=== PATIENT | female | born 1950 | race Caucasian/White ===

== ENCOUNTER 2018-10-13 09:32 | Emergency (ER) | payer MEDICARE, MEDICAID ==
[~2018-10-13] VITALS: Ht 167.6 cm; Wt 94.3 kg
[2018-10-13] MEDS ORDERED: ATOR40TA70 PO (11:08)
[2018-10-13] MEDS ORDERED: RANI150T11 PO (11:08)
[2018-10-13] MEDS ORDERED: ALPR1TAB7 PO (11:08)
[2018-10-13] MEDS ORDERED: AMLO10TA7 PO (11:08)
[2018-10-13] MEDS ORDERED: QUIN40TA14 PO (11:08)
[2018-10-13] MEDS ORDERED: GABA-490 PO (11:08)
--- NOTE | 2018-10-13 11:12 | NUR ---
TO X RAY PER W/C
--- NOTE | 2018-10-13 11:25 | NUR ---
FAMILY TO DESK REQUESTING WATER FOR PATIENT INFORMED THAT COULD NOT HAVE ANYTHING TO EAT OR DRINK INTILL WE GET X RAY BACK INCASE SHE WOULD HAVE TO GO TO SURG.
--- NOTE | 2018-10-13 11:41 | Diagnostic Imaging Report ---
INDICATION: Fall with left ankle injury and pain. FINDINGS: AP, oblique and lateral views of the left ankle reveal nondisplaced fracture involving the lateral malleolus. There is also fragmentation along the inferior margin of the medial malleolus which could represent avulsion injury. There is extensive swelling which is most pronounced on the lateral aspect of the ankle. There is also cortical irregularity along the dorsal aspect of the anterior talus. Prominent os trigonum is noted. There are also prominent posterior and plantar calcaneal spurs. IMPRESSION: Findings are suggestive of probable bimalleolar avulsion fractures without significant displacement. There may also be cortical levels and along the dorsal anterior talus. Dictated by: Dictated on workstation # [id number]
--- NOTE | 2018-10-13 11:59 | Diagnostic Imaging Report ---
CLINICAL INDICATION: Patient sustained a fall injury yesterday evening. EXAM: X-ray of the left wrist, three views. COMPARISON: None. FINDINGS: There is an impacted comminuted intra-articular fracture involving the distal radius. There is roughly 9 mm of volar radial directed displacement of the distal fracture fragment. There is positive ulnar variance of roughly 4 mm. There is a mildly distracted fracture of the distal ulnar styloid process with roughly 3 mm. There is no other fracture or dislocation of carpus seen. There is mild spurring of the first CMC joint. There is swelling about the wrist. IMPRESSION: 1: There is a comminuted, impacted, and displaced intra-articular fracture of the distal radius. There is associated positive ulnar variance. There is swelling about the wrist. 2: There is a mildly distracted fracture distal ulnar styloid process. Dictated by: Dictated on workstation # [id number]
--- NOTE | 2018-10-13 12:04 | ED Fall/Injury ---
General Chief Complaint: Trauma-Non Activation Stated Complaint: FALL;ANKLE/WRIST PAIN Nursing Triage Note: Pt reports falling this morning. Pt reports "foot fell asleep" and she lost her balance and fell. Deformity noted to L arm upon initial exam. Pt also c/o L ankle pain. Source: patient Exam Limitations: no limitations (YURI WRAY) History of Present Illness Date Seen by Provider: October 13, 2018 Time Seen by Provider: 11:20 Initial Comments Patient presents to ER by private conveyance with family and chief complaint she had a fall twisting her left ankle having some pain laterally and swelling and her left wrist has some swelling deformity and pain. No previous injuries or surgeries to these areas. Not on blood thinners. Took some Tylenol this morning but does not take NSAIDs because she thinks it'll make her blood pressure worse and does not want anything now. She says narcotics make her nauseated. She denies striking her head or loss of consciousness. (YURI WRAY) Allergies and Home Medications Allergies Uncoded Allergies: ALL PAIN MEDS (Adverse Reaction, Unknown, NAUSEA VOMITING, 10/13/18) Home Medications Hydrocodone Bit/Acetaminophen 1 Tab Tab, 1-2 EACH PO Q6H PRN for PAIN-MODERATE Prescribed by: YURI WRAY on 10/13/18 1327 Ondansetron 4 Mg Tab.rapdis, 4 MG PO Q6H PRN for NAUSEA/VOMITING Prescribed by: YURI WRAY on 10/13/18 1327 Patient Home Medication List Home Medication List Reviewed: Yes (YURI WRAY) Review of Systems Review of Systems Constitutional: No chills, No diaphoresis Eyes: Denies Blindness, Denies Blurred Vision Ears, Nose, Mouth, Throat: denies ear pain, denies ear discharge Respiratory: No cough, No dyspnea on exertion Cardiovascular: No chest pain, No palpitations Gastrointestinal: No abdominal pain, No constipation, No diarrhea Genitourinary: No discharge, No dysuria Musculoskeletal: see HPI; No back pain; joint pain (YURI WRAY) Past Ksbkxfl-Ahtasj-Slsfid Hx Patient Social History Alcohol Use: Denies Use Recreational Drug Use: No Smoking Status: Unknown if Ever Smoked Recent Foreign Travel: No Contact w/Someone Who Travel: No Recent Infectious Disease Expo: No (YURI WRAY) Past Medical History Surgeries: Yes Gallbladder Cardiac: Yes Hypertension Musculoskeletal: No Endocrine: No HEENT: No Cancer: Yes Cervical (YURI WRAY) Physical Exam Vital Signs Vital Signs - First Documented 10/13/18 10/13/18 10:47 12:47 Temp 97.5 Pulse 88 Resp 18 B/P (MAP) 145/96 (112) Pulse Ox 90 O2 Delivery Room Air O2 Flow Rate 2.00 (NANCY WHITE) Vital Signs Capillary Refill : Less Than 3 Seconds (YURI WRAY) Height, Weight, BMI Height: 5'6.00" Weight: 208lbs. oz. 94.718274ji; BMI Method:Stated General Appearance: WD/WN, mild distress HEENT: PERRL/EOMI, pharynx normal Neck: full range of motion, normal inspection Cardiovascular: normal peripheral pulses, regular rate, rhythm Respiratory: normal breath sounds, no respiratory distress, no accessory muscle use Gastrointestinal: normal bowel sounds, non tender, soft Extremities: normal capillary refill, other (distal neurovascular sensation and pulse and capillary refill less than 2 seconds on left foot and left hand. There is some swelling and tenderness of the left wrist and posterior lateral malleolus of the ankle left side) Neurologic/Psychiatric: alert, normal mood/affect, oriented x 3 (YURI WRAY ) Procedures/Interventions Splinting and Joint Reduction : Pre-Proc Neuro Vasc Exam: normal Post-Proc Neuro Vasc Exam: normal Arm Sling: Large Hand-Made Type: orthoglass (sugar tong splint was placed on left arm. Patient remained neurovascularly intact.) Splint Application: Short Arm, Short Leg (walking boot was placed on left foot.) (NANCY WHITE) Progress/Results/Core Measures Results/Orders Medications Given in ED Current Medications Medications Dose Ordered Sig/Juana Route Start Time Stop Time Status Last Admin Dose Admin Fentanyl Citrate 75 mcg ONCE ONCE IM 10/13/18 12:30 10/13/18 12:31 DC 10/13/18 12:40 75 MCG Ondansetron HCl 4 mg ONCE ONCE PO 10/13/18 12:15 10/13/18 12:16 DC 10/13/18 12:09 4 MG Tramadol HCl 50 mg ONCE ONCE PO 10/13/18 12:00 10/13/18 12:01 DC 10/13/18 12:09 50 MG (NANCY WHITE) Vital Signs/I&O 10/13/18 10/13/18 10:47 12:47 Temp 97.5 Pulse 88 Resp 18 B/P (MAP) 145/96 (112) Pulse Ox 90 O2 Delivery Room Air Nasal Cannula O2 Flow Rate 2.00 (NANCY WHITE) Blood Pressure Mean: 112 Progress Progress Note #1: Time: 12:03 Progress Note Patient says opiates make her nauseated and does not want hydrocodone's or any give her a tramadol with some Zofran. X-rays. Ice. Progress Note #2: Time: 12:27 Progress Note Plan to put a we get her and sugar tong splint on the left forearm to immobilize rotation and abduction adduction of the wrist. Plan to put a boot on the left foot for the lateral malleoli avulsion fracture. Patient says the tramadol does not help her pain is only gotten worse of any give her 75 g IM fentanyl and get her splinted which should help reduce some of her pain. She will follow-up in a week with surgeon. Progress Note #3: Time: 13:46 Progress Note Patient has a walking boot and needs a wheelchair because she has a bimalleolar malleoli or fracture of her left ankle and the orthopedic surgeons would like her toe touch only but no weightbearing even with the boot. Chain is not feasible method for nonweightbearing. She has decreased mobility secondary to her fall resulting in a fracture in her left ankle as well as some fracturing her left wrist. She will need at least for 1 week until seen the surgeon and possibly as long as 8 weeks until the fractures are healed. (YURI RWAY) Diagnostic Imaging Diagonstic Imaging: Xray Plain Films/CT/US/NM/MRI: ankle (left) Comments [facility] [place], [place] NAME: DAYANA GONZALEZ Stephanie MED REC#: [id number] PT STATUS: REG ER : 1950 PHYSICIAN: YURI WRAY MD ADMIT DATE: 10/13/18/ER Draft Date of Exam:10/13/18 ANKLE, LEFT, 3 VIEWS INDICATION: Fall with left ankle injury and pain. FINDINGS: AP, oblique and lateral views of the left ankle reveal nondisplaced fracture involving the lateral malleolus. There is also fragmentation along the inferior margin of the medial malleolus which could represent avulsion injury. There is extensive swelling which is most pronounced on the lateral aspect of the ankle. There is also cortical irregularity along the dorsal aspect of the anterior talus. Prominent os trigonum is noted. There are also prominent posterior and plantar calcaneal spurs. IMPRESSION: Findings are suggestive of probable bimalleolar avulsion fractures without significant displacement. There may also be cortical levels and along the dorsal anterior talus. Dictated on workstation # [id number] Dict: 10/13/18 1134 Trans: 10/13/18 1140 [id number] Interpreted by: TRACEY BUSBY MD Electronically signed by: Reviewed: Reviewed by Me Diagonstic Imaging: Xray Plain Films/CT/US/NM/MRI: hand (left wrist) Comments [facility] [place] NAME: DAYANA GONZALEZ [facility] REC#: [id number] PT STATUS: REG ER : 1950 PHYSICIAN: YURI RWAY MD ADMIT DATE: 10/13/18/ER Draft Date of Exam:10/13/18 WRIST, LEFT, 3 VIEWS OR MORE CLINICAL INDICATION: Patient sustained a fall injury yesterday evening. EXAM: X-ray of the left wrist, three views. COMPARISON: None. FINDINGS: There is an impacted comminuted intra-articular fracture involving the distal radius. There is roughly 9 mm of volar radial directed displacement of the distal fracture fragment. There is positive ulnar variance of roughly 4 mm. There is a mildly distracted fracture of the distal ulnar styloid process with roughly 3 mm. There is no other fracture or dislocation of carpus seen. There is mild spurring of the first CMC joint. There is swelling about the wrist. IMPRESSION: 1: There is a comminuted, impacted, and displaced intra-articular fracture of the distal radius. There is associated positive ulnar variance. There is swelling about the wrist. 2: There is a mildly distracted fracture distal ulnar styloid process. Dictated on workstation # [id number] Dict: 10/13/18 1150 Trans: 10/13/18 1158 [facility] [id number] Interpreted by: ISABELLE LEVINE MD Electronically signed by: Reviewed: Reviewed by Me (YURI WRAY) Consults : Consulting Physician: JEANNETTE MAIN DO Consults Notes Nonweightbearing boot and splint. (YURI WRAY) Departure Impression Primary Impression: Ankle fracture, left Qualified Codes: S82.892A - Other fracture of left lower leg, initial encounter for closed fracture Additional Impressions: Fracture of ulnar styloid Qualified Codes: S52.612A - Displaced fracture of left ulna styloid process, initial encounter for closed fracture Distal radius fracture, left Qualified Codes: S52.502A - Unspecified fracture of the lower end of left radius, initial encounter for closed fracture Fall Qualified Codes: W19.XXXA - Unspecified fall, initial encounter Disposition: 01 HOME, SELF-CARE Condition: Stable Departure-Patient Inst. Decision time for Depature: 13:20 (YURI WRAY) Referrals: GRISEL SERRANO (PCP) Primary Care Physician JEANNETTE MAIN DO Patient Instructions: Wrist Fracture (DC) Add. Discharge Instructions: Keep the splint on at all times and wear the sling. Stay nonweightbearing on the left foot until a few seen in the orthopedic surgeon and wear the boot. Keep the limbs elevated above the level of your heart when possible to help with swelling and pain. For the first 1-2 days and ice pack every 4 hours can be helpful for pain and swelling. Tylenol 650 mg every 8 hours and hydrocodone one tablet every 6 hours as needed for pain. If you have nausea associated with the hydrocodone you can use Zofran 1 tablet every 6 hours as needed. You can use MiraLAX 1 capful once or twice a day to stay regular as hydrocodone will cause constipation. Follow-up with primary care to help manage symptoms. Call Dr. Main's office at [facility] an appointment in the next week for further management of your fractures. All discharge instructions reviewed with patient and/or family. Voiced understanding. Scripts Wheelchair (Wheelchair) 1 Each Each EACH for Pain, #1 0 Refills Prov: YURI WRAY 10/13/18 Ondansetron (Ondansetron Odt) 4 Mg Tab.rapdis 4 MG PO Q6H PRN for NAUSEA/VOMITING, #20 TAB 0 Refills Prov: YURI WRAY 10/13/18 Hydrocodone Bit/Acetaminophen (Hydrocodone/Acetaminophen 5/325mg Tablet) 1 Tab Tab 1-2 EACH PO Q6H PRN for PAIN-MODERATE MDD 10 for 3 Days, TAB 0 Refills Prov: YURI WRAY 10/13/18 YURI WRAY October 13, 2018 12:04 NANCY WHITE October 13, 2018 14:02
[2018-10-13] MEDS ORDERED: ONDANSETRON 4 MG (ZOFRAN) ORAL DISSOLVE TAB PO ONE (12:15)
[2018-10-13] MEDS ORDERED: fentaNYL INJECTION 100 MCG/2 ML AMP IM ONE (12:30)
--- NOTE | 2018-10-13 12:46 | NUR ---
PATIENT PLACED ON 02 2L SAO2 89% BEFORE GIVING IM PAIN MEDS
[2018-10-13] MEDS ORDERED: ACHD5005 PO (13:27)
[2018-10-13] MEDS ORDERED: ONDA4TAB11 PO (13:27)
--- NOTE | 2018-10-13 13:33 | NUR ---
CALLED DME TO CHECK ON WHAT WAS NEEDED TO GET W/C FOR PATIENT LIST GIVEN AND GIVEN TO
[2018-10-13] MEDS ORDERED: WHEE1EAC3 MC (13:48)
--- NOTE | 2018-10-13 13:51 | NUR ---
FAMILY DECIDED THAT THEY HAD A W/C WOULD USE THE ONE THEY HAVE AT HOME Addendum: 10/13/18 at 1352 by PMCCLURE DME NOTIFED.
[2018-10-13 13:52] VITALS: BP 137/73
--- NOTE | 2018-10-13 13:53 | NUR ---
SPLINT PLACED BY NANCY WHITE APRN AND WAYNETE BOOT ALSO PLACE BY NANCY.
--- NOTE | 2018-10-13 13:54 | NUR ---
DME NOTIFIED THAT WE WOULD NOT BE NEEDING W/C NOW.
[2018-10-14] MEDS ORDERED: LOSA100T57 PO (18:10)
[2018-10-14] MEDS ORDERED: ONDA4TAB11 PO (18:13)
[2018-10-14] MEDS ORDERED: ASPI-999 PO (18:14)
[2018-10-14] MEDS ORDERED: PROC-1 PO (18:15)
== END 2018-10-13 14:00 | disposition home or self-care (01) ==
LOC: EDUNIT# 09:32 → ER 09:33
DX: S52.572A Other intraarticular fracture of lower end of left radius, initial encounter for closed fracture (principal); S52.612A Displaced fracture of left ulna styloid process, initial encounter for closed fracture; S82.892A Other fracture of left lower leg, initial encounter for closed fracture; I10 Essential (primary) hypertension; Z85.41 Personal history of malignant neoplasm of cervix uteri; W19.XXXA Unspecified fall, initial encounter; X50.1XXA Overexertion from prolonged static or awkward postures, initial encounter
CPT/HCPCS: 29105; 73110; 73610

== ENCOUNTER 2018-10-14 14:23 | Inpatient (IN) | payer MEDICARE, MEDICAID ==
[2018-10-14] VITALS (11 sets, daily range): BP systolic 95–163; BP diastolic 44–100
[~2018-10-14] VITALS: Ht 167.6 cm; Wt 102.4 kg
[~2018-10-14 14:23] MED LIST: ACHD5005 PO; ALPR1TAB7 PO; AMLO10TA7 PO; ATOR40TA70 PO; GABA-490 PO; ONDA4TAB11 PO; QUIN40TA14 PO; RANI150T11 PO; WHEE1EAC3 MC
[2018-10-14] MEDS ORDERED: MIDAZOLAM 5 MG/5 ML (VERSED) VIAL IJ ONE (14:27)
[2018-10-14] MEDS ORDERED: SUCCINYLCHOLINE INJ 100 MG/5 ML SYR INJ ONE (14:27)
[2018-10-14] MEDS ORDERED: ETOMIDATE IV SOLN 20 MG/10 ML VIAL IV ONE (14:27)
--- NOTE | 2018-10-14 14:28 | NUR ---
1428-PATIENT ARRIVED VIA EMS. MOVED FROM EMS COT TO HOSPITAL BED. IV 20 GA IN RIGHT HAND. 1432- VITAL SIGNS OBTAINED. HR 90, END TIDAL CO2 39 WITH EMS MICHAEL AIRWAY AND BVM WITH OXYGEN AT 15 LPM. OXYGEN SATURATION OF 70%. 14:38- ETOMIDATE 20 MG GIVEN IV. 14:39- SUCCYCHOLINE 100 MG GIVEN IV. 14:40- 82/60, PULSE-92, O2 SAT-82% 14:40- PATIENT INTUBATED WITH VIDEO LARYNGOSCOPE BY DR. WRAY WITH 8.0 ETT. 24 CM AT THE LIPS. CONFIRMED WITH TUBE PASSING THROUGH VOCAL CORDS, POSITIVE COLORMETRIC CHANGE, EQUAL BREATH SOUNDS TO BILATERAL LUNGS, NO BREATH SOUNDS OVER EPIGASTRIC AREA. MISTING PRESENT IN TUBE. 14:41- ETT SUCTIONED BY RT WITH YELLOW LIQUID SUCTIONED FROM LUNGS. 14:43- FINGERSTICK BLOOD GLUCOSE 201 14:43- PATIENT PLACED ON VENT BY RT. 14:46- PATIENT EARRINGS AND NECKLACE PLACED IN MED BAG TO GIVE TO FAMILY. 14:50-IV ATTEMPTS X 2 WITH NO SUCCESS. 14:56 -VERSED 5 MG IV GIVEN DUE TO PATIENT MOVING AND BUCKING AT ETT. 14:56- OG TUBE PLACED BY SHANIKA MOORE. 15:08- TRIPLE LUMEN CENTRAL LINE STARTED BY DR. WRAY TO PATIENT'S RIGHT NECK AREA.
--- OUTSIDE RECORDS SUMMARY | 2018-10-14 14:37 | XMS REPORT ---
Author Author Migration, Doctor Organization [facility] Address Unknown Phone Unavailable Care Team Providers Care Steam Conditioner Operator Name Role Phone Migration, Doctor Unavailable Unavailable PROBLEMS Type Condition ICD9-CM Code [id number] Code Onset Dates Condition Status SNOMED Code Problem Unspecified abnormal mammogram 793.80 Active 032144531 Problem Personal history of tobacco use, presenting hazards to health V15.82 Active 4377377756682 Problem Unspecified backache 724.5 Active 970603915 Problem Chest pain, unspecified 786.50 Active 55650479 Problem 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 Active 4376452518112 Problem Sciatica 724.3 Active 12529853 Problem 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 73338512 Problem Coronary atherosclerosis of unspecified type of vessel, [place] or graft 414.00 Active 460482659 Problem Hyperlipidemia 272.4 Active 49535807 Problem Hyperlipidemia, unspecified hyperlipidemia type E78.5 Active 21154646 Problem History of cervical cancer Z85.41 Active 134889601 Problem Anxiety F41.9 Active 63051622 Problem Epiploic appendagitis K52.9 Active 51832194951355750 Problem History of pulmonary embolus (PE) Z86.711 Active 754599048 Problem Malignant neoplasm of cervix uteri, unspecified site 180.9 Active 827362964 Problem Encounter for long-term (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 other medications V58.69 Active 610183162 Problem Essential hypertension I10 Active 63461355 Problem Other exterminator (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 Active 914107247 Problem Long-term (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 anticoagulants Z79.01 Active 002145001 Problem Atherosclerotic heart disease of [place] coronary artery without angina pectoris I25.10 Active [id number] ALLERGIES No Information ENCOUNTERS Encounter Location Date Diagnosis [facility] [address] [facility] [id number] [address] Nov, [facility] [id number] [address] Aug, [address].9 [facility] [address] [address] Jul, [facility] [id number] [place] [address] 43997- 1841 Jun, [address].9 [facility] [id number] [place] [address] 20874- 6206 Jun, [facility] [id number] [place] [address] 74707- 2549 May, [facility] [id number] [address] 57748- 6843 May, Hyperlipidemia, unspecified hyperlipidemia type E78.5 [facility] [id number] [place] [address] 30068- 7548 Apr, [address]41.9 [facility] [id number] [address] 58476- 7883 Mar, [facility] [id number] [address] 67287- 4793 Mar, Essential hypertension I10 ; History of pulmonary embolus ( PE) Z86.711 ; Anxiety F41.9 and Malignant neoplasm of cervix, unspecified site C53.9 [facility] [address], [place] [address] 1254 Mar, Atherosclerotic heart disease of [place] coronary artery without angina pectoris I25.10 [facility] [address] [address] 6[address] 30 Feb, 2016 Atherosclerotic heart disease of [place] coronary artery without angina pectoris I25.10 [facility] [id number] [address] 26730- 5317 Feb, Anxiety F41.9 [facility] [address] [address] 9147 Feb, [facility] [id number] [address] 65033- 9195 Feb, Other exterminator (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 [facility] [address] [address]- 7626 Jan, [address] F41.9 [facility] [id number] [address]80 2546 Jan, Long-term (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 anticoagulants Z79.01 [facility] [id number] [address] 90862 2546 Jan, Anxiety F41.9 [facility] [address] 25598- 6488 Dec, Long-term (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 anticoagulants Z79.01 [facility] [address] [address]66- 1616 Dec, [facility] [address] [address]42- [address]51 Dec, [facility] [address] 86083- 2547 Dec, Anxiety F41.9 [facility] [id number] [address] 64083- 6787 Nov, [facility] [id number] [address] 49260- 4884 Nov, [facility] [address] [address] 2544 Nov, Long-term (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 anticoagulants Z79.[address] [facility] [address] 20863 2546 Nov, [facility] [id number] [place] [address] 12147 2546 Nov, Anxiety F41.9 [facility] [address] 43662- 3744 Nov, High risk medication use Z79.899 [facility] [address] [address] [address] [id number] [place] [address] October long term care pharmacist (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 anticoagulants Z79.01 [facility] [id number] [address] 2540 October, Other exterminator (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 [facility] [address] [place] [address]22- 3323 October, [facility] [id number] [place] [address] 55533- 8314 October, [place] [address] [place] [address] 42515- 4925 Sep, High risk medications (not anticoagulants) long-term use V58.69 and Other alf (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 [place] [id number], [place] [address] Sep, [facility] [address], [place] [address] 9638 Aug, [place] [address] [address] 8483 Aug, [place] [facility] [id number] [address] Aug, [facility] [id number] [address] 32[address] Jul, High risk medications (not anticoagulants) long-term use V58.69 ; Essential hypertension I10 ; Hyperlipidemia, unspecified hyperlipidemia type E78.5 and Other alf (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 [facility] [id number] [address] Jul, [facility] [id number], [place] [address] 50[address] Jun, High risk medications (not anticoagulants) long-term use V58.69 [facility] [address], [place] [address] Jun, [facility] [address] [place] [address] 585971- [address] Jun, [facility] [address] [address] 85493- 6565 Jun, [facility] [id number] [address] 27204- [address] May, [facility] [id number] [place] [address] 57246- 6484 May, [facility] [id number] [place] [address] 27185- 2252 May, Other exterminator (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 [facility] [id number] [address] 81310- 0922 May, [facility] [id number] [place] [address] 05008- 3683 May, Essential hypertension I10 ; Hyperlipidemia, unspecified hyperlipidemia type E78.5 and History of cervical cancer Z85.41 [place] [address], [place] [address] Apr, [facility] [address] [place] [address] 66919- 6269 Apr, High risk medications (not anticoagulants) long-term use V58.69 [facility] [address], [place] [address]- 3171 Mar, [place] [id number] [address] 41447- 2040 Mar, Other exterminator (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 [facility] [address] [address] 74590- 1708 Feb, [facility] [address], [place] [address]- 9256 Feb, [facility] [address] [address] 83103- 7396 Feb, High risk medications (not anticoagulants) long-term use V58.69 ; Pneumonia 486 and Gait disturbance 781.2 [place] [id number] [address] 15670- 3016 Feb, [facility] [address] [id number] [address] 2545 Feb, [place] [id number] [place] [address] 83854- 0326 Feb, [facility] [address] [address] 85043- 0314 Jan, High risk medications (not anticoagulants) long-term use V58.69 [facility] [address] [place] [address] 26562- 7290 Jan, [facility] [address] [place] [address] 90509- 9736 Dec, High risk medications (not anticoagulants) long-term use V58.69 [place] [address], [place] [address]- 5042 Dec, long term care pharmacist current use of anticoagulant therapy V58.61 [place] [address] [address] 11432- 3185 Dec, [facility] [address], [place] [address] [address], [facility] [address] [place] [address] 83557- 2546 Dec, [facility] [address], [place] [address]- 9949 Nov, 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 and Encounter for long-term (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 other medications V58.69 [facility] [address], [place] [address]- 5904 Nov, [facility] [id number] [address]- 8549 Nov, [facility] [address] [address]- 4136 October, [facility] [id number] [address] 34830- 7981 October, [facility] [address], [place] [address]- 9594 October, High risk medication use V58.69 ; Cervical cancer 180.9 ; Neuropathy 355.[address] [facility] [address], [place] [address]- 2825 October, [facility] [id number] [address]- 7058 Sep, [facility] [address], [place] [address]- 7016 Sep, [facility] [address], [place] [address]- 4490 Sep, [facility] [address], [place] [address]- 1795 Aug, [facility] [address], [place] [address]- 0526 Aug, [facility] [address], [place] [address]- 8934 Aug, [facility] [address], [place] [address]- 8175 18 Aug, 2014 [facility] [address] 3003 17 Aug, 2014 [facility] [address], [place] [address]- 0370 Jul, [facility] [place] [facility] [address] [id number] [place] [address]- 7486 Jul, [facility] [place] [facility] [address] [id number] [place] [address]- 7496 Jul, [facility] [place] [facility] [address] [id number] [place] [address]- 5776 Jul, [facility] [place] [facility] [address] [id number] [place] [address]- 6639 Jul, [facility] [place] [facility] [address] [id number] [place] [address]- 4536 Jul, [facility] [place] [facility] [address] [facility] [id number] [place] [address]- 3556 Jul, [facility] [place] [facility] [address] [facility] [id number] [place] [address]- 0874 Jul, [facility] [place] [facility] [address] [id number] [place] [address]- 2561 Jun, [facility] [place] [facility] [address] [id number] [place] [address]- 4402 Jun, [facility] [place] [facility] [address] [facility] [id number], [place] [address]- 8634 Jun, [facility] [place] [facility] [address] [id number] [place] [address]- 4909 Jun, [facility] [place] [facility] [address] [id number], [place] [address]- 8605 Jun, [facility] [place] [facility] [address] [id number] [place] [address]- 3517 Jun, [facility] [place] [facility] [address] [facility] [id number], [place] [address]- 6385 Jun, [facility] [place] [facility] [address] [id number] [address]- 2223 Jun, [facility] [place] [facility] [address] [id number] [place] [address]- 0908 Jun, [facility] [place] [facility] [address] [id number] [place] [address]- 0433 Jun, [facility] [place] [facility] [address] [id number] [place] [address]- 5537 Jun, [facility] [address] [id number] [place] [address]- 4623 Jun, [facility] [address] [id number] [place] [address]- 1632 May, [facility] [place] [facility] [address] [id number] [place] [address]- 8187 May, [facility] [address] [id number] [place] [address]- 1369 May, [facility] [address] [id number] [place] [address]- 9549 May, [facility] [place] [facility] [address] [id number] [place] [address]- 6585 May, [facility] [place] [facility] [address] [id number] [place] [address]- 6896 May, [facility] [place] [facility] [address] [id number] [place] [address]- 0644 May, [facility] [place] [facility] [address] [id number] [place] [address]- 6213 May, [facility] [place] [facility] [address] [id number] [place] [address]- 7915 May, [facility] [place] [facility] [address] [id number] [place] [address]- 0329 May, [facility] [place] [facility] [address] [id number] [place] [address]- 0718 May, [facility] [place] [facility] [address] [id number] [place] [address]- 0864 May, [facility] [place] [facility] [address] [id number] [place] [address]- 1332 May, [facility] [place] [facility] [address] [id number] [place] 4640 May, [facility] [place] [facility] [address] [id number] [place] [address]- 0158 May, [facility] [place] [facility] [address] [id number] [place] [address]- 4133 May, [facility] [place] [facility] [address] [id number] [place] [address]- 2144 May, [facility] [place] [facility] [address] [id number] [place] [address]- 0650 May, [facility] [place] [facility] [address] [id number] [place] [address]- 7667 May, [facility] [place] [facility] [address] [id number] [place] [address]- 6331 Apr, [facility] [place] [facility] [address] [id number] [place] [address]- 2797 Apr, [facility] [place] [facility] [address] [id number] [place] [address]- 8021 Apr, [facility] [place] [facility] [address] [id number] [place] [address]- 3469 Apr, [facility] [place] [facility] [address] [id number], [place] [address]- 4685 Apr, [facility] [place] [facility] [address] [id number] [place] [address]- 8652 Apr, [facility] [place] [facility] [address] [id number] [place] [address]- 6255 Apr, [facility] [place] [facility] [address] [id number] [place] [address]- 1130 Apr, [facility] [place] [facility] [address] [id number] [place] [address]- 2918 Apr, [facility] [place] [facility] [address] [id number] [place] [address]- 7853 Mar, [facility] [place] [facility] [address] [id number] [place] [address]- 6423 Mar, [facility] [place] [facility] [address] [id number] [place] [address]- 4411 Mar, [facility] [place] [facility] [address] [id number] [place] [address]- 3427 Mar, [facility] [place] [facility] [address] [id number] [place] [address]- 0609 Mar, [facility] [place] [facility] [address] [id number] [place] [address]- 2631 Mar, [facility] [place] [facility] [address] [id number] [place] [address]- 0129 Mar, [facility] [place] [facility] [address] [id number] [place] [address]- 6011 Mar, [facility] [place] [facility] [address] [id number] [place] [address]- 2178 Mar, [facility] [place] [facility] [address] [id number] [place] [address]- 3773 Mar, [facility] [place] [facility] [address] [id number] [place] [address]- 5468 Mar, [facility] [place] [facility] [address] [id number] [place] [address]- 4435 Mar, [facility] [place] [facility] [address] [id number] [place] 7574 Mar, [facility] [place] [facility] [address] [id number] [place] [address]- 9066 Mar, [facility] [place] [facility] [address] [id number] [place] [address]- 6981 Mar, [facility] [place] [facility] [address] [id number] [place] [address]- 0054 18 Feb, 2013 [facility] [place] [facility] [address] [id number] [place] [address]- 3648 Feb, 2013 [facility] [place] [facility] [address] [id number] [place] [address]- 2398 Feb, 2013 [facility] [place] [facility] [address] [id number] [place] [address]- 1294 Feb, 2013 [facility] [place] [facility] [address] [id number] [place] [address]- 4090 Feb, 2013 [facility] [place] [facility] [address] [id number] [place] [address]- 0158 Feb, 2013 [facility] [place] [facility] [address] [id number] [place] [address]- 8810 Feb, 2013 [facility] [place] [facility] [address] [id number] [place] [address]- 7185 Feb, 2013 [facility] [place] [facility] [address] [id number] [place] [address]- 3689 Jan, [facility] [place] [facility] [address] [id number] [place] [address]- 7466 Jan, [facility] [place] [facility] [address] [id number], [place] [address]- 3139 Jan, [facility] [place] [facility] [address] [id number], [place] [address]- 2176 Jan, [facility] [place] [facility] [address] [id number] [place] [address]- 8801 Jan, [facility] [place] [facility] [address] [id number] [place] [address]- 8885 Jan, [facility] [place] [facility] [address] [id number] [address]- 1968 Jan, [facility] [place] [facility] [address] [id number][place] [address]- 5332 Jan, [facility] [place] [facility] [address] [id number] [place] [address]- 4856 Jan, [facility] [place] [facility] [address] [id number] [place] [address]- 7215 Jan, [facility] [place] [facility] [address] [id number] [place] [address]- 3034 Jan, [facility] [place] [facility] [address] [id number] [place] [address]- 0883 Jan, [facility] [place] [facility] [address] [id number] [place] [address]- 8249 Jan, [facility] [place] [facility] [address] [id number] [place] [address]- 5423 Jan, [facility] [place] [facility] [address] [id number] [place] [address]- 7727 Jan, [facility] [place] [facility] [address] [id number] [place] [address]- 8609 Jan, [facility] [place] [facility] [address] [id number] [place] [address]- 2888 Jan, [facility] [place] [facility] [address] [id number] [place] [address]- 5649 Dec, [facility] [place] [facility] [address] [id number] [place] [address]- 9926 Dec, [facility] [place] [facility] [address] [id number] [place] [address]- 1602 Dec, [facility] [place] [facility] [address] [id number] [place] [address]- 9822 Dec, [facility] [place] [facility] [address] [id number] [place] [address]- 4304 Dec, [facility] [place] [facility] [address] [id number] [place] [address]- 1074 Dec, [facility] [place] [facility] [address] [id number] [place] [address]- 0459 Dec, [facility] [place] [facility] [address] [id number] [place] [address]- 2384 Dec, [facility] [place] [facility] [address] [id number] [place] [address]- 3702 Dec, [facility] [place] [facility] [address] [id number] [place] [address]- 7522 Dec, [facility] [place] [facility] [address] [id number] [place] [address]- 8583 Dec, [facility] [place] [facility] [address] [id number] [place] [address]- [address] Dec, [facility] [place] [facility] [address] [id number] [place] [address] Nov, [facility] [place] [facility] [address] [id number] [place] [address] Nov, [facility] [place] [facility] [address] [id number] [place] [address] Nov, [facility] [place] [facility] [address] [id number] [place] [address] Nov, [facility] [place] [facility] [address] [id number] [place] [address] Nov, [facility] [place] [facility] [address] [id number] [place] [address] Nov, [facility] [place] [facility] [address] [id number] [place] [address] October, [facility] [place] [facility] [address] [id number] [place] [address] October, [facility] [place] [facility] [address] [id number] [place] [address] October, [facility] [place] [facility] [address] [id number] [place] [address] October, [facility] [address] [id number] [place] [address] October, [facility] [place] [facility] [address] [id number] [place] [address] October, [facility] [place] [facility] [address] [id number] [place] [address] October, [facility] [place] [facility] [address] [id number] [place] [address] October, [facility] [address] [id number] [place] [address] October, [facility] [place] [facility] [address] [id number] [place] [address] October, [facility] [address] [id number] [place] [address] October, [facility] [place] [facility] [address] [id number] [place] [address] October, [facility] [place] [facility] [address] [id number] [place] [address] October, [facility] [place] [facility] [address] [id number] [place] [address] October, [facility] [place] [facility] [address] [id number] [place] [address] October, [facility] [place] [facility] [address] [id number] [place] [address] October, [facility] [place] [facility] [address] [id number] [place] [address] 47[address] October, [facility] [place] [facility] [address] [id number] [place] [address] October, [facility] [place] [facility] [address] [id number] [place] [address] October, [facility] [place] [facility] [address] [id number] [place] [address] October, [facility] [address] [id number] [place] [address]- [address] October, [facility] [place] [facility] [address] [id number] [place] [address] October, [facility] [address] [id number] [place] [address] October, [facility] [place] [facility] [address] [id number] [place] [address] October, [facility] [place] [facility] [address] [id number] [place] [address] October, [facility] [place] [facility] [address] [id number] [place] [address] October, [facility] [address] [id number] [place] [address] October, [facility] [place] [facility] [address] [id number] [place] [address] October, [facility] [place] [facility] [address] [id number] [place] [address] October, [facility] [place] [facility] [address] [id number] [place] [address] Sep, [facility] [place] [facility] [address] [id number] [place] [address] Sep, [facility] [place] [facility] [address] [id number] [place] [address] Jun, [facility] [place] [facility] [address] [id number] [place] [address] Jun, [facility] [place] [facility] [address] [id number] [place] [address] May, [facility] [place] [facility] [address] [id number] [place] [address] May, [facility] [place] [facility] [address] [id number] [place] [address] May, [facility] [place] [facility] [address] [id number] [place] [address] Apr, [facility] [place] [facility] [address] [id number] [place] [address]- [address] Mar, [facility] [facility] [address] [id number] [place] [address] Mar, [facility] [address] [id number] [place] [address] Mar, [facility] [place] [facility] [address] [id number] [place] [address] Mar, [facility] [address] [id number] [place] [address] Jan, [facility] [address] [id number] [place] [address] Dec, [facility] [address] [id number] [place] [address] Nov, [facility] [address] [id number] [place] [address] October, [facility] [place] [facility] [address] [id number] [place] [address] October, [facility] [place] [facility] [address] [id number] [place] [address] Aug, [facility] [place] [facility] [address] [id number] [place] [address] Jul, [facility] [place] [facility] [address] [id number] [place] [address] Jun, [facility] [place] [facility] [address] [id number] [place] [address] Jun, [facility] [place] [facility] [address] [id number] [place] [address] May, [facility] [place] [facility] [address] [id number] [place] [address] May, [facility] [place] [facility] [address] [id number] [place] [address] May, [facility] [place] [facility] [address] [id number] [place] [address] Apr, [facility] [place] [facility] [address] [id number] [place] [address] Apr, [facility] [place] [facility] [address] [id number] [place] [address] Apr, [facility] [place] [facility] [address] [id number] [place] [address] Apr, [facility] [place] [facility] [address] [id number] [place] [address] Apr, [facility] [place] [facility] [address] [id number] [place] [address] Apr, [facility] [place] [facility] [address] [id number] [place] [address] Apr, [facility] [place] [facility] [address] [id number] [place] [address] Apr, [facility] [place] [facility] [address] [id number] [place] [address] Feb, [facility] [place] [facility] [address] [id number] [place] [address] Jan, [facility] [place] [facility] [address] [id number] [place] [address] Jan, [facility] [place] [facility] [address] [id number] [place] [address] Jan, [facility] [place] [facility] [address] [id number] [place] [address] Dec, [facility] [facility] [address] [id number] [place] [address] Nov, [facility] [address] [id number] [place] [address] October, [facility] [address] [id number] [place] [address] October, [facility] [address] [id number] [place] [address] Sep, [facility] [address] [id number] [place] [address] Sep, [facility] [address] [id number] [place] [address] Sep, [facility] [address] [id number] [place] [address] Aug, [facility] [address] [id number] [place] [address] Jul, [facility] [address] [id number] [place] [address] Jun, [facility] [address] [id number] [place] [address] Jun, [facility] [address] [id number] [place] [address] May, [facility] [address] [id number] [place] [address] May, [facility] [address] [id number] [place] [address] May, [facility] [address] [id number] [place] [address] Apr, [facility] [address] [id number] [place] [address] Apr, [facility] [address] [id number] [place] [address] Mar, [facility] [address] [facility] [id number] [address] Mar, [facility] [address] [id number] [address] Dec, [facility] [address] [facility] [id number], [place] [address] Apr, [facility] [address] [facility] [id number], [place] [address] Apr, IMMUNIZATIONS No Known Immunizations SOCIAL HISTORY Never Assessed REASON FOR VISIT EMR-[facility] PLAN OF CARE VITAL SIGNS MEDICATIONS Unknown Medications RESULTS No Results PROCEDURES No Known procedures INSTRUCTIONS MEDICATIONS ADMINISTERED No Known Medications MEDICAL (GENERAL) HISTORY Type Description Date Medical History deep vein thrombosisms/p hysterectomy 10/26/2013 Medical History depression (severe major) Medical History Anxiety disorder Medical History PTSD (some features of) Medical History panic disorder 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 Cosme Amaro) 11/2013 Surgical History hysterectomy for cerival CA SCC FIGO stage IB1, 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 [facility]) 10/18/2013 Surgical History tubal ligation 1974 Surgical History cholecystectomy 1970 Hospitalization History radical hysterectomy 10/18/13
--- OUTSIDE RECORDS SUMMARY | 2018-10-14 14:37 | XMS REPORT ---
Author Author Migration, Doctor Organization [facility] Address Unknown Phone Unavailable Care Team Providers Care Lead Technician Name Role Phone Migration, Doctor Unavailable Unavailable PROBLEMS Type Condition ICD9-CM Code TFI25-[place] Code Onset Dates Condition Status SNOMED Code Problem Unspecified abnormal mammogram 793.80 Active 151877609 Problem Personal history of tobacco use, presenting hazards to health V15.82 Active 1985721307327 Problem Unspecified backache 724.5 Active 098739301 Problem Chest pain, unspecified 786.50 Active 64428562 Problem 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 Active 2183876130448 Problem Sciatica 724.3 Active 61153000 Problem 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 75265757 Problem Coronary atherosclerosis of unspecified type of vessel, [place] or graft 414.00 Active 837692547 Problem Hyperlipidemia 272.4 Active 79499093 Problem Hyperlipidemia, unspecified hyperlipidemia type E78.5 Active 64144920 Problem History of cervical cancer Z85.41 Active 986348757 Problem Anxiety F41.9 Active 99413949 Problem Epiploic appendagitis K52.9 Active 59099990158093447 Problem History of pulmonary embolus (PE) Z86.711 Active 431136173 Problem Malignant neoplasm of cervix uteri, unspecified site 180.9 Active 981524840 Problem Encounter for long-term (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 other medications V58.69 Active 209975071 Problem Essential hypertension I10 Active 95748079 Problem Other intermediate card tender (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 Active 794913358 Problem Long-term (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 anticoagulants Z79.01 Active 349680302 Problem Atherosclerotic heart disease of [place] coronary artery without angina pectoris I25.10 Active [id number] ALLERGIES No Information ENCOUNTERS Encounter Location Date Diagnosis [facility] [address] [facility] [id number] [address] Nov, [facility] [id number] [address] Aug, Anxiety F41.9 [facility] [address], [place] [address] Jul, [facility] [id number] [place] [address] 72751- 9034 Jun, Anxiety F41.9 [facility] [id number] [place] [address] 84845- 8523 Jun, [facility] [id number] [place] [address] 73195- 8649 May, [facility] [id number] [place] [address] 70304- 5173 May, Hyperlipidemia, unspecified hyperlipidemia type E78.5 [facility] [id number] [place] [address] 47926- 6957 Apr, Anxiety F41.9 [facility] [id number] [place] [address] 16650- 9155 Mar, [facility] [id number] [place] [address] 07574- 3729 Mar, Essential hypertension I10 ; History of pulmonary embolus ( PE) Z86.711 ; Anxiety F41.9 and Malignant neoplasm of cervix, unspecified site C53.9 [facility] [address], [place] [address] 39[address] Mar, Atherosclerotic heart disease of [place] coronary artery without angina pectoris I25.10 [facility] [address], [place] [address] 86[address] 30 Feb, 2016 Atherosclerotic heart disease of [place] coronary artery without angina pectoris I25.10 [facility] [id number] [place] [address] 72560- 5859 Feb, Anxiety F41.9 [facility] [address], [place] [address] 8461 Feb, [facility] [id number] [place] [address] 64884- 8505 Feb, Other intermediate card tender (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 [facility] [address] [address]- 8276 Jan, Anxiety F41.9 [facility] [id number] [place] [address] 43612 2546 Jan, Long-term (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 anticoagulants Z79.01 [facility] [id number] [place] [address] 42656 2546 Jan, Anxiety F41.9 [facility] [address] [address]24- 1773 Dec, Long-term (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 anticoagulants Z79.01 [facility] [address] 66976- 5476 Dec, [facility] [address] 07152- 5105 Dec, [facility] [address] 21223- 2540 Dec, Anxiety F41.9 [facility] [id number] [place] [address] 20344- 5134 Nov, [facility] [id number] [place] [address] 90912- 7597 Nov, [facility] [address] [address] 2544 Nov, Long-term (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 anticoagulants Z79.01 and Seizures R56.9 [facility] [address] [address] 2546 Nov, [facility] [id number] [place] [address] 25503 2546 Nov, Anxiety F41.9 [facility] [address] 46569- 2755 Nov, High risk medication use Z79.899 [facility] [address] [id number] [place] [address] October watermaster (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 [place] [id number], [place] [address] 2431 Sep, [facility] [address], [place] [address] 6406 Aug, [address] [address], [place] [address] 3013 Aug, [place] [id number], [place] [address] 5868 Aug, [facility] [id number], [place] [address] 264[address] Jul, High risk medications (not anticoagulants) long-term use V58.69 ; Essential hypertension I10 ; Hyperlipidemia, unspecified hyperlipidemia type E78.5 and Other fci (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 [facility] [id number], [place] [address] 5844 Jul, [facility] [id number], [place] [address] 0707 Jun, High risk medications (not anticoagulants) long-term use V58.69 [facility] [address], [place] [address] 7249 Jun, [facility] [address] [place] [address] 335497- 7109 Jun, [facility] [id number] [place] [address] 43038- 1340 Jun, [facility] [id number] [place] [address] 49480- 3660 May, [facility] [id number] [place] [address] 29014- 4086 May, [facility] [id number] [place] [address] 57931- 2255 May, Other intermediate card tender (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 [facility] [id number] [place] [address] 75010- 7383 May, [facility] [id number] [place] [address] 06019- 9267 May, Essential hypertension I10 ; Hyperlipidemia, unspecified hyperlipidemia type E78.5 and History of cervical cancer Z85.41 [place] [address], [place] [address] 7132 Apr, [facility] [address] [place] [address] 24478- 1658 Apr, High risk medications (not anticoagulants) long-term use V58.69 [facility] [address], [place] [address]- 6583 Mar, [place] [id number] [place] [address] 62289- 5220 Mar, Other intermediate card tender (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 [facility] [address] [place] [address] 19160- 0584 Feb, [facility] [address], [place] [address]- 0336 Feb, [facility] [address] [place] [address] 53410- 7006 Feb, High risk medications (not anticoagulants) long-term use V58.69 ; Pneumonia 486 and Gait disturbance 781.2 [place] [id number] [place] [address] 65475- 4636 Feb, [facility] [id number], [place] [address] 2544 Feb, [place] [id number] [place] [address] 28909- 1802 Feb, [facility] [address] [place] [address] 25179- 4786 Jan, High risk medications (not anticoagulants) long-term use V58.69 [facility] [address] [place] [address] 48477- 7094 Jan, [facility] [address] [place] [address] 83941- 8188 Dec, High risk medications (not anticoagulants) long-term use V58.69 [address] [address], [place] [address]- 7364 Dec, watermaster current use of anticoagulant therapy V58.61 [place] [address] [place] [address] 67349- 3423 Dec, [facility] [address], [place] [address] 2546 Dec, [facility] [id number] [place] [address] 51124- 2546 Dec, [facility] [address], [place] [address]- 3991 Nov, 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 and Encounter for long-term (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 other medications V58.69 [facility] [address], [place] [address]- 3752 Nov, [facility] [id number], [place] [address]- 6604 Nov, [facility] [address], [place] [address]- 2094 October, [facility] [id number] [place] [address] 47924- 5781 October, [facility] [address], [place] [address]- 4198 October, High risk medication use V58.69 ; Cervical cancer 180.9 ; Neuropathy 355.9 and Hyperlipidemia 272.4 [facility] [address], [place] [address]- 4932 October, [facility] [id number], [place] [address]- 8869 Sep, [facility] [address], [place] [address]- 1336 Sep, [facility] [address], [place] [address]- 4461 Sep, [facility] [address], [place] [address]- 5564 Aug, [facility] [address], [place] [address]- 7971 Aug, [facility] [address], [place] [address]- 2668 Aug, [facility] [address], [place] [address]- 2911 18 Aug, 2014 [facility] [address] 0101 17 Aug, 2014 [facility] [address], [place] [address]- 6298 Jul, [facility] [place] [facility] [address] [id number] [place] [address]- 3336 Jul, [facility] [place] [facility] [address] [id number] [place] [address]- 1820 Jul, [facility] [place] [facility] [address] [id number] [place] [address]- 0986 Jul, [facility] [place] [facility] [address] [id number] [place] [address]- 1918 Jul, [facility] [place] [facility] [address] [id number] [place] [address]- 4415 Jul, [facility] [place] [facility] [address] [facility] [id number] [place] [address]- 3549 Jul, [facility] [place] [facility] [address] [facility] [id number] [place] [address]- 6768 Jul, [facility] [place] [facility] [address] [id number] [place] [address]- 2665 Jun, [facility] [place] [facility] [address] [id number] [place] [address]- 2393 Jun, [facility] [place] [facility] [address] [facility] [id number], [place] [address]- 0173 Jun, [facility] [place] [facility] [address] [id number] [place] [address]- 1920 Jun, [facility] [place] [facility] [address] [id number], [place] [address]- 4397 Jun, [facility] [place] [facility] [address] [id number] [place] [address]- 7651 Jun, [facility] [place] [facility] [address] [facility] [id number], [place] [address]- 1383 Jun, [facility] [place] [facility] [address] [id number], [place] [address]- 3497 Jun, [facility] [place] [facility] [address] [id number] [place] [address]- 3317 Jun, [facility] [place] [facility] [address] [id number] [place] [address]- 4111 Jun, [facility] [place] [facility] [address] [id number] [place] [address]- 8911 Jun, [facility] [address] [id number] [place] [address]- 5010 Jun, [facility] [address] [id number] [place] [address]- 6352 May, [facility] [place] [facility] [address] [id number] [place] [address]- 7500 May, [facility] [address] [id number] [place] [address]- 1161 May, [facility] [address] [id number] [place] [address]- 4902 May, [facility] [place] [facility] [address] [id number] [place] [address]- 9108 May, [facility] [place] [facility] [address] [id number] [place] [address]- 2991 May, [facility] [place] [facility] [address] [id number] [place] [address]- 1784 May, [facility] [place] [facility] [address] [id number] [place] [address]- 3665 May, [facility] [place] [facility] [address] [id number] [place] [address]- 4803 May, [facility] [place] [facility] [address] [id number] [place] [address]- 0225 May, [facility] [place] [facility] [address] [id number] [place] [address]- 1624 May, [facility] [place] [facility] [address] [id number] [place] [address]- 2269 May, [facility] [place] [facility] [address] [id number] [place] [address]- 7720 May, [facility] [place] [facility] [address] [id number] [place] 8848 May, [facility] [place] [facility] [address] [id number] [place] [address]- 1522 May, [facility] [place] [facility] [address] [id number] [place] [address]- 0269 May, [facility] [place] [facility] [address] [id number] [place] [address]- 9829 May, [facility] [place] [facility] [address] [id number] [place] [address]- 8030 May, [facility] [place] [facility] [address] [id number] [place] [address]- 9708 May, [facility] [place] [facility] [address] [id number] [place] [address]- 5360 Apr, [facility] [place] [facility] [address] [id number] [place] [address]- 2596 Apr, [facility] [place] [facility] [address] [id number] [place] [address]- 5553 Apr, [facility] [place] [facility] [address] [id number] [place] [address]- 5011 Apr, [facility] [place] [facility] [address] [id number], [place] [address]- 0204 Apr, [facility] [place] [facility] [address] [id number] [place] [address]- 0640 Apr, [facility] [place] [facility] [address] [id number] [place] [address]- 7902 Apr, [facility] [place] [facility] [address] [id number] [place] [address]- 5458 Apr, [facility] [place] [facility] [address] [id number] [place] [address]- 9676 Apr, [facility] [place] [facility] [address] [id number] [place] [address]- 0644 Mar, [facility] [place] [facility] [address] [id number] [place] [address]- 7549 Mar, [facility] [place] [facility] [address] [id number] [place] [address]- 1178 Mar, [facility] [place] [facility] [address] [id number] [place] [address]- 7019 Mar, [facility] [place] [facility] [address] [id number] [place] [address]- 5140 Mar, [facility] [place] [facility] [address] [id number] [place] [address]- 1522 Mar, [facility] [place] [facility] [address] [id number] [place] [address]- 4680 Mar, [facility] [place] [facility] [address] [id number] [place] [address]- 0228 Mar, [facility] [place] [facility] [address] [id number] [place] [address]- 9878 Mar, [facility] [place] [facility] [address] [id number] [place] [address]- 3498 Mar, [facility] [place] [facility] [address] [id number] [place] [address]- 6922 Mar, [facility] [place] [facility] [address] [id number] [place] [address]- 0550 Mar, [facility] [place] [facility] [address] [id number] [place] 2667 Mar, [facility] [place] [facility] [address] [id number] [place] [address]- 4321 Mar, [facility] [place] [facility] [address] [id number] [place] [address]- 9908 Mar, [facility] [place] [facility] [address] [id number] [place] [address]- 1188 18 Feb, 2013 [facility] [place] [facility] [address] [id number] [place] [address]- 6806 Feb, 2013 [facility] [place] [facility] [address] [id number] [place] [address]- 3694 Feb, 2013 [facility] [place] [facility] [address] [id number] [place] [address]- 6832 Feb, 2013 [facility] [place] [facility] [address] [id number] [place] [address]- 3583 Feb, 2013 [facility] [place] [facility] [address] [id number] [place] [address]- 5994 Feb, 2013 [facility] [place] [facility] [address] [id number] [place] [address]- 1384 Feb, 2013 [facility] [place] [facility] [address] [id number] [place] [address]- 3349 Feb, 2013 [facility] [place] [facility] [address] [id number] [place] [address]- 2176 Jan, [facility] [place] [facility] [address] [id number] [place] [address]- 8843 Jan, [facility] [place] [facility] [address] [id number], [place] [address]- 9690 Jan, [facility] [place] [facility] [address] [id number], [place] [address]- 5123 Jan, [facility] [place] [facility] [address] [id number] [place] [address]- 9166 Jan, [facility] [place] [facility] [address] [id number] [place] [address]- 7312 Jan, [facility] [place] [facility] [address] [id number], [place] [address]- 9550 Jan, [facility] [place] [facility] [address] [id number], [place] [address]- 1869 Jan, [facility] [place] [facility] [address] [id number] [place] [address]- 8416 Jan, [facility] [place] [facility] [address] [id number] [place] [address]- 2900 Jan, [facility] [place] [facility] [address] [id number] [place] [address]- 4676 Jan, [facility] [place] [facility] [address] [id number] [place] [address]- 7649 Jan, [facility] [place] [facility] [address] [id number] [place] [address]- 3912 Jan, [facility] [place] [facility] [address] [id number] [place] [address]- 5296 Jan, [facility] [place] [facility] [address] [id number] [place] [address]- 7717 Jan, [facility] [place] [facility] [address] [id number] [place] [address]- 7698 Jan, [facility] [place] [facility] [address] [id number] [place] [address]- 8397 Jan, [facility] [place] [facility] [address] [id number] [place] [address]- 5520 Dec, [facility] [place] [facility] [address] [id number] [place] [address]- 4747 Dec, [facility] [place] [facility] [address] [id number] [place] [address]- 4810 Dec, [facility] [place] [facility] [address] [id number] [place] [address]- 8768 Dec, [facility] [place] [facility] [address] [id number] [place] [address]- 8359 Dec, [facility] [place] [facility] [address] [id number] [place] [address] Dec, [facility] [place] [facility] [address] [id number] [place] [address] Dec, [facility] [place] [facility] [address] [id number] [facility] [address] Dec, [facility] [place] [facility] [address] [id number] [place] [address] Dec, [facility] [place] [facility] [address] [id number] [place] [address] Dec, [facility] [place] [facility] [address] [id number] [place] [address] Dec, [facility] [place] [facility] [address] [id number] [place] [address] Dec, [facility] [place] [facility] [address] [id number] [place] [address] Nov, [facility] [place] [facility] [address] [id number] [place] [address] Nov, [facility] [place] [facility] [address] [id number] [place] [address] Nov, [facility] [place] [facility] [address] [id number] [place] [address]- [address] Nov, [facility] [place] [facility] [address] [id number] [place] [address] Nov, [facility] [place] [facility] [address] [id number] [place] [address] Nov, [facility] [place] [facility] [address] [id number] [place] [address] October, [facility] [place] [facility] [address] [id number] [place] [address] October, [facility] [place] [facility] [address] [id number] [place] [address] October, [facility] [place] [facility] [address] [id number] [place] [address] October, [facility] [address] [id number] [place] [address] October, [facility] [place] [facility] [address] [id number] [place] [address] October, [facility] [place] [facility] [address] [id number] [place] [address] October, [facility] [place] [facility] [address] [id number] [place] [address] October, [facility] [address] [id number] [place] [address] October, [facility] [place] [facility] [address] [id number] [place] [address] October, [facility] [address] [id number] [place] [address] October, [facility] [place] [facility] [address] [id number] [place] [address] October, [facility] [place] [facility] [address] [id number] [place] [address] October, [facility] [place] [facility] [address] [id number] [place] [address] October, [facility] [place] [facility] [address] [id number] [place] [address] October, [facility] [place] [facility] [address] [id number] [place] [address] October, [facility] [place] [facility] [address] [id number] [place] [address] October, [facility] [place] [facility] [address] [id number] [place] [address] October, [facility] [place] [facility] [address] [id number] [place] [address] October, [facility] [place] [facility] [address] [id number] [place] October, [facility] [address] [id number] [place] [address] October, [facility] [place] [facility] [address] [id number] [place] [address] October, [facility] [address] [id number] [place] [address] October, [facility] [place] [facility] [address] [id number] [place] [address] October, [facility] [place] [facility] [address] [id number] [place] [address]687 October, [facility] [place] [facility] [address] [id number] [place] [address] October, [facility] [address] [id number] [place] [address] October, [facility] [place] [facility] [address] [id number] [place] [address] October, [facility] [place] [facility] [address] [id number] [place] [address] October, [facility] [place] [facility] [address] [id number] [place] [address] Sep, [facility] [place] [facility] [address] [id number] [place] [address] Sep, [facility] [place] [facility] [address] [id number] [place] [address] Jun, [facility] [place] [facility] [address] [id number] [place] [address] Jun, [facility] [place] [facility] [address] [id number] [place] [address] May, [facility] [place] [facility] [address] [id number] [place] [address] May, [facility] [place] [facility] [address] [id number] [place] [address] May, [facility] [place] [facility] [address] [id number] [place] [address] Apr, [facility] [place] [facility] [address] [id number] [place] [address] Mar, [facility] [place] [facility] [address] [id number] [place] [address] Mar, [facility] [address] [id number] [place] [address] Mar, [facility] [place] [facility] [address] [id number] [place] [address] Mar, [facility] [address] [id number] [place] [address] Jan, [facility] [address] [id number] [place] [address] Dec, [facility] [address] [id number] [place] [address] Nov, [facility] [address] [id number] [place] [address] October, [facility] [place] [facility] [address] [id number] [place] [address] October, [facility] [place] [facility] [address] [id number] [place] [address] Aug, [facility] [place] [facility] [address] [id number] [place] [address] Jul, [facility] [place] [facility] [address] [id number] [place] [address] Jun, [facility] [place] [facility] [address] [id number] [place] [address] Jun, [facility] [place] [facility] [address] [id number] [place] [address] May, [facility] [place] [facility] [address] [id number] [place] [address] May, [facility] [place] [facility] [address] [id number] [place] [address] May, [facility] [place] [facility] [address] [id number] [place] [address] Apr, [facility] [place] [facility] [address] [id number] [place] [address] Apr, [facility] [place] [facility] [address] [id number] [place] [address] Apr, [facility] [place] [facility] [address] [id number] [place] [address] Apr, [facility] [place] [facility] [address] [id number] [place] [address] Apr, [facility] [place] [facility] [address] [id number] [place] [address] Apr, [facility] [place] [facility] [address] [id number] [place] [address] Apr, [facility] [place] [facility] [address] [id number] [place] [address] Apr, [facility] [place] [facility] [address] [id number] [place] [address] Feb, [facility] [place] [facility] [address] [id number] [place] [address] Jan, [facility] [place] [facility] [address] [id number] [place] [address] Jan, [facility] [place] [facility] [address] [id number] [place] [address] Jan, [facility] [place] [facility] [address] [id number] [place] [address] Dec, [facility] [place] [facility] [address] [id number] [place] [address] Nov, [facility] [address] [id number] [place] [address] October, [facility] [address] [id number] [place] [address] October, [facility] [address] [id number] [place] [address] Sep, [facility] [address] [id number] [place] [address] Sep, [facility] [address] [id number] [place] [address] Sep, [facility] [address] [id number] [place] [address] Aug, [facility] [address] [id number] [place] [address] Jul, [facility] [address] [id number] [place] [address] Jun, [facility] [address] [id number] [place] [address] Jun, [facility] [address] [id number] [place] [address] May, [facility] [address] [id number] [place] [address] May, [facility] [address] [id number] [place] [address] May, [facility] [place] [facility] [address] [id number] [place] [address] Apr, [facility] [place] [facility] [address] [id number] [place] [address] Apr, [facility] [address] [id number] [place] [address] Mar, [facility] [address] [facility] [id number], [place] [address] Mar, [facility] [address] [id number], [place] [address] Dec, [facility] [address] [facility] [id number], [place] [address] Apr, [facility] [address] [facility] [id number], [place] [address] Apr, IMMUNIZATIONS No Known Immunizations SOCIAL HISTORY Never Assessed REASON FOR VISIT EMR-[facility] [place] PLAN OF CARE VITAL SIGNS MEDICATIONS Unknown [...] FIGO stage IB1, 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 Stephanie H[facility]) 10/18/2013 Surgical History tubal ligation 1974 Surgical History cholecystectomy 1970 Hospitalization History radical hysterectomy 10/18/13
--- OUTSIDE RECORDS SUMMARY | 2018-10-14 14:38 | XMS REPORT ---
Author Author Migration, Doctor Organization [facility] Address Unknown Phone Unavailable Care Team Providers Care Engineering Officer Name Role Phone Migration, Doctor Unavailable Unavailable PROBLEMS Type Condition ICD9-CM Code [id number] Code Onset Dates Condition Status SNOMED Code Problem Unspecified abnormal mammogram 793.80 Active 636325582 Problem Personal history of tobacco use, presenting hazards to health V15.82 Active 8544849592383 Problem Unspecified backache 724.5 Active 360413740 Problem Chest pain, unspecified 786.50 Active 91606901 Problem 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 Active 2112437992036 Problem Sciatica 724.3 Active 65760379 Problem 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 93089447 Problem Coronary atherosclerosis of unspecified type of vessel, [place] or graft 414.00 Active 956706568 Problem Hyperlipidemia 272.4 Active 53481427 Problem Hyperlipidemia, unspecified hyperlipidemia type E78.5 Active 92743353 Problem History of cervical cancer Z85.41 Active 530954978 Problem Anxiety F41.9 Active 52890985 Problem Epiploic appendagitis K52.9 Active 26450940547612855 Problem History of pulmonary embolus (PE) Z86.711 Active 975051917 Problem Malignant neoplasm of cervix uteri, unspecified site 180.9 Active 651831705 Problem Encounter for long-term (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 other medications V58.69 Active 865776106 Problem Essential hypertension I10 Active 85597146 Problem 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 Active 630510056 Problem Long-term (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 anticoagulants Z79.01 Active 044194938 Problem Atherosclerotic heart disease of [place] coronary artery without angina pectoris I25.10 Active [id number] ALLERGIES No Information ENCOUNTERS Encounter Location Date Diagnosis [facility] [address] [facility] [id number] [address] Nov, [facility] [address] [id number] [address] Aug, Anxiety F41.9 [facility] [address] [address] Jul, [facility] [id number] [place] [address] 52137- 1295 Jun, Anxiety F41.9 [facility] [id number] [place] [address] 89673- 9690 Jun, [facility] [id number] [place] [address] 05082- 2180 May, [facility] [id number] [place] [address] 47877- 8271 May, Hyperlipidemia, unspecified hyperlipidemia type E78.5 [facility] [id number] [place] [address] 05928- 3709 Apr, Anxiety F41.9 [facility] [id number] [place] [address] 00595- 7151 Mar, [facility] [id number] [place] [address] 25022- 7553 Mar, Essential hypertension I10 ; History of pulmonary embolus ( PE) Z86.711 ; Anxiety F41.9 and Malignant neoplasm of cervix, unspecified site C53.9 [facility] [address], [place] [address] Mar, Atherosclerotic heart disease of [place] coronary artery without angina pectoris I25.10 [facility] [address] [address] 3[address] 30 Feb, 2016 Atherosclerotic heart disease of [place] coronary artery without angina pectoris I25.10 [facility] [id number] [place] [address] 42545- 9936 Feb, Anxiety F41.9 [facility] [address] [address] 3770 Feb, [facility] [id number] [place] [address] 95033- 3938 Feb, 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 [facility] [address] [address]- 8306 Jan, Anxiety F41.9 [facility] [id number] [place] [address] 09033 2546 Jan, Long-term (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 anticoagulants Z79.01 [facility] [id number] [place] [address] 01215 2546 Jan, Anxiety F41.9 [facility] [address] 69463- 5991 Dec, Long-term (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 anticoagulants Z79.01 [facility] [address] 01585- 6106 Dec, [facility] [address] 39407- 7723 Dec, [facility] [address] 37313- 2547 Dec, Anxiety F41.9 [facility] [id number] [place] [address] 31620- 5679 Nov, [facility] [id number] [place] [address] 75947- 1083 Nov, [facility] [address] [address] 2542 Nov, Long-term (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 anticoagulants Z79.01 and Seizures R56.9 [facility] [address] [address]61 2546 Nov, [facility] [id number] [place] [address] 90620 2546 Nov, Anxiety F41.9 [facility] [address] 69171- 9784 Nov, High risk medication use Z79.899 [facility] [address] [id number] [place] [address] October director long term care (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 anticoagulants Z79.01 [facility] [id number] [address] 74[address] October, 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 [facility] [id number] [place] [address] 54387- 8015 October, [facility] [id number] [place] [address] 20953- 1890 October, [address] [address] [id number] [place] [address] 93601- 2542 Sep, High risk medications (not anticoagulants) long-term use V58.69 and Other detention (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 [place] [id number] [address] 5353 Sep, [facility] [address], [place] [address] 0333 Aug, [place] [address] [address] 4030 Aug, [facility] [id number] [address] 7010 Aug, [facility] [id number] [address]- 6693 Jul, High risk medications (not anticoagulants) long-term use V58.69 ; Essential hypertension I10 ; Hyperlipidemia, unspecified hyperlipidemia type E78.5 and Other detention (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 [facility] [id number] [address] 3361 Jul, [facility] [id number] [address]- 7009 Jun, High risk medications (not anticoagulants) long-term use V58.69 [facility] [address], [place] [address]- 7314 Jun, [facility] [id number] [place] [address] 992110- 0949 Jun, [facility] [id number] [place] [address] 66071- 6168 Jun, [facility] [id number] [place] [address] 04469- 1043 May, [facility] [id number] [place] [address] 37187- 1923 May, [facility] [id number] [place] [address] 29780- 9837 May, 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 [facility] [id number] [place] [address] 03609- 0849 May, [facility] [id number] [place] [address] 08220- 4772 May, Essential hypertension I10 ; Hyperlipidemia, unspecified hyperlipidemia type E78.5 and History of cervical cancer Z85.41 [place] [address], [place] [address]- 4721 Apr, [facility] [id number] [place] [address] 56522- 6646 Apr, High risk medications (not anticoagulants) long-term use V58.69 [facility] [address] [address]- 3122 Mar, [place] [facility] [id number] [place] [address] 20651- 8276 Mar, 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 [facility] [id number] [place] [address] 14548- 1567 Feb, [facility] [address] [address]- 0456 Feb, [facility] [id number] [place] [address] 00110- 1216 Feb, High risk medications (not anticoagulants) long-term use V58.69 ; Pneumonia 486 and Gait disturbance 781.2 [place] [id number] [place] [address] 66916- 3096 Feb, [facility] [id number] [address] 2548 Feb, [place] [id number] [place] [address] 96329- 4119 Feb, [facility] [id number] [place] [address] 94591- 2803 Jan, High risk medications (not anticoagulants) long-term use V58.69 [facility] [id number] [place] [address] 62455- 9473 Jan, [facility] [id number] [place] [address] 14021- 4573 Dec, High risk medications (not anticoagulants) long-term use V58.69 [place] [address] [address]- 1180 Dec, director long term care current use of anticoagulant therapy V58.61 [place] [id number] [place] [address] 21347- 5437 Dec, [facility] [address], [place] [address] 2546 Dec, [facility] [id number] [place] [address] 37769- 2546 Dec, [facility] [address] [address]- 5373 Nov, 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 and Encounter for long-term (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 other medications V58.69 [facility] [address] [address]- 0588 Nov, [facility] [id number], [place] [address]- 2936 Nov, [facility] [address], [place] [address]- 6796 October, [facility] [id number] [place] [address] 63261- 7404 October, [facility] [address], [place] [address]- 3720 October, High risk medication use V58.69 ; Cervical cancer 180.9 ; Neuropathy 355.9 and Hyperlipidemia 272.4 [facility] [address], [place] [address]- 3772 October, [facility] [id number], [place] [address]- 3881 Sep, [facility] [address], [place] [address]- 2765 Sep, [facility] [address] [address]- 5114 Sep, [facility] [address], [place] [address]- 7074 Aug, [facility] [address], [place] [address]- 3322 Aug, [facility] [address] [address]- 3876 Aug, [facility] [address] [address]- 0082 18 Aug, 2014 [facility] [address] 1630 17 Aug, 2014 [facility] [address], [place] [address]- 9707 Jul, [facility] [place] [facility] [address] [id number] [place] [address]- 2226 Jul, [facility] [place] [facility] [address] [id number] [place] [address]- 3568 Jul, [facility] [place] [facility] [address] [id number] [place] [address]- 0176 Jul, [facility] [place] [facility] [address] [id number] [place] [address]- 5700 Jul, [facility] [place] [facility] [address] [id number] [place] [address]- 9320 Jul, [facility] [place] [facility] [address] [facility] [id number] [place] [address]- 2613 Jul, [facility] [place] [facility] [address] [facility] [id number] [place] [address]- 1424 Jul, [facility] [place] [facility] [address] [id number] [place] [address]- 4548 Jun, [facility] [place] [facility] [address] [id number] [place] [address]- 1706 Jun, [facility] [place] [facility] [address] [facility] [id number] [address]- 3710 Jun, [facility] [place] [facility] [address] [id number] [place] [address]- 6463 Jun, [facility] [place] [facility] [address] [id number], [place] [address]- 3599 Jun, [facility] [place] [facility] [address] [id number] [place] [address]- 2630 Jun, [facility] [place] [facility] [address] [facility] [id number] [address]- 5212 Jun, [facility] [place] [facility] [address] [id number], [place] [address]- 4639 Jun, [facility] [place] [facility] [address] [id number] [place] [address]- 9942 Jun, [facility] [place] [facility] [address] [id number] [place] [address]- 3309 Jun, [facility] [place] [facility] [address] [id number] [place] [address]- 3251 Jun, [facility] [address] [id number] [place] [address]- 3137 Jun, [facility] [address] [id number] [place] [address]- 1168 May, [facility] [place] [facility] [address] [id number] [place] [address]- 5793 May, [facility] [address] [id number] [place] [address]- 8848 May, [facility] [address] [id number] [place] [address]- 3178 May, [facility] [place] [facility] [address] [id number] [place] [address]- 7672 May, [facility] [place] [facility] [address] [id number] [place] [address]- 4559 May, [facility] [place] [facility] [address] [id number] [place] [address]- 7030 May, [facility] [place] [facility] [address] [id number] [place] [address]- 8699 May, [facility] [place] [facility] [address] [id number] [place] [address]- 1445 May, [facility] [place] [facility] [address] [id number] [place] [address]- 0016 May, [facility] [place] [facility] [address] [id number] [place] [address]- 0922 May, [facility] [place] [facility] [address] [id number] [place] [address]- 6268 May, [facility] [place] [facility] [address] [id number] [place] [address]- 2745 May, [facility] [place] [facility] [address] [id number] [place] 4655 May, [facility] [place] [facility] [address] [id number] [place] [address]- 0765 May, [facility] [place] [facility] [address] [id number] [place] [address]- 3861 May, [facility] [place] [facility] [address] [id number] [place] [address]- 7655 May, [facility] [place] [facility] [address] [id number] [place] [address]- 7500 May, [facility] [place] [facility] [address] [id number] [place] [address]- 7379 May, [facility] [place] [facility] [address] [id number] [place] [address]- 0027 Apr, [facility] [place] [facility] [address] [id number] [place] [address]- 6728 Apr, [facility] [place] [facility] [address] [id number] [place] [address]- 0926 Apr, [facility] [place] [facility] [address] [id number] [place] [address]- 5439 Apr, [facility] [place] [facility] [address] [id number] [address]- 2664 Apr, [facility] [place] [facility] [address] [id number] [place] [address]- 5250 Apr, [facility] [place] [facility] [address] [id number] [place] [address]- 4098 Apr, [facility] [place] [facility] [address] [id number] [place] [address]- 9454 Apr, [facility] [place] [facility] [address] [id number] [place] [address]- 2563 Apr, [facility] [place] [facility] [address] [id number] [place] [address]- 7387 Mar, [facility] [place] [facility] [address] [id number] [place] [address]- 1681 Mar, [facility] [place] [facility] [address] [id number] [place] [address]- 4964 Mar, [facility] [place] [facility] [address] [id number] [place] [address]- 5645 Mar, [facility] [place] [facility] [address] [id number] [place] [address]- 3699 Mar, [facility] [place] [facility] [address] [id number] [place] [address]- 0508 Mar, [facility] [place] [facility] [address] [id number] [place] [address]- 4515 Mar, [facility] [place] [facility] [address] [id number] [place] [address]- 9281 Mar, [facility] [place] [facility] [address] [id number] [place] [address]- 1854 Mar, [facility] [place] [facility] [address] [id number] [place] [address]- 5123 Mar, [facility] [place] [facility] [address] [id number] [place] [address]- 8975 Mar, [facility] [place] [facility] [address] [id number] [place] [address]- 7333 Mar, [facility] [place] [facility] [address] [id number] [place] 1807 Mar, [facility] [place] [facility] [address] [id number] [place] [address]- 9822 Mar, [facility] [place] [facility] [address] [id number] [place] [address]- 4430 Mar, [facility] [place] [facility] [address] [id number] [place] [address]- 9327 18 Feb, 2013 [facility] [place] [facility] [address] [id number] [place] [address]- 5874 Feb, 2013 [facility] [place] [facility] [address] [id number] [place] [address]- 8862 Feb, 2013 [facility] [place] [facility] [address] [id number] [place] [address]- 0626 Feb, 2013 [facility] [place] [facility] [address] [id number] [place] [address]- 1159 Feb, 2013 [facility] [place] [facility] [address] [id number] [place] [address]- 7415 Feb, 2013 [facility] [place] [facility] [address] [id number] [place] [address]- 1576 Feb, 2013 [facility] [place] [facility] [address] [id number] [place] [address]- 3482 Feb, 2013 [facility] [place] [facility] [address] [id number] [place] [address]- 8655 Jan, [facility] [place] [facility] [address] [id number] [place] [address]- 5232 Jan, [facility] [place] [facility] [address] [id number], [place] [address]- 4618 Jan, [facility] [place] [facility] [address] [id number], [place] [address]- 2312 Jan, [facility] [place] [facility] [address] [id number] [place] [address]- 6193 Jan, [facility] [place] [facility] [address] [id number] [place] [address]- 3640 Jan, [facility] [place] [facility] [address] [id number], [place] [address]- 3739 Jan, [facility] [place] [facility] [address] [id number], [place] [address]- 3004 Jan, [facility] [place] [facility] [address] [id number] [place] [address]- 8985 Jan, [facility] [place] [facility] [address] [id number] [place] [address]- 6170 Jan, [facility] [place] [facility] [address] [id number] [place] [address]- 3634 Jan, [facility] [place] [facility] [address] [id number] [place] [address]- 6591 Jan, [facility] [place] [facility] [address] [id number] [place] [address]- 6717 Jan, [facility] [place] [facility] [address] [id number] [place] [address]- 7389 Jan, [facility] [place] [facility] [address] [id number] [place] [address]- 1354 Jan, [facility] [place] [facility] [address] [id number] [place] [address]- 0009 Jan, [facility] [place] [facility] [address] [id number] [place] [address]- 3777 Jan, [facility] [place] [facility] [address] [id number] [place] [address]- 1488 Dec, [facility] [place] [facility] [address] [id number] [place] [address]- 3817 Dec, [facility] [place] [facility] [address] [id number] [place] [address]- 9973 Dec, [facility] [place] [facility] [address] [id number] [place] [address]- 8485 Dec, [facility] [place] [facility] [address] [id number] [place] [address]- 2684 Dec, [facility] [place] [facility] [address] [id number] [place] [address]- 5202 Dec, [facility] [place] [facility] [address] [id number] [place] [address]- 7270 Dec, [facility] [place] [facility] [address] [id number] [place] [address]- 1724 Dec, [facility] [place] [facility] [address] [id number] [place] [address]- 2604 Dec, [facility] [place] [facility] [address] [id number] [place] [address]- 7036 Dec, [facility] [place] [facility] [address] [id number] [place] [address]- 7545 Dec, [facility] [place] [facility] [address] [id number] [place] [address]- 2243 Dec, [facility] [place] [facility] [address] [id number] [place] [address]- 5835 Nov, [facility] [place] [facility] [address] [id number] [place] [address] Nov, [facility] [place] [facility] [address] [id number] [place] [address] Nov, [facility] [place] [facility] [address] [id number] [place] [address] Nov, [facility] [place] [facility] [address] [id number] [place] [address] Nov, [facility] [place] [facility] [address] [id number] [place] [address] Nov, [facility] [place] [facility] [address] [id number] [place] [address] October, [facility] [place] [facility] [address] [id number] [place] [address] October, [facility] [place] [facility] [address] [id number] [place] [address] October, [facility] [place] [facility] [address] [id number] [place] [address] October, [facility] [address] [id number] [place] [address] October, [facility] [place] [facility] [address] [id number] [place] [address] October, [facility] [place] [facility] [address] [id number] [place] [address] October, [facility] [place] [facility] [address] [id number] [place] [address] October, [facility] [address] [id number] [place] [address] October, [facility] [place] [facility] [address] [id number] [place] [address] October, [facility] [address] [id number] [place] [address] October, [facility] [place] [facility] [address] [id number] [place] [address] October, [facility] [place] [facility] [address] [id number] [place] [address] October, [facility] [place] [facility] [address] [id number] [place] [address] October, [facility] [place] [facility] [address] [id number] [place] [address] October, [facility] [place] [facility] [address] [id number] [place] [address] October, [facility] [place] [facility] [address] [id number] [place] [address] October, [facility] [place] [facility] [address] [id number] [place] [address] October, [facility] [place] [facility] [address] [id number] [place] [address] October, [facility] [place] [facility] [address] [id number] [place] [address] October, [facility] [address] [id number] [place] [address] October, [facility] [place] [facility] [address] [id number] [place] [address]- [address] October, [facility] [address] [id number] [place] [address] October, [facility] [place] [facility] [address] [id number] [place] [address] October, [facility] [place] [facility] [address] [id number] [place] [address] October, [facility] [place] [facility] [address] [id number] [place] [address] October, [facility] [address] [id number] [place] [address] October, [facility] [place] [facility] [address] [id number] [place] [address] October, [facility] [place] [facility] [address] [id number] [place] [address] October, [facility] [place] [facility] [address] [id number] [place] [address] Sep, [facility] [place] [facility] [address] [id number] [place] [address] Sep, [facility] [place] [facility] [address] [id number] [place] [address] Jun, [facility] [place] [facility] [address] [id number] [place] [address] Jun, [facility] [place] [facility] [address] [id number] [place] [address] May, [facility] [place] [facility] [address] [id number] [place] [address] May, [facility] [place] [facility] [address] [id number] [place] [address] May, [facility] [place] [facility] [address] [id number] [place] [address] Apr, [facility] [place] [facility] [address] [id number] [place] [address] Mar, [facility] [place] [facility] [address] [id number] [place] [address] Mar, [facility] [address] [id number] [place] [address] Mar, [facility] [place] [facility] [address] [id number] [place] [address] Mar, [facility] [address] [id number] [place] [address] Jan, [facility] [address] [id number] [place] [address] Dec, [facility] [address] [id number] [place] [address] Nov, [facility] [address] [id number] [place] [address] October, [facility] [place] [facility] [address] [id number] [place] [address] October, [facility] [place] [facility] [address] [id number] [place] [address] Aug, [facility] [place] [facility] [address] [id number] [place] [address] Jul, [facility] [place] [facility] [address] [id number] [place] [address] Jun, [facility] [place] [facility] [address] [id number] [place] [address] Jun, [facility] [place] [facility] [address] [id number] [place] [address] May, [facility] [place] [facility] [address] [id number] [place] [address] May, [facility] [place] [facility] [address] [id number] [place] [address] May, [facility] [place] [facility] [address] [id number] [place] [address] Apr, [facility] [place] [facility] [address] [id number] [place] [address] Apr, [facility] [place] [facility] [address] [id number] [place] [address] Apr, [facility] [place] [facility] [address] [id number] [place] [address] Apr, [facility] [place] [facility] [address] [id number] [place] [address] Apr, [facility] [place] [facility] [address] [id number] [place] [address] Apr, [facility] [place] [facility] [address] [id number] [place] [address] Apr, [facility] [place] [facility] [address] [id number] [place] [address] Apr, [facility] [place] [facility] [address] [id number] [place] [address] Feb, [facility] [place] [facility] [address] [id number] [place] [address] Jan, [facility] [place] [facility] [address] [id number] [place] [address] Jan, [facility] [place] [facility] [address] [id number] [place] [address] Jan, [facility] [place] [facility] [address] [id number] [place] [address] Dec, [facility] [place] [facility] [address] [id number] [place] [address] Nov, [facility] [address] [id number] [place] [address] October, [facility] [address] [id number] [place] [address] October, [facility] [address] [id number] [place] [address] Sep, [facility] [address] [id number] [place] [address] Sep, [facility] [address] [id number] [place] [address] Sep, [facility] [address] [id number] [place] [address] Aug, [facility] [address] [id number] [place] [address] Jul, [facility] [address] [id number] [place] [address] Jun, [facility] [address] [id number] [place] [address] Jun, [facility] [address] [id number] [place] [address] May, [facility] [address] [id number] [place] [address] May, [facility] [address] [id number] [place] [address] May, [facility] [place] [facility] [address] [id number] [place] [address] Apr, [facility] [place] [facility] [address] [id number] [place] [address] Apr, [facility] [address] [id number] [place] [address] Mar, [facility] [address] [facility] [id number] [address] Mar, [facility] [address] [id number] [address] Dec, [facility] [address] [facility] [id number] [address] Apr, [facility] [address] [facility] [id number] [address] Apr, IMMUNIZATIONS No Known Immunizations SOCIAL HISTORY [...] FIGO stage IB1, 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 Stephanie [facility]) 10/18/2013 Surgical History tubal ligation 1974 Surgical History cholecystectomy 1970 Hospitalization History radical hysterectomy 10/18/13
--- OUTSIDE RECORDS SUMMARY | 2018-10-14 14:38 | XMS REPORT ---
Author Author Migration, Doctor Organization [facility] Address Unknown Phone Unavailable Care Team Providers Care Headwaiter/Headwaitress Name Role Phone Migration, Doctor Unavailable Unavailable PROBLEMS Type Condition ICD9-CM Code [id number] Code Onset Dates Condition Status SNOMED Code Problem Unspecified abnormal mammogram 793.80 Active 859322837 Problem Personal history of tobacco use, presenting hazards to health V15.82 Active 9218225083200 Problem Unspecified backache 724.5 Active 501868531 Problem Chest pain, unspecified 786.50 Active 29707407 Problem 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 Active 8423259010121 Problem Sciatica 724.3 Active 59402638 Problem 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 47923777 Problem Coronary atherosclerosis of unspecified type of vessel, [place] or graft 414.00 Active 884722995 Problem Hyperlipidemia 272.4 Active 39570158 Problem Hyperlipidemia, unspecified hyperlipidemia type E78.5 Active 50575167 Problem History of cervical cancer Z85.41 Active 855838414 Problem Anxiety F41.9 Active 37322704 Problem Epiploic appendagitis K52.9 Active 99929007252497895 Problem History of pulmonary embolus (PE) Z86.711 Active 351540049 Problem Malignant neoplasm of cervix uteri, unspecified site 180.9 Active 665063989 Problem Encounter for long-term (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 other medications V58.69 Active 593975917 Problem Essential hypertension I10 Active 25824625 Problem 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 Active 951257659 Problem Long-term (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 anticoagulants Z79.01 Active 436974152 Problem Atherosclerotic heart disease of [place] coronary artery without angina pectoris I25.10 Active [id number] ALLERGIES No Information ENCOUNTERS Encounter Location Date Diagnosis [facility] [address] [facility] [id number] [address] Nov, [facility] [address] [id number] [address] Aug, Anxiety F41.9 [facility] [address], [place] [address] Jul, [facility] [id number] [place] [address] 55185- 7649 Jun, Anxiety F41.9 [facility] [id number] [place] [address] 58909- 3967 Jun, [facility] [id number] [place] [address] 64266- 3558 May, [facility] [id number] [place] [address] 85839- 3633 May, Hyperlipidemia, unspecified hyperlipidemia type E78.5 [facility] [id number] [place] [address] 83797- 9657 Apr, Anxiety F41.9 [facility] [id number] [place] [address] 45584- 7421 Mar, [facility] [id number] [place] [address] 77707- 0725 Mar, Essential hypertension I10 ; History of pulmonary embolus ( PE) Z86.711 ; Anxiety F41.9 and Malignant neoplasm of cervix, unspecified site C53.9 [facility] [address], [place] [address] 25[address] Mar, Atherosclerotic heart disease of [place] coronary artery without angina pectoris I25.10 [facility] [address], [place] [address] 30 Feb, 2016 Atherosclerotic heart disease of [place] coronary artery without angina pectoris I25.10 [facility] [id number] [place] [address] 14075- 4224 Feb, Anxiety F41.9 [facility] [address], [place] [address] 359[address] Feb, [facility] [id number] [place] [address] 76472- 2890 Feb, 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 [facility] [address] [address]- [address]776 Jan, Anxiety F41.9 [facility] [id number] [place] [address] 14396 2546 Jan, Long-term (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 anticoagulants Z79.01 [facility] [id number] [place] [address] 33129 2546 Jan, Anxiety F41.9 [facility] [address] [address]32- 2536 Dec, Long-term (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 anticoagulants Z79.01 [facility] [address] 19539- 0716 Dec, [facility] [address] 83629- 2385 Dec, [facility] [address] 72434- 2540 Dec, Anxiety F41.9 [facility] [id number] [place] [address] 88125- 5669 Nov, [facility] [id number] [place] [address] 87905- 9413 Nov, [facility] [address] [address]26 2544 Nov, Long-term (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 anticoagulants Z79.01 and Seizures R56.9 [facility] [address] [address]188 2546 Nov, [facility] [id number] [place] [address] 55156 2546 Nov, Anxiety F41.9 [facility] [address] 26293- 4810 Nov, High risk medication use Z79.899 [facility] [address] [address] [address] [id number] [place] [address] 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 [facility] [address] [id number], [place] [address] 0357 October, 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 [facility] [address] [place] [address] 80551- 2047 October, [facility] [id number] [place] [address] 06178- 7843 October, [address] [id number] [place] [address] 75238- 2774 Sep, High risk medications (not anticoagulants) long-term use V58.69 and Other assisted (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 [place] [facility] [id number], [place] [address] 5[address] Sep, [facility] [address], [place] [address] 7572 Aug, [place] [address], [place] [address] 6549 Aug, [facility] [facility] [id number], [place] [address] 1238 Aug, [facility] [id number], [place] [address] 4865 Jul, High risk medications (not anticoagulants) long-term use V58.69 ; Essential hypertension I10 ; Hyperlipidemia, unspecified hyperlipidemia type E78.5 and Other assisted (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 [facility] [id number], [place] [address] 5502 Jul, [facility] [id number], [place] [address] 4881 Jun, High risk medications (not anticoagulants) long-term use V58.69 [facility] [address], [place] [address] 0620 Jun, [facility] [address] [place] [address] 077703- 9405 Jun, [facility] [id number] [place] [address] 78509- 6262 Jun, [facility] [id number] [place] [address] 89304- 1401 May, [facility] [id number] [place] [address] 86741- 1137 May, [facility] [id number] [place] [address] 01162- 2554 May, 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 [facility] [id number] [place] [address] 95954- 7899 May, [facility] [id number] [place] [address] 71540- 4269 May, Essential hypertension I10 ; Hyperlipidemia, unspecified hyperlipidemia type E78.5 and History of cervical cancer Z85.41 [place] [address], [place] [address] 3798 Apr, [facility] [address] [place] [address] 60126- 3884 Apr, High risk medications (not anticoagulants) long-term use V58.69 [facility] [address], [place] [address]- 6199 Mar, [place] [id number] [place] [address] 93048- 0865 Mar, 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 [facility] [address] [place] [address] 96203- 7826 Feb, [facility] [address], [place] [address]- 4746 Feb, [facility] [address] [place] [address] 53664- 0296 Feb, High risk medications (not anticoagulants) long-term use V58.69 ; Pneumonia 486 and Gait disturbance 781.2 [place] [id number] [place] [address] 27987- 8486 Feb, [facility] [address] [id number], [place] [address] 2544 Feb, [place] [id number] [place] [address] 57935- 2224 Feb, [facility] [id number] [place] [address] 29414- 1163 Jan, High risk medications (not anticoagulants) long-term use V58.69 [facility] [address] [place] [address] 47267- 1972 Jan, [facility] [address] [place] [address] 05479- 2358 Dec, High risk medications (not anticoagulants) long-term use V58.69 [place] [address], [place] [address]- 8923 Dec, 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.61 [place] [address] [place] [address] 56476- 5440 Dec, [facility] [address], [place] [address] 2546 Dec, [facility] [id number] [place] [address] 87543- 2546 Dec, [facility] [address], [place] [address]- 4882 Nov, 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 and Encounter for long-term (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 other medications V58.69 [facility] [address], [place] [address]- 2013 Nov, [facility] [id number], [place] [address]- 2531 Nov, [facility] [address], [place] [address]- 1320 October, [facility] [id number] [place] [address] 09675- 0455 October, [facility] [address], [place] [address]- 5554 October, High risk medication use V58.69 ; Cervical cancer 180.9 ; Neuropathy 355.9 and Hyperlipidemia 272.4 [facility] [address], [place] [address]- 5653 October, [facility] [id number], [place] [address]- 0095 Sep, [facility] [address], [place] [address]- 2824 Sep, [facility] [address], [place] [address]- 3144 Sep, [facility] [address], [place] [address]- 5341 Aug, [facility] [address], [place] [address]- 8207 Aug, [facility] [address], [place] [address]- 3170 Aug, [facility] [address], [place] [address]- 8410 18 Aug, 2014 [facility] [address] 4558 17 Aug, 2014 [facility] [address], [place] [address]- 4605 Jul, [facility] [place] [facility] [address] [id number] [place] [address]- 6226 Jul, [facility] [place] [facility] [address] [id number] [place] [address]- 0881 Jul, [facility] [place] [facility] [address] [id number] [place] [address]- 2946 Jul, [facility] [place] [facility] [address] [id number] [place] [address]- 2328 Jul, [facility] [place] [facility] [address] [id number] [place] [address]- 7009 Jul, [facility] [place] [facility] [address] [facility] [id number] [place] [address]- 7437 Jul, [facility] [place] [facility] [address] [facility] [id number] [place] [address]- 0123 Jul, [facility] [place] [facility] [address] [id number] [place] [address]- 7485 Jun, [facility] [place] [facility] [address] [id number] [place] [address]- 1164 Jun, [facility] [place] [facility] [address] [facility] [id number], [place] [address]- 8573 Jun, [facility] [place] [facility] [address] [id number] [place] [address]- 1304 Jun, [facility] [place] [facility] [address] [id number], [place] [address]- 7415 Jun, [facility] [place] [facility] [address] [id number] [place] [address]- 4881 Jun, [facility] [place] [facility] [address] [facility] [id number], [place] [address]- 1722 Jun, [facility] [place] [facility] [address] [id number], [place] [address]- 6223 Jun, [facility] [place] [facility] [address] [id number] [place] [address]- 9889 Jun, [facility] [place] [facility] [address] [id number] [place] [address]- 8069 Jun, [facility] [place] [facility] [address] [id number] [place] [address]- 7738 Jun, [facility] [address] [id number] [place] [address]- 5040 Jun, [facility] [address] [id number] [place] [address]- 4233 May, [facility] [place] [facility] [address] [id number] [place] [address]- 0808 May, [facility] [address] [id number] [place] [address]- 7071 May, [facility] [address] [id number] [place] [address]- 4815 May, [facility] [place] [facility] [address] [id number] [place] [address]- 6059 May, [facility] [place] [facility] [address] [id number] [place] [address]- 6241 May, [facility] [place] [facility] [address] [id number] [place] [address]- 7648 May, [facility] [place] [facility] [address] [id number] [place] [address]- 7020 May, [facility] [place] [facility] [address] [id number] [place] [address]- 1397 May, [facility] [place] [facility] [address] [id number] [place] [address]- 6234 May, [facility] [place] [facility] [address] [id number] [place] [address]- 6433 May, [facility] [place] [facility] [address] [id number] [place] [address]- 9658 May, [facility] [place] [facility] [address] [id number] [place] [address]- 7548 May, [facility] [place] [facility] [address] [id number] [place] 3913 May, [facility] [place] [facility] [address] [id number] [place] [address]- 7535 May, [facility] [place] [facility] [address] [id number] [place] [address]- 6589 May, [facility] [place] [facility] [address] [id number] [place] [address]- 6502 May, [facility] [place] [facility] [address] [id number] [place] [address]- 5704 May, [facility] [place] [facility] [address] [id number] [place] [address]- 9082 May, [facility] [place] [facility] [address] [id number] [place] [address]- 1425 Apr, [facility] [place] [facility] [address] [id number] [place] [address]- 7687 Apr, [facility] [place] [facility] [address] [id number] [place] [address]- 4528 Apr, [facility] [place] [facility] [address] [id number] [place] [address]- 7235 Apr, [facility] [place] [facility] [address] [id number], [place] [address]- 7617 Apr, [facility] [place] [facility] [address] [id number] [place] [address]- 7738 Apr, [facility] [place] [facility] [address] [id number] [place] [address]- 5440 Apr, [facility] [place] [facility] [address] [id number] [place] [address]- 2259 Apr, [facility] [place] [facility] [address] [id number] [place] [address]- 1800 Apr, [facility] [place] [facility] [address] [id number] [place] [address]- 5774 Mar, [facility] [place] [facility] [address] [id number] [place] [address]- 9484 Mar, [facility] [place] [facility] [address] [id number] [place] [address]- 9041 Mar, [facility] [place] [facility] [address] [id number] [place] [address]- 8870 Mar, [facility] [place] [facility] [address] [id number] [place] [address]- 6134 Mar, [facility] [place] [facility] [address] [id number] [place] [address]- 0335 Mar, [facility] [place] [facility] [address] [id number] [place] [address]- 9039 Mar, [facility] [place] [facility] [address] [id number] [place] [address]- 0656 Mar, [facility] [place] [facility] [address] [id number] [place] [address]- 6530 Mar, [facility] [place] [facility] [address] [id number] [place] [address]- 3125 Mar, [facility] [place] [facility] [address] [id number] [place] [address]- 1127 Mar, [facility] [place] [facility] [address] [id number] [place] [address]- 1210 Mar, [facility] [place] [facility] [address] [id number] [place] 6734 Mar, [facility] [place] [facility] [address] [id number] [place] [address]- 5286 Mar, [facility] [place] [facility] [address] [id number] [place] [address]- 1689 Mar, [facility] [place] [facility] [address] [id number] [place] [address]- 6885 18 Feb, 2013 [facility] [place] [facility] [address] [id number] [place] [address]- 6232 Feb, 2013 [facility] [place] [facility] [address] [id number] [place] [address]- 1542 Feb, 2013 [facility] [place] [facility] [address] [id number] [place] [address]- 2175 Feb, 2013 [facility] [place] [facility] [address] [id number] [place] [address]- 5535 Feb, 2013 [facility] [place] [facility] [address] [id number] [place] [address]- 9227 Feb, 2013 [facility] [place] [facility] [address] [id number] [place] [address]- 6693 Feb, 2013 [facility] [place] [facility] [address] [id number] [place] [address]- 8178 Feb, 2013 [facility] [place] [facility] [address] [id number] [place] [address]- 9768 Jan, [facility] [place] [facility] [address] [id number] [place] [address]- 6493 Jan, [facility] [place] [facility] [address] [id number], [place] [address]- 8095 Jan, [facility] [place] [facility] [address] [id number], [place] [address]- 1752 Jan, [facility] [place] [facility] [address] [id number] [place] [address]- 5291 Jan, [facility] [place] [facility] [address] [id number] [place] [address]- 5843 Jan, [facility] [place] [facility] [address] [id number], [place] [address]- 1920 Jan, [facility] [place] [facility] [address] [id number], [place] [address]- 9851 Jan, [facility] [place] [facility] [address] [id number] [place] [address]- 5269 Jan, [facility] [place] [facility] [address] [id number] [place] [address]- 3846 Jan, [facility] [place] [facility] [address] [id number] [place] [address]- 6694 Jan, [facility] [place] [facility] [address] [id number] [place] [address]- 9654 Jan, [facility] [place] [facility] [address] [id number] [place] [address]- 5776 Jan, [facility] [place] [facility] [address] [id number] [place] [address]- 6618 Jan, [facility] [place] [facility] [address] [id number] [place] [address]- 4014 Jan, [facility] [place] [facility] [address] [id number] [place] [address]- 8161 Jan, [facility] [place] [facility] [address] [id number] [place] [address]- 0056 Jan, [facility] [place] [facility] [address] [id number] [place] [address]- 9031 Dec, [facility] [place] [facility] [address] [id number] [place] [address]- 0280 Dec, [facility] [place] [facility] [address] [id number] [place] [address]- 8122 Dec, [facility] [place] [facility] [address] [id number] [place] [address]- 0694 Dec, [facility] [place] [facility] [address] [id number] [place] [address]- 0093 Dec, [facility] [place] [facility] [address] [id number] [place] [address]- 1437 Dec, [facility] [place] [facility] [address] [id number] [place] [address]- 5229 Dec, [facility] [place] [facility] [address] [id number] [place] [place] [address]- 6906 Dec, [facility] [place] [facility] [address] [id number] [place] [address]- 9157 Dec, [facility] [place] [facility] [address] [id number] [place] [address]- 0385 Dec, [facility] [place] [facility] [address] [id number] [place] [address]- 9048 Dec, [facility] [place] [facility] [address] [id number] [place] [address] Dec, [facility] [place] [facility] [address] [id number] [place] [address] Nov, [facility] [place] [facility] [address] [id number] [place] [address] Nov, [facility] [place] [facility] [address] [id number] [place] [address] Nov, [facility] [place] [facility] [address] [id number] [place] [address] Nov, [facility] [place] [facility] [address] [id number] [place] [address] Nov, [facility] [place] [facility] [address] [id number] [place] [address] Nov, [facility] [place] [facility] [address] [id number] [place] [address] October, [facility] [place] [facility] [address] [id number] [place] [address] October, [facility] [place] [facility] [address] [id number] [place] [address] October, [facility] [place] [facility] [address] [id number] [place] [address] October, [facility] [address] [id number] [place] [address] October, [facility] [place] [facility] [address] [id number] [place] [address] October, [facility] [place] [facility] [address] [id number] [place] [address] October, [facility] [place] [facility] [address] [id number] [place] [address] October, [facility] [address] [id number] [place] [address] October, [facility] [place] [facility] [address] [id number] [place] [address] October, [facility] [address] [id number] [place] [address] October, [facility] [place] [facility] [address] [id number] [place] [address] October, [facility] [place] [facility] [address] [id number] [place] [address] October, [facility] [place] [facility] [address] [id number] [place] [address] October, [facility] [place] [facility] [address] [id number] [place] [address] October, [facility] [place] [facility] [address] [id number] [place] [address]- [address] October, [facility] [place] [facility] [address] [id number] [place] [address] October, [facility] [place] [facility] [address] [id number] [place] [address] October, [facility] [place] [facility] [address] [id number] [place] [address] October, [facility] [place] [facility] [address] [id number] [place] [address] October, [facility] [address] [id number] [place] [address] October, [facility] [place] [facility] [address] [id number] [place] [address] October, [facility] [address] [id number] [place] [address] October, [facility] [place] [facility] [address] [id number] [place] [address] October, [facility] [place] [facility] [address] [id number] [place] [address] October, [facility] [place] [facility] [address] [id number] [place] [address] October, [facility] [address] [id number] [place] [address] October, [facility] [place] [facility] [address] [id number] [place] [address] October, [facility] [place] [facility] [address] [id number] [place] [address] October, [facility] [place] [facility] [address] [id number] [place] [address] Sep, [facility] [place] [facility] [address] [id number] [place] [address] Sep, [facility] [place] [facility] [address] [id number] [place] [address] Jun, [facility] [place] [facility] [address] [id number] [place] [address] Jun, [facility] [place] [facility] [address] [id number] [place] [address] May, [facility] [place] [facility] [address] [id number] [place] [address] May, [facility] [place] [facility] [address] [id number] [place] [address] May, [facility] [place] [facility] [address] [id number] [place] [address] Apr, [facility] [place] [facility] [address] [id number] [place] [address] Mar, [facility] [place] [facility] [address] [id number] [place] [address] Mar, [facility] [address] [id number] [place] [address] Mar, [facility] [place] [facility] [address] [id number] [place] [address]- [address] Mar, [facility] [facility] [address] [id number] [place] [address] Jan, [facility] [address] [id number] [place] [address] Dec, [facility] [address] [id number] [place] [address] Nov, [facility] [address] [id number] [place] [address] October, [facility] [place] [facility] [address] [id number] [place] [address] October, [facility] [place] [facility] [address] [id number] [place] [address] Aug, [facility] [place] [facility] [address] [id number] [place] [address] Jul, [facility] [place] [facility] [address] [id number] [place] [address] Jun, [facility] [place] [facility] [address] [id number] [place] [address] Jun, [facility] [place] [facility] [address] [id number] [place] [address] May, [facility] [place] [facility] [address] [id number] [place] [address] May, [facility] [place] [facility] [address] [id number] [place] [address] May, [facility] [place] [facility] [address] [id number] [place] [address] Apr, [facility] [place] [facility] [address] [id number] [place] [address] Apr, [facility] [place] [facility] [address] [id number] [place] [address] Apr, [facility] [place] [facility] [address] [id number] [place] [address] Apr, [facility] [place] [facility] [address] [id number] [place] [address] Apr, [facility] [place] [facility] [address] [id number] [place] [address] Apr, [facility] [place] [facility] [address] [id number] [place] [address] Apr, [facility] [place] [facility] [address] [id number] [place] [address] Apr, [facility] [place] [facility] [address] [id number] [place] [address] Feb, [facility] [place] [facility] [address] [id number] [place] [address] Jan, [facility] [place] [facility] [address] [id number] [place] [address] Jan, [facility] [place] [facility] [address] [id number] [place] [address] Jan, [facility] [place] [facility] [address] [id number] [place] [address] Dec, [facility] [place] [facility] [address] [id number] [place] [address] Nov, [facility] [address] [id number] [place] [address] October, [facility] [address] [id number] [place] [address] October, [facility] [address] [id number] [place] [address] Sep, [facility] [address] [id number] [place] [address] Sep, [facility] [address] [id number] [place] [address] Sep, [facility] [address] [id number] [place] [address] Aug, [facility] [address] [id number] [place] [address] Jul, [facility] [address] [id number] [place] [address] Jun, [facility] [address] [id number] [place] [address] Jun, [facility] [address] [id number] [place] [address] May, [facility] [address] [id number] [place] [address] May, [facility] [address] [id number] [place] [address] May, [facility] [place] [facility] [address] [id number] [place] [address] Apr, [facility] [place] [facility] [address] [id number] [place] [address] Apr, [facility] [address] [id number] [place] [address] Mar, [facility] [address] [facility] [id number] [address] Mar, [facility] [address] [id number], [place] [address] Dec, [facility] [address] [facility] [id number] [address] Apr, [facility] [address] [facility] [id number], [place] [address] Apr, IMMUNIZATIONS No Known Immunizations SOCIAL HISTORY Never Assessed REASON FOR [place] [place] VITAL SIGNS MEDICATIONS Unknown [...] FIGO stage IB1, 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 Stephanie Hecotr[facility]) 10/18/2013 Surgical History tubal ligation 1974 Surgical History cholecystectomy 1970 Hospitalization History radical hysterectomy 10/18/13
--- OUTSIDE RECORDS SUMMARY | 2018-10-14 14:39 | XMS REPORT ---
Author Author Migration, Doctor Organization [facility] Address Unknown Phone Unavailable Care Team Providers Care Branch Manager Trainee Name Role Phone Migration, Doctor Unavailable Unavailable PROBLEMS Type Condition ICD9-CM Code YEE20-LD Code Onset Dates Condition Status SNOMED Code Problem Unspecified abnormal mammogram 793.80 Active 049058232 Problem Personal history of tobacco use, presenting hazards to health V15.82 Active 6828927554377 Problem Unspecified backache 724.5 Active 932449569 Problem Chest pain, unspecified 786.50 Active 65692120 Problem 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 Active 6354788324709 Problem Sciatica 724.3 Active 07184643 Problem 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 56609297 Problem Coronary atherosclerosis of unspecified type of vessel, [place] or graft 414.00 Active 698945061 Problem Hyperlipidemia 272.4 Active 07245796 Problem Hyperlipidemia, unspecified hyperlipidemia type E78.5 Active 97647227 Problem History of cervical cancer Z85.41 Active 467961479 Problem Anxiety F41.9 Active 53433264 Problem Epiploic appendagitis K52.9 Active 60607646600418538 Problem History of pulmonary embolus (PE) Z86.711 Active 894147502 Problem Malignant neoplasm of cervix uteri, unspecified site 180.9 Active 361901734 Problem Encounter for long-term (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 other medications V58.69 Active 159854752 Problem Essential hypertension I10 Active 75323264 Problem 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 Active 682615664 Problem Long-term (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 anticoagulants Z79.01 Active 147646953 Problem Atherosclerotic heart disease of [place] coronary artery without angina pectoris I25.10 Active [id number] ALLERGIES No Information ENCOUNTERS Encounter Location Date Diagnosis [facility] [address] [facility] [id number] [address] Nov, [facility] [address] [id number] [address]26 Aug, Anxiety F41.9 [facility] [address], [place] [address] Jul, [facility] [id number] [place] [address] 81325- 0762 Jun, Anxiety F41.9 [facility] [id number] [place] [address] 08651- 8825 Jun, [facility] [id number] [place] [address] 98980- 9878 May, [facility] [id number] [place] [address] 50948- 0962 May, Hyperlipidemia, unspecified hyperlipidemia type E78.5 [facility] [id number] [place] [address] 32352- 7912 Apr, Anxiety F41.9 [facility] [id number] [place] [address] 63496- 0011 Mar, [facility] [id number] [place] [address] 16424- 6947 Mar, Essential hypertension I10 ; History of pulmonary embolus ( PE) Z86.711 ; Anxiety F41.9 and Malignant neoplasm of cervix, unspecified site C53.9 [facility] [address], [place] [address] 2428 Mar, Atherosclerotic heart disease of [place] coronary artery without angina pectoris I25.10 [facility] [address] [address] 7583 30 Feb, 2016 Atherosclerotic heart disease of [place] coronary artery without angina pectoris I25.10 [facility] [id number] [place] [address] 06333- 4965 Feb, Anxiety F41.9 [facility] [address], [place] [address] 6786 Feb, [facility] [id number] [place] [address] 41712- 0111 Feb, 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 [facility] [address] 13796- 0536 Jan, Anxiety F41.9 [facility] [id number] [place] [address] 59790 2546 Jan, Long-term (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 anticoagulants Z79.01 [facility] [id number] [place] [address] 10559 2546 Jan, Anxiety F41.9 [facility] [address] 27485- 5291 Dec, Long-term (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 anticoagulants Z79.01 [facility] [address] 42899- 5466 Dec, [facility] [address] 01975- 3806 Dec, [facility] [address] 90711- 2541 Dec, Anxiety F41.9 [facility] [id number] [place] [address] 28586- 3908 Nov, [facility] [id number] [place] [address] 93345- 7314 Nov, [facility] [address] 31284 2545 Nov, Long-term (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 anticoagulants Z79.01 and Seizures R56.9 [facility] [address] 29427 2546 Nov, [facility] [id number] [place] [address] 07964 2546 Nov, Anxiety F41.9 [facility] [address] 72349- 4937 Nov, High risk medication use Z79.899 [facility] [address] [id number] [place] [address] 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 Z79.01 [facility] [address] [id number], [place] [address] 4660 October, 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 [facility] [address] [place] [address] 73184- 1148 October, [facility] [id number] [place] [address] 66134- 2160 October, [id number] [place] [address] 91753- 5593 Sep, High risk medications (not anticoagulants) long-term use V58.69 and Other fci (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 [address] [id number], [place] [address] 7104 Sep, [facility] [address], [place] [address] 2607 Aug, [address] [place] [address], [place] [address] 5039 Aug, [address] [facility] [id number], [place] [address] 0734 Aug, [facility] [id number] [address] 9070 Jul, High risk medications (not anticoagulants) long-term use V58.69 ; Essential hypertension I10 ; Hyperlipidemia, unspecified hyperlipidemia type E78.5 and Other fci (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 [facility] [id number] [address] 6108 Jul, [facility] [id number], [place] [address] 9406 Jun, High risk medications (not anticoagulants) long-term use V58.69 [facility] [address], [place] [address]- 7129 Jun, [facility] [id number] [place] [address] 483447- 8971 Jun, [facility] [id number] [place] [address] 17832- 6179 Jun, [facility] [id number] [place] [address] 33447- 7163 May, [facility] [id number] [place] [address] 24087- 9588 May, [facility] [id number] [place] [address] 98299- 0085 May, 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 [facility] [id number] [place] [address] 17497- 7277 May, [facility] [id number] [place] [address] 06874- 9763 May, Essential hypertension I10 ; Hyperlipidemia, unspecified hyperlipidemia type E78.5 and History of cervical cancer Z85.41 [address] [address], [place] [address]- 8600 Apr, [facility] [address] [place] [address] 24162- 9488 Apr, High risk medications (not anticoagulants) long-term use V58.69 [facility] [address], [place] [address]- 6152 Mar, [address] [facility] [id number] [place] [address] 23227- 4332 Mar, 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 [facility] [address] [place] [address] 40840- 6068 Feb, [facility] [address], [place] [address]- 6796 Feb, [facility] [id number] [place] [address] 73011- 6566 Feb, High risk medications (not anticoagulants) long-term use V58.69 ; Pneumonia 486 and Gait disturbance 781.2 [address] [facility] [id number] [place] [address] 75489- 2256 Feb, [facility] [address] [id number] [address] 2548 Feb, [place] [id number] [place] [address] 40075- 7286 Feb, [facility] [address] [place] [address] 29164- 7968 Jan, High risk medications (not anticoagulants) long-term use V58.69 [facility] [id number] [place] [address] 92845- 2940 Jan, [facility] [address] [place] [address] 30293- 7010 Dec, High risk medications (not anticoagulants) long-term use V58.69 [place] [address] [address]- 7475 Dec, 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 therapy V58.61 [place] [id number] [place] [address] 07272- 0121 Dec, [facility] [address], [place] [address] 2546 Dec, [facility] [id number] [place] [address] 62407- 2546 Dec, [facility] [address], [place] [address]- 8630 Nov, 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 and Encounter for long-term (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 other medications V58.69 [facility] [address], [place] [address]- 6487 Nov, [facility] [id number], [place] [address]- 3072 Nov, [facility] [address], [place] [address]- 2836 October, [facility] [id number] [place] [address] 86284- 8501 October, [facility] [address], [place] [address]- 2097 October, High risk medication use V58.69 ; Cervical cancer 180.9 ; Neuropathy 355.9 and Hyperlipidemia 272.4 [facility] [address], [place] [address]- 2573 October, [facility] [id number], [place] [address]- 5102 Sep, [facility] [address], [place] [address]- 2202 Sep, [facility] [address], [place] [address]- 7835 Sep, [facility] [address], [place] [address]- 3754 Aug, [facility] [address], [place] [address]- 0107 Aug, [facility] [address], [place] [address]- 6993 Aug, [facility] [address], [place] [address]- 3627 18 Aug, 2014 [facility] [address] 5230 17 Aug, 2014 [facility] [address] [address]- 4971 Jul, [facility] [place] [facility] [address] [id number] [place] [address]- 3416 Jul, [facility] [place] [facility] [address] [id number] [place] [address]- 2506 Jul, [facility] [place] [facility] [address] [id number] [place] [address]- 2706 Jul, [facility] [place] [facility] [address] [id number] [place] [address]- 6633 Jul, [facility] [place] [facility] [address] [id number] [place] [address]- 2221 Jul, [facility] [place] [facility] [address] [facility] [id number] [place] [address]- 5391 Jul, [facility] [place] [facility] [address] [facility] [id number] [place] [address]- 6888 Jul, [facility] [place] [facility] [address] [id number] [place] [address]- 7586 Jun, [facility] [place] [facility] [address] [id number] [place] [address]- 2577 Jun, [facility] [place] [facility] [address] [facility] [id number], [place] [address]- 9264 Jun, [facility] [place] [facility] [address] [id number] [place] [address]- 4892 Jun, [facility] [place] [facility] [address] [id number], [place] [address]- 0220 Jun, [facility] [place] [facility] [address] [id number] [place] [address]- 4567 Jun, [facility] [place] [facility] [address] [facility] [id number], [place] [address]- 5901 Jun, [facility] [place] [facility] [address] [id number], [place] [address]- 3539 Jun, [facility] [place] [facility] [address] [id number] [place] [address]- 4045 Jun, [facility] [place] [facility] [address] [id number] [place] [address]- 5192 Jun, [facility] [place] [facility] [address] [id number] [place] [address]- 1525 Jun, [facility] [address] [id number] [place] [address]- 9465 Jun, [facility] [address] [id number] [place] [address]- 8125 May, [facility] [place] [facility] [address] [id number] [place] [address]- 8701 May, [facility] [address] [id number] [place] [address]- 5130 May, [facility] [address] [id number] [place] [address]- 7849 May, [facility] [place] [facility] [address] [id number] [place] [address]- 7269 May, [facility] [place] [facility] [address] [id number] [place] [address]- 5235 May, [facility] [place] [facility] [address] [id number] [place] [address]- 7043 May, [facility] [place] [facility] [address] [id number] [place] [address]- 2835 May, [facility] [place] [facility] [address] [id number] [place] [address]- 2130 May, [facility] [place] [facility] [address] [id number] [place] [address]- 1711 May, [facility] [place] [facility] [address] [id number] [place] [address]- 1408 May, [facility] [place] [facility] [address] [id number] [place] [address]- 8414 May, [facility] [place] [facility] [address] [id number] [place] [address]- 4551 May, [facility] [place] [facility] [address] [id number] [place] 8402 May, [facility] [place] [facility] [address] [id number] [place] [address]- 2023 May, [facility] [place] [facility] [address] [id number] [place] [address]- 3672 May, [facility] [place] [facility] [address] [id number] [place] [address]- 4686 May, [facility] [place] [facility] [address] [id number] [place] [address]- 4808 May, [facility] [place] [facility] [address] [id number] [place] [address]- 1388 May, [facility] [place] [facility] [address] [id number] [place] [address]- 0365 Apr, [facility] [place] [facility] [address] [id number] [place] [address]- 5233 Apr, [facility] [place] [facility] [address] [id number] [place] [address]- 3373 Apr, [facility] [place] [facility] [address] [id number] [place] [address]- 6443 Apr, [facility] [place] [facility] [address] [id number], [place] [address]- 6641 Apr, [facility] [place] [facility] [address] [id number] [place] [address]- 9016 Apr, [facility] [place] [facility] [address] [id number] [place] [address]- 0921 Apr, [facility] [place] [facility] [address] [id number] [place] [address]- 3980 Apr, [facility] [place] [facility] [address] [id number] [place] [address]- 0571 Apr, [facility] [place] [facility] [address] [id number] [place] [address]- 1738 Mar, [facility] [place] [facility] [address] [id number] [place] [address]- 4061 Mar, [facility] [place] [facility] [address] [id number] [place] [address]- 2852 Mar, [facility] [place] [facility] [address] [id number] [place] [address]- 7024 Mar, [facility] [place] [facility] [address] [id number] [place] [address]- 4863 Mar, [facility] [place] [facility] [address] [id number] [place] [address]- 8784 Mar, [facility] [place] [facility] [address] [id number] [place] [address]- 7087 Mar, [facility] [place] [facility] [address] [id number] [place] [address]- 2774 Mar, [facility] [place] [facility] [address] [id number] [place] [address]- 0539 Mar, [facility] [place] [facility] [address] [id number] [place] [address]- 2328 Mar, [facility] [place] [facility] [address] [id number] [place] [address]- 0990 Mar, [facility] [place] [facility] [address] [id number] [place] [address]- 4862 Mar, [facility] [place] [facility] [address] [id number] [place] 0880 Mar, [facility] [place] [facility] [address] [id number] [place] [address]- 1404 Mar, [facility] [place] [facility] [address] [id number] [place] [address]- 8868 Mar, [facility] [place] [facility] [address] [id number] [place] [address]- 3220 18 Feb, 2013 [facility] [place] [facility] [address] [id number] [place] [address]- 4549 Feb, 2013 [facility] [place] [facility] [address] [id number] [place] [address]- 4211 Feb, 2013 [facility] [place] [facility] [address] [id number] [place] [address]- 4709 Feb, 2013 [facility] [place] [facility] [address] [id number] [place] [address]- 2938 Feb, 2013 [facility] [place] [facility] [address] [id number] [place] [address]- 7691 Feb, 2013 [facility] [place] [facility] [address] [id number] [place] [address]- 8424 Feb, 2013 [facility] [place] [facility] [address] [id number] [place] [address]- 1628 Feb, 2013 [facility] [place] [facility] [address] [id number] [place] [address]- 6932 Jan, [facility] [place] [facility] [address] [id number] [place] [address]- 7251 Jan, [facility] [place] [facility] [address] [id number], [place] [address]- 2164 Jan, [facility] [place] [facility] [address] [id number], [place] [address]- 2297 Jan, [facility] [place] [facility] [address] [id number] [place] [address]- 3300 Jan, [facility] [place] [facility] [address] [id number] [place] [address]- 9634 Jan, [facility] [place] [facility] [address] [id number], [place] [address]- 9894 Jan, [facility] [place] [facility] [address] [id number], [place] [address]- 1957 Jan, [facility] [place] [facility] [address] [id number] [place] [address]- 6419 Jan, [facility] [place] [facility] [address] [id number] [place] [address]- 5311 Jan, [facility] [place] [facility] [address] [id number] [place] [address]- 3923 Jan, [facility] [place] [facility] [address] [id number] [place] [address]- 2779 Jan, [facility] [place] [facility] [address] [id number] [place] [address]- 0417 Jan, [facility] [place] [facility] [address] [id number] [place] [address]- 3717 Jan, [facility] [place] [facility] [address] [id number] [place] [address]- 6899 Jan, [facility] [place] [facility] [address] [id number] [place] [address]- 3361 Jan, [facility] [place] [facility] [address] [id number] [place] [address]- 4247 Jan, [facility] [place] [facility] [address] [id number] [place] [address]- 5361 Dec, [facility] [place] [facility] [address] [id number] [place] [address]- 4289 Dec, [facility] [place] [facility] [address] [id number] [place] [address]- 5948 Dec, [facility] [place] [facility] [address] [id number] [place] [address]- 4097 Dec, [facility] [place] [facility] [address] [id number] [place] [address]- 1831 Dec, [facility] [place] [facility] [address] [id number] [place] [address]- 3955 Dec, [facility] [place] [facility] [address] [id number] [place] [address]- 0346 Dec, [facility] [place] [facility] [address] [id number] [place] [address]- 2908 Dec, [facility] [place] [facility] [address] [id number] [place] [address]- 4267 Dec, [facility] [place] [facility] [address] [id number] [place] [address]- 3261 Dec, [facility] [place] [facility] [address] [id number] [place] [address]- 4919 Dec, [facility] [place] [facility] [address] [id number] [place] [address]- 6816 Dec, [facility] [place] [facility] [address] [id number] [place] [address]- 1673 Nov, [facility] [place] [facility] [address] [id number] [place] [address] Nov, [facility] [place] [facility] [address] [id number] [place] [address] Nov, [facility] [place] [facility] [address] [id number] [place] [address] Nov, [facility] [place] [facility] [address] [id number] [place] [address] Nov, [facility] [place] [facility] [address] [id number] [place] [address] Nov, [facility] [place] [facility] [address] [id number] [place] [address] October, [facility] [place] [facility] [address] [id number] [place] [address] October, [facility] [place] [facility] [address] [id number] [place] [address] October, [facility] [place] [facility] [address] [id number] [place] [address] October, [facility] [address] [id number] [place] [address] October, [facility] [place] [facility] [address] [id number] [place] [address] October, [facility] [place] [facility] [address] [id number] [place] [address] October, [facility] [place] [facility] [address] [id number] [place] [address] October, [facility] [address] [id number] [place] [address] October, [facility] [place] [facility] [address] [id number] [place] [address] October, [facility] [address] [id number] [place] [address] October, [facility] [place] [facility] [address] [id number] [place] [address] October, [facility] [place] [facility] [address] [id number] [place] [address] October, [facility] [place] [facility] [address] [id number] [place] [address] October, [facility] [place] [facility] [address] [id number] [place] [address] October, [facility] [place] [facility] [address] [id number] [place] [address] October, [facility] [place] [facility] [address] [id number] [place] [address] October, [facility] [place] [facility] [address] [id number] [place] [address] October, [facility] [place] [facility] [address] [id number] [place] [address] October, [facility] [place] [facility] [address] [id number] [place] [address] October, [facility] [address] [id number] [place] [address] October, [facility] [place] [facility] [address] [id number] [place] [address] October, [facility] [address] [id number] [place] [address] October, [facility] [place] [facility] [address] [id number] [place] [address] October, [facility] [place] [facility] [address] [id number] [place] [address] October, [facility] [place] [facility] [address] [id number] [place] [address] October, [facility] [address] [id number] [place] [address] October, [facility] [place] [facility] [address] [id number] [place] [address] October, [facility] [place] [facility] [address] [id number] [place] [address] October, [facility] [place] [facility] [address] [id number] [place] [address] Sep, [facility] [place] [facility] [address] [id number] [place] [address] Sep, [facility] [place] [facility] [address] [id number] [place] [address] Jun, [facility] [place] [facility] [address] [id number] [place] [address] Jun, [facility] [place] [facility] [address] [id number] [place] [address] May, [facility] [place] [facility] [address] [id number] [place] [address] May, [facility] [place] [facility] [address] [id number] [place] [address] May, [facility] [place] [facility] [address] [id number] [place] [address] Apr, [facility] [place] [facility] [address] [id number] [place] [address] Mar, [facility] [place] [facility] [address] [id number] [place] [address] Mar, [facility] [address] [id number] [place] [address] Mar, [facility] [place] [facility] [address] [id number] [place] [address] Mar, [facility] [address] [id number] [place] [address] Jan, [facility] [address] [id number] [place] [address] Dec, [facility] [address] [id number] [place] [address] Nov, [facility] [address] [id number] [place] [address] October, [facility] [place] [facility] [address] [id number] [place] [address] October, [facility] [place] [facility] [address] [id number] [place] [address] Aug, [facility] [place] [facility] [address] [id number] [place] [address] Jul, [facility] [place] [facility] [address] [id number] [place] [address] Jun, [facility] [place] [facility] [address] [id number] [place] [address] Jun, [facility] [place] [facility] [address] [id number] [place] [address] May, [facility] [place] [facility] [address] [id number] [place] [address] May, [facility] [place] [facility] [address] [id number] [place] [address] May, [facility] [place] [facility] [address] [id number] [place] [address] Apr, [facility] [place] [facility] [address] [id number] [place] [address] Apr, [facility] [place] [facility] [address] [id number] [place] [address] Apr, [facility] [place] [facility] [address] [id number] [place] [address] Apr, [facility] [place] [facility] [address] [id number] [place] [address] Apr, [facility] [place] [facility] [address] [id number] [place] [address] Apr, [facility] [place] [facility] [address] [id number] [place] [address] Apr, [facility] [place] [facility] [address] [id number] [place] [address] Apr, [facility] [place] [facility] [address] [id number] [place] [address] Feb, [facility] [place] [facility] [address] [id number] [place] [address] Jan, [facility] [place] [facility] [address] [id number] [place] [address] Jan, [facility] [place] [facility] [address] [id number] [place] [address] Jan, [facility] [place] [facility] [address] [id number] [place] [address] Dec, [facility] [place] [facility] [address] [id number] [place] [address] Nov, [facility] [address] [id number] [place] [address] October, [facility] [address] [id number] [place] [address] October, [facility] [address] [id number] [place] [address] Sep, [facility] [address] [id number] [place] [address] Sep, [facility] [address] [id number] [place] [address] Sep, [facility] [address] [id number] [place] [address] Aug, [facility] [address] [id number] [place] [address] Jul, [facility] [address] [id number] [place] [address] Jun, [facility] [address] [id number] [place] [address] Jun, [facility] [address] [id number] [place] [address] May, [facility] [address] [id number] [place] [address] May, [facility] [address] [id number] [place] [address] May, [facility] [place] [facility] [address] [id number] [place] [address] Apr, [facility] [place] [facility] [address] [id number] [place] [address] Apr, [facility] [address] [id number] [place] [address] Mar, [facility] [address] [facility] [id number], [place] [address] Mar, [facility] [address] [id number], [place] [address] Dec, [facility] [address] [facility] [id number], [place] [address] Apr, [facility] [address] [facility] [id number][place] [address] Apr, IMMUNIZATIONS No Known Immunizations SOCIAL HISTORY Never Assessed REASON FOR VISIT [place] [place] VITAL SIGNS MEDICATIONS Unknown [...] FIGO stage IB1, 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 Stephanie H[facility]) 10/18/2013 Surgical History tubal ligation 1974 Surgical History cholecystectomy 1970 Hospitalization History radical hysterectomy 10/18/13
--- OUTSIDE RECORDS SUMMARY | 2018-10-14 14:40 | XMS REPORT ---
Author Author Migration, Doctor Organization [facility] Address Unknown Phone Unavailable Care Team Providers Care Senior Game Advisor Name Role Phone Migration, Doctor Unavailable Unavailable PROBLEMS Type Condition ICD9-CM Code IJP52-TW Code Onset Dates Condition Status SNOMED Code Problem Unspecified abnormal mammogram 793.80 Active 239740617 Problem Personal history of tobacco use, presenting hazards to health V15.82 Active 6729813959881 Problem Unspecified backache 724.5 Active 012008893 Problem Chest pain, unspecified 786.50 Active 34250226 Problem 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 Active 1254992854526 Problem Sciatica 724.3 Active 15496453 Problem 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 86419196 Problem Coronary atherosclerosis of unspecified type of vessel, [place] or graft 414.00 Active 694054433 Problem Hyperlipidemia 272.4 Active 19718647 Problem Hyperlipidemia, unspecified hyperlipidemia type E78.5 Active 78175270 Problem History of cervical cancer Z85.41 Active 600895850 Problem Anxiety F41.9 Active 82787517 Problem Epiploic appendagitis K52.9 Active 45163235778480530 Problem History of pulmonary embolus (PE) Z86.711 Active 931284582 Problem Malignant neoplasm of cervix uteri, unspecified site 180.9 Active 563415196 Problem Encounter for long-term (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 other medications V58.69 Active 663584399 Problem Essential hypertension I10 Active 88065940 Problem 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 Active 231395574 Problem Long-term (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 anticoagulants Z79.01 Active 734192261 Problem Atherosclerotic heart disease of [place] coronary artery without angina pectoris I25.10 Active [id number] ALLERGIES No Information ENCOUNTERS Encounter Location Date Diagnosis [facility] [facility] [address] [facility] [id number], [place] [address] Nov, [facility] [place] [facility] [address] [id number], [place] [address] Aug, Anxiety F41.9 [facility] [place] [facility] [address], [place] [address] Jul, [facility] [place] [facility] [id number] [place] [address] 99378- 7441 Jun, Anxiety F41.9 [facility] [place] [facility] [id number] [place] [address] 99963- 1963 Jun, [facility] [place] [facility] [id number] [place] [address] 26834- 4422 May, [facility] [place] [facility] [id number] [place] [address] 13120- 9859 May, Hyperlipidemia, unspecified hyperlipidemia type E78.5 [facility] [place] [facility] [id number] [place] [address] 80710- 5756 Apr, Anxiety F41.9 [facility] [place] [facility] [id number] [place] [address] 83188- 4081 Mar, [facility] [place] [facility] [id number] [place] [address] 76756- 2730 Mar, Essential hypertension I10 ; History of pulmonary embolus ( PE) Z86.711 ; Anxiety F41.9 and Malignant neoplasm of cervix, unspecified site C53.9 [facility] [place] [facility] [address], [place] [address] 3[address] Mar, Atherosclerotic heart disease of [place] coronary artery without angina pectoris I25.10 [facility] [place] [facility] [address], [place] [address] 5982 30 Feb, 2016 Atherosclerotic heart disease of [place] coronary artery without angina pectoris I25.10 [facility] [place] [facility] [id number] [place] [address] 71620- 5778 Feb, Anxiety F41.9 [facility] [place] [facility] [address], [place] [address] 1807 Feb, [facility] [place] [facility] [id number] [place] [address] 74117- 1116 Feb, 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 [facility] [place] [facility] [address] [address]- 4066 Jan, Anxiety F41.9 [facility] [place] [facility] [id number] [place] [address] 11638 2546 Jan, Long-term (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 anticoagulants Z79.01 [facility] [place] [facility] [id number] [place] [address] 39748 2546 Jan, Anxiety F41.9 [facility] [place] [facility] [address] [address]- 4716 Dec, Long-term (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 anticoagulants Z79.01 [facility] [place] [facility] [address] 94868- 5856 Dec, [facility] [place] [facility] [address] 94739- 0740 Dec, [facility] [place] [facility] [address] 28542- 2541 Dec, Anxiety F41.9 [facility] [place] [facility] [id number] [place] [address] 35131- 8522 Nov, [facility] [place] [facility] [id number] [place] [address] 98121- 2059 Nov, [facility] [place] [facility] [address] [address] 2541 Nov, Long-term (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 anticoagulants Z79.01 and Seizures R56.9 [facility] [facility] [address] 9[address] 2546 Nov, [facility] [place] [facility] [id number] [place] [address] 19368 2546 Nov, Anxiety F41.9 [facility] [place] [facility] [address] 15619- 0566 Nov, High risk medication use Z79.899 [facility] [address] [id number] [place] [address] October draw tender (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 anticoagulants Z79.01 [facility] [place] [facility] [address] [id number], [place] [address] 4055 October, 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 [facility] [place] [facility] [address] [place] [address] 95264- 3048 October, [facility] [place] [facility] [id number] [place] [address] 05181- 5564 October, [place] [id number] [place] [address] 02051- 5163 Sep, High risk medications (not anticoagulants) long-term use V58.69 and Other residential (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 [place] [address] [id number], [place] [address] 0369 Sep, [facility] [place] [facility] [address], [place] [address] 9514 Aug, [place] [address], [place] [address] 7860 Aug, [place] [id number], [place] [address] 8215 Aug, [facility] [place] [facility] [id number], [place] [address] 0960 Jul, High risk medications (not anticoagulants) long-term use V58.69 ; Essential hypertension I10 ; Hyperlipidemia, unspecified hyperlipidemia type E78.5 and Other residential (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 [facility] [place] [facility] [id number], [place] [address] 7426 Jul, [facility] [place] [facility] [id number], [place] [address] 7559 Jun, High risk medications (not anticoagulants) long-term use V58.69 [facility] [facility] [address], [place] [address]- 8400 Jun, [facility] [facility] [id number] [place] [address] 131276- 4074 Jun, [facility] [facility] [id number] [place] [address] 82175- 6900 Jun, [facility] [facility] [id number] [place] [address] 95136- 1930 May, [facility] [facility] [id number] [place] [address] 74157- 5337 May, [facility] [facility] [id number] [place] [address] 24728- 8744 May, 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 [facility] [place] [facility] [id number] [place] [address] 09009- 6497 May, [facility] [facility] [id number] [place] [address] 68611- 5611 May, Essential hypertension I10 ; Hyperlipidemia, unspecified hyperlipidemia type E78.5 and History of cervical cancer Z85.41 [place] [address], [place] [address]- 1515 Apr, [facility] [facility] [address] [place] [address] 76846- 6895 Apr, High risk medications (not anticoagulants) long-term use V58.69 [facility] [facility] [address], [place] [address]- 5685 Mar, [place] [id number] [place] [address] 64405- 3722 Mar, 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 [facility] [facility] [address] [place] [address] 17690- 3152 Feb, [facility] [address], [place] [address]- 1176 Feb, [facility] [facility] [address] [place] [address] 69655- 7576 Feb, High risk medications (not anticoagulants) long-term use V58.69 ; Pneumonia 486 and Gait disturbance 781.2 [place] [id number] [place] [address] 43219- 5316 Feb, [facility] [address] [place]1850[place], [place] [address] 2543 Feb, [place] [id number] [place] [address] 46660- 1325 Feb, [facility] [facility] [address] [place] [address] 22689- 6934 Jan, High risk medications (not anticoagulants) long-term use V58.69 [facility] [facility] [address] [place] [address] 28575- 6137 Jan, [facility] [facility] [address] [place] [address] 68410- 9447 Dec, High risk medications (not anticoagulants) long-term use V58.69 [place] [address], [place] [address]- 8667 Dec, draw tender current use of anticoagulant therapy V58.61 [place] [address] [place] [address] 53190- 2348 Dec, [facility] [address], [place] [address] 2546 Dec, [facility] [facility] [address] [place] [address] 09343- 2546 Dec, [facility] [facility] [address], [place] [address]- 0143 Nov, 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 and Encounter for long-term (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 other medications V58.69 [facility] [facility] [address], [place] [address]- 2626 Nov, [facility] [facility] [address] [place]1850[place], [place] [address]- 5992 Nov, [facility] [place] [facility] [address], [place] [address]- 7177 October, [facility] [facility] [id number] [place] [address] 46926- 3828 October, [facility] [facility] [address], [place] [address]- 6094 October, High risk medication use V58.69 ; Cervical cancer 180.9 ; Neuropathy 355.9 and Hyperlipidemia 272.4 [facility] [facility] [address], [place] [address]- 4796 October, [facility] [facility] [address] [place], [place] [address]- 1713 Sep, [facility] [facility] [address], [place] [address]- 6915 Sep, [facility] [facility] [address], [place] [address]- 4231 Sep, [facility] [facility] [address], [place] [address]- 6952 Aug, [facility] [facility] [address], [place] [address]- 9275 Aug, [facility] [facility] [address], [place] [address]- 1730 Aug, [facility] [facility] [address], [place] [address]- 7104 18 Aug, 2014 [facility] [facility] [address] 4771 17 Aug, 2014 [facility] [place] [facility] [address], [place] [address]- 3950 Jul, [facility] [place] [facility] [address] [id number] [place] [address]- 4386 Jul, [facility] [place] [facility] [address] [id number] [place] [address]- 9220 Jul, [facility] [place] [facility] [address] [id number] [place] [address]- 8756 Jul, [facility] [place] [facility] [address] [id number] [place] [address]- 8073 Jul, [facility] [place] [facility] [address] [id number] [place] [address]- 2286 Jul, [facility] [place] [facility] [address] [facility] [id number] [place] [address]- 5934 Jul, [facility] [place] [facility] [address] [facility] [id number] [place] [address]- 3640 Jul, [facility] [place] [facility] [address] [id number] [place] [address]- 9913 Jun, [facility] [place] [facility] [address] [id number] [place] [address]- 0747 Jun, [facility] [place] [facility] [address] [facility] [id number], [place] [address]- 5548 Jun, [facility] [place] [facility] [address] [id number] [place] [address]- 2452 Jun, [facility] [place] [facility] [address] [id number], [place] [address]- 3031 Jun, [facility] [place] [facility] [address] [id number] [place] [address]- 7296 Jun, [facility] [place] [facility] [address] [facility] [id number], [place] [address]- 7478 Jun, [facility] [place] [facility] [address] [id number], [place] [address]- 3567 Jun, [facility] [place] [facility] [address] [id number] [place] [address]- 4242 Jun, [facility] [place] [facility] [address] [id number] [place] [address]- 0179 Jun, [facility] [place] [facility] [address] [id number] [place] [address]- 6545 Jun, [facility] [address] [id number] [place] [address]- 7217 Jun, [facility] [address] [id number] [place] [address]- 4648 May, [facility] [place] [facility] [address] [id number] [place] [address]- 8451 May, [facility] [address] [id number] [place] [address]- 0583 May, [facility] [address] [id number] [place] [address]- 4366 May, [facility] [place] [facility] [address] [id number] [place] [address]- 8887 May, [facility] [place] [facility] [address] [id number] [place] [address]- 5012 May, [facility] [place] [facility] [address] [id number] [place] [address]- 9168 May, [facility] [place] [facility] [address] [id number] [place] [address]- 7246 May, [facility] [place] [facility] [address] [id number] [place] [address]- 6605 May, [facility] [place] [facility] [address] [id number] [place] [address]- 6700 May, [facility] [place] [facility] [address] [id number] [place] [address]- 2342 May, [facility] [place] [facility] [address] [id number] [place] [address]- 9784 May, [facility] [place] [facility] [address] [id number] [place] [address]- 1413 May, [facility] [place] [facility] [address] [id number] [place] 1069 May, [facility] [place] [facility] [address] [id number] [place] [address]- 8424 May, [facility] [place] [facility] [address] [id number] [place] [address]- 9743 May, [facility] [place] [facility] [address] [id number] [place] [address]- 7199 May, [facility] [place] [facility] [address] [id number] [place] [address]- 4939 May, [facility] [place] [facility] [address] [id number] [place] [address]- 1369 May, [facility] [place] [facility] [address] [id number] [place] [address]- 4494 Apr, [facility] [place] [facility] [address] [id number] [place] [address]- 2070 Apr, [facility] [place] [facility] [address] [id number] [place] [address]- 8168 Apr, [facility] [place] [facility] [address] [id number] [place] [address]- 2476 Apr, [facility] [place] [facility] [address] [id number], [place] [address]- 1576 Apr, [facility] [place] [facility] [address] [id number] [place] [address]- 7090 Apr, [facility] [place] [facility] [address] [id number] [place] [address]- 8789 Apr, [facility] [place] [facility] [address] [id number] [place] [address]- 4009 Apr, [facility] [place] [facility] [address] [id number] [place] [address]- 5691 Apr, [facility] [place] [facility] [address] [id number] [place] [address]- 2885 Mar, [facility] [place] [facility] [address] [id number] [place] [address]- 6140 Mar, [facility] [place] [facility] [address] [id number] [place] [address]- 5605 Mar, [facility] [place] [facility] [address] [id number] [place] [address]- 8567 Mar, [facility] [place] [facility] [address] [id number] [place] [address]- 3418 Mar, [facility] [place] [facility] [address] [id number] [place] [address]- 7856 Mar, [facility] [place] [facility] [address] [id number] [place] [address]- 6200 Mar, [facility] [place] [facility] [address] [id number] [place] [address]- 2386 Mar, [facility] [place] [facility] [address] [id number] [place] [address]- 6417 Mar, [facility] [place] [facility] [address] [id number] [place] [address]- 4540 Mar, [facility] [place] [facility] [address] [id number] [place] [address]- 6463 Mar, [facility] [place] [facility] [address] [id number] [place] [address]- 7112 Mar, [facility] [place] [facility] [address] [id number] [place] 1485 Mar, [facility] [place] [facility] [address] [id number] [place] [address]- 2487 Mar, [facility] [place] [facility] [address] [id number] [place] [address]- 1731 Mar, [facility] [place] [facility] [address] [id number] [place] [address]- 4627 18 Feb, 2013 [facility] [place] [facility] [address] [id number] [place] [address]- 0489 Feb, 2013 [facility] [place] [facility] [address] [id number] [place] [address]- 4757 Feb, 2013 [facility] [place] [facility] [address] [id number] [place] [address]- 7498 Feb, 2013 [facility] [place] [facility] [address] [id number] [place] [address]- 3294 Feb, 2013 [facility] [place] [facility] [address] [id number] [place] [address]- 2089 Feb, 2013 [facility] [place] [facility] [address] [id number] [place] [address]- 1838 Feb, 2013 [facility] [place] [facility] [address] [id number] [place] [address]- 3097 Feb, 2013 [facility] [place] [facility] [address] [id number] [place] [address]- 3284 Jan, [facility] [place] [facility] [address] [id number] [place] [address]- 1641 Jan, [facility] [place] [facility] [address] [id number], [place] [address]- 7190 Jan, [facility] [place] [facility] [address] [id number], [place] [address]- 5154 Jan, [facility] [place] [facility] [address] [id number] [place] [address]- 4224 Jan, [facility] [place] [facility] [address] [id number] [place] [address]- 4400 Jan, [facility] [place] [facility] [address] [id number], [place] [address]- 8094 Jan, [facility] [place] [facility] [address] [id number], [place] [address]- 5760 Jan, [facility] [place] [facility] [address] [id number] [place] [address]- 1666 Jan, [facility] [place] [facility] [address] [id number] [place] [address]- 8401 Jan, [facility] [place] [facility] [address] [id number] [place] [address]- 1550 Jan, [facility] [place] [facility] [address] [id number] [place] [address]- 5489 Jan, [facility] [place] [facility] [address] [id number] [place] [address]- 7274 Jan, [facility] [place] [facility] [address] [id number] [place] [address]- 9106 Jan, [facility] [place] [facility] [address] [id number] [place] [address]- 1594 Jan, [facility] [place] [facility] [address] [id number] [place] [address]- 1467 Jan, [facility] [place] [facility] [address] [id number] [place] [address]- 7895 Jan, [facility] [place] [facility] [address] [id number] [place] [address]- 1763 Dec, [facility] [place] [facility] [address] [id number] [place] [address]- 5352 Dec, [facility] [place] [facility] [address] [id number] [place] [address]- 3961 Dec, [facility] [place] [facility] [address] [id number] [place] [address] Dec, [facility] [place] [facility] [address] [id number] [place] [address] Dec, [facility] [place] [facility] [address] [id number] [place] [address] Dec, [facility] [place] [facility] [address] [id number] [place] [address] Dec, [facility] [place] [facility] [address] [id number] [place] [address] Dec, [facility] [place] [facility] [address] [id number] [place] [address] Dec, [facility] [place] [facility] [address] [id number] [place] [address] Dec, [facility] [place] [facility] [address] [id number] [place] [address] Dec, [facility] [place] [facility] [address] [id number] [place] [address] Dec, [facility] [place] [facility] [address] [id number] [place] [address] Nov, [facility] [place] [facility] [address] [id number] [place] [address] Nov, [facility] [place] [facility] [address] [id number] [place] [address] Nov, [facility] [place] [facility] [address] [id number] [place] [address] Nov, [facility] [place] [facility] [address] [id number] [place] [address] Nov, [facility] [place] [facility] [address] [id number] [place] [address]65 Nov, [facility] [place] [facility] [address] [id number] [place] [address] October, [facility] [place] [facility] [address] [id number] [place] [address] October, [facility] [place] [facility] [address] [id number] [place] [address] October, [facility] [place] [facility] [address] [id number] [place] [address]- [address] October, [facility] [address] [id number] [place] [address] October, [facility] [place] [facility] [address] [id number] [place] [address] October, [facility] [place] [facility] [address] [id number] [place] [address] October, [facility] [place] [facility] [address] [id number] [place] [address]- [address] October, [facility] [address] [id number] [place] [address] October, [facility] [place] [facility] [address] [id number] [place] [address] October, [facility] [address] [id number] [place] [address] October, [facility] [place] [facility] [address] [id number] [place] [address] 47[address] October, [facility] [place] [facility] [address] [id number] [place] [address] October, [facility] [place] [facility] [address] [id number] [place] [address] October, [facility] [place] [facility] [address] [id number] [place] [address] October, [facility] [place] [facility] [address] [id number] [place] [address] 39[address] October, [facility] [place] [facility] [address] [id number] [place] [address]195 October, [facility] [place] [facility] [address] [id number] [place] [address] October, [facility] [place] [facility] [address] [id number] [place] [address] October, [facility] [place] [facility] [address] [id number] [place] [address] October, [facility] [address] [id number] [place] [address] October, [facility] [place] [facility] [address] [id number] [place] [address] October, [facility] [address] [id number] [place] [address] October, [facility] [place] [facility] [address] [id number] [place] [address] October, [facility] [place] [facility] [address] [id number] [place] [address] October, [facility] [place] [facility] [address] [id number] [place] [address] 49[address] October, [facility] [address] [id number] [place] [address] October, [facility] [place] [facility] [address] [id number] [place] [address] October, [facility] [place] [facility] [address] [id number] [place] [address] October, [facility] [place] [facility] [address] [id number] [place] [address] Sep, [facility] [place] [facility] [address] [id number] [place] [address] Sep, [facility] [place] [facility] [address] [id number] [place] [address] Jun, [facility] [place] [facility] [address] [id number] [place] [address] Jun, [facility] [place] [facility] [address] [id number] [place] [address] May, [facility] [place] [facility] [address] [id number] [place] [address] May, [facility] [place] [facility] [address] [id number] [place] [address] May, [facility] [place] [facility] [address] [id number] [place] [address] Apr, [facility] [place] [facility] [address] [id number] [place] [address] Mar, [facility] [place] [facility] [address] [id number] [place] [address] Mar, [facility] [address] [id number] [place] [address] Mar, [facility] [place] [facility] [address] [id number] [place] [address] Mar, [facility] [address] [id number] [place] [address] Jan, [facility] [address] [id number] [place] [address] Dec, [facility] [address] [id number] [place] [address] Nov, [facility] [address] [id number] [place] [address] October, [facility] [place] [facility] [address] [id number] [place] [address] October, [facility] [place] [facility] [address] [id number] [place] [address] Aug, [facility] [place] [facility] [address] [id number] [place] [address] Jul, [facility] [place] [facility] [address] [id number] [place] [address]- [address] Jun, [facility] [place] [facility] [address] [id number] [place] [address] Jun, [facility] [place] [facility] [address] [id number] [place] [address] May, [facility] [place] [facility] [address] [id number] [place] [address] May, [facility] [place] [facility] [address] [id number] [place] [address] May, [facility] [place] [facility] [address] [id number] [place] [address] Apr, [facility] [place] [facility] [address] [id number] [place] [address]- [address] Apr, [facility] [place] [facility] [address] [id number] [place] [address]- [address] Apr, [facility] [place] [facility] [address] [id number] [place] [address] Apr, [facility] [place] [facility] [address] [id number] [place] [address] Apr, [facility] [place] [facility] [address] [id number] [place] [address] Apr, [facility] [place] [facility] [address] [id number] [place] [address] Apr, [facility] [place] [facility] [address] [id number] [place] [address] Apr, [facility] [place] [facility] [address] [id number] [place] [address] Feb, [facility] [place] [facility] [address] [id number] [place] [address] Jan, [facility] [place] [facility] [address] [id number] [place] [address] Jan, [facility] [place] [facility] [address] [id number] [place] [address] Jan, [facility] [place] [facility] [address] [id number] [place] [address] Dec, [facility] [place] [facility] [address] [id number] [place] [address] Nov, [facility] [address] [id number] [place] [address] October, [facility] [address] [id number] [place] [address] 25[address] October, [facility] [address] [id number] [place] [address]- [address] Sep, [facility] [address] [id number] [place] [address] Sep, [facility] [address] [id number] [place] [address] Sep, [facility] [address] [id number] [place] [address] Aug, [facility] [address] [id number] [place] [address] Jul, [facility] [address] [id number] [place] [address] Jun, [facility] [address] [id number] [place] [address] Jun, [facility] [address] [id number] [place] [address] May, [facility] [address] [id number] [place] [address] May, [facility] [address] [id number] [place] [address] May, [facility] [place] [facility] [address] [id number] [place] [address] Apr, [facility] [place] [facility] [address] [id number] [place] [address] Apr, [facility] [address] [id number] [place] [address] Mar, [facility] [place] [facility] [address] [facility] [id number], [place] [address] Mar, [facility] [place] [facility] [address] [id number], [place] [address] Dec, [facility] [place] [facility] [address] [facility] [id number], [place] [address] Apr, [facility] [place] [facility] [address] [facility] [id number], [place] [address] Apr, IMMUNIZATIONS No Known Immunizations SOCIAL HISTORY [...] FIGO stage IB1, 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 Stephanie [facility]) 10/18/2013 Surgical History tubal ligation 1974 Surgical History cholecystectomy 1970 Hospitalization History radical hysterectomy 10/18/13
--- OUTSIDE RECORDS SUMMARY | 2018-10-14 14:40 | XMS REPORT ---
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 Name Role Phone Migration, Doctor Unavailable Unavailable PROBLEMS Type Condition ICD9-CM Code QQC52-WC Code Onset Dates Condition Status SNOMED Code Problem Unspecified abnormal mammogram 793.80 Active 009168290 Problem Personal history of tobacco use, presenting hazards to health V15.82 Active 1645053900613 Problem Unspecified backache 724.5 Active 102216642 Problem Chest pain, unspecified 786.50 Active 06555015 Problem 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 Active 8455840088974 Problem Sciatica 724.3 Active 31447867 Problem 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 56925907 Problem Coronary atherosclerosis of unspecified type of vessel, [place] or graft 414.00 Active 538919448 Problem Hyperlipidemia 272.4 Active 91476186 Problem Hyperlipidemia, unspecified hyperlipidemia type E78.5 Active 21044437 Problem History of cervical cancer Z85.41 Active 058541054 Problem Anxiety F41.9 Active 41652340 Problem Epiploic appendagitis K52.9 Active 31154214775591146 Problem History of pulmonary embolus (PE) Z86.711 Active 494509376 Problem Malignant neoplasm of cervix uteri, unspecified site 180.9 Active 084037419 Problem Encounter for long-term (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 other medications V58.69 Active 886734900 Problem Essential hypertension I10 Active 71096982 Problem 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 Active 897935003 Problem Long-term (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 anticoagulants Z79.01 Active 173897228 Problem Atherosclerotic heart disease of [place] coronary artery without angina pectoris I25.10 Active [id number] ALLERGIES No Information ENCOUNTERS Encounter Location Date Diagnosis [facility] [address] [id number] [address] Nov, [facility] [address] [id number] [address] Aug, Anxiety F41.9 [facility] [address] [address] Jul, [facility] [id number] [place] [address] 88680- 6975 Jun, Anxiety F41.9 [facility] [id number] [place] [address] 75073- 1279 Jun, [facility] [id number] [place] [address] 24298- 8719 May, [facility] [id number] [place] [address] 79477- 6169 May, Hyperlipidemia, unspecified hyperlipidemia type E78.5 [facility] [id number] [place] [address] 83949- 8022 Apr, Anxiety F41.9 [facility] [id number] [place] [address] 25632- 8128 Mar, [facility] [id number] [place] [address] 08824- 7843 Mar, Essential hypertension I10 ; History of pulmonary embolus ( PE) Z86.711 ; Anxiety F41.9 and Malignant neoplasm of cervix, unspecified site C53.9 [facility] [address] [address] Mar, Atherosclerotic heart disease of [place] coronary artery without angina pectoris I25.10 [facility] [address], [place] [address] 30 Feb, 2016 Atherosclerotic heart disease of [place] coronary artery without angina pectoris I25.10 [facility] [id number] [place] [address] 27625- 8763 Feb, Anxiety F41.9 [facility] [address] [address] 8903 Feb, [facility] [id number] [place] [address] 67807- 0655 Feb, 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 [facility] [address] [address]- 3286 Jan, Anxiety F41.9 [facility] [id number] [place] [address] 67653 2546 Jan, Long-term (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 anticoagulants Z79.01 [facility] [id number] [place] [address] 36958 2546 Jan, Anxiety F41.9 [facility] [address] 12498- 5316 Dec, Long-term (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 anticoagulants Z79.01 [facility] [address] 41210- 9936 Dec, [facility] [address] 88357- 5810 Dec, [facility] [address] 27575- 2547 Dec, Anxiety F41.9 [facility] [id number] [place] [address] 77065- 8746 Nov, [facility] [id number] [place] [address] 54246- 2040 Nov, [facility] [address] [address] 2540 Nov, Long-term (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 anticoagulants Z79.01 and Seizures R56.9 [facility] [address] [address] 2546 Nov, [facility] [id number] [place] [address] 75024 2546 Nov, Anxiety F41.9 [facility] [address] 11998- 1070 Nov, High risk medication use Z79.899 [facility] [address] [address] [address] [id number] [place] [address] 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 [facility] [address] [id number] [address] 6252 October, 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 [facility] [id number] [place] [address] 92517- 6025 October, [facility] [id number] [place] [address] 78053- 3153 October, [id number] [place] [address] 74267- 8313 Sep, High risk medications (not anticoagulants) long-term use V58.69 and Other longterm (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 [address] [place] [id number] [address] 54[address] Sep, [facility] [address] [address] Aug, [address] [address] [address] 1695 Aug, [facility] [facility] [id number] [address] 8087 Aug, [facility] [id number] [address] 1093 Jul, High risk medications (not anticoagulants) long-term use V58.69 ; Essential hypertension I10 ; Hyperlipidemia, unspecified hyperlipidemia type E78.5 and Other longterm (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 [facility] [id number] [address] 0472 Jul, [facility] [id number] [address] 6542 Jun, High risk medications (not anticoagulants) long-term use V58.69 [facility] [address], [place] [address]- 8144 Jun, [facility] [id number] [place] [address] 472867- 0956 Jun, [facility] [id number] [place] [address] 62948- 9053 Jun, [facility] [id number] [place] [address] 06761- 8009 May, [facility] [id number] [place] [address] 38880- 0412 May, [facility] [id number] [place] [address] 39117- 6432 May, 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 [facility] [id number] [place] [address] 93752- 8298 May, [facility] [id number] [place] [address] 96463- 6259 May, Essential hypertension I10 ; Hyperlipidemia, unspecified hyperlipidemia type E78.5 and History of cervical cancer Z85.41 [address] [place] [address], [place] [address] 7701 Apr, [facility] [address] [place] [address] 92820- 8695 Apr, High risk medications (not anticoagulants) long-term use V58.69 [facility] [address] [address]- 6521 Mar, [place] [id number] [place] [address] 99575- 1802 Mar, 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 [facility] [id number] [place] [address] 30080- 2947 Feb, [facility] [address], [place] [address]- 0116 Feb, [facility] [id number] [place] [address] 01020- 5586 Feb, High risk medications (not anticoagulants) long-term use V58.69 ; Pneumonia 486 and Gait disturbance 781.2 [address] [id number] [place] [address] 91455- 0736 Feb, [facility] [id number] [address] 2548 Feb, [place] [id number] [place] [address] 52419- 2415 Feb, [facility] [address] [place] [address] 71206- 5884 Jan, High risk medications (not anticoagulants) long-term use V58.69 [facility] [id number] [place] [address] 19831- 4325 Jan, [facility] [id number] [place] [address] 32921- 4420 Dec, High risk medications (not anticoagulants) long-term use V58.69 [address] [place] [address] [address]- 6046 Dec, 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.61 [address] [id number] [place] [address] 26273- 8382 Dec, [facility] [address], [place] [address] 2546 Dec, [facility] [id number] [place] [address] 86874- 2546 Dec, [facility] [address] [address]- 9426 Nov, 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 and Encounter for long-term (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 other medications V58.69 [facility] [address], [place] [address]- 1738 Nov, [facility] [id number] [address]- 1756 Nov, [facility] [address] [address]- 3498 October, [facility] [id number] [place] [address] 18002- 9165 October, [facility] [address], [place] [address]- 0220 October, High risk medication use V58.69 ; Cervical cancer 180.9 ; Neuropathy 355.9 and Hyperlipidemia 272.4 [facility] [address], [place] [address]- 7682 October, [facility] [id number] [address]- 8898 Sep, [facility] [address], [place] [address]- 1871 Sep, [facility] [address], [place] [address]- 1825 Sep, [facility] [address], [place] [address]- 7030 Aug, [facility] [address], [place] [address]- 7280 Aug, [facility] [address], [place] [address]- 0345 Aug, [facility] [address], [place] [address]- 4313 18 Aug, 2014 [facility] [address] 4798 17 Aug, 2014 [facility] [address], [place] [address]- 9874 Jul, [facility] [place] [facility] [address] [id number] [place] [address]- 5376 Jul, [facility] [place] [facility] [address] [id number] [place] [address]- 6842 Jul, [facility] [place] [facility] [address] [id number] [place] [address]- 9736 Jul, [facility] [place] [facility] [address] [id number] [place] [address]- 4079 Jul, [facility] [place] [facility] [address] [id number] [place] [address]- 2671 Jul, [facility] [place] [facility] [address] [facility] [place] [place] [id number] [place] [address]- 9499 Jul, [facility] [place] [facility] [address] [facility] [place] [id number] [place] [address]- 3539 Jul, [facility] [place] [facility] [address] [id number] [place] [address]- 2528 Jun, [facility] [place] [facility] [address] [id number] [place] [address]- 7738 Jun, [facility] [place] [facility] [address] [facility] [place] [id number], [place] [address]- 3841 Jun, [facility] [place] [facility] [address] [id number] [place] [address]- 5200 Jun, [facility] [place] [facility] [address] [id number], [place] [address]- 2483 Jun, [facility] [place] [facility] [address] [id number] [place] [address]- 1308 Jun, [facility] [place] [facility] [address] [facility] [place] [place] [id number] [address]- 4267 Jun, [facility] [place] [facility] [address] [id number], [place] [address]- 2896 Jun, [facility] [place] [facility] [address] [id number] [place] [address]- 3313 Jun, [facility] [place] [facility] [address] [id number] [place] [address]- 1647 Jun, [facility] [place] [facility] [address] [id number] [place] [address]- 9796 Jun, [facility] [address] [id number] [place] [address]- 7695 Jun, [facility] [address] [id number] [place] [address]- 4794 May, [facility] [place] [facility] [address] [id number] [place] [address]- 9161 May, [facility] [address] [id number] [place] [address]- 5235 May, [facility] [address] [id number] [place] [address]- 8656 May, [facility] [place] [facility] [address] [id number] [place] [address]- 5752 May, [facility] [place] [facility] [address] [id number] [place] [address]- 4764 May, [facility] [place] [facility] [address] [id number] [place] [address]- 7558 May, [facility] [place] [facility] [address] [id number] [place] [address]- 3795 May, [facility] [place] [facility] [address] [id number] [place] [address]- 5026 May, [facility] [place] [facility] [address] [id number] [place] [address]- 6671 May, [facility] [place] [facility] [address] [id number] [place] [address]- 4345 May, [facility] [place] [facility] [address] [id number] [place] [address]- 6173 May, [facility] [place] [facility] [address] [id number] [place] [address]- 7379 May, [facility] [place] [facility] [address] [id number] [place] 4046 May, [facility] [place] [facility] [address] [id number] [place] [address]- 2364 May, [facility] [place] [facility] [address] [id number] [place] [address]- 9468 May, [facility] [place] [facility] [address] [id number] [place] [address]- 9746 May, [facility] [place] [facility] [address] [id number] [place] [address]- 3476 May, [facility] [place] [facility] [address] [id number] [place] [address]- 5587 May, [facility] [place] [facility] [address] [id number] [place] [address]- 6091 Apr, [facility] [place] [facility] [address] [id number] [place] [address]- 4138 Apr, [facility] [place] [facility] [address] [id number] [place] [address]- 1907 Apr, [facility] [place] [facility] [address] [id number] [place] [address]- 0121 Apr, [facility] [place] [facility] [address] [id number], [place] [address]- 9385 Apr, [facility] [place] [facility] [address] [id number] [place] [address]- 4742 Apr, [facility] [place] [facility] [address] [id number] [place] [address]- 5619 Apr, [facility] [place] [facility] [address] [id number] [place] [address]- 5628 Apr, [facility] [place] [facility] [address] [id number] [place] [address]- 5510 Apr, [facility] [place] [facility] [address] [id number] [place] [address]- 5680 Mar, [facility] [place] [facility] [address] [id number] [place] [address]- 9522 Mar, [facility] [place] [facility] [address] [id number] [place] [address]- 8361 Mar, [facility] [place] [facility] [address] [id number] [place] [address]- 3850 Mar, [facility] [place] [facility] [address] [id number] [place] [address]- 2327 Mar, [facility] [place] [facility] [address] [id number] [place] [address]- 6140 Mar, [facility] [place] [facility] [address] [id number] [place] [address]- 9767 Mar, [facility] [place] [facility] [address] [id number] [place] [address]- 9700 Mar, [facility] [place] [facility] [address] [id number] [place] [address]- 0970 Mar, [facility] [place] [facility] [address] [id number] [place] [address]- 2858 Mar, [facility] [place] [facility] [address] [id number] [place] [address]- 6671 Mar, [facility] [place] [facility] [address] [id number] [place] [address]- 2935 Mar, [facility] [place] [facility] [address] [id number] [place] 1447 Mar, [facility] [place] [facility] [address] [id number] [place] [address]- 8314 Mar, [facility] [place] [facility] [address] [id number] [place] [address]- 2385 Mar, [facility] [place] [facility] [address] [id number] [place] [address]- 1423 18 Feb, 2013 [facility] [place] [facility] [address] [id number] [place] [address]- 4481 Feb, 2013 [facility] [place] [facility] [address] [id number] [place] [address]- 0901 Feb, 2013 [facility] [place] [facility] [address] [id number] [place] [address]- 4596 Feb, 2013 [facility] [place] [facility] [address] [id number] [place] [address]- 4947 Feb, 2013 [facility] [place] [facility] [address] [id number] [place] [address]- 1017 Feb, 2013 [facility] [place] [facility] [address] [id number] [place] [address]- 7377 Feb, 2013 [facility] [place] [facility] [address] [id number] [place] [address]- 4419 Feb, 2013 [facility] [place] [facility] [address] [id number] [place] [address]- 9673 Jan, [facility] [place] [facility] [address] [id number] [place] [address]- 2990 Jan, [facility] [place] [facility] [address] [id number], [place] [address]- 3270 Jan, [facility] [place] [facility] [address] [id number], [place] [address]- 5613 Jan, [facility] [place] [facility] [address] [id number] [place] [address]- 6261 Jan, [facility] [place] [facility] [address] [id number] [place] [address]- 9680 Jan, [facility] [place] [facility] [address] [id number], [place] [address]- 0314 Jan, [facility] [place] [facility] [address] [id number], [place] [address]- 1997 Jan, [facility] [place] [facility] [address] [id number] [place] [address]- 7678 Jan, [facility] [place] [facility] [address] [id number] [place] [address]- 7746 Jan, [facility] [place] [facility] [address] [id number] [place] [address]- 2079 Jan, [facility] [place] [facility] [address] [id number] [place] [address]- 1978 Jan, [facility] [place] [facility] [address] [id number] [place] [address]- 7672 Jan, [facility] [place] [facility] [address] [id number] [place] [address]- 7616 Jan, [facility] [place] [facility] [address] [id number] [place] [address]- 7512 Jan, [facility] [place] [facility] [address] [id number] [place] [address]- 2365 Jan, [facility] [place] [facility] [address] [id number] [place] [address]- 9343 Jan, [facility] [place] [facility] [address] [id number] [place] [address]- 2889 Dec, [facility] [place] [facility] [address] [id number] [place] [address]- 1559 Dec, [facility] [place] [facility] [address] [id number] [place] [address]- 5199 Dec, [facility] [place] [facility] [address] [id number] [place] [address]- 2481 Dec, [facility] [place] [facility] [address] [id number] [place] [address]- 6161 Dec, [facility] [place] [facility] [address] [id number] [place] [address]- 3003 Dec, [facility] [place] [facility] [address] [id number] [place] [address]- 2636 Dec, [facility] [place] [facility] [address] [id number] [facility] [place] [address]- 1360 Dec, [facility] [place] [facility] [address] [id number] [place] [address]- 1619 Dec, [facility] [place] [facility] [address] [id number] [place] [address]- 4197 Dec, [facility] [place] [facility] [address] [id number] [place] [address] Dec, [facility] [place] [facility] [address] [id number] [place] [address] Dec, [facility] [place] [facility] [address] [id number] [place] [address] Nov, [facility] [place] [facility] [address] [id number] [place] [address] Nov, [facility] [place] [facility] [address] [id number] [place] [address] Nov, [facility] [place] [facility] [address] [id number] [place] [address] Nov, [facility] [place] [facility] [address] [id number] [place] [address] Nov, [facility] [place] [facility] [address] [id number] [place] [address] Nov, [facility] [place] [facility] [address] [id number] [place] [address] October, [facility] [place] [facility] [address] [id number] [place] [address] October, [facility] [place] [facility] [address] [id number] [place] [address] October, [facility] [place] [facility] [address] [id number] [place] [address] October, [facility] [address] [id number] [place] [address] October, [facility] [place] [facility] [address] [id number] [place] [address] October, [facility] [place] [facility] [address] [id number] [place] [address] October, [facility] [place] [facility] [address] [id number] [place] [address] October, [facility] [address] [id number] [place] [address] October, [facility] [place] [facility] [address] [id number] [place] [address] October, [facility] [address] [id number] [place] [address] October, [facility] [place] [facility] [address] [id number] [place] [address] October, [facility] [place] [facility] [address] [id number] [place] [address] October, [facility] [place] [facility] [address] [id number] [place] [address] October, [facility] [place] [facility] [address] [id number] [place] [address] October, [facility] [place] [facility] [address] [id number] [place] [address] October, [facility] [place] [facility] [address] [id number] [place] [address]- [address] October, [facility] [place] [facility] [address] [id number] [place] [address] October, [facility] [place] [facility] [address] [id number] [place] [address] October, [facility] [place] [facility] [address] [id number] [place] [address] October, [facility] [address] [id number] [place] [address] October, [facility] [place] [facility] [address] [id number] [place] [address] October, [facility] [address] [id number] [place] [address] October, [facility] [place] [facility] [address] [id number] [place] [address] October, [facility] [place] [facility] [address] [id number] [place] [address] October, [facility] [place] [facility] [address] [id number] [place] [address] October, [facility] [address] [id number] [place] [address] October, [facility] [place] [facility] [address] [id number] [place] [address] October, [facility] [place] [facility] [address] [id number] [place] [address]- [address] October, [facility] [place] [facility] [address] [id number] [place] [address]- [address] Sep, [facility] [place] [facility] [address] [id number] [place] [address] Sep, [facility] [place] [facility] [address] [id number] [place] [address] Jun, [facility] [place] [facility] [address] [id number] [place] [address] Jun, [facility] [place] [facility] [address] [id number] [place] [address] May, [facility] [place] [facility] [address] [id number] [place] [address] May, [facility] [place] [facility] [address] [id number] [place] [address] May, [facility] [place] [facility] [address] [id number] [place] [address] Apr, [facility] [place] [facility] [address] [id number] [place] [address]- [address] Mar, [facility] [place] [facility] [address] [id number] [place] [address] Mar, [facility] [address] [id number] [place] [address] Mar, [facility] [place] [facility] [address] [id number] [place] [address] Mar, [facility] [address] [id number] [place] [address] Jan, [facility] [address] [id number] [place] [address] Dec, [facility] [address] [id number] [place] [address] Nov, [facility] [address] [id number] [place] [address] October, [facility] [place] [facility] [address] [id number] [place] [address] October, [facility] [place] [facility] [address] [id number] [place] [address] Aug, [facility] [place] [facility] [address] [id number] [place] [address] Jul, [facility] [place] [facility] [address] [id number] [place] [address] Jun, [facility] [place] [facility] [address] [id number] [place] [address] Jun, [facility] [place] [facility] [address] [id number] [place] [address] May, [facility] [place] [facility] [address] [id number] [place] [address] May, [facility] [place] [facility] [address] [id number] [place] [address] May, [facility] [place] [facility] [address] [id number] [place] [address] Apr, [facility] [place] [facility] [address] [id number] [place] [address] Apr, [facility] [place] [facility] [address] [id number] [place] [address] Apr, [facility] [place] [facility] [address] [id number] [place] [address] Apr, [facility] [place] [facility] [address] [id number] [place] [address] Apr, [facility] [place] [facility] [address] [id number] [place] [address] Apr, [facility] [place] [facility] [address] [id number] [place] [address] Apr, [facility] [place] [facility] [address] [id number] [place] [address] Apr, [facility] [place] [facility] [address] [id number] [place] [address] Feb, [facility] [place] [facility] [address] [id number] [place] [address] Jan, [facility] [place] [facility] [address] [id number] [place] [address] Jan, [facility] [place] [facility] [address] [id number] [place] [address] Jan, [facility] [place] [facility] [address] [id number] [place] [address] Dec, [facility] [place] [facility] [address] [id number] [place] [address] Nov, [facility] [address] [id number] [place] [address] October, [facility] [address] [id number] [place] [address] October, [facility] [address] [id number] [place] [address] Sep, [facility] [address] [id number] [place] [address] Sep, [facility] [address] [id number] [place] [address] Sep, [facility] [address] [id number] [place] [address] Aug, [facility] [address] [id number] [place] [address] Jul, [facility] [address] [id number] [place] [address] Jun, [facility] [address] [id number] [place] [address] Jun, [facility] [address] [id number] [place] [address] May, [facility] [address] [id number] [place] [address] May, [facility] [address] [id number] [place] [address] May, [facility] [place] [facility] [address] [id number] [place] [address] Apr, [facility] [place] [facility] [address] [id number] [place] [address] Apr, [facility] [address] [id number] [place] [address] Mar, [facility] [address] [facility] [id number], [place] [address] Mar, [facility] [address] [id number], [place] [address] Dec, [facility] [address] [facility] [id number], [place] [address] Apr, [facility] [address] [facility] [id number], [place] [address] Apr, IMMUNIZATIONS No Known Immunizations SOCIAL HISTORY Never Assessed REASON FOR VISIT EMR-[facility] PLAN OF CARE VITAL SIGNS MEDICATIONS Unknown [...] FIGO stage IB1, 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 Stephanie Hector-[facility]) 10/18/2013 Surgical History tubal ligation 1974 Surgical History cholecystectomy 1970 Hospitalization History radical hysterectomy 10/18/13
--- OUTSIDE RECORDS SUMMARY | 2018-10-14 14:41 | XMS REPORT ---
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 Problem Hyperlipidemia 272.4 Active Problem Epiploic appendagitis K52.9 Active Problem Atherosclerotic heart disease of [place] coronary artery without angina pectoris I25.10 Active Problem Long-term (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 anticoagulants Z79.01 Active Problem Anxiety F41.9 Active Problem Hyperlipidemia, unspecified hyperlipidemia type E78.5 Active Problem History of cervical cancer Z85.41 Active Problem Other skilled nursing (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 Active Problem Essential hypertension I10 Active Problem 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 Active Problem Encounter for long-term (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 other medications V58.69 Active Problem Coronary atherosclerosis of unspecified type of vessel, [place] or graft 414.00 Active Problem Chest pain, unspecified 786.50 Active Problem Unspecified abnormal mammogram 793.80 Active Problem Sciatica 724.3 Active Problem Personal history of tobacco use, presenting hazards to health V15.82 Active Problem Unspecified backache 724.5 Active Problem Malignant neoplasm of cervix uteri, unspecified site 180.9 Active Medications No Known Medications Results No Known Results Summary Purpose eClinicalWorks Submission
--- OUTSIDE RECORDS SUMMARY | 2018-10-14 14:41 | XMS REPORT ---
Author Author GRISEL SERRANO [facility] Address [address] [place] [address] Care Team Providers Care Grain Drier Name Role Phone GRISEL SERRANO Unavailable PROBLEMS Type Condition ICD9-CM Code OCQ49-HA Code Onset Dates Condition Status SNOMED Code Problem Hyperlipidemia 272.4 Active 50274882 Problem Hyperlipidemia, unspecified hyperlipidemia type E78.5 Active 00822541 Problem History of cervical cancer Z85.41 Active 297218425 Problem History of pulmonary embolus (PE) Z86.711 Active 139696943 Problem Coronary atherosclerosis of unspecified type of vessel, [place] or graft 414.00 Active 91102306 Problem Anxiety F41.9 Active 04246132 Problem Other skilled nursing (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 Active 286286594 Problem Essential hypertension I10 Active 35244645 Problem Atherosclerotic heart disease of [place] coronary artery without angina pectoris I25.10 Active 054966210101175 Problem Long-term (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 anticoagulants Z79.01 Active 796424651 Problem Sciatica 724.3 Active 21827749 Problem Unspecified backache 724.5 Active 067974388 Problem 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 Active 2468519231473 Problem Encounter for long-term (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 other medications V58.69 Active 498226133 Problem Personal history of tobacco use, presenting hazards to health V15.82 Active 1712586749194 Problem Malignant neoplasm of cervix uteri, unspecified site 180.9 Active 237559763 Problem Chest pain, unspecified 786.50 Active 39553871 Problem 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
--- OUTSIDE RECORDS SUMMARY | 2018-10-14 14:41 | XMS REPORT ---
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
--- OUTSIDE RECORDS SUMMARY | 2018-10-14 14:41 | XMS REPORT ---
Author Author Migration, Doctor Organization [facility] Address Unknown Phone Unavailable Care Team Providers Care School Bus Technician Name Role Phone Migration, Doctor Unavailable Unavailable PROBLEMS Type Condition ICD9-CM Code ENE34-VJ Code Onset Dates Condition Status SNOMED Code Problem Unspecified abnormal mammogram 793.80 Active 721431313 Problem Personal history of tobacco use, presenting hazards to health V15.82 Active 2256638721384 Problem Unspecified backache 724.5 Active 727366340 Problem Chest pain, unspecified 786.50 Active 83750436 Problem 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 Active 2274098215099 Problem Sciatica 724.3 Active 18430240 Problem 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 39327106 Problem Coronary atherosclerosis of unspecified type of vessel, [place] or graft 414.00 Active 341638669 Problem Hyperlipidemia 272.4 Active 19307818 Problem Hyperlipidemia, unspecified hyperlipidemia type E78.5 Active 23866350 Problem History of cervical cancer Z85.41 Active 681099855 Problem Anxiety F41.9 Active 22578716 Problem Epiploic appendagitis K52.9 Active [id number] Problem History of pulmonary embolus (PE) Z86.711 Active 021631689 Problem Malignant neoplasm of cervix uteri, unspecified site 180.9 Active 860734676 Problem Encounter for long-term (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 other medications V58.69 Active 465540210 Problem Essential hypertension I10 Active 21222132 Problem 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 Active 159922809 Problem Long-term (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 anticoagulants Z79.01 Active 694262616 Problem Atherosclerotic heart disease of [place] coronary artery without angina pectoris I25.10 Active [id number] ALLERGIES No Information ENCOUNTERS Encounter Location Date Diagnosis [facility] [address] [facility] [id number] [address] Nov, [facility] [address] [id number] [address] Aug, Anxiety F41.9 [facility] [address] [address] Jul, [facility] [id number] [place] [address] 78557- 7323 Jun, Anxiety F41.9 [facility] [id number] [place] [address] 9[address]29- 2019 Jun, [facility] [id number] [place] [address] 72488- 8980 May, [facility] [id number] [place] [address] 08727- 8679 May, Hyperlipidemia, unspecified hyperlipidemia type E78.5 [facility] [id number] [place] [address] 53486- 2125 Apr, Anxiety F41.9 [facility] [id number] [place] [address] 34705- 2940 Mar, [facility] [id number] [place] [address] 15667- 1736 Mar, Essential hypertension I10 ; History of pulmonary embolus ( PE) Z86.711 ; Anxiety F41.9 and Malignant neoplasm of cervix, unspecified site C53.9 [facility] [address] [address] 60[address] Mar, Atherosclerotic heart disease of [place] coronary artery without angina pectoris I25.10 [facility] [address] [address] 30 Feb, 2016 Atherosclerotic heart disease of [place] coronary artery without angina pectoris I25.10 [facility] [id number] [place] [address] 81379- 5462 Feb, Anxiety F41.9 [facility] [address] [address] 47[address] Feb, [facility] [id number] [place] [address] 29670- 3723 Feb, 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 [facility] [address] [address] Jan, Anxiety F41.9 [facility] [id number] [place] [address] 37899 2546 Jan, Long-term (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 anticoagulants Z79.01 [facility] [id number] [place] [address]2523 2546 Jan, Anxiety F41.9 [facility] [address] [address]- 8576 Dec, Long-term (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 anticoagulants Z79.01 [facility] [address] [address]- 0616 Dec, [facility] [address] 46672- 3348 Dec, [facility] [address] 99183- 2544 Dec, Anxiety F41.9 [facility] [id number] [place] [address] 03399- 3929 Nov, [facility] [id number] [place] [address] 17543- 2530 Nov, [facility] [address] [address] 2544 Nov, Long-term (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 anticoagulants Z79.01 and Seizures R56.9 [facility] [address] [address] 2546 Nov, [facility] [id number] [place] [address] 07455 2546 Nov, Anxiety F41.9 [facility] [address] 09480- 9650 Nov, High risk medication use Z79.899 [facility] [address] [id number] [address] October terminal manager (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 anticoagulants Z79.01 [facility] [address] [id number] [address] 4065 October, 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 [facility] [id number] [place] [address] 25303- 9744 October, [facility] [id number] [place] [address] 84496- 1039 October, [address] [id number] [place] [address] 53087- 6001 Sep, High risk medications (not anticoagulants) long-term use V58.69 and Other retirement (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 [place] [id number] [address]- 7[address] Sep, [facility] [address] [address]- 08[address] Aug, [place] [address] [address] 67[address] Aug, [place] [id number] [address] 0129 Aug, [facility] [id number] [address] 9[address] Jul, High risk medications (not anticoagulants) long-term use V58.69 ; Essential hypertension I10 ; Hyperlipidemia, unspecified hyperlipidemia type E78.5 and Other retirement (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 [facility] [id number] [address] 7[address] Jul, [facility] [id number] [address] Jun, High risk medications (not anticoagulants) long-term use V58.69 [facility] [address] [address]- 3381 Jun, [facility] [id number] [place] [address] 031485- 8271 Jun, [facility] [id number] [place] [address] 84593- 5437 Jun, [facility] [id number] [place] [address] 14719- 0736 May, [facility] [id number] [place] [address] 49365- 6007 May, [facility] [id number] [place] [address] 76557- 0564 May, 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 [facility] [id number] [place] [address] 66821- 7931 May, [facility] [id number] [place] [address] 55034- 9726 May, Essential hypertension I10 ; Hyperlipidemia, unspecified hyperlipidemia type E78.5 and History of cervical cancer Z85.41 [place] [address] [address]- 6776 Apr, [facility] [id number] [place] [address] 13315- 6617 Apr, High risk medications (not anticoagulants) long-term use V58.69 [facility] [address] [address]- 6079 Mar, [place] [id number] [place] [address] 17893- 0678 Mar, 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 [facility] [id number] [place] [address] 28433- 0546 Feb, [facility] [address] [address]- 9476 Feb, [facility] [id number] [place] [address] 73509- 8776 Feb, High risk medications (not anticoagulants) long-term use V58.69 ; Pneumonia 486 and Gait disturbance 781.2 [place] [id number] [place] [address] 30392- 7676 Feb, [facility] [id number] [address] 2548 Feb, [place] [id number] [place] [address] 11290- 0844 Feb, [facility] [id number] [place] [address] 53706- 7609 Jan, High risk medications (not anticoagulants) long-term use V58.69 [facility] [id number] [place] [address] 74604- 3188 Jan, [facility] [id number] [place] [address] 30376- 2059 Dec, High risk medications (not anticoagulants) long-term use V58.69 [place] [address] [address]- 5461 Dec, terminal manager current use of anticoagulant therapy V58.61 [place] [id number] [place] [address] 99491- 8697 Dec, [facility] [address] [address] 2546 Dec, [facility] [id number] [place] [address] 27068- 2546 Dec, [facility] [address] [address]- 0709 Nov, 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 and Encounter for long-term (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 other medications V58.69 [facility] [address] [address]- 4941 Nov, [facility] [id number] [address]- 4921 Nov, [facility] [address] [address]- 9765 October, [facility] [id number] [place] [address] 40130- 5989 October, [facility] [address] [address]- 7342 October, High risk medication use V58.69 ; Cervical cancer 180.9 ; Neuropathy 355.9 and Hyperlipidemia 272.4 [facility] [address] [address]- 3673 October, [facility] [id number] [address]- 3713 Sep, [facility] [address] [address]- 1605 Sep, [facility] [address] [address]- 2440 Sep, [facility] [address] [address]- 8019 Aug, [facility] [address] [address]- 5456 Aug, [facility] [address] [address]- 9125 Aug, [facility] [address] [address]- 6750 18 Aug, 2014 [facility] [address] 2587 17 Aug, 2014 [facility] [address] [address]- 1364 Jul, [facility] [place] [facility] [address] [id number] [place] [address]- 0896 Jul, [facility] [place] [facility] [address] [id number] [place] [address]- 4651 Jul, [facility] [place] [facility] [address] [id number] [place] [address]- 0316 Jul, [facility] [place] [facility] [address] [id number] [place] [address]- 8623 Jul, [facility] [place] [facility] [address] [id number] [place] [address]- 0873 Jul, [facility] [place] [facility] [address] [facility] [id number] [place] [address]- 3251 Jul, [facility] [place] [facility] [address] [facility] [id number] [place] [address]- 6725 Jul, [facility] [place] [facility] [address] [id number] [place] [address]- 4655 Jun, [facility] [place] [facility] [address] [id number] [place] [address]- 9456 Jun, [facility] [place] [facility] [address] [facility] [id number] [address]- 7785 Jun, [facility] [place] [facility] [address] [id number] [place] [address]- 6800 Jun, [facility] [place] [facility] [address] [id number] [address]- 5796 Jun, [facility] [place] [facility] [address] [id number] [place] [address]- 2599 Jun, [facility] [place] [facility] [address] [facility] [id number] [address]- 6636 Jun, [facility] [place] [facility] [address] [id number] [place] [address]- 9238 Jun, [facility] [place] [facility] [address] [id number] [place] [address]- 1311 Jun, [facility] [place] [facility] [address] [id number] [place] [address]- 3279 Jun, [facility] [place] [facility] [address] [id number] [place] [address]- 1507 Jun, [facility] [place] [facility] [address] [id number] [place] [address]- 6278 Jun, [facility] [place] [facility] [address] [id number] [place] [address]- 6540 May, [facility] [place] [facility] [address] [id number] [place] [address]- 6111 May, [facility] [place] [facility] [address] [id number] [place] [address]- 4394 May, [facility] [place] [facility] [address] [id number] [place] [address]- 1094 May, [facility] [place] [facility] [address] [id number] [place] [address]- 5737 May, [facility] [place] [facility] [address] [id number] [place] [address]- 8788 May, [facility] [place] [facility] [address] [id number] [place] [address]- 5877 May, [facility] [place] [facility] [address] [id number] [place] [address]- 9042 May, [facility] [place] [facility] [address] [id number] [place] [address]- 7790 May, [facility] [place] [facility] [address] [id number] [place] [address]- 4217 May, [facility] [place] [facility] [address] [id number] [place] [address]- 3077 May, [facility] [place] [facility] [address] [id number] [place] [address]- 9155 May, [facility] [place] [facility] [address] [id number] [place] [address]- 0911 May, [facility] [place] [facility] [address] [id number] [place] 3979 May, [facility] [place] [facility] [address] [id number] [place] [address]- 4180 May, [facility] [place] [facility] [address] [id number] [place] [address]- 5823 May, [facility] [place] [facility] [address] [id number] [place] [address]- 1838 May, [facility] [place] [facility] [address] [id number] [place] [address]- 3072 May, [facility] [place] [facility] [address] [id number] [place] [address]- 3305 May, [facility] [place] [facility] [address] [id number] [place] [address]- 0889 Apr, [facility] [place] [facility] [address] [id number] [place] [address]- 0351 Apr, [facility] [place] [facility] [address] [id number] [place] [address]- 0137 Apr, [facility] [place] [facility] [address] [id number] [place] [address]- 1558 Apr, [facility] [place] [facility] [address] [id number] [address]- 4681 Apr, [facility] [place] [facility] [address] [id number] [place] [address]- 3052 Apr, [facility] [place] [facility] [address] [id number] [place] [address]- 2932 Apr, [facility] [place] [facility] [address] [id number] [place] [address]- 9437 Apr, [facility] [place] [facility] [address] [id number] [place] [address]- 5761 Apr, [facility] [place] [facility] [address] [id number] [place] [address]- 5527 Mar, [facility] [place] [facility] [address] [id number] [place] [address]- 0664 Mar, [facility] [place] [facility] [address] [id number] [place] [address]- 3066 Mar, [facility] [place] [facility] [address] [id number] [place] [address]- 1005 Mar, [facility] [place] [facility] [address] [id number] [place] [address]- 8197 Mar, [facility] [place] [facility] [address] [id number] [place] [address]- 4274 Mar, [facility] [place] [facility] [address] [id number] [place] [address]- 7557 Mar, [facility] [place] [facility] [address] [id number] [place] [address]- 5435 Mar, [facility] [place] [facility] [address] [id number] [place] [address]- 0353 Mar, [facility] [place] [facility] [address] [id number] [place] [address]- 7346 Mar, [facility] [place] [facility] [address] [id number] [place] [address]- 8030 Mar, [facility] [place] [facility] [address] [id number] [place] [address]- 8840 Mar, [facility] [place] [facility] [address] [id number] [place] 6574 Mar, [facility] [place] [facility] [address] [id number] [place] [address]- 1261 Mar, [facility] [place] [facility] [address] [id number] [place] [address]- 1507 Mar, [facility] [place] [facility] [address] [id number] [place] [address]- 6076 18 Feb, 2013 [facility] [place] [facility] [address] [id number] [place] [address]- 9945 Feb, 2013 [facility] [place] [facility] [address] [id number] [place] [address]- 8581 Feb, 2013 [facility] [place] [facility] [address] [id number] [place] [address]- 9698 Feb, 2013 [facility] [place] [facility] [address] [id number] [place] [address]- 1688 Feb, 2013 [facility] [place] [facility] [address] [id number] [place] [address]- 6618 Feb, 2013 [facility] [place] [facility] [address] [id number] [place] [address]- 4619 Feb, 2013 [facility] [place] [facility] [address] [id number] [place] [address]- 2089 Feb, 2013 [facility] [place] [facility] [address] [id number] [place] [address]- 3220 Jan, [facility] [place] [facility] [address] [id number] [place] [address]- 1150 Jan, [facility] [place] [facility] [address] [id number] [address]- 5742 Jan, [facility] [place] [facility] [address] [id number] [address]- 6799 Jan, [facility] [place] [facility] [address] [id number] [place] [address]- 5744 Jan, [facility] [place] [facility] [address] [id number] [place] [address]- 3206 Jan, [facility] [place] [facility] [address] [id number] [address]- 6984 Jan, [facility] [place] [facility] [address] [id number] [place] [address]- 1485 Jan, [facility] [place] [facility] [address] [id number] [place] [address]- 4397 Jan, [facility] [place] [facility] [address] [id number] [place] [address]- 5165 Jan, [facility] [place] [facility] [address] [id number] [place] [address]- 2362 Jan, [facility] [place] [facility] [address] [id number] [place] [address]- 6747 Jan, [facility] [place] [facility] [address] [id number] [place] [address]- 8680 Jan, [facility] [place] [facility] [address] [id number] [place] [address]- 5997 Jan, [facility] [place] [facility] [address] [id number] [place] [address]- 9981 Jan, [facility] [place] [facility] [address] [id number] [place] [address]- 5479 Jan, [facility] [place] [facility] [address] [id number] [place] [address]- 3877 Jan, [facility] [place] [facility] [address] [id number] [place] [address]- 4407 Dec, [facility] [place] [facility] [address] [id number] [place] [address] Dec, [facility] [place] [facility] [address] [id number] [place] [address] Dec, [facility] [place] [facility] [address] [id number] [place] [address] Dec, [facility] [place] [facility] [address] [id number] [place] [address] Dec, [facility] [place] [facility] [address] [id number] [place] [address] Dec, [facility] [place] [facility] [address] [id number] [place] [address] Dec, [facility] [place] [facility] [address] [id number] [facility] [place] [address] Dec, [facility] [place] [facility] [address] [id number] [place] [address] Dec, [facility] [place] [facility] [address] [id number] [place] [address] Dec, [facility] [place] [facility] [address] [id number] [place] [address] Dec, [facility] [place] [facility] [address] [id number] [place] [address] Dec, [facility] [place] [facility] [address] [id number] [place] [address] Nov, [facility] [place] [facility] [address] [id number] [place] [address] Nov, [facility] [place] [facility] [address] [id number] [place] [address] Nov, [facility] [place] [facility] [address] [id number] [place] [address]609 Nov, [facility] [place] [facility] [address] [id number] [place] [address] Nov, [facility] [place] [facility] [address] [id number] [place] [address]- [address] Nov, [facility] [place] [facility] [address] [id number] [place] [address]- [address] October, [facility] [place] [facility] [address] [id number] [place] [address] October, [facility] [place] [facility] [address] [id number] [place] [address] October, [facility] [place] [facility] [address] [id number] [place] [address]- [address] October, [facility] [address] [id number] [place] [address] October, [facility] [place] [facility] [address] [id number] [place] [address]- [address] October, [facility] [place] [facility] [address] [id number] [place] [address] October, [facility] [place] [facility] [address] [id number] [place] [address]- [address] October, [facility] [place] [facility] [address] [id number] [place] [address]- [address] October, [facility] [place] [facility] [address] [id number] [place] [address]- [address] October, [facility] [place] [facility] [address] [id number] [place] [address] October, [facility] [place] [facility] [address] [id number] [place] [address] 8077 October, [facility] [place] [facility] [address] [id number] [place] [address] 38[address] October, [facility] [place] [facility] [address] [id number] [place] [address]- [address] October, [facility] [place] [facility] [address] [id number] [place] [address] October, [facility] [place] [facility] [address] [id number] [place] [address] 2809 October, [facility] [place] [facility] [address] [id number] [place] [address] 8585 October, [facility] [place] [facility] [address] [id number] [place] [address]- [address] October, [facility] [place] [facility] [address] [id number] [place] [address] October, [facility] [place] [facility] [address] [id number] [place] [address] October, [facility] [place] [facility] [address] [id number] [place] [address] 4660 October, [facility] [place] [facility] [address] [id number] [place] [address]- [address] October, [facility] [place] [facility] [address] [id number] [place] [address]- [address] October, [facility] [place] [facility] [address] [id number] [place] [address]- 1292 October, [facility] [place] [facility] [address] [id number] [place] [address]- [address]66 October, [facility] [place] [facility] [address] [id number] [place] [address]- [address] October, [facility] [place] [facility] [address] [id number] [place] [address]- 1166 October, [facility] [place] [facility] [address] [id number] [place] [address]- [address] October, [facility] [place] [facility] [address] [id number] [place] [address]- [address]146 October, [facility] [place] [facility] [address] [address] [id number] [place] [address] Sep, [facility] [place] [facility] [address] [id number] [place] [address] Sep, [facility] [place] [facility] [address] [id number] [place] [address] Jun, [facility] [place] [facility] [address] [id number] [place] [address] Jun, [facility] [place] [facility] [address] [id number] [place] [address] May, [facility] [place] [facility] [address] [id number] [place] [address] May, [facility] [place] [facility] [address] [id number] [place] [address] May, [facility] [place] [facility] [address] [id number] [place] [address] Apr, [facility] [place] [facility] [address] [id number] [place] [address] Mar, [facility] [place] [facility] [address] [id number] [place] [address] Mar, [facility] [place] [facility] [address] [id number] [place] [address] Mar, [facility] [place] [facility] [address] [id number] [place] [address] Mar, [facility] [place] [facility] [address] [id number] [place] [address] Jan, [facility] [place] [facility] [address] [id number] [place] [address] Dec, [facility] [place] [facility] [address] [id number] [place] [address] Nov, [facility] [place] [facility] [address] [id number] [place] [address] October, [facility] [place] [facility] [address] [id number] [place] [address] October, [facility] [place] [facility] [address] [id number] [place] [address] Aug, [facility] [place] [facility] [address] [id number] [place] [address] Jul, [facility] [place] [facility] [address] [id number] [place] [address] Jun, [facility] [place] [facility] [address] [id number] [place] [address] Jun, [facility] [place] [facility] [address] [id number] [place] [address] May, [facility] [place] [facility] [address] [id number] [place] [address] May, [facility] [place] [facility] [address] [id number] [place] [address] May, [facility] [place] [facility] [address] [id number] [place] [address] Apr, [facility] [place] [facility] [address] [id number] [place] [address] Apr, [facility] [place] [facility] [address] [id number] [place] [address] Apr, [facility] [place] [facility] [address] [id number] [place] [address] Apr, [facility] [place] [facility] [address] [id number] [place] [address] Apr, [facility] [place] [facility] [address] [id number] [place] [address] Apr, [facility] [place] [facility] [address] [id number] [place] [address] Apr, [facility] [place] [facility] [address] [id number] [place] [address] Apr, [facility] [place] [facility] [address] [id number] [place] [address] Feb, [facility] [place] [facility] [address] [id number] [place] [address] Jan, [facility] [place] [facility] [address] [id number] [place] [address] Jan, [facility] [place] [facility] [address] [id number] [place] [address] Jan, [facility] [place] [facility] [address] [id number] [place] [address] Dec, [facility] [place] [facility] [address] [id number] [place] [address] Nov, [facility] [address] [id number] [place] [address] October, [facility] [place] [facility] [address] [id number] [place] [address] October, [facility] [address] [id number] [place] [address] Sep, [facility] [place] [facility] [address] [id number] [place] [address] Sep, [facility] [address] [id number] [place] [address] Sep, [facility] [address] [id number] [place] [address] Aug, [facility] [address] [id number] [place] [address] Jul, [facility] [address] [id number] [place] [address] Jun, [facility] [address] [id number] [place] [address] Jun, [facility] [address] [id number] [place] [address] May, [facility] [address] [id number] [place] [address] May, [facility] [address] [id number] [place] [address] May, [facility] [place] [facility] [address] [id number] [place] [address] Apr, [facility] [place] [facility] [address] [id number] [place] [address] Apr, [facility] [address] [id number] [place] [address] Mar, [facility] [address] [facility] [id number] [address] Mar, [facility] [address] [facility] [id number] [address] Dec, [facility] [address] [facility] [id number] [place] [address] Apr, [facility] [address] [facility] [id number] [address] Apr, IMMUNIZATIONS No Known Immunizations SOCIAL HISTORY Never Assessed REASON FOR VISIT [place] [place] VITAL SIGNS MEDICATIONS Medication Instructions Dosage Frequency Start Date End Date Duration Status Aciphex 20 mg 1 tablet by Oral route 1 time per day Mar, Active Coumadin 2 mg 1 tablet by Oral route 1 time per day May, Active Lovastatin 40 mg take 1 tablet by Oral route with the evening meal 1 time per day Lipids due in Jun, Active Xanax 1 mg 1 tablet by Oral route 3 times per day ABSOLUTE LAST REFILL PT MUST HAVE AN APPT Aug, Active Voltaren 1 % 1 Application by Transdermal route 4 daily PRN Apply 4 gm to affected area QID Mar, Active Gabapentin 100 mg 1 capsule by Oral route 2 times per day May, Active Coumadin 5 mg by Oral route Per Physician Instructions Apr, Active Proventil HFA 90 mcg/actuation inhale 2 puffs by Inhalation route as needed every 6 hours PRN SOB (WITH OPTICHAMBER) Dec, Active RESULTS No Results PROCEDURES No Known [...] FIGO stage IB1, 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 Stephanie [facility]) 10/18/2013 Surgical History tubal ligation 1973 Surgical History cholecystectomy 1969 Hospitalization History radical hysterectomy 10/18/13
--- OUTSIDE RECORDS SUMMARY | 2018-10-14 14:41 | XMS REPORT ---
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 Problem Hyperlipidemia 272.4 Active Problem Epiploic appendagitis K52.9 Active Problem Atherosclerotic heart disease of [place] coronary artery without angina pectoris I25.10 Active Problem Long-term (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 anticoagulants Z79.01 Active Problem Anxiety F41.9 Active Problem Hyperlipidemia, unspecified hyperlipidemia type E78.5 Active Problem History of cervical cancer Z85.41 Active Problem Other usp (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 Active Problem Essential hypertension I10 Active Problem 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 Active Problem Encounter for long-term (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 other medications V58.69 Active Assessment Anxiety F41.9 Active Problem Coronary atherosclerosis of unspecified type of vessel, [place] or graft 414.00 Active Problem Chest pain, unspecified 786.50 Active Problem Unspecified abnormal mammogram 793.80 Active Problem Sciatica 724.3 Active Problem Personal history of tobacco use, presenting hazards to health V15.82 Active Problem Unspecified backache 724.5 Active Problem Malignant neoplasm of cervix uteri, unspecified site 180.9 Active Medications Medication Code System Code Instructions Start Date End Date Status Dosage Xanax [facility] [address]-58 1 MG Orally 3 times a day August 30, 2014 1 tablet Results No Known Results Summary Purpose eClinicalWorks Submission
[2018-10-14] MEDS ORDERED: PROPOFOL DRIP (ICU) 100 ML IV ONE (14:42)
--- OUTSIDE RECORDS SUMMARY | 2018-10-14 14:42 | XMS REPORT ---
Author Author GRISEL SERRANO [facility] eClinicalWorks Address Unknown Phone Unavailable Care Team Providers Care Cable Swager Name Role Phone GRISEL SERRANO CP Unavailable Allergies No Known Allergies Problems Problem Type Condition Code Onset Dates Condition Status Problem Unspecified backache 724.5 Active Problem Unspecified abnormal mammogram 793.80 Active Problem Chest pain, unspecified 786.50 Active Problem Hyperlipidemia, unspecified hyperlipidemia type E78.5 Active Problem History of cervical cancer Z85.41 Active Problem Essential hypertension I10 Active Problem Malignant neoplasm of cervix uteri, unspecified site 180.9 Active Problem Personal history of tobacco use, presenting hazards to health V15.82 Active Problem Hyperlipidemia 272.4 Active Problem 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 Active Problem Encounter for long-term (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 other medications V58.69 Active Assessment Other skilled nursing (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 Active Problem Sciatica 724.3 Active Medications No Known Medications Procedures Procedure Coding System Code Date PROTHROMBIN TIME CPT-4 22935 May 22, 2015 Results Name Result Date Reference Range Unit Abnormality Flag INR (IN HOUSE) ----Exp date 20150522 ----INR 2.3 20150522 1.10 - 3.30 ----PREVIOUS INR 1.7 [id number] ----CURRENT COUMADIN DOSE 6mg/4mg on alternate days 20150522 ----Lot # [id number] Summary Purpose eClinicalWorks Submission
--- OUTSIDE RECORDS SUMMARY | 2018-10-14 14:42 | XMS REPORT ---
Author Author GRISEL SERRANO Organization [facility] Address [address] [place] [address] Care Team Providers Care Hr Internship Name Role Phone GRISEL SERRANO Unavailable PROBLEMS Type Condition ICD9-CM Code EXZ15-WD Code Onset Dates Condition Status SNOMED Code Problem Hyperlipidemia 272.4 Active 40423153 Problem Hyperlipidemia, unspecified hyperlipidemia type E78.5 Active 89768468 Problem History of cervical cancer Z85.41 Active 667039982 Problem History of pulmonary embolus (PE) Z86.711 Active 875165531 Problem Coronary atherosclerosis of unspecified type of vessel, [place] or graft 414.00 Active 486311543 Problem Anxiety F41.9 Active 74963287 Problem Other intermediate school teacher (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 Active 287164161 Problem Essential hypertension I10 Active 42336544 Problem Atherosclerotic heart disease of [place] coronary artery without angina pectoris I25.10 Active 588114283324983 Problem Long-term (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 anticoagulants Z79.01 Active 929692605 Problem Sciatica 724.3 Active 37273979 Problem Unspecified backache 724.5 Active 003380318 Problem 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 Active 7135258564340 Problem Encounter for long-term (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 other medications V58.69 Active 450036332 Problem Personal history of tobacco use, presenting hazards to health V15.82 Active 5435669925270 Problem Malignant neoplasm of cervix uteri, unspecified site 180.9 Active 931458468 Problem Chest pain, unspecified 786.50 Active 45988147 Problem 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
--- OUTSIDE RECORDS SUMMARY | 2018-10-14 14:42 | XMS REPORT ---
Author Author GRISEL SERRANO [facility] eClinicalWorks Address Unknown Phone Unavailable Care Team Providers Care Finisher Fine Diamond Dies Name Role Phone GRISEL SERRANO CP Unavailable [...] Coronary atherosclerosis of unspecified type of vessel, [place] or graft 414.00 Active Problem 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 Active Problem Encounter for long-term (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 other medications V58.69 Active Problem Sciatica 724.3 Active Medications Medication Code System Code Instructions Start Date End Date Status Dosage Xanax [facility] [address]-13 1 MG Orally 3 times a day August 30, 2014 1 tablet Results No Known Results Summary Purpose eClinicalWorks Submission
--- OUTSIDE RECORDS SUMMARY | 2018-10-14 14:42 | XMS REPORT ---
Author Author GRISEL SERRANO [facility] eClinicalWorks Address Unknown Phone Unavailable Care Team Providers Care Form Designer Name Role Phone GRISEL SERRANO CP Unavailable Allergies No Known Allergies Problems Problem Type Condition Code Onset Dates Condition Status Problem Epiploic appendagitis K52.9 Active Problem History of cervical cancer Z85.41 Active Problem Hyperlipidemia 272.4 Active Problem Anxiety F41.9 Active Problem Atherosclerotic heart disease of [place] coronary artery without angina pectoris I25.10 Active Problem History of pulmonary embolus (PE) Z86.711 Active Problem Essential hypertension I10 Active Problem Hyperlipidemia, unspecified hyperlipidemia type E78.5 Active Problem Long-term (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 anticoagulants Z79.01 Active Problem Other long-term (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 Active Problem Encounter for long-term (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 other medications V58.69 Active Problem Sciatica 724.3 Active Problem Coronary atherosclerosis of unspecified type of vessel, [place] or graft 414.00 Active Problem 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 Active Problem Unspecified abnormal mammogram 793.80 Active Problem Personal history of tobacco use, presenting hazards to health V15.82 Active Problem Unspecified backache 724.5 Active Problem Malignant neoplasm of cervix uteri, unspecified site 180.9 Active Problem Chest pain, unspecified 786.50 Active Problem 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
--- OUTSIDE RECORDS SUMMARY | 2018-10-14 14:42 | XMS REPORT ---
Author Author GRISEL SERRANO [facility] Address [address] [place] [address] Care Team Providers Care Director Of Managed Care Name Role Phone GRISEL SERRANO Unavailable PROBLEMS Type Condition ICD9-CM Code HQS55-JC Code Onset Dates Condition Status SNOMED Code Problem Hyperlipidemia 272.4 Active 18617558 Problem History of cervical cancer Z85.41 Active 807364746 Problem Hyperlipidemia, unspecified hyperlipidemia type E78.5 Active 56182801 Problem History of pulmonary embolus (PE) Z86.711 Active 714459971 Problem Encounter for long-term (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 other medications V58.69 Active 809771605 Problem Anxiety F41.9 Active 86025364 Problem Other long-term (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 Active 460828029 Problem Essential hypertension I10 Active 88310859 Problem Atherosclerotic heart disease of [place] coronary artery without angina pectoris I25.10 Active 934177484733749 Problem Long-term (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 anticoagulants Z79.01 Active 279950245 Problem Chest pain, unspecified 786.50 Active 66637768 Problem Unspecified backache 724.5 Active 276216897 Problem Personal history of tobacco use, presenting hazards to health V15.82 Active 0003623684949 Problem Unspecified abnormal mammogram 793.80 Active 339284350 Problem Coronary atherosclerosis of unspecified type of vessel, [place] or graft 414.00 Active 919088667 Problem 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 46958241 Problem Sciatica 724.3 Active 70905233 Problem Malignant neoplasm of cervix uteri, unspecified site 180.9 Active 347720883 Problem 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 Active 2958042206875 Problem Epiploic appendagitis K52.9 Active 20555182690564028 ALLERGIES Unknown Allergies SOCIAL HISTORY No smoking Hx information available PLAN OF CARE VITAL SIGNS MEDICATIONS Medication Instructions Dosage Frequency Start Date End Date Duration Status Xanax 1 MG Orally 3 times a day 1 tablet 8h 18 Mar, 2015 28 days Active RESULTS No Results PROCEDURES No Known procedures IMMUNIZATIONS No Known Immunizations
--- OUTSIDE RECORDS SUMMARY | 2018-10-14 14:42 | XMS REPORT ---
Author Author GRISEL SERRANO [facility] eClinicalWorks Address Unknown Phone Unavailable Care Team Providers Care Trip Rider Name Role Phone GRISEL SERRANO CP Unavailable Allergies No Known Allergies Problems Problem Type Condition Code Onset Dates Condition Status Problem Epiploic appendagitis K52.9 Active Problem History of cervical cancer Z85.41 Active Problem Hyperlipidemia 272.4 Active Problem Anxiety F41.9 Active Assessment Atherosclerotic heart disease of [place] coronary artery without angina pectoris I25.10 Active Problem Atherosclerotic heart disease of [place] coronary artery without angina pectoris I25.10 Active Problem History of pulmonary embolus (PE) Z86.711 Active Problem Essential hypertension I10 Active Problem Hyperlipidemia, unspecified hyperlipidemia type E78.5 Active Problem Long-term (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 anticoagulants Z79.01 Active Problem Other nursing home (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 Active Problem Encounter for long-term (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 other medications V58.69 Active Problem Sciatica 724.3 Active Problem Coronary atherosclerosis of unspecified type of vessel, [place] or graft 414.00 Active Problem Other pulmonary [...] Instructions Start Date End Date Status Dosage Aspirin Adult Low Dose [facility] [address]-47 81 MG Orally Once a day Mar 14, 2016 1 tablet Lovastatin [facility] 04478708336 40 MG take 1 tablet by Oral route with the evening meal 1 time per day Losartan Potassium [facility] [address]-42 100 MG Orally Once a day 1 tablet Tessalon Perles [facility] [address]-74 100 MG Orally Three times a day 1 capsule as needed Ranitidine HCl [facility] 74843200531 150 MG Orally Twice a day 1 capsule Amlodipine Besylate [facility] 88771694311 10 MG Orally Once a day 1 tablet Accupril [facility] 05684165944 40 MG Orally Once a day 1 tablet Xanax [facility] [address]-45 1 MG Orally 3 times a day August 30, 2014 1 tablet Gabapentin [facility] [address]-17 300 MG Orally 3 times a day May 25, 2014 1 capsule Results No Known Results Summary Purpose eClinicalWorks Submission
--- OUTSIDE RECORDS SUMMARY | 2018-10-14 14:42 | XMS REPORT ---
Author Author GRISEL SERRANO [facility] eClinicalWorks Address Unknown Phone Unavailable Care Team Providers Care Offline Editor Name Role Phone GRISEL SERRANO Unavailable Allergies, Adverse Reactions, Alerts Substance Reaction Event Type Codeine Phosphate Info Not Available Drug Allergy narcotic analgesics Info Not Available Non Drug Allergy Problems Problem Type Condition Code Onset Dates Condition Status Problem Epiploic appendagitis K52.9 Active Problem History of cervical cancer Z85.41 Active Problem Hyperlipidemia 272.4 Active Problem Anxiety F41.9 Active Assessment Essential hypertension I10 Active Problem Atherosclerotic heart disease of [place] coronary artery without angina pectoris I25.10 Active Assessment History of pulmonary embolus (PE) Z86.711 Active Assessment Anxiety F41.9 Active Problem History of pulmonary embolus (PE) Z86.711 Active Problem Essential hypertension I10 Active Problem Hyperlipidemia, unspecified hyperlipidemia type E78.5 Active Problem Long-term (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 anticoagulants Z79.01 Active Problem Other prison (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 Active Problem Encounter for long-term (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 other medications V58.69 Active Problem Sciatica 724.3 Active Problem Coronary atherosclerosis of unspecified type of vessel, [place] or graft 414.00 Active Problem 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 Active Problem Unspecified abnormal mammogram 793.80 Active Problem Personal history of tobacco use, presenting hazards to health V15.82 Active Problem Unspecified backache 724.5 Active Problem Malignant neoplasm of cervix uteri, unspecified site 180.9 Active Assessment Malignant neoplasm of cervix, unspecified site C53.9 Active Problem Chest pain, unspecified 786.50 Active Problem 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 Medications Medication Code System Code Instructions Start Date End Date Status Dosage Gabapentin [facility] [address]-51 300 MG Orally 3 times a day May 25, 2014 1 capsule Tessalon Perles [facility] [address]-03 100 MG Orally Three times a day 1 capsule as needed Lovastatin [facility] 02586891721 40 MG take 1 tablet by Oral route with the evening meal 1 time per day Spironolactone [facility] [address]-00 25 MG Orally Once a day 1 tablet Doxycycline Hyclate [facility] [address]-70 100 MG Orally every 12 hrs 1 capsule Tylenol [facility] [address]-70 325 MG Orally every 6 hrs 2 tablets as needed Ranitidine HCl [facility] 78169975770 150 MG Orally Twice a day 1 capsule Quinapril-Hydrochlorothiazide [facility] [address]-29 20-25 MG Orally Once a day 1 tablet Prochlorperazine Maleate [facility] [address]-91 5 MG Orally Three times a day 1 tablet Fluticasone Propionate [facility] [address]-47 50 MCG/ACT Nasally Once a day 1 spray in each nostril BuPROPion HCl (Smoking Deter) [facility] [address]-93 150 MG Orally Twice a day 1 tablet Aspirin Adult Low Dose [facility] [address]-15 81 MG Orally Once a day Mar 14, 2016 1 tablet Metoprolol Tartrate [facility] [address]-63 25 MG Orally Twice a day 1 tablet with food Amlodipine Besylate [facility] 69588509014 10 MG Orally Once a day 1 tablet Xanax [facility] [address]-34 1 MG Orally 3 times a day August 30, 2014 1 tablet Procedures Procedure Coding System Code Date Office Visit, Est Pt., Level 3 CPT-4 71558 Mar 24, 2016 Vital Signs Date/Time: Mar 24, 2016 Cardiac Monitoring Heart Rate 112 bpm Weight 209.3 lbs Height 67 in BMI 32.78 Index Blood Pressure Diastolic 90 mmHg Blood Pressure Systolic 146 mmHg Results No Known Results Summary Purpose eClinicalWorks Submission
--- OUTSIDE RECORDS SUMMARY | 2018-10-14 14:42 | XMS REPORT ---
Author Author GRISEL SERRANO [facility] Address [address] [place] [address] Care Team Providers Care Phonograph Needle Tip Maker Name Role Phone GRISEL SERRANO Unavailable PROBLEMS Type Condition ICD9-CM Code [id number] Code Onset Dates Condition Status SNOMED Code Problem Epiploic appendagitis K52.9 Active [id number] Problem History of cervical cancer Z85.41 Active 016122829 Problem Hyperlipidemia 272.4 Active 69502456 Problem Anxiety F41.9 Active 83483731 Assessment Other termite inspector (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 Feb, Active 022170619 Problem Atherosclerotic heart disease of [place] coronary artery without angina pectoris I25.10 Active 557888123501993 Problem Essential hypertension I10 Active 94628691 Problem Hyperlipidemia, unspecified hyperlipidemia type E78.5 Active 11820156 Problem Long-term (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 anticoagulants Z79.01 Active 606060970 Problem Other fci (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 Active 015152738 Problem Encounter for long-term (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 other medications V58.69 Active 840576034 Problem Sciatica 724.3 Active 35439897 Problem Coronary atherosclerosis of unspecified type of vessel, [place] or graft 414.00 Active 01563610 Problem 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 Active 5288243383449 Problem Unspecified abnormal mammogram 793.80 Active 844848938 Problem Personal history of tobacco use, presenting hazards to health V15.82 Active 5120364790798 Problem Unspecified backache 724.5 Active 721469555 Problem Malignant neoplasm of cervix uteri, unspecified site 180.9 Active 329927346 Problem Chest pain, unspecified 786.50 Active 88352299 Problem 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
--- OUTSIDE RECORDS SUMMARY | 2018-10-14 14:42 | XMS REPORT ---
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 Problem Hyperlipidemia 272.4 Active Problem Epiploic appendagitis K52.9 Active Problem Atherosclerotic heart disease of [place] coronary artery without angina pectoris I25.10 Active Problem Long-term (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 anticoagulants Z79.01 Active Problem Anxiety F41.9 Active Problem Hyperlipidemia, unspecified hyperlipidemia type E78.5 Active Problem History of cervical cancer Z85.41 Active Problem Other correction (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 Active Problem Essential hypertension I10 Active Problem 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 Active Problem Encounter for long-term (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 other medications V58.69 Active Problem Coronary atherosclerosis of unspecified type of vessel, [place] or graft 414.00 Active Problem Chest pain, [...]
--- OUTSIDE RECORDS SUMMARY | 2018-10-14 14:42 | XMS REPORT ---
Author Author GRISEL SERRANO Organization [facility] Address [address] [place] [address] Care Team Providers Care Fashion Marketer Name Role Phone GRISEL SERRANO Unavailable PROBLEMS Type Condition ICD9-CM Code [id number] Code Onset Dates Condition Status SNOMED Code Problem Epiploic appendagitis K52.9 Active [id number] Problem History of cervical cancer Z85.41 Active 275207460 Problem Hyperlipidemia 272.4 Active 09339741 Problem Anxiety F41.9 Active 27669138 Problem Atherosclerotic heart disease of [place] coronary artery without angina pectoris I25.10 Active 792331510998046 Problem Essential hypertension I10 Active 34762508 Problem Hyperlipidemia, unspecified hyperlipidemia type E78.5 Active 88598628 Problem Long-term (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 anticoagulants Z79.01 Active 587401035 Problem Other intermediate accountant (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 Active 799815321 Problem Encounter for long-term (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 other medications V58.69 Active 797704856 Problem Sciatica 724.3 Active 03813070 Problem Coronary atherosclerosis of unspecified type of vessel, [place] or graft 414.00 Active 02008191 Problem 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 Active 7733302615279 Problem Unspecified abnormal mammogram 793.80 Active 191240998 Problem Personal history of tobacco use, presenting hazards to health V15.82 Active 9769565901551 Problem Unspecified backache 724.5 Active 086728735 Problem Malignant neoplasm of cervix uteri, unspecified site 180.9 Active 785340449 Problem Chest pain, unspecified 786.50 Active 90169473 Problem 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
--- OUTSIDE RECORDS SUMMARY | 2018-10-14 14:42 | XMS REPORT ---
Author Author GRISEL SERRANO [facility] eClinicalWorks Address Unknown Phone Unavailable Care Team Providers Care Dry Yard Worker Name Role Phone GRISEL SERRANO CP Unavailable Allergies No Known Allergies Problems Problem Type Condition ICD-9 Code Onset Dates Condition Status Problem 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 Active Problem Sciatica 724.3 Active Problem Encounter for long-term (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 other medications V58.69 Active Assessment High risk medications (not anticoagulants) long-term use V58.69 Active Problem Coronary atherosclerosis of unspecified type of vessel, [place] or graft 414.00 Active Problem 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
--- OUTSIDE RECORDS SUMMARY | 2018-10-14 14:43 | XMS REPORT ---
Author Author GRISEL SERRANO [facility] eClinicalWorks Address Unknown Phone Unavailable Care Team Providers Care Senior Assistant Manager Name Role Phone GRISEL SERRANO CP Unavailable [...] Coronary atherosclerosis of unspecified type of vessel, [place] or graft 414.00 Active Problem 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 Active Problem Encounter for long-term (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 other medications V58.69 Active Problem Sciatica 724.3 Active Medications Medication Code System Code Instructions Start Date End Date Status Dosage Xanax [facility] [address]-63 1 MG August 30, 2014 1 tablet by Oral route 3 times per day Results No Known Results Summary Purpose eClinicalWorks Submission
--- OUTSIDE RECORDS SUMMARY | 2018-10-14 14:43 | XMS REPORT ---
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 Problem Malignant neoplasm of cervix uteri, unspecified site 180.9 Active Problem Hyperlipidemia 272.4 Active Problem Chest pain, unspecified 786.50 Active Problem Unspecified backache 724.5 Active Problem Personal history of tobacco use, presenting hazards to health V15.82 Active Problem Unspecified abnormal mammogram 793.80 Active Medications Medication Code System Code Instructions Start Date End Date Status Dosage Xanax [facility] [address]-99 1 MG August 30, 2014 1 tablet by Oral route 3 times per day Results No Known Results Summary Purpose eClinicalWorks Submission
--- OUTSIDE RECORDS SUMMARY | 2018-10-14 14:43 | XMS REPORT ---
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 [address]-70 1 MG Orally Once a day Feb 16, 2015 1 tablet Results No Known Results Summary Purpose eClinicalWorks Submission
--- OUTSIDE RECORDS SUMMARY | 2018-10-14 14:43 | XMS REPORT ---
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
--- OUTSIDE RECORDS SUMMARY | 2018-10-14 14:43 | XMS REPORT ---
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
--- OUTSIDE RECORDS SUMMARY | 2018-10-14 14:43 | XMS REPORT ---
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 Problem Hyperlipidemia 272.4 Active Problem Epiploic appendagitis K52.9 Active Problem Atherosclerotic heart disease of [place] coronary artery without angina pectoris I25.10 Active Problem Long-term (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 anticoagulants Z79.01 Active Problem Anxiety F41.9 Active Problem Hyperlipidemia, unspecified hyperlipidemia type E78.5 Active Problem History of cervical cancer Z85.41 Active Problem Other penitentiary (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 Active Problem Essential hypertension I10 Active Problem 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 Active Problem Encounter for long-term (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 other medications V58.69 Active Assessment Long-term (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 anticoagulants Z79.01 Active Problem Coronary atherosclerosis of unspecified type of vessel, [place] or graft 414.00 Active Problem Chest pain, unspecified 786.50 Active Problem Unspecified abnormal mammogram 793.80 Active Problem Sciatica 724.3 Active Problem Personal history of tobacco use, presenting hazards to health V15.82 Active Problem Unspecified backache 724.5 Active Problem Malignant neoplasm of cervix uteri, unspecified site 180.9 Active Medications No Known Medications Procedures Procedure Coding System Code Date PROTHROMBIN TIME CPT-4 97004 Feb 06, 2016 Results No Known Results Summary Purpose [employer] Submission
--- OUTSIDE RECORDS SUMMARY | 2018-10-14 14:43 | XMS REPORT ---
Author Author GRISEL SERRANO [facility] Address [address] [place] [address] Care Team Providers Care Valve Tester Name Role Phone GRISEL SERRANO Unavailable PROBLEMS Type Condition ICD9-CM Code [id number] Code Onset Dates Condition Status SNOMED Code Problem Hyperlipidemia 272.4 Active 78928636 Problem History of cervical cancer Z85.41 Active 156169454 Problem Hyperlipidemia, unspecified hyperlipidemia type E78.5 Active 42575070 Problem History of pulmonary embolus (PE) Z86.711 Active 628996391 Problem Encounter for long-term (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 other medications V58.69 Active 309993263 Problem Anxiety F41.9 Active 47242660 Problem Other chcf (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 Active 219211352 Problem Essential hypertension I10 Active 99112627 Problem Atherosclerotic heart disease of [place] coronary artery without angina pectoris I25.10 Active 342015309528698 Problem Long-term (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 anticoagulants Z79.01 Active 127747579 Problem Chest pain, unspecified 786.50 Active 87257711 Problem Unspecified backache 724.5 Active 481832470 Problem Personal history of tobacco use, presenting hazards to health V15.82 Active 7721392578748 Problem Unspecified abnormal mammogram 793.80 Active 862805424 Problem Coronary atherosclerosis of unspecified type of vessel, [place] or graft 414.00 Active 086531787 Problem 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
--- OUTSIDE RECORDS SUMMARY | 2018-10-14 14:43 | XMS REPORT ---
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 Problem Hyperlipidemia 272.4 Active Problem Epiploic appendagitis K52.9 Active Problem Atherosclerotic heart disease of [place] coronary artery without angina pectoris I25.10 Active Problem Long-term (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 anticoagulants Z79.01 Active Problem Anxiety F41.9 Active Problem Hyperlipidemia, unspecified hyperlipidemia type E78.5 Active Problem History of cervical cancer Z85.41 Active Problem Other fci (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 Active Problem Essential hypertension I10 Active Problem 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 Active Problem Encounter for long-term (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 other medications V58.69 Active Assessment Long-term (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 anticoagulants Z79.01 Active Problem Coronary atherosclerosis of unspecified type of vessel, [place] or graft 414.00 Active Problem Chest pain, unspecified 786.50 Active Problem Unspecified abnormal mammogram 793.80 Active Problem Sciatica 724.3 Active Problem Personal history of tobacco use, presenting hazards to health V15.82 Active Problem Unspecified backache 724.5 Active Problem Malignant neoplasm of cervix uteri, unspecified site 180.9 Active Medications No Known Medications Procedures Procedure Coding System Code Date PROTHROMBIN TIME CPT-4 75105 January 10, 2016 Results No Known Results Summary Purpose [employer] Submission
--- OUTSIDE RECORDS SUMMARY | 2018-10-14 14:43 | XMS REPORT ---
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
--- OUTSIDE RECORDS SUMMARY | 2018-10-14 14:43 | XMS REPORT ---
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
--- OUTSIDE RECORDS SUMMARY | 2018-10-14 14:43 | XMS REPORT ---
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
--- OUTSIDE RECORDS SUMMARY | 2018-10-14 14:43 | XMS REPORT ---
Author Author GRISEL SERRANO [facility] Address [address] [place] [address] Care Team Providers Care Occupational Therapy Assistant Name Role Phone GRISEL SERRANO Unavailable PROBLEMS Type Condition ICD9-CM Code BTP33-AH Code Onset Dates Condition Status SNOMED Code Problem Hyperlipidemia 272.4 Active 72587716 Problem History of cervical cancer Z85.41 Active 214313754 Problem Hyperlipidemia, unspecified hyperlipidemia type E78.5 Active 69420024 Problem History of pulmonary embolus (PE) Z86.711 Active 967667838 Problem Encounter for long-term (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 other medications V58.69 Active 629497974 Problem Anxiety F41.9 Active 41958672 Problem Other half-way (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 Active 992663046 Problem Essential hypertension I10 Active 14466901 Problem Atherosclerotic heart disease of [place] coronary artery without angina pectoris I25.10 Active 736946119148583 Problem Long-term (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 anticoagulants Z79.01 Active 614994948 Problem Chest pain, unspecified 786.50 Active 97407595 Problem Unspecified backache 724.5 Active 109512635 Problem Personal history of tobacco use, presenting hazards to health V15.82 Active 8278346741965 Problem Unspecified abnormal mammogram 793.80 Active 634406578 Problem Coronary atherosclerosis of unspecified type of vessel, [place] or graft 414.00 Active 915762399 Problem 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
--- OUTSIDE RECORDS SUMMARY | 2018-10-14 14:43 | XMS REPORT ---
Author Author GRISEL SERRANO [facility] Address [address] [place] [address] Care Team Providers Care Guest History Clerk Name Role Phone GRISEL SERRANO Unavailable PROBLEMS Type Condition ICD9-CM Code YBK68-BT Code Onset Dates Condition Status SNOMED Code Problem Hyperlipidemia 272.4 Active 62213963 Problem Hyperlipidemia, unspecified hyperlipidemia type E78.5 Active 54291977 Problem History of cervical cancer Z85.41 Active 686917638 Problem History of pulmonary embolus (PE) Z86.711 Active 165566758 Problem Coronary atherosclerosis of unspecified type of vessel, [place] or graft 414.00 Active 78036788 Problem Anxiety F41.9 Active 80972365 Assessment Hyperlipidemia, unspecified hyperlipidemia type E78.5 May, Active 25410389 Problem Other fpc (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 Active 054894210 Problem Essential hypertension I10 Active 75942076 Problem Atherosclerotic heart disease of [place] coronary artery without angina pectoris I25.10 Active 810013086831930 Problem Long-term (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 anticoagulants Z79.01 Active 033731690 Problem Sciatica 724.3 Active 07857332 Problem Unspecified backache 724.5 Active 856030272 Problem 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 Active 7503295732884 Problem Encounter for long-term (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 other medications V58.69 Active 721655080 Problem Personal history of tobacco use, presenting hazards to health V15.82 Active 2491113695880 Problem Malignant neoplasm of cervix uteri, unspecified site 180.9 Active 701392125 Problem Chest pain, unspecified 786.50 Active 27035605 Problem 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
--- OUTSIDE RECORDS SUMMARY | 2018-10-14 14:44 | XMS REPORT ---
Author Author GRISEL SERRANO [facility] eClinicalWorks Address Unknown Phone Unavailable Care Team Providers Care Shield Cleaner Name Role Phone GRISEL SERRANO CP Unavailable Allergies No Known Allergies Problems Problem Type Condition Code Onset Dates Condition Status Problem 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 Active Problem Sciatica 724.3 Active Problem Encounter for long-term (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 other medications V58.69 Active Assessment High risk medications (not anticoagulants) long-term use V58.69 Active Problem Coronary atherosclerosis of unspecified type of vessel, [place] or graft 414.00 Active Problem Benign neoplasm [...] Coding System Code Date PROTHROMBIN TIME CPT-4 78340 May 08, 2015 Results No Known Results Summary Purpose eClinicalWorks Submission
--- OUTSIDE RECORDS SUMMARY | 2018-10-14 14:44 | XMS REPORT ---
Author Author GRISEL ESRRANO Organization eClinicalWorks Address Unknown Phone Unavailable Care Team Providers Care Machinist 2Nd Shift Name Role Phone GRISEL SERRANO CP Unavailable Allergies No Known Allergies Problems Problem Type Condition ICD-9 Code Onset Dates Condition Status Problem 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 Active Problem Sciatica 724.3 Active Problem Encounter for long-term (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 other medications V58.69 Active Problem Coronary atherosclerosis of unspecified type of vessel, [place] or graft 414.00 Active Problem Benign neoplasm [...] Start Date End Date Status Dosage Xanax [facility] [address]-68 1 MG August 30, 2014 1 tablet by Oral route 3 times per day Results No Known Results Summary Purpose eClinicalWorks Submission
--- OUTSIDE RECORDS SUMMARY | 2018-10-14 14:44 | XMS REPORT ---
Author Author GRISEL SERRANO [facility] eClinicalWorks Address Unknown Phone Unavailable Care Team Providers Care Seam Stay Stitcher Name Role Phone GRISEL SERRANO CP Unavailable [...] Coronary atherosclerosis of unspecified type of vessel, [place] or graft 414.00 Active Problem 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 Active Problem Encounter for long-term (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 other medications V58.69 Active Problem Sciatica 724.3 Active Medications Medication Code System Code Instructions Start Date End Date Status Dosage Coumadin [facility] [address]-44 2 MG Orally every other day 2 tablet Results No Known Results Summary Purpose eClinicalWorks Submission
--- OUTSIDE RECORDS SUMMARY | 2018-10-14 14:44 | XMS REPORT ---
Author Author GRISEL SERRANO [facility] eClinicalWorks Address Unknown Phone Unavailable Care Team Providers Care Earring Maker Name Role Phone GRISEL SERRANO CP Unavailable [...] Coronary atherosclerosis of unspecified type of vessel, [place] or graft 414.00 Active Problem 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 Active Problem Encounter for long-term (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 other medications V58.69 Active Problem Sciatica 724.3 Active Medications No Known Medications Results No Known Results Summary Purpose eClinicalWorks Submission
--- OUTSIDE RECORDS SUMMARY | 2018-10-14 14:44 | XMS REPORT ---
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 Assessment History of cervical cancer Z85.41 Active Problem Coronary atherosclerosis of unspecified type of vessel, [place] or graft 414.00 Active Problem 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 Active Assessment Hyperlipidemia, unspecified hyperlipidemia type E78.5 Active Problem Encounter for long-term (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 other medications V58.69 Active Assessment Essential hypertension I10 Active Problem Sciatica 724.3 Active Medications Medication Code System Code Instructions Start Date End Date Status Dosage Ric F[place]ones [facility] [address]-01 100 MG Orally Three times a day 1 capsule as needed Coumadin [facility] [address]-13 2 MG Orally every other day 2 tablet Coumadin [facility] [address]-78 1 MG Orally every other day with 5mg tab Feb 1 tablet Xanax [facility] [address]-36 1 MG August 30, 2014 1 tablet by Oral route 3 times [place] [address]-23 100 MG Orally as directed Lovastatin [facility] [address]-00 40 MG Jul 11, 2014 take 1 tablet by Oral route with the evening meal 1 time per day Amlodipine Besylate [facility] [address]-70 10 MG Orally Once a day 1 tablet Accupril [facility] [address]-97 40 MG Orally Once a day 1 tablet Coumadin [facility] [address]-27 5 MG Orally every other day. Take with 1mg tablet 1 tablet Gabapentin [facility] [address]-94 300 MG Orally May 25, 2014 1 capsule by Oral route 3 times per day pt must have an appt for further refills Ranitidine HCl [facility] 60044030980 150 MG Orally Twice a day 1 capsule Procedures Procedure Coding System Code Date VENIPUNCT, ROUTINE* CPT-4 20746 May 17, 2015 Office Visit, Est Pt., Level 3 CPT-4 53385 May 17, 2015 [facility]-4 NOBLL May 17, 2015 Vital Signs Date/Time: May 17, 2015 Temperature 97.8 F Weight 209.4 lbs Height 67 in BMI 32.79 Index Blood Pressure Diastolic 78 mmHg Blood Pressure Systolic 138 mmHg Results Name Result Date Reference Range Unit Abnormality Flag ROUTINE VENIPUNCTURE Summary Purpose eClinicalWorks Submission
--- OUTSIDE RECORDS SUMMARY | 2018-10-14 14:44 | XMS REPORT ---
Author Author GRISEL SERRANO [facility] eClinicalWorks Address Unknown Phone Unavailable Care Team Providers Care Human Resources Benefits Administrator Name Role Phone GRISEL SERRANO CP Unavailable [...] Coronary atherosclerosis of unspecified type of vessel, [place] or graft 414.00 Active Problem 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 Active Problem Encounter for long-term (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 other medications V58.69 Active Problem Sciatica 724.3 Active Medications No Known Medications Results No Known Results Summary Purpose eClinicalWorks Submission
--- OUTSIDE RECORDS SUMMARY | 2018-10-14 14:44 | XMS REPORT ---
Author Author GRISEL SERRANO [facility] eClinicalWorks Address Unknown Phone Unavailable Care Team Providers Care Rfp Writer Name Role Phone GRISEL SERRANO CP Unavailable [...] of unspecified type of vessel, [place] or graft 414.00 Active Problem 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 Active Problem Encounter for long-term (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 other medications V58.69 Active Problem Sciatica 724.3 Active Medications No Known Medications Results No Known Results Summary Purpose eClinicalWorks Submission
--- OUTSIDE RECORDS SUMMARY | 2018-10-14 14:44 | XMS REPORT ---
Author Author GRISEL SERRANO [facility] eClinicalWorks Address Unknown Phone Unavailable Care Team Providers Care Supervisor [employer]ges [employer] Buildings Name Role Phone GRISEL SERRANO CP Unavailable Allergies No Known Allergies Problems Problem Type Condition Code Onset Dates Condition Status Problem Epiploic appendagitis K52.9 Active Problem History of cervical cancer Z85.41 Active Problem Hyperlipidemia 272.4 Active Problem Anxiety F41.9 Active Assessment Anxiety F41.9 Active Problem Atherosclerotic heart disease of [place] coronary artery without angina pectoris I25.10 Active Problem History of pulmonary embolus (PE) Z86.711 Active Problem Essential hypertension I10 Active Problem Hyperlipidemia, unspecified hyperlipidemia type E78.5 Active Problem Long-term (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 anticoagulants Z79.01 Active Problem 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 Active Problem Encounter for long-term (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 other medications V58.69 Active Problem Sciatica 724.3 Active Problem Coronary atherosclerosis of unspecified type of vessel, [place] or graft 414.00 Active Problem Other pulmonary [...] Instructions Start Date End Date Status Dosage Amlodipine Besylate [facility] 62384129884 10 MG Orally Once a day 1 tablet Gabapentin [facility] [address]-80 300 MG Orally 3 times a day May 25, 2014 1 capsule Prochlorperazine Maleate [facility] [address]-20 5 MG Orally Three times a day 1 tablet Doxycycline Hyclate [facility] [address]-36 100 MG Orally every 12 hrs 1 capsule Metoprolol Tartrate [facility] [address]-12 25 MG Orally Twice a day 1 tablet with food Ranitidine HCl [facility] 36610386399 150 MG Orally Twice a day 1 capsule Quinapril-Hydrochlorothiazide [facility] [address]-46 20-25 MG Orally Once a day 1 tablet Spironolactone [facility] [address]-69 25 MG Orally Once a day 1 tablet Fluticasone Propionate [facility] [address]-99 50 MCG/ACT Nasally Once a day 1 spray in each nostril BuPROPion HCl (Smoking Deter) [facility] [address]-78 150 MG Orally Twice a day 1 tablet Aspirin Adult Low Dose [facility] [address]-50 81 MG Orally Once a day Mar 14, 2016 1 tablet Tylenol [facility] [address]-04 325 MG Orally every 6 hrs 2 tablets as needed Xanax [facility] [address]-65 1 MG Orally 3 times a day August 30, 2014 1 tablet Tessalon Perles [facility] [address]-75 100 MG Orally Three times a day 1 capsule as needed Lovastatin [facility] 92448803031 40 MG take 1 tablet by Oral route with the evening meal 1 time per day Results No Known Results Summary Purpose eClinicalWorks Submission
--- OUTSIDE RECORDS SUMMARY | 2018-10-14 14:45 | XMS REPORT | Continuity of Care Document ---
Author Organization Unknown Address Unknown Allergies Active Description Code Type Severity Reaction Onset Reported/Identified Relationship to Patient Clinical Status Yes narcotic analgesic Drug Allergy 03/06/2010 Medications There is no data. Problems Date Dx Coded Attending Type Code Diagnosis Diagnosed By 03/06/2010 MARTHA MAZA DO 300.02 GENERALIZED ANXIETY DISORDER 03/06/2010 MARTHA MAZA DO K 401.9 HYPERTENSION (SYSTEMIC) 03/06/2010 MARTHA MAZA DO K 300.02 GENERALIZED ANXIETY DISORDER 03/06/2010 MARTHA MAZA DO K 401.9 HYPERTENSION (SYSTEMIC) 03/06/2010 ZACH CHECK EXAMINER, GRISEL S 300.02 GENERALIZED ANXIETY DISORDER 03/06/2010 ZACH CHECK EXAMINER, GRISEL S 401.9 HYPERTENSION (SYSTEMIC) 03/06/2010 ZACH CHECK EXAMINER, GRISEL S 300.02 GENERALIZED ANXIETY DISORDER 03/06/2010 ZACH CHECK EXAMINER, GRISEL S 401.9 HYPERTENSION (SYSTEMIC) 03/06/2010 ZACH CHECK EXAMINER, GRISEL S 300.02 GENERALIZED ANXIETY DISORDER 03/06/2010 ZACH CHECK EXAMINER, GRISEL S 401.9 HYPERTENSION (SYSTEMIC) 03/06/2010 ZACH CHECK EXAMINER, GRISEL S 300.02 GENERALIZED ANXIETY DISORDER 03/06/2010 ZACH CHECK EXAMINER, GRISEL S 401.9 HYPERTENSION (SYSTEMIC) 03/06/2010 ZACH CHECK EXAMINER, GRISEL S 300.02 GENERALIZED ANXIETY DISORDER 03/06/2010 ZACH CHECK EXAMINER, GRISEL S 401.9 HYPERTENSION (SYSTEMIC) 03/06/2010 ZACH CHECK EXAMINER, GRISEL S 300.02 GENERALIZED ANXIETY DISORDER 03/06/2010 ZACH CHECK EXAMINER, GRISEL S 401.9 HYPERTENSION (SYSTEMIC) 03/06/2010 ZACH CHECK EXAMINER, GRISEL S 300.02 GENERALIZED ANXIETY DISORDER 03/06/2010 ZACH CHECK EXAMINER, GRISEL S 401.9 HYPERTENSION (SYSTEMIC) 03/06/2010 ZACH CHECK EXAMINER, GRISEL S 300.02 GENERALIZED ANXIETY DISORDER 03/06/2010 ZACH CHECK EXAMINER, GRISEL S 401.9 HYPERTENSION (SYSTEMIC) 03/06/2010 ZACH CHECK EXAMINER, GRISEL S 300.02 GENERALIZED ANXIETY DISORDER 03/06/2010 ZACH CHECK EXAMINER, GRISEL S 401.9 HYPERTENSION (SYSTEMIC) 03/06/2010 ZACH CHECK EXAMINER, GRISEL S 300.02 GENERALIZED ANXIETY DISORDER 03/06/2010 ZACH CHECK EXAMINER, GRISEL S 401.9 HYPERTENSION (SYSTEMIC) 03/06/2010 ZACH CHECK EXAMINER, GRISEL S 300.02 GENERALIZED ANXIETY DISORDER 03/06/2010 ZACH CHECK EXAMINER, GRISEL S 401.9 HYPERTENSION (SYSTEMIC) 03/06/2010 ZACH CHECK EXAMINER, GRISEL S 300.02 GENERALIZED ANXIETY DISORDER 03/06/2010 ZACH CHECK EXAMINER, GRISEL S 401.9 HYPERTENSION (SYSTEMIC) 03/06/2010 ZACH CHECK EXAMINER, GRISEL S 300.02 GENERALIZED ANXIETY DISORDER 03/06/2010 ZACH CHECK EXAMINER, GRISEL S 401.9 HYPERTENSION (SYSTEMIC) 03/06/2010 ZACH CHECK EXAMINER, GRISEL S 300.02 GENERALIZED ANXIETY DISORDER 03/06/2010 ZACH CHECK EXAMINER, GRISEL S 401.9 HYPERTENSION (SYSTEMIC) 03/06/2010 ZACH CHECK EXAMINER, GRISEL S 300.02 GENERALIZED ANXIETY DISORDER 03/06/2010 ZACH CHECK EXAMINER, GRISEL S 401.9 HYPERTENSION (SYSTEMIC) 03/06/2010 ZACH CHECK EXAMINER, GRISEL S 300.02 GENERALIZED ANXIETY DISORDER 03/06/2010 ZACH CHECK EXAMINER, GRISEL S 401.9 HYPERTENSION (SYSTEMIC) 03/06/2010 ZACH CHECK EXAMINER, GRISEL S 300.02 GENERALIZED ANXIETY DISORDER 03/06/2010 ZACH CHECK EXAMINER, GRISEL S 401.9 HYPERTENSION (SYSTEMIC) 03/06/2010 ZACH CHECK EXAMINER, GRISEL S 300.02 GENERALIZED ANXIETY DISORDER 03/06/2010 ZACH CHECK EXAMINER, GRISEL S 401.9 HYPERTENSION (SYSTEMIC) 03/06/2010 ZACH CHECK EXAMINER, GRISEL S 300.02 GENERALIZED ANXIETY DISORDER 03/06/2010 ZACH CHECK EXAMINER, GRISEL S 401.9 HYPERTENSION (SYSTEMIC) 03/06/2010 ZACH CHECK EXAMINER, GRISEL S 300.02 GENERALIZED ANXIETY DISORDER 03/06/2010 ZACH CHECK EXAMINER, GRISEL S 401.9 HYPERTENSION (SYSTEMIC) 03/06/2010 ZACH CHECK EXAMINER, GRISEL S 300.02 GENERALIZED ANXIETY DISORDER 03/06/2010 ZACH CHECK EXAMINER, GRISEL S 401.9 HYPERTENSION (SYSTEMIC) 03/19/2010 MAZA DO, MARTHA K 525.9 tooth pain 03/19/2010 MAZA DO, MARTHA K 525.9 tooth pain 03/19/2010 ZACH CHECK EXAMINER, GRISEL S 525.9 tooth pain 03/19/2010 ZACH CHECK EXAMINER, GRISEL S 525.9 tooth pain 03/19/2010 ZACH CHECK EXAMINER, GRISEL S 525.9 tooth pain 03/19/2010 ZACH CHECK EXAMINER, GRISEL S 525.9 tooth pain 03/19/2010 ZACH CHECK EXAMINER, GRISEL S 525.9 tooth pain 03/19/2010 ZACH CHECK EXAMINER, GRISEL S 525.9 tooth pain 03/19/2010 ZACH CHECK EXAMINER, GRISEL S 525.9 tooth pain 03/19/2010 ZACH CHECK EXAMINER, GRISEL S 525.9 tooth pain 03/19/2010 ZACH CHECK EXAMINER, GRISEL S 525.9 tooth pain 03/19/2010 ZACH CHECK EXAMINER, GRISEL S 525.9 tooth pain 03/19/2010 ZACH CHECK EXAMINER, GRISEL S 525.9 tooth pain 03/19/2010 ZACH CHECK EXAMINER, GRISEL S 525.9 tooth pain 03/19/2010 ZACH CHECK EXAMINER, GRISEL S 525.9 tooth pain 03/19/2010 ZACH CHECK EXAMINER, GRISEL S 525.9 tooth pain 03/19/2010 ZACH CHECK EXAMINER, GRISEL S 525.9 tooth pain 03/19/2010 ZACH CHECK EXAMINER, GRISEL S 525.9 tooth pain 03/19/2010 ZACH CHECK EXAMINER, GRISEL S 525.9 tooth pain 03/19/2010 ZACH CHECK EXAMINER, GRISEL S 525.9 tooth pain 03/19/2010 ZACH CHECK EXAMINER, GRISEL S 525.9 tooth pain 03/19/2010 ZACH CHECK EXAMINER, GRISEL S 525.9 tooth pain 03/19/2010 ZACH CHECK EXAMINER, GRISEL S 525.9 tooth pain 09/17/2010 MAZA DO, MARTHA K 535.50 GASTRITIS 09/17/2010 MAZA DO, MARTHA K 535.50 GASTRITIS 09/17/2010 ZACH CHECK EXAMINER, GRISEL S 535.50 GASTRITIS 09/17/2010 ZACH CHECK EXAMINER, GRISEL S 535.50 GASTRITIS 09/17/2010 ZACH CHECK EXAMINER, GRISEL S 535.50 GASTRITIS 09/17/2010 ZACH CHECK EXAMINER, GRISEL S 535.50 GASTRITIS 09/17/2010 ZACH CHECK EXAMINER, GRISEL S 535.50 GASTRITIS 09/17/2010 ZACH CHECK EXAMINER, GRISEL S 535.50 GASTRITIS 09/17/2010 ZACH CHECK EXAMINER, GRISEL S 535.50 GASTRITIS 09/17/2010 ZACH CHECK EXAMINER, GRISEL S 535.50 GASTRITIS 09/17/2010 ZACH CHECK EXAMINER, GRISEL S 535.50 GASTRITIS 09/17/2010 ZACH CHECK EXAMINER, GRISEL S 535.50 GASTRITIS 09/17/2010 ZACH CHECK EXAMINER, GRISEL S 535.50 GASTRITIS 09/17/2010 ZACH CHECK EXAMINER, GRISEL S 535.50 GASTRITIS 09/17/2010 ZACH CHECK EXAMINER, GRISEL S 535.50 GASTRITIS 09/17/2010 ZACH CHECK EXAMINER, GRISEL S 535.50 GASTRITIS 09/17/2010 ZACH CHECK EXAMINER, GRISEL S 535.50 GASTRITIS 09/17/2010 ZACH CHECK EXAMINER, GRISEL S 535.50 GASTRITIS 09/17/2010 ZACH CHECK EXAMINER, GRISEL S 535.50 GASTRITIS 09/17/2010 ZACH CHECK EXAMINER, GRISEL S 535.50 GASTRITIS 09/17/2010 ZACH CHECK EXAMINER, GRISEL S 535.50 GASTRITIS 09/17/2010 ZACH CHECK EXAMINER, GRISEL S 535.50 GASTRITIS 09/17/2010 ZACH CHECK EXAMINER, GRISEL S 535.50 GASTRITIS 12/30/2010 MAZA DO, MARTHA K 782.3 EDEMA 12/30/2010 MAZA DO, MARTHA K 782.3 EDEMA 12/30/2010 ZACH CHECK EXAMINER, GRISEL S 782.3 EDEMA 12/30/2010 ZACH CHECK EXAMINER, GRISEL S 782.3 EDEMA 12/30/2010 ZACH CHECK EXAMINER, GRISEL S 782.3 EDEMA 12/30/2010 ZACH CHECK EXAMINER, GRISEL S 782.3 EDEMA 12/30/2010 ZACH CHECK EXAMINER, GRISEL S 782.3 EDEMA 12/30/2010 ZACH CHECK EXAMINER, GRISEL S 782.3 EDEMA 12/30/2010 ZACH CHECK EXAMINER, GRISEL S 782.3 EDEMA 12/30/2010 ZACH CHECK EXAMINER, GRISEL S 782.3 EDEMA 12/30/2010 ZACH CHECK EXAMINER, GRISEL S 782.3 EDEMA 12/30/2010 ZACH CHECK EXAMINER, GRISEL S 782.3 EDEMA 12/30/2010 ZACH CHECK EXAMINER, GRISEL S 782.3 EDEMA 12/30/2010 ZACH CHECK EXAMINER, GRISEL S 782.3 EDEMA 12/30/2010 ZACH CHECK EXAMINER, GRISEL S 782.3 EDEMA 12/30/2010 ZACH CHECK EXAMINER, GRISEL S 782.3 EDEMA 12/30/2010 ZACH CHECK EXAMINER, GRISEL S 782.3 EDEMA 12/30/2010 ZACH CHECK EXAMINER, GRISEL S 782.3 EDEMA 12/30/2010 ZACH CHECK EXAMINER, GRISEL S 782.3 EDEMA 12/30/2010 ZACH CHECK EXAMINER, GRISEL S 782.3 EDEMA 12/30/2010 ZACH CHECK EXAMINER, GRISEL S 782.3 EDEMA 12/30/2010 ZACH CHECK EXAMINER, GRISEL S 782.3 EDEMA 12/30/2010 ZACH CHECK EXAMINER, GRISEL S 782.3 EDEMA 05/06/2011 MAZA DO, MARTHA K V04.81 FLU DX (3 YRS AND ABOVE, IM) 05/06/2011 MAZA DO, MARTHA K V04.81 FLU DX (3 YRS AND ABOVE, IM) 05/06/2011 ZACH CHECK EXAMINER, GRISEL S V04.81 FLU DX (3 YRS AND ABOVE, IM) 05/06/2011 ZACH CHECK EXAMINER, GRISEL S V04.81 FLU DX (3 YRS AND ABOVE, IM) 05/06/2011 ZACH CHECK EXAMINER, GRISEL S V04.81 FLU DX (3 YRS AND ABOVE, IM) 05/06/2011 ZACH CHECK EXAMINER, GRISEL S V04.81 FLU DX (3 YRS AND ABOVE, IM) 05/06/2011 ZACH CHECK EXAMINER, GRISEL S V04.81 FLU DX (3 YRS AND ABOVE, IM) 05/06/2011 ZACH CHECK EXAMINER, GRISEL S V04.81 FLU DX (3 YRS AND ABOVE, IM) 05/06/2011 ZACH CHECK EXAMINER, GRISEL S V04.81 FLU DX (3 YRS AND ABOVE, IM) 05/06/2011 ZACH CHECK EXAMINER, GRISEL S V04.81 FLU DX (3 YRS AND ABOVE, IM) 05/06/2011 ZACH CHECK EXAMINER, GRISEL S V04.81 FLU DX (3 YRS AND ABOVE, IM) 05/06/2011 ZACH CHECK EXAMINER, GRISEL S V04.81 FLU DX (3 YRS AND ABOVE, IM) 05/06/2011 ZACH CHECK EXAMINER, GRISEL S V04.81 FLU DX (3 YRS AND ABOVE, IM) 05/06/2011 ZACH CHECK EXAMINER, GRISEL S V04.81 FLU DX (3 YRS AND ABOVE, IM) 05/06/2011 ZACH CHECK EXAMINER, GRISEL S V04.81 FLU DX (3 YRS AND ABOVE, IM) 05/06/2011 ZACH CHECK EXAMINER, GRISEL S V04.81 FLU DX (3 YRS AND ABOVE, IM) 05/06/2011 ZACH CHECK EXAMINER, GRISEL S V04.81 FLU DX (3 YRS AND ABOVE, IM) 05/06/2011 ZACH CHECK EXAMINER, GRISEL S V04.81 FLU DX (3 YRS AND ABOVE, IM) 05/06/2011 ZACH CHECK EXAMINER, GRISEL S V04.81 FLU DX (3 YRS AND ABOVE, IM) 05/06/2011 ZACH CHECK EXAMINER, GRISEL S V04.81 FLU DX (3 YRS AND ABOVE, IM) 05/06/2011 ZACH CHECK EXAMINER, GRISEL S V04.81 FLU DX (3 YRS AND ABOVE, IM) 05/06/2011 ZACH CHECK EXAMINER, GRISEL S V04.81 FLU DX (3 YRS AND ABOVE, IM) 05/06/2011 ZACH CHECK EXAMINER, GRISEL S V04.81 FLU DX (3 YRS AND ABOVE, IM) 04/22/2012 MAZA DO, MARTHA K 786.50 CHEST PAIN 04/22/2012 MAZA DO, MARTHA K 786.50 CHEST PAIN 04/22/2012 ZACH CHECK EXAMINER, GRISEL S 786.50 CHEST PAIN 04/22/2012 ZACH CHECK EXAMINER, GRISEL S 786.50 CHEST PAIN 04/22/2012 ZACH CHECK EXAMINER, GRISEL S 786.50 CHEST PAIN 04/22/2012 ZACH CHECK EXAMINER, GRISEL S 786.50 CHEST PAIN 04/22/2012 ZACH CHECK EXAMINER, GRISEL S 786.50 CHEST PAIN 04/22/2012 ZACH CHECK EXAMINER, GRISEL S 786.50 CHEST PAIN 04/22/2012 ZACH CHECK EXAMINER, GRISEL S 786.50 CHEST PAIN 04/22/2012 ZACH CHECK EXAMINER, GRISEL S 786.50 CHEST PAIN 04/22/2012 ZACH CHECK EXAMINER, GRISEL S 786.50 CHEST PAIN 04/22/2012 ZACH CHECK EXAMINER, GRISEL S 786.50 CHEST PAIN 04/22/2012 ZACH CHECK EXAMINER, GRISEL S 786.50 CHEST PAIN 04/22/2012 ZACH CHECK EXAMINER, GRISEL S 786.50 CHEST PAIN 04/22/2012 ZACH CHECK EXAMINER, GRISEL S 786.50 CHEST PAIN 04/22/2012 ZACH CHECK EXAMINER, GRISEL S 786.50 CHEST PAIN 04/22/2012 ZACH CHECK EXAMINER, GRISEL S 786.50 CHEST PAIN 04/22/2012 ZACH CHECK EXAMINER, GRISEL S 786.50 CHEST PAIN 04/22/2012 ZACH CHECK EXAMINER, GRISEL S 786.50 CHEST PAIN 04/22/2012 ZACH CHECK EXAMINER, GRISEL S 786.50 CHEST PAIN 04/22/2012 ZACH CHECK EXAMINER, GRISEL S 786.50 CHEST PAIN 04/22/2012 ZACH CHECK EXAMINER, GRISEL S 786.50 CHEST PAIN 04/22/2012 ZACH CHECK EXAMINER, GRISEL S 786.50 CHEST PAIN 05/12/2012 MAZA DO, MARTHA K 414.00 CAD 05/12/2012 MAZA DO, MARTHA K 414.00 CAD 05/12/2012 ZACH CHECK EXAMINER, GRISEL S 414.00 CAD 05/12/2012 ZACH CHECK EXAMINER, GRISEL S 414.00 CAD 05/12/2012 ZACH CHECK EXAMINER, GRISEL S 414.00 CAD 05/12/2012 ZACH CHECK EXAMINER, GRISEL S 414.00 CAD 05/12/2012 ZACH CHECK EXAMINER, GRISEL S 414.00 CAD 05/12/2012 ZACH CHECK EXAMINER, GRISEL S 414.00 CAD 05/12/2012 ZACH CHECK EXAMINER, GRISEL S 414.00 CAD 05/12/2012 ZACH CHECK EXAMINER, GRISEL S 414.00 CAD 05/12/2012 ZACH CHECK EXAMINER, GRISEL S 414.00 CAD 05/12/2012 ZACH CHECK EXAMINER, GRISEL S 414.00 CAD 05/12/2012 ZACH CHECK EXAMINER, GRISEL S 414.00 CAD 05/12/2012 ZACH CHECK EXAMINER, GRISEL S 414.00 CAD 05/12/2012 ZACH CHECK EXAMINER, GRISEL S 414.00 CAD 05/12/2012 ZACH CHECK EXAMINER, GRISEL S 414.00 CAD 05/12/2012 ZACH CHECK EXAMINER, GRISEL S 414.00 CAD 05/12/2012 ZACH CHECK EXAMINER, GRISEL S 414.00 CAD 05/12/2012 ZACH CHECK EXAMINER, GRISEL S 414.00 CAD 05/12/2012 ZACH CHECK EXAMINER, GRISEL S 414.00 CAD 05/12/2012 ZACH CHECK EXAMINER, GRISEL S 414.00 CAD 05/12/2012 ZACH CHECK EXAMINER, GRISEL S 414.00 CAD 05/12/2012 ZACH CHECK EXAMINER, GRISEL S 414.00 CAD 12/15/2013 ZACH CHECK EXAMINER, GRISEL S 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 12/15/2013 ZACH CHECK EXAMINER, GRISEL S 211.1 BENIGN NEOPLASM OF STOMACH 12/15/2013 ZACH CHECK EXAMINER, GRISEL S 793.80 ABNORMAL MAMMOGRAM 12/15/2013 ZACH CHECK EXAMINER, GRISEL S V15.82 NICOTINE ABUSE 12/15/2013 ZACH CHECK EXAMINER, GRISEL S 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 12/15/2013 ZACH CHECK EXAMINER, GRISEL S 211.1 BENIGN NEOPLASM OF STOMACH 12/15/2013 ZACH CHECK EXAMINER, GRISEL S 793.80 ABNORMAL MAMMOGRAM 12/15/2013 ZACH CHECK EXAMINER, GRISEL S V15.82 NICOTINE ABUSE 12/15/2013 ZACH CHECK EXAMINER, GRISEL S 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 12/15/2013 ZACH CHECK EXAMINER, GRISEL S 211.1 BENIGN NEOPLASM OF STOMACH 12/15/2013 ZACH CHECK EXAMINER, GRISEL S 793.80 ABNORMAL MAMMOGRAM 12/15/2013 ZACH CHECK EXAMINER, GRISEL S V15.82 NICOTINE ABUSE 12/15/2013 ZACH CHECK EXAMINER, GRISEL S 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 12/15/2013 ZACH CHECK EXAMINER, GRISEL S 211.1 BENIGN NEOPLASM OF STOMACH 12/15/2013 ZACH CHECK EXAMINER, GRISEL S 793.80 ABNORMAL MAMMOGRAM 12/15/2013 ZACH CHECK EXAMINER, GRISEL S V15.82 NICOTINE ABUSE 12/15/2013 ZACH CHECK EXAMINER, GRISEL S 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 12/15/2013 ZACH CHECK EXAMINER, GRISEL S 211.1 BENIGN NEOPLASM OF STOMACH 12/15/2013 ZACH CHECK EXAMINER, GRISEL S 793.80 ABNORMAL MAMMOGRAM 12/15/2013 ZACH CHECK EXAMINER, GRISEL S V15.82 NICOTINE ABUSE 12/15/2013 ZACH CHECK EXAMINER, GRISEL S 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 12/15/2013 ZACH CHECK EXAMINER, GRISEL S 211.1 BENIGN NEOPLASM OF STOMACH 12/15/2013 ZACH CHECK EXAMINER, GRISEL S 793.80 ABNORMAL MAMMOGRAM 12/15/2013 ZACH CHECK EXAMINER, GRISEL S V15.82 NICOTINE ABUSE 12/15/2013 ZACH CHECK EXAMINER, GRISEL S 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 12/15/2013 ZACH CHECK EXAMINER, GRISEL S 211.1 BENIGN NEOPLASM OF STOMACH 12/15/2013 ZACH CHECK EXAMINER, GRISEL S 793.80 ABNORMAL MAMMOGRAM 12/15/2013 ZACH CHECK EXAMINER, GRISEL S V15.82 NICOTINE ABUSE 12/15/2013 ZACH CHECK EXAMINER, GRISEL S 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 12/15/2013 ZACH CHECK EXAMINER, GRISEL S 211.1 BENIGN NEOPLASM OF STOMACH 12/15/2013 ZACH CHECK EXAMINER, GRISEL S 793.80 ABNORMAL MAMMOGRAM 12/15/2013 ZACH CHECK EXAMINER, GRISEL S V15.82 NICOTINE ABUSE 12/15/2013 ZACH CHECK EXAMINER, GRISEL S 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 12/15/2013 ZACH CHECK EXAMINER, GRISEL S 211.1 BENIGN NEOPLASM OF STOMACH 12/15/2013 ZACH CHECK EXAMINER, GRISEL S 793.80 ABNORMAL MAMMOGRAM 12/15/2013 ZACH CHECK EXAMINER, GRISEL S V15.82 NICOTINE ABUSE 12/15/2013 ZACH CHECK EXAMINER, GRISEL S 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 12/15/2013 ZACH CHECK EXAMINER, GRISEL S 211.1 BENIGN NEOPLASM OF STOMACH 12/15/2013 ZACH CHECK EXAMINER, GRISEL S 793.80 ABNORMAL MAMMOGRAM 12/15/2013 ZACH CHECK EXAMINER, GRISEL S V15.82 NICOTINE ABUSE 12/15/2013 ZACH CHECK EXAMINER, GRISEL S 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 12/15/2013 ZACH CHECK EXAMINER, GRISEL S 211.1 BENIGN NEOPLASM OF STOMACH 12/15/2013 ZACH CHECK EXAMINER, GRISEL S 793.80 ABNORMAL MAMMOGRAM 12/15/2013 ZACH CHECK EXAMINER, GRISEL S V15.82 NICOTINE ABUSE 12/15/2013 ZACH CHECK EXAMINER, GRISEL S 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 12/15/2013 ZACH CHECK EXAMINER, GRISLE S 211.1 BENIGN NEOPLASM OF STOMACH 12/15/2013 ZACH CHECK EXAMINER, GRISEL S 793.80 ABNORMAL MAMMOGRAM 12/15/2013 ZACH CHECK EXAMINER, GRISEL S V15.82 NICOTINE ABUSE 12/15/2013 ZACH CHECK EXAMINER, GRISEL S 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 12/15/2013 ZACH CHECK EXAMINER, GRISEL S 211.1 BENIGN NEOPLASM OF STOMACH 12/15/2013 ZACH CHECK EXAMINER, GRISEL S 793.80 ABNORMAL MAMMOGRAM 12/15/2013 ZACH CHECK EXAMINER, GRISEL S V15.82 NICOTINE ABUSE 12/23/2013 ZACH CHECK EXAMINER, GRISEL S V58.69 HIGH RISK MEDICATION 12/23/2013 ZACH CHECK EXAMINER, GRISEL S V58.69 HIGH RISK MEDICATION 12/23/2013 ZACH CHECK EXAMINER, GRISEL S V58.69 HIGH RISK MEDICATION 12/23/2013 ZACH CHECK EXAMINER, GRISEL S V58.69 HIGH RISK MEDICATION 12/23/2013 ZACH CHECK EXAMINER, GRISEL S V58.69 HIGH RISK MEDICATION 12/23/2013 ZACH CHECK EXAMINER, GRISEL S V58.69 HIGH RISK MEDICATION 12/23/2013 ZACH CHECK EXAMINER, GRISEL S V58.69 HIGH RISK MEDICATION 12/23/2013 ZACH CHECK EXAMINER, GRISEL S V58.69 HIGH RISK MEDICATION 12/23/2013 ZACH CHECK EXAMINER, GRISEL S V58.69 HIGH RISK MEDICATION 12/23/2013 ZACH CHECK EXAMINER, GRISEL S V58.69 HIGH RISK MEDICATION 12/23/2013 ZACH CHECK EXAMINER, GRISEL S V58.69 HIGH RISK MEDICATION 12/23/2013 ZACH CHECK EXAMINER, GRISEL S V58.69 HIGH RISK MEDICATION 01/25/2014 ZACH CHECK EXAMINER, GRISEL S 415.19 PULMONARY EMBOLUS 01/25/2014 ZACH CHECK EXAMINER, GRISEL S 415.19 PULMONARY EMBOLUS 01/25/2014 ZACH CHECK EXAMINER, GRISEL S 415.19 PULMONARY EMBOLUS 01/25/2014 ZACH CHECK EXAMINER, GRISEL S 415.19 PULMONARY EMBOLUS 01/25/2014 ZACH CHECK EXAMINER, GRISEL S 415.19 PULMONARY EMBOLUS 01/25/2014 ZACH CHECK EXAMINER, GRISEL S 415.19 PULMONARY EMBOLUS 01/25/2014 ZACH CHECK EXAMINER, GRISEL S 415.19 PULMONARY EMBOLUS 01/25/2014 ZACH CHECK EXAMINER, GRISEL S 415.19 PULMONARY EMBOLUS 01/25/2014 ZACH CHECK EXAMINER, GRISEL S 415.19 PULMONARY EMBOLUS 01/25/2014 ZACH CHECK EXAMINER, GRISEL S 415.19 PULMONARY EMBOLUS 01/25/2014 ZACH CHECK EXAMINER, GRISEL S 415.19 PULMONARY EMBOLUS 05/25/2014 ZACH CHECK EXAMINER, GRISEL S 724.3 SCIATICA 05/25/2014 ZACH CHECK EXAMINER, GRISEL S 724.5 BACK PAIN, GENERAL 05/25/2014 ZACH CHECK EXAMINER, GRISEL S 724.3 SCIATICA 05/25/2014 ZACH CHECK EXAMINER, GRISEL S 724.5 BACK PAIN, GENERAL 05/25/2014 ZACH CHECK EXAMINER, GRISEL S 724.3 SCIATICA 05/25/2014 ZACH CHECK EXAMINER, GRISEL S 724.5 BACK PAIN, GENERAL 05/25/2014 ZACH CHECK EXAMINER, GRISEL S 724.3 SCIATICA 05/25/2014 ZACH CHECK EXAMINER, GRISLE S 724.5 BACK PAIN, GENERAL 05/25/2014 ZACH CHECK EXAMINER, GRISEL S 724.3 SCIATICA 05/25/2014 ZACH CHECK EXAMINER, GRISEL S 724.5 BACK PAIN, GENERAL Procedures Code Description Performed By Performed On Cardiolog Jack Navarro 04/22/2012 11586 EKG, TRACING (IN-HOUSE) 04/28/2012 [id number] ROUTINE VENIPUNCTURE 10/28/2013 81687 INR (IN HOUSE) 10/28/2013 [id number] GFR CALC (RESULT ONLY) 10/28/2013 47690 CMP 10/28/2013 36022 LIPID PANEL 10/28/2013 89805 TSH 10/28/2013 19727 CRP HS (CARDIO) 10/28/2013 38580 CBC 10/29/2013 53157 ROUTINE VENIPUNCTURE 10/31/2013 28457 PT/INR 10/31/2013 74513 INR (IN HOUSE) 11/02/2013 96080 INR (IN HOUSE) 11/08/2013 39719 INR (IN HOUSE) 11/11/2013 59951 INR (IN HOUSE) 11/18/2013 89200 INR (IN HOUSE) 12/15/2013 69306 INR (IN HOUSE) 01/06/2014 15996 INR (IN HOUSE) 02/15/2014 08250 INR (IN HOUSE) 03/16/2014 81386 INR (IN HOUSE) 04/18/2014 74415 INR (IN HOUSE) 05/17/2014 73330 MRI PELVIS W/O DYE 06/03/2014 07019 MRI SPINE (LUMBAR) W/O CONTRAST 06/03/2014 58159 INR (IN HOUSE) 06/12/2014 85012 INR (IN HOUSE) 08/07/2014 37816 INR (IN HOUSE) 09/08/2014 Results Test Result Range Comp. Metabolic Panel (14) - 05/20/16 12:28 Glucose, Serum 97 mg/dL 65-99 BUN 13 mg/dL 8-27 Creatinine, Serum 0.66 mg/dL 0.57-1.00 eGFR If NonAfricn Am 93 mL/min/1.73 >59 eGFR If Africn Am 107 mL/min/1.73 >59 BUN/Creatinine Ratio 20 11-26 Sodium, Serum 143 mmol/L 136-144 Potassium, Serum 4.3 mmol/L 3.5-5.2 Chloride, Serum 100 mmol/L 97-106 Carbon Dioxide, Total 26 mmol/L 18-29 Calcium, Serum 9.5 mg/dL 8.7-10.3 Protein, Total, Serum 7.1 g/dL 6.0-8.5 Albumin, Serum 4.6 g/dL 3.6-4.8 Globulin, Total 2.5 g/dL 1.5-4.5 A/G Ratio 1.8 1.1-2.5 Bilirubin, Total 0.3 mg/dL 0.0-1.2 Alkaline Phosphatase, S 98 IU/L 39-117 AST (SGOT) 10 IU/L 0-40 ALT (SGPT) 9 IU/L 0-32 Lipid Panel - 05/20/16 12:28 Cholesterol, Total 179 mg/dL 100-199 Triglycerides 215 mg/dL 0-149 HDL Cholesterol 42 mg/dL >39 VLDL Cholesterol Nelson 43 mg/dL 5-40 LDL Cholesterol Calc 94 mg/dL 0-99 Encounters ACCT No. Visit Date/Time Discharge Status Pt. Type Provider Facility Loc./Unit Complaint [id number] 10/06/2014 16:16:00 10/06/2014 23:59:59 CLS Outpatient [facility] CHECK EXAMINERUBALDOGRISEL S [id number] 09/08/2014 11:34:00 09/08/2014 23:59:59 CLS Outpatient [facility] CHECK EXAMINER GRISEL S [id number] 08/07/2014 10:33:00 08/07/2014 23:59:59 CLS Outpatient [facility] CHECK EXAMINER GRISEL S [id number] 07/13/2014 10:08:00 07/13/2014 23:59:59 CLS Outpatient [facility] CHECK EXAMINER GRISEL S [id number] 06/12/2014 15:53:00 06/12/2014 23:59:59 CLS Outpatient [facility] CHECK EXAMINER GRISEL S [id number] 05/25/2014 10:45:00 05/25/2014 23:59:59 CLS Outpatient [facility] CHECK EXAMINER, GRISEL S [id number] 05/17/2014 11:27:00 05/17/2014 23:59:59 CLS Outpatient [facility] CHECK EXAMINER, GRISEL S [id number] 04/18/2014 10:55:00 04/18/2014 23:59:59 CLS Outpatient [facility] CHECK EXAMINER, GRISEL S [id number] 03/16/2014 09:34:00 03/16/2014 23:59:59 CLS Outpatient [facility] CHECK EXAMINER, GRISEL S [id number] 03/02/2014 10:04:00 03/02/2014 23:59:59 CLS Outpatient [facility] CHECK EXAMINER, GRISEL S [id number] 02/15/2014 16:17:00 02/15/2014 23:59:59 CLS Outpatient [facility] CHECK EXAMINER, GRISEL S [id number] 01/06/2014 10:08:00 01/06/2014 23:59:59 CLS Outpatient [facility] CHECK EXAMINER, GRISEL S [id number] 12/23/2013 09:42:00 12/23/2013 23:59:59 CLS Outpatient [facility] CHECK EXAMINERSYEDA ToddA S [id number] 12/15/2013 10:50:00 12/15/2013 23:59:59 CLS Outpatient [facility] CHECK EXAMINERSYEDAA S [id number] 11/18/2013 09:39:00 11/18/2013 23:59:59 CLS Outpatient [facility] CHECK EXAMINERUBALDOGRISEL S [id number] 11/11/2013 10:00:00 11/11/2013 23:59:59 CLS Outpatient [facility] CHECK EXAMINERUBALDOGRISEL S [id number] 11/08/2013 13:36:00 11/08/2013 23:59:59 CLS Outpatient ZACH CHECK EXAMINERSYEDAA S [id number] 11/02/2013 13:33:00 11/02/2013 23:59:59 CLS Outpatient [facility] CHECK EXAMINERSYEDAA S [id number] 10/31/2013 10:19:00 10/31/2013 23:59:59 CLS Outpatient ZACH CHECK EXAMINERSYEDAA S [id number] 10/28/2013 09:35:00 10/28/2013 23:59:59 CLS Outpatient ZACH CHECK EXAMINERSYEDAA S [id number] 05/16/2013 10:25:00 05/16/2013 23:59:59 CLS Outpatient AZCHSYEDA PEREZ APRNA S [id number] 08/31/2012 14:22:00 08/31/2012 23:59:59 CLS Outpatient [facility] CHECK EXAMINERUBALDOGRISEL S [id number] 05/13/2012 17:50:00 05/13/2012 23:59:59 CLS Outpatient MARTHA MAZA DO [id number] 04/22/2012 12:19:00 04/22/2012 23:59:59 CLS Outpatient MARTHA MAZA DO [id number] 05/21/2016 08:45:00 Document Registration
[2018-10-14] MEDS ORDERED: HEParin DRIP 25000 UNIT/500ML 500 ML IV ONE (15:08)
[2018-10-14] MEDS ORDERED: HEParin 1000 UNIT/ML (10ML VIAL) FOR BOLUS ONE (15:12)
[2018-10-14] MEDS ORDERED: NOREPINEPHRINE 4 MG/NS 250 ML DRIP IV SCH ×2 (15:15)
[2018-10-14] MEDS ORDERED: NS IV ONE ×2 (15:30→20:15)
[2018-10-14] MEDS ORDERED: HEParin 1000 UNIT/ML (10ML VIAL) FOR BOLUS IV SCH (15:30)
[2018-10-14] MEDS ORDERED: CEFEPIME INJECTION 1,000 MG in WATER (STERILE) FOR INJECTION 10 ML IV ONE (15:30)
[2018-10-14] MEDS ORDERED: NOREPINEPHRINE 4 MG in NS (IVPB) 250 ML IV SCH (15:30)
[2018-10-14] MEDS ORDERED: PROPOFOL DRIP (ICU) 100 ML IV SCH (15:30)
[2018-10-14] MEDS: HEParin DRIP 25000 UNIT/500ML 500 ML IV SCH ×2 (15:31→17:31)
[2018-10-14 15:33] LABS: ABG BASE EXCESS 0.2 MMOL/L (-2.5-2.5); ABG OXYGEN SATURATION 99 % (94-100); ABG PCO2 60 MMHG (35-45); ABG PO2 168 MMHG (79-93); ABG TCO2 28.6 MMOL/L (21.0-31.0)
[2018-10-14 15:34] LABS: BASOPHILS % (AUTO) 0 % (0-10); EOSINOPHILS % (AUTO) 0 % (0-10); HEMATOCRIT 38 % (35-52); HEMOGLOBIN 11.3 G/DL (11.5-16.0); LYMPHOCYTES # (AUTO) 0.6 X 10^3 (1.0-4.0); LYMPHOCYTES % (AUTO) 8 % (12-44); MEAN CORPUSCULAR HEMOGLOBIN 28 PG (25-34); MEAN CORPUSCULAR HGB CONC 30 G/DL (32-36); MEAN CORPUSCULAR VOLUME 96 FL (80-99); MEAN PLATELET VOLUME 9.1 FL (7.4-10.4); MONOCYTES # (AUTO) 0.4 X 10^3 (0.0-1.0); MONOCYTES % (AUTO) 6 % (0-12); NEUTROPHILS % (AUTO) 86 % (42-75); PLATELET COUNT 175 10^3/uL (130-400); RED CELL DISTRIBUTION WIDTH 15.3 % (10.0-14.5)
[2018-10-14 15:36] LABS: ABG PH 7.26 (7.37-7.43); ALLENS TEST YES-POS; INSPIRED O2 100; PATIENT TEMP 96.7; VENTILATOR NO
--- NOTE | 2018-10-14 15:38 | ED Respiratory ---
General Chief Complaint: Unresponsive Stated Complaint: UNRESPONSIVE Source: patient Exam Limitations: no limitations History of Present Illness Date Seen by Provider: October 14, 2018 Time Seen by Provider: 14:24 Initial Comments Patient presents to ER by [facility] with chief complaint of altered mental status, shortness of breath, oxygen sats in the 70%. EMS tried Narcan which did not make any difference so they intubated the patient. Patient's blood pressure was very low on arrival map around 68. They intubated the patient with a Combitube. The patient had one times emesis prior to intubation per EMS. Patient 's been afebrile. She was seen in the ER yesterday by this provider she had a fall after getting up in the morning and had a bimalleolar fracture in her left ankle and a distal radial fracture with ulnar styloid avulsion fracture in her left wrist. She was given hydrocodone 2.5 mg in the ER as well as 50 g of fentanyl and was alert oriented doing well when she went home in a wheelchair. She received a total 3-1/2 more tablets of 5 mg by Harlan Coyne overnight by family with the last dose being about 10:00 this morning. She became more somnolent and stopped responding to family over the last couple hours. Allergies and Home Medications Allergies Uncoded Allergies: ALL PAIN MEDS (Adverse Reaction, Unknown, NAUSEA VOMITING, 10/13/18) Home Medications Aspirin 81 Mg Tab.chew, 81 MG PO DAILY, (Reported) Hydrocodone Bit/Acetaminophen 1 Tab Tab, 1-2 EACH PO Q6H PRN for PAIN-MODERATE Prescribed by: YURI WRAY on 10/13/18 1327 Losartan Potassium 100 Mg Tablet, 100 MG PO DAILY, (Reported) Ondansetron 4 Mg Tab.rapdis, 4 MG PO Q6H PRN for NAUSEA/VOMITING Prescribed by: YURI WRAY on 10/13/18 1327 Prochlorperazine Maleate 10 Mg Tablet, 10 MG PO PD, (Reported) Patient Home Medication List Home Medication List Reviewed: Yes Review of Systems Review of Systems Constitutional: see HPI (patient is orotracheally intubated and unable to give a meaningful review of systems but her family gives the following ROS); No fever EENTM: No ear discharge, No ear pain Respiratory: No cough, No phlegm, No short of breath Cardiovascular: No chest pain, No edema Gastrointestinal: No abdominal pain, No constipation, No diarrhea, No nausea, No vomiting Genitourinary: No discharge, No dysuria Musculoskeletal: other (fracture pain) Skin: No pruritus, No rash Past Fkwdvap-Ilapye-Csyjfv Hx Patient Social History Alcohol Use: Denies Use Recreational Drug Use: No Smoking Status: Current Everyday Smoker Type Used: Cigarettes Past Medical History Surgeries: Yes Gallbladder Cardiac: Yes Hypertension Musculoskeletal: No Endocrine: No HEENT: No Cancer: Yes Cervical Physical Exam Vital Signs - First Documented 10/14/18 10/14/18 14:28 14:40 Temp 96.7 Pulse 90 Resp 24 B/P (MAP) 82/60 (67) Pulse Ox 70 O2 Delivery Ambu-Bag O2 Flow Rate 15.00 FiO2 100 Capillary Refill : Height: 5'6.00" Weight: 208lbs. oz. [id number]; BMI Method:Stated General Appearance: severe distress, obese Eyes: Bilateral Eye Normal Inspection, Bilateral Eye PERRL (2 mm, bilateral pinpoint) HEENT: PERRL/EOMI, normal ENT inspection, TMs normal, pharynx normal, other ( atraumatic head) Neck: supple, normal inspection Respiratory: lungs clear, normal breath sounds, no respiratory distress, no accessory muscle use, other (mechanically ventilated by bag valve mask) Cardiovascular: normal peripheral pulses, regular rate, rhythm Gastrointestinal: soft, abnormal bowel sounds (quiescent) Extremities: slow capillary refill (4s) Neurologic/Psychiatric: other (sedated, GCS 6T) Skin: mottled (faint mottling fingertips forehead) Focused Exam Lactate Level 10/14/18 15:24: Lactic Acid Level 2.41*H 10/14/18 17:42: Lactic Acid Level 0.83 Lactic Acid Level Laboratory Tests Test 10/14/18 15:24 10/14/18 17:42 Lactic Acid Level 2.41 MMOL/L (0.50-2.00) *H 0.83 MMOL/L (0.50-2.00) Procedures/Interventions Lumen: triple Central Line Procedure: betadine prep (chlorhexidine prep), sterile drapes applied Position: internal jugular (R) Anesthesia: Lidocaine Volume Anesthetic (ccs): 3 Complications: none Post Position: sutured, good blood return, position confirmed w/ CXR Due to emergent necessity emergency consent was assumed. Patient was addition and skin was cleaned thoroughly with chlorhexidine using sterile procedure sterile drapes sterile gowns head cover, masks and sterile gloves we located the right IJ which was full. We then accessed it after infiltrating the skin with lidocaine and easily passed a guidewire on the first try with no ectopy. Made a small zhen in the skin using the supplied 11 blade scalpel and removed the needle. Then passed the dilator and removed it. We then passed the central lumen of the triple lumen catheter that had previously been flushed with sterile saline. Then removed the guidewire and stitched the triple-lumen in place at approximately 13 [address] a Biopatch and a sterile dressing in the usual fashion. The patient tolerated the procedure well. Easily flushed and withdrew. Chest x-ray demonstrated the distal tip is in the superior vena cava not crossing the midline just above the right atrium. Reason for Intubation: hypercapnic and hypoxemic respiratory failure Date of ETT Placement: October 14, 2018 Intubation Method: orotracheal Tube Size: 8.0 Medications: Etomidate (20mg), Succinylcholine (100mg) Breath Sounds after Intubation: bilateral-equal Intubation Complications: no complications Post Intubation Xray: Yes good position, no pneumothorax Patient was dsq-wjgkv-odan and hyperventilated to give oxygen sats up to 92% and we pulled the existing Combitube and using the glido-scope we watched to be 8.0 ET tube go past the vocal cords and filled cuff at 24 at the lips. Patient then was easily bagged and got her up to 98%. We had good colorimetric change on the capnography indicator as well as tube was clogged and good breath sounds were heard bilaterally with no air sounds over the epigastric region. Patient's vital signs went up after intubation. Patient tolerated procedure well. Post intubation x-ray demonstrates ET tube 2-3 cm above the trenton with good aeration in the bilateral lungs and no pneumothorax. Progress/Results/Core Measures Suspected Sepsis SIRS Temperature: Pulse: 92 Respiratory Rate: 17 Laboratory Tests 10/14/18 15:24: White Blood Count 7.0 Blood Pressure / Mean: 10/14/18 15:24: Lactic Acid Level 2.41*H 10/14/18 17:42: Lactic Acid Level 0.83 Laboratory Tests 10/14/18 15:24: Creatinine 0.84, INR Comment 1.1, Platelet Count 175, Total Bilirubin 0.6 Results/Orders Lab Results Laboratory Tests Test 10/14/18 14:43 10/14/18 15:24 10/14/18 15:39 10/14/18 17:38 Range/Units Glucometer 201 H 70-110 MG/DL White Blood Count 7.0 4.3-11.0 10^3/uL Red Blood Count 4.01 L 4.35-5.85 10^6/uL Hemoglobin 11.3 L 11.5-16.0 G/DL Hematocrit 38 35-52 % Mean Corpuscular Volume 96 80-99 FL Mean Corpuscular Hemoglobin 28 25-34 PG Mean Corpuscular Hemoglobin Concent 30 L 32-36 G/DL Red Cell Distribution Width 15.3 H 10.0-14.5 % Platelet Count 175 130-400 10^3/uL Mean Platelet Volume 9.1 7.4-10.4 FL Neutrophils (%) (Auto) 86 H 42-75 % Lymphocytes (%) (Auto) 8 L 12-44 % Monocytes (%) (Auto) 6 0-12 % Eosinophils (%) (Auto) 0 0-10 % Basophils (%) (Auto) 0 0-10 % Neutrophils # (Auto) 6.0 1.8-7.8 X 10^3 Lymphocytes # (Auto) 0.6 L 1.0-4.0 X 10^3 Monocytes # (Auto) 0.4 0.0-1.0 X 10^3 Eosinophils # (Auto) 0.0 0.0-0.3 10^3/uL Basophils # (Auto) 0.0 0.0-0.1 10^3/uL Prothrombin Time 14.2 12.2-14.7 SEC INR Comment 1.1 0.8-1.4 Activated Partial Thromboplast Time 33 24-35 SEC Blood Gas Puncture Site RR RR Blood Gas Patient Temperature 96.7 98.3 Arterial Blood pH 7.26 *L 7.24 *L 7.37-7.43 Arterial Blood Partial Pressure CO2 60 H 63 H 35-45 MMHG Arterial Blood Partial Pressure O2 168 H 151 H 79-93 MMHG Arterial Blood HCO3 27 26 23-27 MMOL/L Arterial Blood Total CO2 28.6 27.6 21.0-31.0 MMOL/L Arterial Blood Oxygen Saturation 99 99 94-100 % Arterial Blood Base Excess 0.2 -0.9 -2.5-2.5 MMOL/L Marvin Test YES-POS YES-POS Blood Gas Ventilator Setting NO YES Blood Gas Inspired Oxygen 100 100% Sodium Level 140 135-145 MMOL/L Potassium Level 4.4 3.6-5.0 MMOL/L Chloride Level 107 98-107 MMOL/L Carbon Dioxide Level 22 21-32 MMOL/L Anion Gap 11 5-14 MMOL/L Blood Urea Nitrogen 19 H 7-18 MG/DL Creatinine 0.84 0.60-1.30 MG/DL Estimat Glomerular Filtration Rate > 60 BUN/Creatinine Ratio 23 Glucose Level 140 H 70-105 MG/DL Lactic Acid Level 2.41 *H 0.50-2.00 MMOL/L Calcium Level 7.7 L 8.5-10.1 MG/DL Corrected Calcium 8.4 L 8.5-10.1 MG/DL Total Bilirubin 0.6 0.1-1.0 MG/DL Aspartate Amino Transf (AST/SGOT) 15 5-34 U/L Alanine Aminotransferase (ALT/SGPT) 14 0-55 U/L Alkaline Phosphatase 77 40-136 U/L Troponin I 0.063 H <0.028 NG/ML Total Protein 5.5 L 6.4-8.2 GM/DL Albumin 3.1 L 3.2-4.5 GM/DL Urine Color YELLOW Urine Clarity CLEAR Urine pH 5 5-9 Urine Specific [place] 1.020 1.016-1.022 Urine Protein 2+ H NEGATIVE Urine Glucose (UA) NEGATIVE NEGATIVE Urine Ketones NEGATIVE NEGATIVE Urine Nitrite NEGATIVE NEGATIVE Urine Bilirubin NEGATIVE NEGATIVE Urine Urobilinogen NORMAL NORMAL MG/DL Urine Leukocyte Esterase NEGATIVE NEGATIVE Urine RBC (Auto) 2+ H NEGATIVE Urine RBC 2-5 H /HPF Urine WBC NONE /HPF Urine Squamous Epithelial Cells 2-5 /HPF Urine Crystals NONE /LPF Urine Bacteria LARGE H /HPF Urine Casts NONE /LPF Urine Mucus MODERATE H /LPF Urine Culture Indicated NO Test 10/14/18 17:42 Range/Units Lactic Acid Level 0.83 0.50-2.00 MMOL/L Micro Results Microbiology 10/14/18 Influenza Types A,B Antigen (KILO) - Final, Complete My Orders Orders - YURI WRAY Propofol Drip (Icu) (Diprivan Drip (Icu) (10/14/18 14:42) Ekg Tracing (10/14/18 14:51) Continuous Ekg Monitoring (10/14/18 14:51) Norepinephrine (Levophed) (10/14/18 15:15) Heparin Drip 03159 Unit/500ml (Heparin (10/14/18 15:08) Heparin (Bolus Per Protocol) (Heparin (B (10/14/18 15:12) Propofol Drip (Icu) (Diprivan Drip (Icu) (10/14/18 15:30) Heparin Drip [id number] Unit/500ml (Heparin (10/14/18 15:16) Heparin (Bolus Per Protocol) (Heparin (B (10/14/18 15:30) Initiate Heparin Full Protocol (10/14/18 15:16) Chest 1 View, Ap/Pa Only (10/14/18 15:20) Cbc With Automated Diff (10/14/18 15:20) Comprehensive Metabolic Panel (10/14/18 15:20) Blood Culture (10/14/18 15:20) Sputum Culture (10/14/18 15:20) Urinalysis (10/14/18 15:20) Urine Culture (10/14/18 15:20) Protime With Inr (10/14/18 15:20) Partial Thromboplastin Time (10/14/18 15:20) Ed Iv/Invasive Line Start (10/14/18 15:20) Ed Iv/Invasive Line Start (10/14/18 15:20) Troponin I (10/14/18 15:20) Vital Signs Adult Sepsis Patie Q15M (10/14/18 15:20) O2 (10/14/18 15:20) Remove Rings In Anticipation O (10/14/18 15:20) Lactic Acid Analyzer (10/14/18 15:20) Influenza A And B Antigens (10/14/18 15:20) Ns Iv 1000 Ml (Sodium Chloride 0.9%) (10/14/18 15:30) Cefepime Injection (Maxipime Injection) (10/14/18 15:30) Norepinephrine (Levophed) (10/14/18 15:30) Arterial Blood Gas (10/14/18 15:22) Ct Head/Cervical Spine Wo (10/14/18 15:40) Ct Nikki Chest/Noang Abd-Pelv W (10/14/18 15:38) Iohexol Injection (Omnipaque 350 Mg/Ml 1 (10/14/18 16:15) Received Contrast (Hold Metformin- Contr (10/14/18 16:15) Sodium Chloride Flush (Catheter Flush Sy (10/14/18 16:15) Arterial Blood Gas (10/14/18 17:31) Arterial Blood Draw (10/14/18 ) Sputum Culture (10/14/18 14:45) Aspirin Chewable Tablet (Baby Aspirin Ch (10/14/18 18:30) Clopidogrel Tablet (Plavix Tablet) (10/14/18 18:30) Midazolam Injection (Versed Injection) (10/14/18 18:32) Midazolam Injection (Versed Injection) (10/14/18 19:15) Etomidate Injection (Amidate Injection) (10/14/18 14:27) Midazolam Injection (Versed Injection) (10/14/18 14:27) Succinylcholine Injection (Succinylcholi (10/14/18 14:27) Medications Given in ED Current Medications Medications Dose Ordered Sig/Juana Route Start Time Stop Time Status Last Admin Dose Admin Aspirin 324 mg ONCE ONCE GT 10/14/18 18:30 10/14/18 18:31 DC 10/14/18 18:50 324 MG Cefepime HCl 1000 mg/Sterile Water 10 ml @ 200 mls/hr ONCE ONCE IV 10/14/18 15:30 10/14/18 15:32 DC 10/14/18 17:33 200 MLS/HR Clopidogrel Bisulfate 300 mg ONCE ONCE PO 10/14/18 18:30 10/14/18 18:31 DC 10/14/18 18:49 300 MG Iohexol 150 ml ONCE ONCE IV 10/14/18 16:15 10/14/18 16:16 DC 10/14/18 17:14 125 ML Midazolam HCl 5 mg STK-MED ONCE .ROUTE 10/14/18 18:32 10/14/18 18:36 DC 10/14/18 18:40 5 MG Sodium Chloride 2,830.41 ml @ 2,830.41 mls/hr ONCE ONCE IV 10/14/18 15:30 10/14/18 16:29 DC 10/14/18 15:05 2,830.41 MLS/HR Vital Signs/I&O 10/14/18 10/14/18 10/14/18 10/14/18 14:28 14:40 15:29 19:23 Temp 96.7 98.8 Pulse 90 80 92 80 Resp 24 20 17 24 B/P (MAP) 82/60 (67) 133/77 (95) Pulse Ox 70 100 100 100 O2 Delivery Ambu-Bag Mechanical Ventilator O2 Flow Rate 15.00 0.50 FiO2 100 Capillary Refill : Progress Note #1: Time: 15:49 Progress Note Heparin bolus, propofol and Levophed were started to address her sedation, blood pressure and us believe a pulmonary embolism since she was very difficult to get her oxygen sats to come up above 80% even on FiO2 of 1 and progressive [id number]-kmuo ventilation. Put a different sat probe on her oxygen saturation on the other probe was actually in the 90s heart rate was around 90-100 to be just concordant with a low FiO2. Lungs sound clear. We've held the heparin drip as the patient is stable. Continue to CT and rule out a head bleed. We'll obtain CT angiogram of the abdomen pelvis as well. Progress Note #2: Time: 16:33 Progress Note Daughter brought the meds in nursing count of there are only 4 tablets of hydrocodone missing. This would be consistent with story. With the last dose being at 10:00 in the morning it seems very unlikely that is the primary culprit however could be contributing. ECG Initial ECG Impression Date: October 14, 2018 Initial ECG Impression Time: 15:25 Initial ECG Rate: 94 Initial ECG Rhythm: Normal Sinus Initial ECG Intervals: QT (496) Initial ECG Impression: Normal Comment No ST elevation or depression. Diagnostic Imaging Diagonstic Imaging: Xray Plain Films/CT/US/NM/MRI: chest Comments ET tube is about 3-4 cm above the trenton with good aeration bilateral lungs. The central line does not cross the midline comes in the right IJ and overlies the shadow of the SVC just above the right atria. The OG tube appears to be overlying the distal esophagus. [facility] [place], [place] NAME: DAYANA GONZALEZ Stephanie [facility] REC#: [id number] PT STATUS: REG ER : 1950 PHYSICIAN: YURI WRAY MD ADMIT DATE: 10/14/18/ER Draft Date of Exam:10/14/18 CHEST 1 VIEW, AP/PA ONLY INDICATION: Central line placement. EXAMINATION: Portable supine AP chest at 3:25 p.m. COMPARISON: There are no prior studies available for comparison. FINDINGS: This study is less than optimal as the right costophrenic angle was not included. The heart size is mildly enlarged and the central pulmonary vascularity is prominent. This does suggest there may be an element of mild pulmonary congestion present. There is no evidence for pneumonia or for a significant pleural effusion. The mediastinum is not widened. The osseous structures are intact. There is an ET tube in place. The tip of the tube overlies the midportion of the tracheal air shadow and seems to be in good position. There is also an NG line in place. The tip of the line overlies the distal esophagus. I would recommend the line be advanced another 15 cm to assure that it is within the stomach. There is also a central venous catheter in place on the right with the tip of the catheter overlying the mid portion of the superior vena cava. 2. There is no pneumothorax on the right although a small pneumothorax could be present yet undetected on a supine film such as this. IMPRESSION: 1. There is mild cardiomegaly and there may be an element of mild pulmonary congestion present as well. There is no acute cardiopulmonary abnormality noted otherwise. 2. The tip of the NG line overlies the distal esophagus and should be advanced another 15 cm. The other supportive tubes and lines appear to be in good position. Dictated on workstation # [id number] Dict: 10/14/18 1535 Trans: 10/14/18 1550 [facility] [id number] Interpreted by: ASIA QUESADA MD Electronically signed by: Reviewed: Reviewed by Me Diagonstic Imaging: CT (noncontrast) Plain Films/CT/US/NM/MRI: head Comments [facility], [place] NAME: DAYANA GONZALEZ [facility] REC#: [id number] PT STATUS: REG ER : 1950 PHYSICIAN: YURI WRAY MD ADMIT DATE: 10/14/18/ER Draft Date of Exam:10/14/18 CT HEAD/CERVICAL SPINE WO PROCEDURE: CT head and CT cervical spine without contrast. TECHNIQUE: Multiple contiguous axial images were obtained through the brain and cervical spine without the use of intravenous contrast. Sagittal and coronal reformations through the cervical spine were then performed. Auto Exposure Controls were utilized during the CT exam to meet ALARA standards for radiation dose reduction. INDICATION: Intubated. Altered mental status. CT HEAD WITHOUT CONTRAST: FINDINGS: There is cortical atrophy. There is no evidence of intracranial hemorrhage. There is no mass effect. Ventricles are not dilated. There is no extra-axial fluid collection. Basal cisterns are clear. Mastoid air cells are well aerated and clear. Paranasal sinuses show mucosal thickening within the ethmoid sinuses and frontal sinuses. There are no calvarial fractures. IMPRESSION: 1. Cortical atrophy with no acute intracranial abnormality. 2. Findings consistent with inflammatory changes in the paranasal sinuses. CT CERVICAL SPINE: FINDINGS: Sagittal and coronal reformatted images show good alignment. Body height is well maintained. Facets show good alignment. The atlantoaxial joint is in good alignment. There is moderate degenerative cervical disc and facet disease throughout. There is no evidence of a fracture. ET tube and NG tube are present and appearing in good position in the cervical region. Soft tissues are not thickened. There is calcification of the carotid arteries. IMPRESSION: 1. Degenerative cervical disc and facet disease without acute abnormality. Dictated on workstation # [id number] Dict: 10/14/18 1717 Trans: 10/14/18 1724 [id number] Interpreted by: KAI GREENE MD Electronically signed by: Reviewed: Reviewed by Dc Diagonstic Imaging: CT (angiogram) Plain Films/CT/US/NM/MRI: chest, abdomen, pelvis Comments [facility] [place] NAME: DAYANA GONZALEZ Stephanie [facility] REC#: [id number] PT STATUS: REG ER : 1950 PHYSICIAN: YURI WRAY MD ADMIT DATE: 10/14/18/ER Draft Date of Exam:10/14/18 CT NIKKI CHEST/NOANG ABD-PELV W INDICATION: Unresponsive and respiratory failure. Patient had a recent fall. TECHNIQUE: Axial imaging through the chest, abdomen, and pelvis was performed after the administration of intravenous contrast. CT angiography protocol was utilized for chest. 3-D, multiplanar MIP reformations were performed. FINDINGS: CT angiogram of the chest: Patient is intubated. ET tube is above the trenton. There is low density in the left lobe of the thyroid, indeterminate. The thoracic aorta is normal caliber. No dissection is seen. There are atherosclerotic calcifications present. Pulmonary arterial system is without thromboemboli. No filling defects are seen within central, lobar, or segmental branches. No pericardial or pleural fluid is identified. Parenchymal evaluation does show centrilobular emphysematous changes throughout both lungs. There is some dependent atelectasis at both bases. IMPRESSION: 1. No evidence of thoracic aortic dissection or pulmonary embolism. 2. Centrilobular emphysematous changes. There is some dependent atelectasis at both bases. CT abdomen and pelvis: The liver is unremarkable. Gallbladder is surgically absent. No biliary ductal dilatation is seen. The pancreas and spleen are unremarkable. Mild nodular enlargement of bilateral adrenal glands is seen but no discrete mass is identified. Kidneys are unremarkable apart from tiny cortical low density in left kidney suggestive of a cyst. Aorta is heavily calcified but nonaneurysmal. No dissection is seen. Small and large bowel loops are nonobstructed. There is no free fluid in the abdomen or pelvis. No inflammatory process is seen. The bladder is decompressed by Lemus catheter. There are postsurgical changes to the anterior abdominal wall, likely from a hernia repair. There does appear to be some circumferential wall thickening of the rectum. This is nonspecific. Bony structures are unremarkable. IMPRESSION: 1. Mild circumferential wall thickening to the rectum, nonspecific but proctitis cannot be excluded. No inflammatory changes in the abdomen or pelvis are seen. No other significant abnormality is detected. Dictated on workstation # [id number] Dict: 10/14/18 1742 Trans: 10/14/18 1757 [facility] [id number] Interpreted by: ERIKA ANDERSEN MD Electronically signed by: Reviewed: Reviewed by Dc Critical Care Note Critical Care Start Time: 14:24 Stop Time: 16:00 Total Time (minutes) 96mins Progress Patient presents to ER by EMS with a Combitube in place and oxygen sats on the finger as well as forehead reading in the mid to upper 80s. She was on FiO2 1.0 with [id number] appropriate ventilations are being given an good lung sounds were heard. She had received some etomidate by EMS and she would stir with painful stimuli. We gave her another 20 of etomidate and then 100 of succinylcholine and remove the Combitube and replaced it with an ET tube 8.0 which gave us much better oxygenation. Then put her on the ventilator at 450 tidal volume, 20 respiratory rate, PEEP 7 and FiO2 100%. Put the finger probe on a different finger and got her sats with a good pulsatile waveform at 98-100% . Her end-tidal was in the mid to upper 30s. ABG was obtained demonstrating CO2 retention and pH of 7.24 so we increased tidal volume to 500 and rate to 22 and decreased PEEP 5 and decreased her FiO2 as the PaO2 was 168. Repeat ABG about one hour later had not changed so we further increased the tidal volume to 550 and rate to [address] discussed it with Dr. Barriga, Pulmonology. CT of the head without contrast inserted no intraparenchymal bleed subdural hematoma etc. The CT of the chest did not demonstrate a pulmonary embolism or pneumonia. CT of the abdomen didn't demonstrate any significant acute changes. Patient's heparin drip was discontinued. The patient's troponin was noted to be barely up so aspirin and Plavix were crushed and given by OG and the tube was clamped for 30 minutes. OG had to be advanced prior to this 15 cm. Propofol was used initially at 10 to increased to 40 a she was having some light sedation and family would talk to her. Levophed was titrated from 0.1 mcg/kg/m down to 0.05 g and even still her blood pressure was coming up so we turned Levophed off. Her blood pressure after Levophed being off for about 2030 minutes is 134/72. Heart rate 84 sats are 100%. She is being transferred to the ICU. Departure Communication (Admissions) Time/Spoke to Admitting Phy: 18:20 Dr. Bedolla agrees to accept the patient would like consultation with Dr. Barriga and Dr. Ovalle. Time/Spoke to Consulting Phy: 18:10 Dr. Khalid, cardiology: Aspirin and Plavix and trend the troponin. Dr. Barriga agrees to follow the patient would keep the ventilator settings at 550 tidal volume, PEEP of 5, titrate FiO2 and respiratory rate of 24. Impression Primary Impression: Acute respiratory failure Qualified Codes: J96.01 - Acute respiratory failure with hypoxia; J96.02 - Acute respiratory failure with hypercapnia Additional Impressions: Elevated troponin I level Shock Disposition: ADMITTED INPATIENT Condition: Critical Admissions Decision to Admit Reason: Admit from ER (General) Decision to Admit/Date: October 14, 2018 Time/Decision to Admit Time: 16:30 Departure-Patient Inst. Referrals: GRISEL SERRANO (PCP) Primary Care Physician YURI WRAY October 14, 2018 15:38
[2018-10-14 15:48] LABS: BILIRUBIN,URINE NEGATIVE (NEGATIVE); CLARITY,URINE CLEAR; COLOR,URINE YELLOW; GLUCOSE, URINE (UA) NEGATIVE (NEGATIVE); KETONES,URINE NEGATIVE (NEGATIVE); LEUKOCYTE ESTERASE ,URINE NEGATIVE (NEGATIVE); NITRITE,URINE NEGATIVE (NEGATIVE); PH,URINE 5 (5-9); PROTEIN,URINE 2+ (NEGATIVE); UROBILINOGEN,URINE NORMAL (NORMAL)
--- NOTE | 2018-10-14 15:51 | Diagnostic Imaging Report ---
INDICATION: Central line placement. EXAMINATION: Portable supine AP chest at 3:25 p.m. COMPARISON: There are no prior studies available for comparison. FINDINGS: This study is less than optimal as the right costophrenic angle was not included. The heart size is mildly enlarged and the central pulmonary vascularity is prominent. This does suggest there may be an element of mild pulmonary congestion present. There is no evidence for pneumonia or for a significant pleural effusion. The mediastinum is not widened. The osseous structures are intact. There is an ET tube in place. The tip of the tube overlies the midportion of the tracheal air shadow and seems to be in good position. There is also an NG line in place. The tip of the line overlies the distal esophagus. I would recommend the line be advanced another 15 cm to assure that it is within the stomach. There is also a central venous catheter in place on the right with the tip of the catheter overlying the mid portion of the superior vena cava. 2. There is no pneumothorax on the right although a small pneumothorax could be present yet undetected on a supine film such as this. IMPRESSION: 1. There is mild cardiomegaly and there may be an element of mild pulmonary congestion present as well. There is no acute cardiopulmonary abnormality noted otherwise. 2. The tip of the NG line overlies the distal esophagus and should be advanced another 15 cm. The other supportive tubes and lines appear to be in good position. Dictated by: Dictated on workstation # [id number]
[2018-10-14 15:57] LABS: INR 1.1 (0.8-1.4); PROTHROMBIN TIME PATIENT 14.2 SEC (12.2-14.7)
[2018-10-14 15:58] LABS: BACTERIA,URINE LARGE /HPF
[2018-10-14 15:58] LABS: ALANINE AMINOTRANSFERASE 14 U/L (0-55); ALBUMIN 3.1 GM/DL (3.2-4.5); ALKALINE PHOSPHATASE 77 U/L (40-136); BILIRUBIN,TOTAL 0.6 MG/DL (0.1-1.0); BUN/CREATININE RATIO 23; CALCIUM 7.7 MG/DL (8.5-10.1); CARBON DIOXIDE 22 MMOL/L (21-32); CHLORIDE 107 MMOL/L (98-107); CREATININE SERUM 0.84 MG/DL (0.60-1.30); GFR ESTIMATED > 60; GLUCOSE 140 MG/DL (70-105); POTASSIUM 4.4 MMOL/L (3.6-5.0); SODIUM 140 MMOL/L (135-145); TOTAL PROTEIN 5.5 GM/DL (6.4-8.2)
--- NOTE | 2018-10-14 16:02 | NUR ---
Pt intubated and stabilized for transfer to [facility] by ambulance. Pt's family in family consultation room observed as looking expectantly for staff. I engaged in active listening and offered calming presence, and facilitated communication. Dr. Ramos checking in on the family frequently with updates. Family expressed appreciation for Dr. Ramos's bedside manner, and staff's support and understanding. Five family members present, and two others anticipated to arrive.
[2018-10-14] MEDS ORDERED: CATHETER FLUSH 10 ML SYR IV PRN (16:15)
[2018-10-14] MEDS ORDERED: IOHEXOL 350 MG/ML 150 ML (OMNIPAQUE 350) VIAL IV ONE (16:15)
[2018-10-14] MEDS ORDERED: HOLD METFORMIN - RECEIVED CONTRAST 20 ML VIAL IV SCH (16:15)
--- NOTE | 2018-10-14 17:25 | Diagnostic Imaging Report ---
PROCEDURE: CT head and CT cervical spine without contrast. TECHNIQUE: Multiple contiguous axial images were obtained through the brain and cervical spine without the use of intravenous contrast. Sagittal and coronal reformations through the cervical spine were then performed. Auto Exposure Controls were utilized during the CT exam to meet ALARA standards for radiation dose reduction. INDICATION: Intubated. Altered mental status. CT HEAD WITHOUT CONTRAST: FINDINGS: There is cortical atrophy. There is no evidence of intracranial hemorrhage. There is no mass effect. Ventricles are not dilated. There is no extra-axial fluid collection. Basal cisterns are clear. Mastoid air cells are well aerated and clear. Paranasal sinuses show mucosal thickening within the ethmoid sinuses and frontal sinuses. There are no calvarial fractures. IMPRESSION: 1. Cortical atrophy with no acute intracranial abnormality. 2. Findings consistent with inflammatory changes in the paranasal sinuses. CT CERVICAL SPINE: FINDINGS: Sagittal and coronal reformatted images show good alignment. Body height is well maintained. Facets show good alignment. The atlantoaxial joint is in good alignment. There is moderate degenerative cervical disc and facet disease throughout. There is no evidence of a fracture. ET tube and NG tube are present and appearing in good position in the cervical region. Soft tissues are not thickened. There is calcification of the carotid arteries. IMPRESSION: 1. Degenerative cervical disc and facet disease without acute abnormality. Dictated by: Dictated on workstation # [id number]
--- NOTE | 2018-10-14 17:36 | NUR ---
15:18 CENTRAL LINE COMPLETED. TRIPLE LUMEN PRESENT TO RIGHT UPPER NECK. 15:20 BLOOD DRAWN FOR LABS. 1ST SET OF BLOOD CULTURES DRAWN. 15:27 LEVOPHED 0.1 MCG/KG/MIN STARTED TO CENTRAL LINE. 15:25 CHEST X-RAY COMPLETED IN ROOM. 15:28 HEPARIN STARTED AT 24 ML/HR TO CENTRAL LINE. 15:28 PROPOFOL DRIP STARTED AT 10 MCG/KG MIN. 15:39 BYRNE CATHETER 16 FR PLACED X 1 ATTEMPT. YELLOW URINE PRESENT 50 ML. 15:51 HEPARIN DRIP STOPPED PER DR WRAY UNTIL CT SCAN REPORT IS BACK. 16:01 PEEP DECREASED TO 5, VENTILATIONS INCREASED TO 24 ON VENT, FIO2 0.[address] WRAY. 16:[address] SCAN WITH RT AND RN. 17:[address] 17:25 OG ADVANCED [address] WRAY. 1728 HEPARIN DRIP RESTARTED AT 24 ML/HR. 17:35 CEFEPIME 1 GRAM ADMINISTERED. 17:44 LEVOPHED DRIP DECREASED TO 0.05 MCG/KG/MIN.
[2018-10-14 17:50] LABS: ABG BASE EXCESS -0.9 MMOL/L (-2.5-2.5); ABG OXYGEN SATURATION 99 % (94-100); ABG PCO2 63 MMHG (35-45); ABG PO2 151 MMHG (79-93); ABG TCO2 27.6 MMOL/L (21.0-31.0)
[2018-10-14 17:52] LABS: ABG PH 7.24 (7.37-7.43); ALLENS TEST YES-POS; INSPIRED O2 100%; VENTILATOR YES
[2018-10-14 17:53] LABS: PATIENT TEMP 98.3
--- NOTE | 2018-10-14 17:57 | Diagnostic Imaging Report ---
INDICATION: Unresponsive and respiratory failure. Patient had a recent fall. TECHNIQUE: Axial imaging through the chest, abdomen, and pelvis was performed after the administration of intravenous contrast. CT angiography protocol was utilized for chest. 3-D, multiplanar MIP reformations were performed. FINDINGS: CT angiogram of the chest: Patient is intubated. ET tube is above the [place]. There is low density in the left lobe of the thyroid, indeterminate. The thoracic aorta is normal caliber. No dissection is seen. There are atherosclerotic calcifications present. Pulmonary arterial system is without thromboemboli. No filling defects are seen within central, lobar, or segmental branches. No pericardial or pleural fluid is identified. Parenchymal evaluation does show centrilobular emphysematous changes throughout both lungs. There is some dependent atelectasis at both bases. IMPRESSION: 1. No evidence of thoracic aortic dissection or pulmonary embolism. 2. Centrilobular emphysematous changes. There is some dependent atelectasis at both bases. CT abdomen and pelvis: The liver is unremarkable. Gallbladder is surgically absent. No biliary ductal dilatation is seen. The pancreas and spleen are unremarkable. Mild nodular enlargement of bilateral adrenal glands is seen but no discrete mass is identified. Kidneys are unremarkable apart from tiny cortical low density in left kidney suggestive of a cyst. Aorta is heavily calcified but nonaneurysmal. No dissection is seen. Small and large bowel loops are nonobstructed. There is no free fluid in the abdomen or pelvis. No inflammatory process is seen. The bladder is decompressed by Lemus catheter. There are postsurgical changes to the anterior abdominal wall, likely from a hernia repair. There does appear to be some circumferential wall thickening of the rectum. This is nonspecific. Bony structures are unremarkable. IMPRESSION: 1. Mild circumferential wall thickening to the rectum, nonspecific but proctitis cannot be excluded. No inflammatory changes in the abdomen or pelvis are seen. No other significant abnormality is detected. Dictated by: Dictated on workstation # [id number]
--- NOTE | 2018-10-14 18:02 | NUR ---
18:00 NS BOLUS COMPLETED 3000 ML GIVEN. 18:00 NS 1000 ML STARTED AND INFUSING AT 150 ML/HR. 18:01 TIDAL VOLUME INCREASED TO [address] WRAY. 18:01 PATIENT REMAINS SEDATED. NO SIGNS OF DISTRESS PRESENT. VITAL SIGNS B/P 118/69, PULSE 81, OXYGEN SATURATION 100% ON VENT. TEMP- 98.3, RESPIRATIONS-24.
[2018-10-14] MEDS ORDERED: LOSA100T57 PO (18:10)
[2018-10-14] MEDS ORDERED: ONDA4TAB11 PO (18:13)
[2018-10-14] MEDS ORDERED: ASPI-999 PO (18:14)
[2018-10-14] MEDS ORDERED: PROC-1 PO (18:15)
--- NOTE | 2018-10-14 18:17 | Consultation-Cardiology ---
HPI-Cardiology Cardiology Consultation: Date of Consultation 10/14/18 Date of Admission Attending Physician Admitting Physician Cinthya Bower Consulting Physician Beth OVALLE MD HPI: Time Seen by a Provider: 18:30 Chief Complaint: Altered mental status, positive troponin This is a 68-year-old lady who presented to the ER through EMS with chief complaint of altered mental status, shortness of breath and desaturating. Patient was intubated. Patient was hypotensive on arrival to the ER. She has a history of a fall and left ankle and distal radial fracture. She was given pain medications. According to the family she stopped responding around 2 hours after she received the pain medications. Since the patient is intubated and ventilated, history is limited. Review of Systems-Cardiology Review of Systems Constitutional: As described under HPI; No As described under HPI, No no symptoms reported, No chills, No fever, No lightheadedness, No malaise, No tiredness, No weight loss, No weight gain, No other Eyes: No As described under HPI, No no symptoms reported, No blindness, No blurred vision, No contact lenses, No drainage, No decreased acuity, No foreign body sensation, No pain, No vision change Ears/Nose/Throat: No As described under HPI, No no symptoms reported, No chronic hearing loss, No ear discharge, No ear pain, No nasal drainage, No ulcerations Respiratory: No no symptoms reported; As described under HPI; No As described under HPI, No cough, No orthopnea, No shortness of breath, No SOB with excertion Cardiovascular: No no symptoms reported; As described under HPI; No As described under HPI, No chest pain, No edema, No irregular heart rate, No lightheadedness, No palpitations Gastrointestinal: No no symptoms reported, No As described under HPI, No abdomen distended, No abdominal pain, No blood streaked bowels, No constipation , No diarrhea, No nausea, No vomiting, No stool coloration changes Genitourinary: No As described under HPI, No burning, No dysuria, No discharge , No frequency, No flank pain, No hematuria, No urgency : Yes : No Skin: No rash, No skin related problems, No ulcerations Psychiatric/Neurological: As described under HPI; No anxiety, No depression, No seizure, No focal weakness, No syncope Hematologic: No bleeding abnormalities FDO-[id number]-[id number] Hx Patient Social History Alcohol Use: Denies Use Recreational Drug Use: No Smoking Status: Current Everyday Smoker Type Used: Cigarettes Recent Foreign Travel: No Recent Infectious Disease Expo: No Hospitalization with Isolation: Unknown Immunizations Up To Date Tetanus Booster (TDap): Unknown Past Medical History PMH As described under Assessment. Allergies and Home Medications Allergies Uncoded Allergies: ALL PAIN MEDS (Adverse Reaction, Unknown, NAUSEA VOMITING, 10/13/18) Home Medications Aspirin 81 Mg Tab.chew, 81 MG PO DAILY, (Reported) Hydrocodone Bit/Acetaminophen 1 Tab Tab, 1-2 EACH PO Q6H PRN for PAIN-MODERATE Prescribed by: YURI WRAY on 10/13/18 1327 Losartan Potassium 100 Mg Tablet, 100 MG PO DAILY, (Reported) Ondansetron 4 Mg Tab.rapdis, 4 MG PO Q6H PRN for NAUSEA/VOMITING Prescribed by: YURI WRAY on 10/13/18 1327 Prochlorperazine Maleate 10 Mg Tablet, 10 MG PO PD, (Reported) Patient Home Medication List Home Medication List Reviewed: Yes Physical Exam-Cardiology Physical Exam Vital Signs/I&O 10/14/18 10/14/18 10/14/18 10/14/18 14:28 14:40 15:29 19:23 Temp 96.7 98.8 Pulse 90 80 92 80 Resp 24 20 17 24 B/P (MAP) 82/60 (67) 133/77 (95) Pulse Ox 70 100 100 100 O2 Delivery Ambu-Bag Mechanical Ventilator O2 Flow Rate 15.00 0.50 FiO2 100 Capillary Refill : Greater Than 3 Seconds Constitutional: No appears stated age, No AAO x 3, No apparent distress, No PERRL, No well-developed, No well-nourished; other (intubated/ventilated.) Neck: No non-tender, No full range of motion, No supple, No normal inspection, No carotid bruit, No limited range of motion, No lymphadenopathy (R), No lymphadenopathy (L), No tender lateral, No tender midline, No thyromegaly, No other, No carotid pulses are 2 + bilaterally, No with good upstrokes Respiratory: No accessory muscle use, No respiratory distress, No chest tender , No chest expansion is symmetric; chest is bilaterally symmetric; No lungs clear to percussion; lungs clear to auscultation; No crackles, No rhonchi, No rales, No stridor, No wheezing, No pleural rub, No other Cardiovascular: regular rate-rhythm; No irregularly irregular, No extra beats, No parasternal heave is noted, No JVD, No edema, No bradycardia, No tachycardia , No point of maximal impulse, No cardiac thrills are palpable; S1 and S2; No gallop/S3, No gallop/S4, No diastolic murmur, No systolic murmur, No friction rub, No click, No other Gastrointestinal: No tender, No soft, No round, No distended, No pulsatile mass , No organomegaly, No guarding, No rebound, No tenderness, No hernia, No mass, No audible bowel sounds, No abnormal bowel sounds, No abdominal bruits, No spleenomegaly, No other Rectal: deferred Extremities: normal range of motion, non-tender, normal inspection Neurologic/Psychiatric: other (intubated/ventilated) Data Review Labs Laboratory Tests 10/14/18 14:43: Glucometer 201H 10/14/18 15:24: White Blood Count 7.0, Red Blood Count 4.01L, Hemoglobin 11.3L, Hematocrit 38, Mean Corpuscular Volume 96, Mean Corpuscular Hemoglobin 28, Mean Corpuscular Hemoglobin Concent 30L, Red Cell Distribution Width 15.3H, Platelet Count 175, Mean Platelet Volume 9.1, Neutrophils (%) (Auto) 86H, Lymphocytes (%) (Auto) 8L , Monocytes (%) (Auto) 6, Eosinophils (%) (Auto) 0, Basophils (%) (Auto) 0, Neutrophils # (Auto) 6.0, Lymphocytes # (Auto) 0.6L, Monocytes # (Auto) 0.4, Eosinophils # (Auto) 0.0, Basophils # (Auto) 0.0, Prothrombin Time 14.2, INR Comment 1.1, Activated Partial Thromboplast Time 33, Blood Gas Puncture Site RR , Blood Gas Patient Temperature 96.7, Arterial Blood pH 7.26*L, Arterial Blood Partial Pressure CO2 60H, Arterial Blood Partial Pressure O2 168H, Arterial Blood HCO3 27, Arterial Blood Total CO2 28.6, Arterial Blood Oxygen Saturation 99, Arterial Blood Base Excess 0.2, Marvin Test YES-POS, Blood Gas Ventilator Setting NO, Blood Gas Inspired Oxygen 100, Sodium Level 140, Potassium Level 4.4 , Chloride Level 107, Carbon Dioxide Level 22, Anion Gap 11, Blood Urea Nitrogen 19H, Creatinine 0.84, Estimat Glomerular Filtration Rate > 60, BUN/ Creatinine Ratio 23, Glucose Level 140H, Lactic Acid Level 2.41*H, Calcium Level 7.7L, Corrected Calcium 8.4L, Total Bilirubin 0.6, Aspartate Amino Transf (AST/SGOT) 15, Alanine Aminotransferase (ALT/SGPT) 14, Alkaline Phosphatase 77, Troponin I 0.063H, Total Protein 5.5L, Albumin 3.1L 10/14/18 15:39: Urine Color YELLOW, Urine Clarity CLEAR, Urine pH 5, Urine Specific [place] 1.020, Urine Protein 2+H, Urine Glucose (UA) NEGATIVE, Urine Ketones NEGATIVE, Urine Nitrite NEGATIVE, Urine Bilirubin NEGATIVE, Urine Urobilinogen NORMAL, Urine Leukocyte Esterase NEGATIVE, Urine RBC (Auto) 2+H, Urine RBC 2-5H, Urine WBC NONE, Urine Squamous Epithelial Cells 2-5, Urine Crystals NONE, Urine Bacteria LARGEH, Urine Casts NONE, Urine Mucus MODERATEH, Urine Culture Indicated NO 10/14/18 17:38: Blood Gas Puncture Site RR, Blood Gas Patient Temperature 98.3, Arterial Blood pH 7.24*L, Arterial Blood Partial Pressure CO2 63H, Arterial Blood Partial Pressure O2 151H, Arterial Blood HCO3 26, Arterial Blood Total CO2 27.6, Arterial Blood Oxygen Saturation 99, Arterial Blood Base Excess -0.9, Marvin Test YES-POS, Blood Gas Ventilator Setting YES, Blood Gas Inspired Oxygen 100% 10/14/18 17:42: Lactic Acid Level 0.83 Microbiology 10/14/18 Influenza Types A,B Antigen (KILO) - Final, Complete ECG Impression ECG Initial ECG Rhythm: Normal Sinus Initial ECG Impression: Normal A/P-Cardiology Assessment/Admission Diagnosis Altered mental status, Intubated/ventilated, Positive troponin, Lactic acidosis, Hypercarbic respiratory failure, Plan Altered mental status, unclear etiology. Could be secondary to opioids. Defer to the primary team. Intubated/ventilated, Positive troponin, borderline troponin. Could be secondary to Type II be type II myocardial infarction due to severe systemic illness. recommend Serial Troponin. Echocardiogram. NSTEMI cannot be ruled out so bolus aspirin and plavix was given via NG tube. Lactic acidosis, Hypercarbic respiratory failure, CTA chest did not reveal any PE or aortic dissection. Critically ill patient with guarded prognosis. Thank you for your consultation. Please call me if you have any questions. Jerson Ovalle MD, FACP, FACC, FSCAI, FHRS, CCDS Interventional Cardiology Cardiac Electrophysiology Vascular Medicine and Endovascular Interventions Beth OVALLE MD October 14, 2018 18:17
--- NOTE | 2018-10-14 18:27 | NUR ---
FAMILY MEMBER UNRULY TOOK BLACK RING FROM RIGHT HAND, [place] AND [place]KL[place] HOME WITH HER.
--- NOTE | 2018-10-14 18:28 | NUR ---
FAMILY MEMBERS PRESENT IN ROOM.
[2018-10-14] MEDS ORDERED: ASPIRIN 81 MG CHEW (CHILDREN'S ASA) GT ONE (18:30)
[2018-10-14] MEDS ORDERED: CLOPIDOGREL 300 MG (PLAVIX) TABLET PO ONE (18:30)
[2018-10-14] MEDS ORDERED: MIDAZOLAM 5 MG/5 ML (VERSED) VIAL ONE (18:32)
--- NOTE | 2018-10-14 18:41 | NUR ---
PATIENT BECAME MORE ALERT AND IS TRYING TO TALK AROUND THE ETT. PATIENT MOVING EXTREMITIES AND TRYING TO REACH UP TO THE ETT. DR. WRAY NOTIFIED AND PROPOFOL INCREASED TO 40 MCG/KG/MIN AND VERSED 5 MG GIVEN IV. PATIENT IS NOW RESTING QUIETLY WITH NO SIGNS OF DISTRESS.
--- NOTE | 2018-10-14 18:59 | NUR ---
aSPIRIN 324 MG AND PLAVIX 300 MG CRUSHED AND DISSOLVED IN WATER AND ADMINISTERED DOWN OG TUBE. OG DISCONNECTED FROM SUCTION PRIOR TO ADMINISTRATION AND LEFT DISCONNECTED FOR 30 MINUTES.
--- NOTE | 2018-10-14 19:00 | NUR ---
HEPARIN DRIP STOPPED PER VERBAL ORDER BY DR. WRAY.
--- NOTE | 2018-10-14 19:08 | NUR ---
PATIENT'S AIRWAY SUCTIONED.
--- NOTE | 2018-10-14 19:14 | NUR ---
PATIENT REMAINS SEDATED AND ON THE VENT. NO SIGNS OF DISTRESS PRESENT AT THIS TIME. FAMILY MEMBERS AT BEDSIDE.
[2018-10-14] MEDS ORDERED: MIDAZOLAM 5 MG/5 ML (VERSED) VIAL IVP ONE (19:15)
--- NOTE | 2018-10-14 19:30 | NUR ---
LEVOPHED STOPPED PER VERBAL ORDER BY DR. WRAY DUE TO B/P BEING 141/75
--- OUTSIDE RECORDS SUMMARY | 2018-10-14 19:44 | XMS REPORT | Continuity of Care Document ---
[...] DO K 401.9 HYPERTENSION (SYSTEMIC) 03/06/2010 [facility] [employer]IL [employer]ER, GRISEL S 300.02 GENERALIZED ANXIETY DISORDER 03/06/2010 [facility] [employer] MAIL CARRIER, GRISEL S 401.9 HYPERTENSION (SYSTEMIC) 03/06/2010 [facility] [employer] MAIL CARRIER, GRISEL S 300.02 GENERALIZED ANXIETY DISORDER 03/06/2010 [facility] [employer]IV[employer] MAIL CARRIER, GRISEL S 401.9 HYPERTENSION (SYSTEMIC) 03/06/2010 [facility] [employer] MAIL CARRIER, GRISEL S 300.02 GENERALIZED ANXIETY DISORDER 03/06/2010 [facility] [employer] MAIL CARRIER, GRISEL S 401.9 HYPERTENSION (SYSTEMIC) 03/06/2010 [facility] [employer] MAIL CARRIER, GRISEL S 300.02 GENERALIZED ANXIETY DISORDER 03/06/2010 [facility] [employer] MAIL CARRIER, GRISEL S 401.9 HYPERTENSION (SYSTEMIC) 03/06/2010 [facility] [employer] MAIL CARRIER, GRISEL S 300.02 GENERALIZED ANXIETY DISORDER 03/06/2010 [facility] [employer]IV[employer] MAIL CARRIER, GRISEL S 401.9 HYPERTENSION (SYSTEMIC) 03/06/2010 [facility] [employer] MAIL CARRIER, GRISEL S 300.02 GENERALIZED ANXIETY DISORDER 03/06/2010 [facility] [employer] MAIL CARRIER, GRISEL S 401.9 HYPERTENSION (SYSTEMIC) 03/06/2010 [facility] [employer] MAIL CARRIER, GRISEL S 300.02 GENERALIZED ANXIETY DISORDER 03/06/2010 [facility] DELIV[employer] MAIL CARRIER, GRISEL S 401.9 HYPERTENSION (SYSTEMIC) 03/06/2010 [facility] [employer]IV[employer] MAIL CARRIER, GRISEL S 300.02 GENERALIZED ANXIETY DISORDER 03/06/2010 [facility] [employer]IV[employer] MAIL CARRIER, GRISEL S 401.9 HYPERTENSION (SYSTEMIC) 03/06/2010 [facility] [employer] MAIL CARRIER, GRISEL S 300.02 GENERALIZED ANXIETY DISORDER 03/06/2010 [facility] [employer] MAIL CARRIER, GRISEL S 401.9 HYPERTENSION (SYSTEMIC) 03/06/2010 [facility] [employer] MAIL CARRIER, GRISEL S 300.02 GENERALIZED ANXIETY DISORDER 03/06/2010 [facility] [employer] MAIL CARRIER, GRISEL S 401.9 HYPERTENSION (SYSTEMIC) 03/06/2010 [facility] [employer] MAIL CARRIER, GRISEL S 300.02 GENERALIZED ANXIETY DISORDER 03/06/2010 [facility] [employer] MAIL CARRIER, GRISEL S 401.9 HYPERTENSION (SYSTEMIC) 03/06/2010 [facility] [employer] MAIL CARRIER, GRISEL S 300.02 GENERALIZED ANXIETY DISORDER 03/06/2010 [facility] [employer] MAIL CARRIER, GRISEL S 401.9 HYPERTENSION (SYSTEMIC) 03/06/2010 [facility] [employer] MAIL CARRIER, GRISEL S 300.02 GENERALIZED ANXIETY DISORDER 03/06/2010 [facility] [employer] MAIL CARRIER, GRISEL S 401.9 HYPERTENSION (SYSTEMIC) 03/06/2010 [facility] [employer] MAIL CARRIER, GRISEL S 300.02 GENERALIZED ANXIETY DISORDER 03/06/2010 [facility] [employer] MAIL CARRIER, GRISEL S 401.9 HYPERTENSION (SYSTEMIC) 03/06/2010 [facility] [employer] MAIL CARRIER, GRISEL S 300.02 GENERALIZED ANXIETY DISORDER 03/06/2010 [facility] [employer] MAIL CARRIER, GRISEL S 401.9 HYPERTENSION (SYSTEMIC) 03/06/2010 [facility] [employer] MAIL CARRIER, GRISEL S 300.02 GENERALIZED ANXIETY DISORDER 03/06/2010 [facility] [employer] MAIL CARRIER, GRISEL S 401.9 HYPERTENSION (SYSTEMIC) 03/06/2010 [facility] [employer] MAIL CARRIER, GRISEL S 300.02 GENERALIZED ANXIETY DISORDER 03/06/2010 [facility] [employer] MAIL CARRIER, GRISEL S 401.9 HYPERTENSION (SYSTEMIC) 03/06/2010 [facility] [employer] MAIL CARRIER, GRISEL S 300.02 GENERALIZED ANXIETY DISORDER 03/06/2010 [facility] [employer] MAIL CARRIER, GRISEL S 401.9 HYPERTENSION (SYSTEMIC) 03/06/2010 [facility] [employer] MAIL CARRIER, GRISEL S 300.02 GENERALIZED ANXIETY DISORDER 03/06/2010 [facility] [employer]IV[employer] MAIL CARRIER, GRISEL S 401.9 HYPERTENSION (SYSTEMIC) 03/06/2010 [facility] [employer] MAIL CARRIER, GRISEL S 300.02 GENERALIZED ANXIETY DISORDER 03/06/2010 [facility] [employer] MAIL CARRIER, GRISEL S 401.9 HYPERTENSION (SYSTEMIC) 03/06/2010 [facility] [employer] MAIL CARRIER, GRISEL S 300.02 GENERALIZED ANXIETY DISORDER 03/06/2010 [facility] [employer] MAIL CARRIER, GRISEL S 401.9 HYPERTENSION (SYSTEMIC) 03/19/2010 [facility]ZA DO, MARTHA K 525.9 tooth pain 03/19/2010 MAZA DO, MARTHA K 525.9 tooth pain 03/19/2010 [facility] [employer] [facility] [facility]IL [employer]ER, GRISEL S 525.9 tooth pain 03/19/2010 [facility] [employer] MAIL CARRIER, GRISEL S 525.9 tooth pain 03/19/2010 [facility] [employer] MAIL CARRIER, GRISEL S 525.9 tooth pain 03/19/2010 [facility] [employer] MAIL CARRIER, GRISEL S 525.9 tooth pain 03/19/2010 [facility] [employer] MAIL CARRIER, GRISEL S 525.9 tooth pain 03/19/2010 [facility] [employer] MAIL CARRIER, GRISEL S 525.9 tooth pain 03/19/2010 [facility] [employer] MAIL CARRIER, GRISEL S 525.9 tooth pain 03/19/2010 [facility] [employer] MAIL CARRIER, GRISEL S 525.9 tooth pain 03/19/2010 [facility] [employer] MAIL CARRIER, GRISEL S 525.9 tooth pain 03/19/2010 [facility] [employer] MAIL CARRIER, GRISEL S 525.9 tooth pain 03/19/2010 [facility] [employer] MAIL CARRIER, GRISEL S 525.9 tooth pain 03/19/2010 [facility] [employer] MAIL CARRIER, GRISEL S 525.9 tooth pain 03/19/2010 [facility] [employer] MAIL CARRIER, GRISEL S 525.9 tooth pain 03/19/2010 [facility] [employer] MAIL CARRIER, GRISEL S 525.9 tooth pain 03/19/2010 [facility] [employer] MAIL CARRIER, GRISEL S 525.9 tooth pain 03/19/2010 [facility] [employer] MAIL CARRIER, GRISEL S 525.9 tooth pain 03/19/2010 [facility] [employer] MAIL CARRIER, GRISEL S 525.9 tooth pain 03/19/2010 [facility] [employer] MAIL CARRIER, GRISEL S 525.9 tooth pain 03/19/2010 [facility] [employer] MAIL CARRIER, GRISEL S 525.9 tooth pain 03/19/2010 [facility] [employer] MAIL CARRIER, GRISEL S 525.9 tooth pain 03/19/2010 [facility] [employer] MAIL CARRIER, GRISEL S 525.9 tooth pain 09/17/2010 MAZA DO, MARTHA K 535.50 GASTRITIS 09/17/2010 MAZA DO, MARTHA K 535.50 GASTRITIS 09/17/2010 [facility] [employer] MAIL [employer]ER, GRISEL S 535.50 GASTRITIS 09/17/2010 [facility] [employer] DELIV[employer] MAIL CARRIER, GRISEL S 535.50 GASTRITIS 09/17/2010 [facility] [employer]IV[employer] MAIL CARRIER, GRISEL S 535.50 GASTRITIS 09/17/2010 [facility] [employer]IV[employer] MAIL CARRIER, GRISEL S 535.50 GASTRITIS 09/17/2010 [facility] [employer] DELIV[employer] MAIL CARRIER, GRISEL S 535.50 GASTRITIS 09/17/2010 [facility] [employer] DELIV[employer] MAIL CARRIER, GRISEL S 535.50 GASTRITIS 09/17/2010 [facility] [employer] DELIV[employer] MAIL CARRIER, GRISEL S 535.50 GASTRITIS 09/17/2010 [facility] [employer] DELIV[employer] MAIL CARRIER, GRISEL S 535.50 GASTRITIS 09/17/2010 [facility] [employer] DELIV[employer] MAIL CARRIER, GRISEL S 535.50 GASTRITIS 09/17/2010 [facility] [employer] DELIV[employer] MAIL CARRIER, GRISEL S 535.50 GASTRITIS 09/17/2010 [facility] [employer] DELIVERY MAIL CARRIER, GRISEL S 535.50 GASTRITIS 09/17/2010 [facility] [employer] DELIV[employer] MAIL CARRIER, GRISEL S 535.50 GASTRITIS 09/17/2010 [facility] [employer] DELIV[employer] MAIL CARRIER, GRISEL S 535.50 GASTRITIS 09/17/2010 [facility] [employer] MAIL CARRIER, GRISEL S 535.50 GASTRITIS 09/17/2010 [facility] [employer] DELIV[employer] MAIL CARRIER, GRISEL S 535.50 GASTRITIS 09/17/2010 [facility] [employer]IV[employer] MAIL CARRIER, GRISEL S 535.50 GASTRITIS 09/17/2010 [facility] [employer]IV[employer] MAIL CARRIER, GRISEL S 535.50 GASTRITIS 09/17/2010 [facility] [employer] DELIV[employer] MAIL CARRIER, GRISEL S 535.50 GASTRITIS 09/17/2010 [facility] [employer] MAIL CARRIER, GRISEL S 535.50 GASTRITIS 09/17/2010 [facility] [employer] MAIL CARRIER, GRISEL S 535.50 GASTRITIS 09/17/2010 [facility] [employer] MAIL CARRIER, GRISEL S 535.50 GASTRITIS 12/30/2010 MAZA DO, MARTHA K 782.3 EDEMA 12/30/2010 MAZA DO, MARTHA K 782.3 EDEMA 12/30/2010 [facility] [employer] [facility] MAIL CAR[employer]ER, GRISEL S 782.3 EDEMA 12/30/2010 [facility] [employer] MAIL CARRIER, GRISEL S 782.3 EDEMA 12/30/2010 [facility] [employer]IV[employer] MAIL CARRIER, GRISEL S 782.3 EDEMA 12/30/2010 [facility] [employer] MAIL CARRIER, GRISEL S 782.3 EDEMA 12/30/2010 [facility] [employer] MAIL CARRIER, GRISEL S 782.3 EDEMA 12/30/2010 [facility] [employer] MAIL CARRIER, GRISEL S 782.3 EDEMA 12/30/2010 [facility] [employer] DELIV[employer] MAIL CARRIER, GRISEL S 782.3 EDEMA 12/30/2010 [facility] DELIV[employer] MAIL CARRIER, GRISEL S 782.3 EDEMA 12/30/2010 [facility] [employer]IV[employer] MAIL CARRIER, GRISEL S 782.3 EDEMA 12/30/2010 [facility] [employer] MAIL CARRIER, GRISEL S 782.3 EDEMA 12/30/2010 [facility] [employer] MAIL CARRIER, GRISEL S 782.3 EDEMA 12/30/2010 [facility] [employer] MAIL CARRIER, GRISEL S 782.3 EDEMA 12/30/2010 [facility] [employer] MAIL CARRIER, GRISEL S 782.3 EDEMA 12/30/2010 [facility] [employer]IV[employer] MAIL CARRIER, GRISEL S 782.3 EDEMA 12/30/2010 [facility] [employer]IV[employer] MAIL CARRIER, GRISEL S 782.3 EDEMA 12/30/2010 [facility] [employer]IV[employer] MAIL CARRIER, GRISEL S 782.3 EDEMA 12/30/2010 [facility] [employer] MAIL CARRIER, GRISEL S 782.3 EDEMA 12/30/2010 [facility] [employer] MAIL CARRIER, GRISEL S 782.3 EDEMA 12/30/2010 [facility] [employer] MAIL CARRIER, GRISEL S 782.3 EDEMA 12/30/2010 [facility] [employer] MAIL CARRIER, GRISEL S 782.3 EDEMA 12/30/2010 [facility] [employer] MAIL CARRIER, GRISEL S 782.3 EDEMA 05/06/2011 MAZA DO, MARTHA K V04.81 FLU DX (3 YRS AND ABOVE, IM) 05/06/2011 MAZA DO, MARTHA K V04.81 FLU DX (3 YRS AND ABOVE, IM) 05/06/2011 [facility] MAIL [employer]ER, GRISEL S V04.81 FLU DX (3 YRS AND ABOVE, IM) 05/06/2011 [facility] [employer] MAIL CARRIER, GRISEL S V04.81 FLU DX (3 YRS AND ABOVE, IM) 05/06/2011 [facility] [employer] MAIL CARRIER, GRISEL S V04.81 FLU DX (3 YRS AND ABOVE, IM) 05/06/2011 [facility] [employer] MAIL CARRIER, GRISEL S V04.81 FLU DX (3 YRS AND ABOVE, IM) 05/06/2011 [facility] [employer]IV[employer] MAIL CARRIER, GRISEL S V04.81 FLU DX (3 YRS AND ABOVE, IM) 05/06/2011 [facility] [employer]IV[employer] MAIL CARRIER, GRISEL S V04.81 FLU DX (3 YRS AND ABOVE, IM) 05/06/2011 [facility] [employer] MAIL CARRIER, GRISEL S V04.81 FLU DX (3 YRS AND ABOVE, IM) 05/06/2011 [facility] [employer]IV[employer] MAIL CARRIER, GRISEL S V04.81 FLU DX (3 YRS AND ABOVE, IM) 05/06/2011 [facility] [employer]IV[employer] MAIL CARRIER, GRISEL S V04.81 FLU DX (3 YRS AND ABOVE, IM) 05/06/2011 [facility] [employer] MAIL CARRIER, GRISEL S V04.81 FLU DX (3 YRS AND ABOVE, IM) 05/06/2011 [facility] [employer]IV[employer] MAIL CARRIER, GRISEL S V04.81 FLU DX (3 YRS AND ABOVE, IM) 05/06/2011 [facility] [employer] MAIL CARRIER, GRISEL S V04.81 FLU DX (3 YRS AND ABOVE, IM) 05/06/2011 [facility] [employer]IV[employer] MAIL CARRIER, GRISEL S V04.81 FLU DX (3 YRS AND ABOVE, IM) 05/06/2011 [facility] [employer]IV[employer] MAIL CARRIER, GRISEL S V04.81 FLU DX (3 YRS AND ABOVE, IM) 05/06/2011 [facility] [employer]IV[employer] MAIL CARRIER, GRISEL S V04.81 FLU DX (3 YRS AND ABOVE, IM) 05/06/2011 [facility] [employer]IV[employer] MAIL CARRIER, GRISEL S V04.81 FLU DX (3 YRS AND ABOVE, IM) 05/06/2011 [facility] [employer]IV[employer] MAIL CARRIER, GRISEL S V04.81 FLU DX (3 YRS AND ABOVE, IM) 05/06/2011 [facility] [employer]IV[employer] MAIL CARRIER, GRISEL S V04.81 FLU DX (3 YRS AND ABOVE, IM) 05/06/2011 [facility] [employer]IV[employer] MAIL CARRIER, GRISEL S V04.81 FLU DX (3 YRS AND ABOVE, IM) 05/06/2011 [facility] [employer]IV[employer] MAIL CARRIER, GRISEL S V04.81 FLU DX (3 YRS AND ABOVE, IM) 05/06/2011 [facility] [employer] MAIL CARRIER, GRISEL S V04.81 FLU DX (3 YRS AND ABOVE, IM) 04/22/2012 MAZA DO, MARTHA K 786.50 CHEST PAIN 04/22/2012 MAZA DO, MARTHA K 786.50 CHEST PAIN 04/22/2012 [facility] [employer] MAIL [employer]ER, GRISEL S 786.50 CHEST PAIN 04/22/2012 [facility] [employer] MAIL CARRIER, GRIESL S 786.50 CHEST PAIN 04/22/2012 [facility] [employer] MAIL CARRIER, GRISEL S 786.50 CHEST PAIN 04/22/2012 [facility] [employer] MAIL CARRIER, GRISEL S 786.50 CHEST PAIN 04/22/2012 [facility] [employer] MAIL CARRIER, GRISEL S 786.50 CHEST PAIN 04/22/2012 [facility] [employer] MAIL CARRIER, GRISEL S 786.50 CHEST PAIN 04/22/2012 [facility] [employer] MAIL CARRIER, GRISEL S 786.50 CHEST PAIN 04/22/2012 [facility] [employer]IV[employer] MAIL CARRIER, GRISEL S 786.50 CHEST PAIN 04/22/2012 [facility] [employer]IV[employer] MAIL CARRIER, GRISEL S 786.50 CHEST PAIN 04/22/2012 [facility] [employer] MAIL CARRIER, GRISEL S 786.50 CHEST PAIN 04/22/2012 [facility] [employer]IV[employer] MAIL CARRIER, GRISEL S 786.50 CHEST PAIN 04/22/2012 [facility] [employer]IV[employer] MAIL CARRIER, GRISEL S 786.50 CHEST PAIN 04/22/2012 [facility] [employer]IV[employer] MAIL CARRIER, GRISEL S 786.50 CHEST PAIN 04/22/2012 [facility] [employer] DELIV[employer] MAIL CARRIER, GRISEL S 786.50 CHEST PAIN 04/22/2012 [facility] [employer]IV[employer] MAIL CARRIER, GRISEL S 786.50 CHEST PAIN 04/22/2012 [facility] [employer]IV[employer] MAIL CARRIER, GRISEL S 786.50 CHEST PAIN 04/22/2012 [facility] [employer] DELIV[employer] MAIL CARRIER, GRISEL S 786.50 CHEST PAIN 04/22/2012 [facility] [employer]IV[employer] MAIL CARRIER, GRISEL S 786.50 CHEST PAIN 04/22/2012 [facility] [employer] DELIV[employer] MAIL CARRIER, GRISEL S 786.50 CHEST PAIN 04/22/2012 [facility] [employer] DELIV[employer] MAIL CARRIER, GRISEL S 786.50 CHEST PAIN 04/22/2012 [facility] [employer]IV[employer] MAIL CARRIER, GRISEL S 786.50 CHEST PAIN 05/12/2012 MAZA DO, MARTHA K 414.00 CAD 05/12/2012 MAZA DO, MARTHA K 414.00 CAD 05/12/2012 [facility] [employer] MAIL CARRIER, GRISEL S 414.00 CAD 05/12/2012 [facility] [employer] MAIL CARRIER, GRISEL S 414.00 CAD 05/12/2012 [facility] [employer]IV[employer] MAIL CARRIER, GRISEL S 414.00 CAD 05/12/2012 [facility] [employer]IV[employer] MAIL CARRIER, GRISEL S 414.00 CAD 05/12/2012 [facility] [employer] MAIL CARRIER, GRISEL S 414.00 CAD 05/12/2012 [facility] [employer]IV[employer] MAIL CARRIER, GRISEL S 414.00 CAD 05/12/2012 [facility] [employer]IV[employer] MAIL CARRIER, GRISEL S 414.00 CAD 05/12/2012 [facility] [employer]IV[employer] MAIL CARRIER, GRISEL S 414.00 CAD 05/12/2012 [facility] [employer]IV[employer] MAIL CARRIER, GRISEL S 414.00 CAD 05/12/2012 [facility] DELIV[employer] MAIL CARRIER, GRISEL S 414.00 CAD 05/12/2012 [facility] [employer]IV[employer] MAIL CARRIER, GRISEL S 414.00 CAD 05/12/2012 [facility] [employer]IV[employer] MAIL CARRIER, GRISEL S 414.00 CAD 05/12/2012 [facility] [employer]IV[employer] MAIL CARRIER, GRISEL S 414.00 CAD 05/12/2012 [facility] [employer]IV[employer] MAIL CARRIER, GRISEL S 414.00 CAD 05/12/2012 [facility] [employer]IV[employer] MAIL CARRIER, GRISEL S 414.00 CAD 05/12/2012 [facility] [employer]IV[employer] MAIL CARRIER, GRISEL S 414.00 CAD 05/12/2012 [facility] [employer]IV[employer] MAIL CARRIER, GRISEL S 414.00 CAD 05/12/2012 [facility] [employer]IV[employer] MAIL CARRIER, GRISEL S 414.00 CAD 05/12/2012 [facility] [employer]IV[employer] MAIL CARRIER, GRISEL S 414.00 CAD 05/12/2012 [facility] [employer]IV[employer] MAIL CARRIER, GRISEL S 414.00 CAD 05/12/2012 [facility] [employer]IV[employer] MAIL CARRIER, GRISEL S 414.00 CAD 12/15/2013 [facility] [employer] MAIL CARRIER, GRISEL S 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 12/15/2013 [facility] [employer] MAIL CARRIER, GRISEL S 211.1 BENIGN NEOPLASM OF STOMACH 12/15/2013 [facility] [employer]IV[employer] MAIL CARRIER, GRISEL S 793.80 ABNORMAL MAMMOGRAM 12/15/2013 [facility] [employer] DELIV[employer] MAIL CARRIER, GRISEL S V15.82 NICOTINE ABUSE 12/15/2013 [facility] [employer]IV[employer] MAIL CARRIER, GRISEL S 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 12/15/2013 [facility] [employer] MAIL CARRIER, GRISEL S 211.1 BENIGN NEOPLASM OF STOMACH 12/15/2013 [facility] [employer]IV[employer] MAIL CARRIER, GRISEL S 793.80 ABNORMAL MAMMOGRAM 12/15/2013 [facility] [employer] DELIVERY MAIL CARRIER, GRISEL S V15.82 NICOTINE ABUSE 12/15/2013 [facility] [employer]IV[employer] MAIL CARRIER, GRISEL S 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 12/15/2013 [facility] [employer]IV[employer] MAIL CARRIER, GRISEL S 211.1 BENIGN NEOPLASM OF STOMACH 12/15/2013 [facility] [employer] DELIV[employer] MAIL CARRIER, GRISEL S 793.80 ABNORMAL MAMMOGRAM 12/15/2013 [facility] [employer] DELIV[employer] MAIL CARRIER, GRISEL S V15.82 NICOTINE ABUSE 12/15/2013 [facility] [employer]IV[employer] MAIL CARRIER, GRISEL S 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 12/15/2013 [facility] [employer] MAIL CARRIER, GRISEL S 211.1 BENIGN NEOPLASM OF STOMACH 12/15/2013 [facility] [employer]IV[employer] MAIL CARRIER, GRISEL S 793.80 ABNORMAL MAMMOGRAM 12/15/2013 [facility] [employer]IV[employer] MAIL CARRIER, GRISEL S V15.82 NICOTINE ABUSE 12/15/2013 [facility] [employer]IV[employer] MAIL CARRIER, GRISEL S 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 12/15/2013 [facility] [employer] MAIL CARRIER, GRISEL S 211.1 BENIGN NEOPLASM OF STOMACH 12/15/2013 [facility] [employer]IV[employer] MAIL CARRIER, GRISEL S 793.80 ABNORMAL MAMMOGRAM 12/15/2013 [facility] [employer]IV[employer] MAIL CARRIER, GRISEL S V15.82 NICOTINE ABUSE 12/15/2013 [facility] [employer]IV[employer] MAIL CARRIER, GRISEL S 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 12/15/2013 [facility] [employer] MAIL CARRIER, GRISEL S 211.1 BENIGN NEOPLASM OF STOMACH 12/15/2013 [facility] [employer] MAIL CARRIER, GRISEL S 793.80 ABNORMAL MAMMOGRAM 12/15/2013 [facility] [employer]IV[employer] MAIL CARRIER, GRISEL S V15.82 NICOTINE ABUSE 12/15/2013 [facility] [employer]IV[employer] MAIL CARRIER, GRISEL S 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 12/15/2013 [facility] [employer]IV[employer] MAIL CARRIER, GRISEL S 211.1 BENIGN NEOPLASM OF STOMACH 12/15/2013 [facility] [employer]IV[employer] MAIL CARRIER, GRISEL S 793.80 ABNORMAL MAMMOGRAM 12/15/2013 [facility] [employer]IV[employer] MAIL CARRIER, GRISEL S V15.82 NICOTINE ABUSE 12/15/2013 [facility] [employer]IV[employer] MAIL CARRIER, GRISEL S 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 12/15/2013 [facility] [employer] MAIL CARRIER, GRISEL S 211.1 BENIGN NEOPLASM OF STOMACH 12/15/2013 [facility] [employer]IV[employer] MAIL CARRIER, GRISEL S 793.80 ABNORMAL MAMMOGRAM 12/15/2013 [facility] [employer]IV[employer] MAIL CARRIER, GRISEL S V15.82 NICOTINE ABUSE 12/15/2013 [facility] [employer]IV[employer] MAIL CARRIER, GRISEL S 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 12/15/2013 [facility] [employer]IV[employer] MAIL CARRIER, GRISEL S 211.1 BENIGN NEOPLASM OF STOMACH 12/15/2013 [facility] [employer]IV[employer] MAIL CARRIER, GRISEL S 793.80 ABNORMAL MAMMOGRAM 12/15/2013 [facility] [employer] DELIV[employer] MAIL CARRIER, GRISEL S V15.82 NICOTINE ABUSE 12/15/2013 [facility] [employer]IV[employer] MAIL CARRIER, GRISEL S 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 12/15/2013 [facility] [employer]IV[employer] MAIL CARRIER, GRISEL S 211.1 BENIGN NEOPLASM OF STOMACH 12/15/2013 [facility] [employer]IV[employer] MAIL CARRIER, GRISEL S 793.80 ABNORMAL MAMMOGRAM 12/15/2013 [facility] [employer] DELIV[employer] MAIL CARRIER, GRISEL S V15.82 NICOTINE ABUSE 12/15/2013 [facility] [employer]IV[employer] MAIL CARRIER, GRISEL S 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 12/15/2013 [facility] [employer]IV[employer] MAIL CARRIER, GRISEL S 211.1 BENIGN NEOPLASM OF STOMACH 12/15/2013 [facility] [employer]IV[employer] MAIL CARRIER, GRISEL S 793.80 ABNORMAL MAMMOGRAM 12/15/2013 [facility] [employer] DELIV[employer] MAIL CARRIER, GRISEL S V15.82 NICOTINE ABUSE 12/15/2013 [facility] [employer] DELIV[employer] MAIL CARRIER, GRISEL S 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 12/15/2013 [facility] [employer]IV[employer] MAIL CARRIER, GRISEL S 211.1 BENIGN NEOPLASM OF STOMACH 12/15/2013 [facility] [employer] DELIV[employer] MAIL CARRIER, GRISEL S 793.80 ABNORMAL MAMMOGRAM 12/15/2013 [facility] [employer] DELIV[employer] MAIL CARRIER, GRISEL S V15.82 NICOTINE ABUSE 12/15/2013 [facility] [employer] DELIV[employer] MAIL CARRIER, GRISEL S 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 12/15/2013 [facility] [employer]IV[employer] MAIL CARRIER, GRISEL S 211.1 BENIGN NEOPLASM OF STOMACH 12/15/2013 [facility] [employer] DELIV[employer] MAIL CARRIER, GRISEL S 793.80 ABNORMAL MAMMOGRAM 12/15/2013 [facility] [employer] DELIV[employer] MAIL CARRIER, GRISEL S V15.82 NICOTINE ABUSE 12/23/2013 [facility] [employer]IV[employer] MAIL CARRIER, GRISEL S V58.69 HIGH RISK MEDICATION 12/23/2013 [facility] [employer] DELIV[employer] MAIL CARRIER, GRISEL S V58.69 HIGH RISK MEDICATION 12/23/2013 [facility] [employer] DELIV[employer] MAIL CARRIER, GRISEL S V58.69 HIGH RISK MEDICATION 12/23/2013 [facility] [employer] DELIVERY MAIL CARRIER, GRISEL S V58.69 HIGH RISK MEDICATION 12/23/2013 [facility] [employer] DELIVERY MAIL CARRIER, GRISEL S V58.69 HIGH RISK MEDICATION 12/23/2013 [facility] [employer] DELIVERY MAIL CARRIER, GRISEL S V58.69 HIGH RISK MEDICATION 12/23/2013 [facility] [employer] DELIVERY MAIL CARRIER, GRISEL S V58.69 HIGH RISK MEDICATION 12/23/2013 [facility] [employer] DELIVERY MAIL CARRIER, GRISEL S V58.69 HIGH RISK MEDICATION 12/23/2013 [facility] [employer] DELIVERY MAIL CARRIER, GRISEL S V58.69 HIGH RISK MEDICATION 12/23/2013 [facility] [employer] DELIVERY MAIL CARRIER, GRISEL S V58.69 HIGH RISK MEDICATION 12/23/2013 [facility] [employer] DELIV[employer] MAIL CARRIER, GRISEL S V58.69 HIGH RISK MEDICATION 12/23/2013 [facility] [employer] DELIV[employer] MAIL CARRIER, GRISEL S V58.69 HIGH RISK MEDICATION 01/25/2014 [facility] [employer]IV[employer] MAIL CARRIER, GRISEL S 415.19 PULMONARY EMBOLUS 01/25/2014 [facility] [employer] DELIV[employer] MAIL CARRIER, GRISEL S 415.19 PULMONARY EMBOLUS 01/25/2014 [facility] [employer] DELIV[employer] MAIL CARRIER, GRISEL S 415.19 PULMONARY EMBOLUS 01/25/2014 [facility] [employer] DELIV[employer] MAIL CARRIER, GRISEL S 415.19 PULMONARY EMBOLUS 01/25/2014 [facility] [employer] DELIVERY MAIL CARRIER, GRISEL S 415.19 PULMONARY EMBOLUS 01/25/2014 [facility] [employer] DELIVERY MAIL CARRIER, GRISEL S 415.19 PULMONARY EMBOLUS 01/25/2014 [facility] [employer] DELIVERY MAIL CARRIER, GRISEL S 415.19 PULMONARY EMBOLUS 01/25/2014 [facility] [employer] DELIVERY MAIL CARRIER, GRISEL S 415.19 PULMONARY EMBOLUS 01/25/2014 [facility] [employer] DELIVERY MAIL CARRIER, GRISEL S 415.19 PULMONARY EMBOLUS 01/25/2014 [facility] [employer] DELIVERY MAIL CARRIER, GRISEL S 415.19 PULMONARY EMBOLUS 01/25/2014 [facility] [employer] DELIVERY MAIL CARRIER, GRISEL S 415.19 PULMONARY EMBOLUS 05/25/2014 [facility] SPECIAL DELIVERY MAIL CARRIER, GRISEL S 724.3 SCIATICA 05/25/2014 [facility] [employer]IV[employer] MAIL CARRIER, GRISEL S 724.5 BACK PAIN, GENERAL 05/25/2014 [facility] [employer] DELIV[employer] MAIL CARRIER, GRISEL S 724.3 SCIATICA 05/25/2014 [facility], GRISEL S 724.5 BACK PAIN, GENERAL 05/25/2014 [facility], GRISEL S 724.3 SCIATICA 05/25/2014 [facility], GRISEL S 724.5 BACK PAIN, GENERAL 05/25/2014 [facility], GRISEL S 724.3 SCIATICA 05/25/2014 [facility], GRISEL S 724.5 BACK PAIN, GENERAL 05/25/2014 [facility], GRISEL S 724.3 SCIATICA 05/25/2014 [facility], GRISEL S 724.5 BACK PAIN, GENERAL Procedures Code Description Performed By Performed On Cardiolog Jack Navarro 04/22/2012 38226 EKG, TRACING (IN-HOUSE) 04/28/2012 70097 ROUTINE VENIPUNCTURE 10/28/2013 88477 INR (IN HOUSE) 10/28/2013 3462752 GFR CALC (RESULT ONLY) 10/28/2013 03107 CMP 10/28/2013 81443 LIPID PANEL 10/28/2013 54104 TSH 10/28/2013 80167 CRP HS (CARDIO) 10/28/2013 34205 CBC 10/29/2013 67584 ROUTINE VENIPUNCTURE 10/31/2013 71842 PT/INR 10/31/2013 50109 INR (IN HOUSE) 11/02/2013 66609 INR (IN HOUSE) 11/08/2013 99572 INR (IN HOUSE) 11/11/2013 86788 INR (IN HOUSE) 11/18/2013 70996 INR (IN HOUSE) 12/15/2013 16645 INR (IN HOUSE) 01/06/2014 14472 INR (IN HOUSE) 02/15/2014 91110 INR (IN HOUSE) 03/16/2014 72164 INR (IN HOUSE) 04/18/2014 85589 INR (IN HOUSE) 05/17/2014 00664 MRI PELVIS W/O DYE 06/03/2014 18759 MRI SPINE (LUMBAR) W/O CONTRAST 06/03/2014 92442 INR (IN HOUSE) 06/12/2014 28554 INR (IN HOUSE) 08/07/2014 02418 INR (IN HOUSE) 09/08/2014 Results Test Result [...] Status Pt. Type Provider Facility Loc./Unit Complaint [id number] 10/06/2014 16:16:00 10/06/2014 23:59:59 CLS Outpatient [facility]ERUBAL[facility]GRISEL S [id number] 09/08/2014 11:34:00 09/08/2014 23:59:59 CLS Outpatient [facility] GRISEL S [id number] 08/07/2014 10:33:00 08/07/2014 23:59:59 CLS Outpatient [facility] GRISEL S [id number] 07/13/2014 10:08:00 07/13/2014 23:59:59 CLS Outpatient [facility] GRISEL S [id number] 06/12/2014 15:53:00 06/12/2014 23:59:59 CLS Outpatient [facility] GRISEL S [id number] 05/25/2014 10:45:00 05/25/2014 23:59:59 CLS Outpatient [facility], GRISEL S [id number] 05/17/2014 11:27:00 05/17/2014 23:59:59 CLS Outpatient [facility], GRISEL S [id number] 04/18/2014 10:55:00 04/18/2014 23:59:59 CLS Outpatient [facility], GRISEL S [id number] 03/16/2014 09:34:00 03/16/2014 23:59:59 CLS Outpatient [facility], GRISEL S [id number] 03/02/2014 10:04:00 03/02/2014 23:59:59 CLS Outpatient [facility], GRISEL S [id number] 02/15/2014 16:17:00 02/15/2014 23:59:59 CLS Outpatient [facility], GRISEL S [id number] 01/06/2014 10:08:00 01/06/2014 23:59:59 CLS Outpatient [facility], GRISEL S [id number] 12/23/2013 09:42:00 12/23/2013 23:59:59 CLS Outpatient [facility] CARRIERSYEDA ToddA S [id number] 12/15/2013 10:50:00 12/15/2013 23:59:59 CLS Outpatient [facility] CAR[facility]AA S [id number] 11/18/2013 09:39:00 11/18/2013 23:59:59 CLS Outpatient [facility] CAR[facility]ERUBALDOGRISEL S [id number] 11/11/2013 10:00:00 11/11/2013 23:59:59 CLS Outpatient [facility] S [id number] 11/08/2013 13:36:00 11/08/2013 23:59:59 CLS Outpatient [facility] CAR[facility] S [id number] 11/02/2013 13:33:00 11/02/2013 23:59:59 CLS Outpatient [facility] S [id number] 10/31/2013 10:19:00 10/31/2013 23:59:59 CLS Outpatient [facility] S [id number] 10/28/2013 09:35:00 10/28/2013 23:59:59 CLS Outpatient [facility] S [id number] 05/16/2013 10:25:00 05/16/2013 23:59:59 CLS Outpatient ZACHSYEDA PEREZ APRNA S [id number] 08/31/2012 14:22:00 08/31/2012 23:59:59 CLS Outpatient [facility] CARRIERUBALDOGRISEL S [id number] 05/13/2012 17:50:00 05/13/2012 23:59:59 CLS Outpatient MARTHA MAZA DO [id number] 04/22/2012 12:19:00 04/22/2012 23:59:59 CLS Outpatient MARTHA MAZA DO [id number] 05/21/2016 08:45:00 Document Registration
--- NOTE | 2018-10-14 19:53 | NUR ---
DAYANA GONZALEZ admitted to room CU9-1, with an admitting diagnosis of Acute resp failure, co2 retention,shock, on 10/14/18 from [facility] ED via stretcher, accompanied by daughter Slim and Grandson Joseph. DAYANA GONZALEZ and family introduced to surroundings, call light, bed controls, phone, TV, temperature control, lights, meal times, smoking policy, visitor policy, side rail policy, bathrooms and showers. Patient Rights given to patient in the handbook. SUZYARNIEDAYANA RAMIREZ unable to verbalize understanding d/t medical condition that [facility] is not responsible for the loss or damage to any personal effects or valuables that are kept in the patients possession during their hospitalization. The following Patient Care Plans were discussed with the patient and family: Discharge Planning, sepsis protocol,mechanical ventilator care, and lab. SUZYARNIEMICHAEL RAMIREZROSA Brown unable to verbalize understanding of Interdisciplinary Patient Education d/t current medical condition. Patient and/or family were informed about the Rapid Response Team and its purpose.
--- NOTE | 2018-10-14 20:10 | NUR ---
LASHAY TAKEN TO ICU 9 VIA CART WITH MONITOR, VENT, AND PROPOFOL DRIP INFUSING VIA CENTRAL LINE.
[2018-10-14] MEDS ORDERED: PANTOPRAZOLE 40 MG (PROTONIX) VIAL IV SCH (20:18)
--- NOTE | 2018-10-14 20:45 | NUR ---
Family took all personal possessions belonging to patient home with them , including medication.
--- NOTE | 2018-10-14 20:47 | NUR ---
Confirmed with Dr Bedolla that patient sees a nurse practitioner in [place] named Akilah Mohan. Graeme passed care to Dr Camacho at this time. Dr Camacho informed by Dr Bedolla.
[2018-10-14 21:19] LABS: ABG BASE EXCESS 0.2 MMOL/L (-2.5-2.5); ABG OXYGEN SATURATION 95 % (94-100); ABG PCO2 36 MMHG (35-45); ABG PH 7.44 (7.37-7.43); ABG PO2 60 MMHG (79-93); ABG TCO2 25.1 MMOL/L (21.0-31.0)
[2018-10-14] MEDS: NS IV 1000 ML 1,000 ML IV SCH (21:19)
[2018-10-14] MEDS: NOREPINEPHRINE 4 MG in NS (IVPB) 250 ML IV SCH (21:20)
[2018-10-14] MEDS: VASOPRESSIN INJECTION 20 UNIT in NS (IVPB) 100 ML IV SCH (21:20)
[2018-10-14 21:21] LABS: ALLENS TEST YES-POS; INSPIRED O2 70%; PATIENT TEMP 97.5; VENTILATOR YES
[2018-10-14] MEDS: CEFEPIME INJECTION 1,000 MG in WATER (STERILE) FOR INJECTION 10 ML IV SCH (21:22)
[2018-10-14 21:47] LABS: BASOPHILS % (AUTO) 0 % (0-10); EOSINOPHILS % (AUTO) 0 % (0-10); HEMATOCRIT 40 % (35-52); HEMOGLOBIN 11.9 G/DL (11.5-16.0); LYMPHOCYTES # (AUTO) 1.2 X 10^3 (1.0-4.0); LYMPHOCYTES % (AUTO) 18 % (12-44); MEAN CORPUSCULAR HEMOGLOBIN 28 PG (25-34); MEAN CORPUSCULAR HGB CONC 30 G/DL (32-36); MEAN CORPUSCULAR VOLUME 94 FL (80-99); MEAN PLATELET VOLUME 9.1 FL (7.4-10.4); MONOCYTES # (AUTO) 0.5 X 10^3 (0.0-1.0); MONOCYTES % (AUTO) 7 % (0-12); NEUTROPHILS # (AUTO) 5.2 X 10^3 (1.8-7.8); NEUTROPHILS % (AUTO) 75 % (42-75); PLATELET COUNT 165 10^3/uL (130-400); RED CELL DISTRIBUTION WIDTH 15.4 % (10.0-14.5); WHITE BLOOD COUNT 6.8 10^3/uL (4.3-11.0)
[2018-10-14 22:12] LABS: BUN/CREATININE RATIO 25; CALCIUM 8.2 MG/DL (8.5-10.1); CARBON DIOXIDE 21 MMOL/L (21-32); CHLORIDE 105 MMOL/L (98-107); CREATININE SERUM 0.73 MG/DL (0.60-1.30); GFR ESTIMATED > 60; GLUCOSE 93 MG/DL (70-105); SODIUM 138 MMOL/L (135-145)
--- NOTE | 2018-10-14 22:52 | NUR ---
Call placed to E ICU to report critical Troponin of 0.361. This is increased from last Troponin. Order for EKG and one time order for Metoprolol 10mg IV. Stat EKG done and faxed to E ICU along with EKG from ED. Metoprolol 10MG IV administered as ordered.
[2018-10-14] MEDS ORDERED: meTOprolol 5 MG/5 ML (LOPRESSOR) VIAL ONE (23:32)
[2018-10-14] MEDS ORDERED: meTOprolol 5 MG/5 ML (LOPRESSOR) VIAL IV ONE (23:45)
[2018-10-15] VITALS (27 sets, daily range): BP systolic 116–178; BP diastolic 72–98
[2018-10-15] MEDS: NS IV 1000 ML 1,000 ML IV SCH ×4 (00:13→17:40)
[2018-10-15] MEDS ORDERED: RT-ALBUTEROL SULF 2.5 MG/3 ML PRE-MIX VIAL INH PRN ×2 (01:30→12:00)
[2018-10-15] MEDS: RT-ALBUTEROL/IPRATROPIUM 3 ML (DUONEB) VIAL INH SCH ×6 (02:09→22:47)
[2018-10-15] MEDS ORDERED: hydrALAZINE (APESOLINE) 20 MG/ML VIAL ONE (02:40)
[2018-10-15] MEDS ORDERED: meTOprolol 5 MG/5 ML (LOPRESSOR) VIAL ONE (02:41)
[2018-10-15] MEDS: NOREPINEPHRINE 4 MG in NS (IVPB) 250 ML IV SCH (02:54)
[2018-10-15] MEDS: CEFEPIME INJECTION 1,000 MG in WATER (STERILE) FOR INJECTION 10 ML IV SCH (02:54)
[2018-10-15] MEDS ORDERED: meTOprolol 5 MG/5 ML (LOPRESSOR) VIAL IV ONE (03:00)
[2018-10-15] MEDS ORDERED: hydrALAZINE (APESOLINE) 20 MG/ML VIAL IV ONE (03:00)
[2018-10-15 03:29] LABS: BASOPHILS % (AUTO) 0 % (0-10); EOSINOPHILS % (AUTO) 0 % (0-10); HEMATOCRIT 38 % (35-52); HEMOGLOBIN 11.7 G/DL (11.5-16.0); LYMPHOCYTES # (AUTO) 0.8 X 10^3 (1.0-4.0); LYMPHOCYTES % (AUTO) 10 % (12-44); MEAN CORPUSCULAR HEMOGLOBIN 29 PG (25-34); MEAN CORPUSCULAR HGB CONC 31 G/DL (32-36); MEAN CORPUSCULAR VOLUME 93 FL (80-99); MEAN PLATELET VOLUME 9.3 FL (7.4-10.4); MONOCYTES # (AUTO) 0.6 X 10^3 (0.0-1.0); MONOCYTES % (AUTO) 7 % (0-12); NEUTROPHILS % (AUTO) 83 % (42-75); PLATELET COUNT 166 10^3/uL (130-400); RED CELL DISTRIBUTION WIDTH 15.4 % (10.0-14.5); WHITE BLOOD COUNT 8.4 10^3/uL (4.3-11.0)
[2018-10-15 03:48] LABS: BUN/CREATININE RATIO 24; CALCIUM 8.3 MG/DL (8.5-10.1); CARBON DIOXIDE 20 MMOL/L (21-32); CHLORIDE 107 MMOL/L (98-107); GFR ESTIMATED > 60; GLUCOSE 130 MG/DL (70-105); MAGNESIUM 1.8 MG/DL (1.8-2.4); PHOSPHORUS 2.2 MG/DL (2.3-4.7); POTASSIUM 4.2 MMOL/L (3.6-5.0); SODIUM 139 MMOL/L (135-145)
[2018-10-15 03:49] LABS: ABG BASE EXCESS -1.9 MMOL/L (-2.5-2.5); ABG OXYGEN SATURATION 97 % (94-100); ABG PCO2 33 MMHG (35-45); ABG PH 7.43 (7.37-7.43); ABG PO2 85 MMHG (79-93); ABG TCO2 22.7 MMOL/L (21.0-31.0)
[2018-10-15 03:50] LABS: ALLENS TEST YES-POS; INSPIRED O2 50%; PATIENT TEMP 99.4; VENTILATOR YES
[2018-10-15] MEDS: VASOPRESSIN INJECTION 20 UNIT in NS (IVPB) 100 ML IV SCH (04:41)
[2018-10-15] MEDS: POTASSIUM CL 10MEQ/50ML IVPB 50 ML IV SCH (04:41)
[2018-10-15] MEDS: MAGNESIUM 1 GM/100 ML IVPB 100 ML IV SCH (04:42)
[2018-10-15] MEDS: KCL 20 MEQ TAB (K-DUR) PO SCH (04:42)
--- NOTE | 2018-10-15 05:31 | Pulmonary Consultation ---
History of Present Illness History of Present Illness Date of Consultation 10/15/18 05:26 Time Seen by Provider: 05:26 Date of Admission History of Present Illness 68yo with recent fall and sustained left ankle and left wrist fracture presented from [place] ED via EMS secondary to worsening SOB, hypoxia sats 70% . EMS gave Narcan which did not help so pt was intubated. Pt was hypotensive with SBP 68. While in ED at [facility] for [facility] pt was given 5mg Coy x 3 1/ 2 tabs and 50micrograms of Fentanyl. After being sent home she became more Somnolent. PT is currently sedated on vent. Allergies and Home Medications Allergies Uncoded Allergies: ALL PAIN MEDS (Adverse Reaction, Unknown, NAUSEA VOMITING, 10/13/18) Home Medications Aspirin 81 Mg Tab.chew, 81 MG PO DAILY, (Reported) Hydrocodone Bit/Acetaminophen 1 Tab Tab, 1-2 EACH PO Q6H PRN for PAIN-MODERATE Prescribed by: YURI WRAY on 10/13/18 1327 Losartan Potassium 100 Mg Tablet, 100 MG PO DAILY, (Reported) Ondansetron 4 Mg Tab.rapdis, 4 MG PO Q6H PRN for NAUSEA/VOMITING Prescribed by: YURI WRAY on 10/13/18 1327 Prochlorperazine Maleate 10 Mg Tablet, 10 MG PO PD, (Reported) Past Ywsbsha-Kcypug-Gpvjco Hx Patient Social History Alcohol Use: Denies Use Recreational Drug Use: No Smoking Status: Current Everyday Smoker Type Used: Cigarettes Recent Foreign Travel: No Contact w/Someone Who Travel: No Recent Infectious Disease Expo: No Immunizations Up To Date Tetanus Booster (TDap): Unknown Past Medical History Surgeries: Yes Gallbladder Cardiac: Yes Hypertension : No Musculoskeletal: No Endocrine: No HEENT: No Cancer: Yes Cervical Review of Systems Time Seen by Provider: 05:56 Sepsis Event Evaluation Height, Weight, BMI Height: 5'6.00" Weight: 225lbs. 5.0oz. 102.229680mc; 35.6 BMI Method:Actual Exam Exam Vital Signs Date Time Temp Pulse Resp B/P (MAP) Pulse Ox O2 Delivery O2 Flow Rate FiO2 10/15/18 04:59 82 26 149/81 95 Mechanical Ventilator 50.00 10/15/18 03:20 99.4 Mechanical Ventilator 50.00 10/15/18 03:15 94 Mechanical Ventilator 50 10/15/18 03:00 76 25 141/73 (95) 95 Mechanical Ventilator 50.00 10/15/18 02:09 82 25 94 50 10/15/18 02:00 81 24 165/91 (115) 95 Mechanical Ventilator 50.00 10/15/18 01:37 79 25 164/97 95 Mechanical Ventilator 50.00 10/15/18 01:12 85 95 10/15/18 01:00 76 25 158/98 (118) 95 Mechanical Ventilator 50.00 10/15/18 01:00 78 10/15/18 00:50 76 26 94 50 10/15/18 00:00 72 25 158/89 (112) 94 Mechanical Ventilator 50.00 10/14/18 23:41 98.7 72 25 161/84 (109) 92 Mechanical Ventilator 50.00 10/14/18 23:40 92 Mechanical Ventilator 50 10/14/18 23:00 83 25 163/100 (121) 96 Mechanical Ventilator 70.00 10/14/18 22:45 81 25 99 50 10/14/18 22:00 78 19 144/88 (106) 98 Mechanical Ventilator 70.00 10/14/18 21:30 Mechanical Ventilator 70 10/14/18 21:19 Mechanical Ventilator 70.00 10/14/18 21:00 80 25 142/89 (106) 93 Mechanical Ventilator 70.00 10/14/18 21:00 83 24 163/100 (121) 96 Mechanical Ventilator 70.00 10/14/18 20:45 81 25 130/83 (99) 92 Mechanical Ventilator 70.00 10/14/18 20:30 83 24 126/80 (95) 92 Mechanical Ventilator 70.00 10/14/18 20:15 83 25 102/61 (75) 93 Mechanical Ventilator 70.00 10/14/18 20:15 82 24 102/61 (75) 94 Mechanical Ventilator 70.00 10/14/18 20:10 82 25 100 70 10/14/18 20:00 85 25 95/44 (61) 98 Mechanical Ventilator 100.00 10/14/18 20:00 35 95/44 (61) 98 Mechanical Ventilator 70.00 10/14/18 20:00 99.4 10/14/18 20:00 98.4 10/14/18 19:40 85 24 134/72 (92) 100 Mechanical Ventilator 10/14/18 19:23 98.8 80 24 133/77 (95) 100 Mechanical Ventilator 0.50 10/14/18 19:00 82 10/14/18 15:29 92 17 100 10/14/18 14:40 80 20 100 100 10/14/18 14:28 96.7 90 24 82/60 (67) 70 Ambu-Bag 15.00 I & O 10/15/18 07:00 Intake Total 5478 ml Output Total 875 ml Balance 4603 ml Height & Weight Height: 5'6.00" Weight: 225lbs. 5.0oz. 102.880152cg; 35.6 BMI Method:Actual General Appearance: Other (sedated on vent) HEENT: Other (pupils are sluggish bilaterally ) Respiratory: No Accessory Muscle Use, No Respiratory Distress, Decreased Breath Sounds Cardiovascular: Regular Rate, Rhythm, No Edema, No Murmur, Normal Peripheral Pulses Capillary Refill: Less Than 3 Seconds Gastrointestinal: soft, abnormal bowel sounds (quiescent) Extremity: Normal Capillary Refill, Normal Inspection, No Pedal Edema Neurologic/Psychiatric: Other (Right positive babinski. ) Skin: Normal Color, Warm/Dry Lymphatic: No Adenopathy Results Lab Laboratory Tests 10/14/18 15:24 10/14/18 21:36 10/15/18 03:15 Assessment/Plan Assessment/Plan Acute respiratory failure -Vent -D/C propofol and attempt weaning COPDAE -SVNS Q4 -SOlumedrol 40 IV Q 6 MS changes probably secondary to sedation meds and C02 narcosis -D/c propofol NSTEMI -Cardiology following Hx recent fall with fracture of left ankle and left wrist Hypophos -replace GI/DVT PPX -Lovenox -Protonix DANYEL GUTIERREZ DO October 15, 2018 05:31
[2018-10-15] MEDS ORDERED: PIPERACILLIN/TAZOBACTAM (BULK) 4.5 GM in NS (IVPB) 100 ML IV SCH (05:45)
[2018-10-15] MEDS ORDERED: SODIUM PHOSPHATE INJ 30 MM in NS (IVPB) 250 ML IV ONE (05:45)
[2018-10-15 06:04] LABS: AMPHETAMINE SCREEN, URINE NEGATIVE (NEGATIVE); BENZODIAZEPINES SCREEN URINE POSITIVE (NEGATIVE); CANNABINOID SCREEN, URINE NEGATIVE (NEGATIVE); COCAINE SCREEN URINE NEGATIVE (NEGATIVE); METHAMPHETAMINE SCREEN URINE S NEGATIVE (NEGATIVE)
[2018-10-15 06:05] LABS: BARBITURATE SCREEN URINE NEGATIVE (NEGATIVE); METHADONE STAT NEGATIVE (NEGATIVE); OPIATE SCREEN URINE POSITIVE (NEGATIVE); OXYCODONE STAT NEGATIVE (NEGATIVE); PROPOXYPHENE STAT NEGATIVE (NEGATIVE); TRICYCLIC ANTIDEPRESSANTS SCRE NEGATIVE (NEGATIVE)
[2018-10-15] MEDS: ENOXAPARIN 40 MG/0.4 ML (LOVENOX) SYR SC SCH (06:40)
[2018-10-15] MEDS ORDERED: PIPERACILLIN/TAZOBACTAM (BULK) 4.5 GM in NS (IVPB) 100 ML IV NR (07:00)
--- NOTE | 2018-10-15 08:49 | NUR ---
DR GUTIERREZ HERE TO ASSESS PT. PT AWAKES EASILY W/ SEDATION TURNED OFF. OK TO EXTUBATE AND PLACE ON VAPOTHERM PER DR GUTIERREZ.
[2018-10-15] MEDS ORDERED: ASPIRIN 81 MG CHEW (CHILDREN'S ASA) PO SCH (09:00)
--- NOTE | 2018-10-15 09:02 | NUR ---
PT EXTUBATED AT THIS TIME AND PLACED ON VAPOTHERM. CURRENT SETTINGS 40L 80%.
[2018-10-15] MEDS: PANTOPRAZOLE 40 MG (PROTONIX) VIAL IV SCH (09:25)
--- NOTE | 2018-10-15 09:26 | Cardiology Progress Note ---
Cardiology SOAP Progress Note Subjective: Intubated/ventilated. Objective: I&O/Vital Signs 10/15/18 10/15/18 10/15/18 10/15/18 00:50 01:00 01:00 01:12 Pulse 76 78 76 85 Resp 25 B/P (MAP) 158/98 (118) Pulse Ox 94 95 95 O2 Delivery Mechanical Ventilator O2 Flow Rate 50.00 FiO2 50 10/15/18 10/15/18 10/15/18 10/15/18 01:37 02:00 02:09 03:00 Pulse 79 81 82 76 Resp B/P (MAP) 164/97 165/91 (115) 141/73 (95) Pulse Ox 95 95 94 95 O2 Delivery Mechanical Ventilator Mechanical Ventilator Mechanical Ventilator O2 Flow Rate 50.00 50.00 50.00 FiO2 50 10/15/18 10/15/18 10/15/18 10/15/18 03:15 03:20 04:00 04:59 Temp 99.4 Pulse 80 82 Resp B/P (MAP) 143/79 (100) 149/81 Pulse Ox 94 95 95 O2 Delivery Mechanical Ventilator Mechanical Ventilator Mechanical Ventilator Mechanical Ventilator O2 Flow Rate 50.00 50.00 50.00 FiO2 50 10/15/18 10/15/18 10/15/18 10/15/18 05:00 06:00 06:25 07:00 Pulse 80 81 80 82 Resp B/P (MAP) 141/81 (101) 144/79 (100) 151/80 (103) Pulse Ox 95 96 96 95 O2 Delivery Mechanical Ventilator Mechanical Ventilator Mechanical Ventilator O2 Flow Rate 50.00 50.00 50.00 FiO2 50 10/15/18 10/15/18 10/15/18 10/15/18 07:26 07:58 08:00 08:06 Temp 98.0 Pulse 82 82 85 Resp 14 B/P (MAP) 169/92 (117) Pulse Ox 96 96 O2 Delivery Mechanical Ventilator O2 Flow Rate 50.00 FiO2 50 10/15/18 10/15/18 10/15/18 10/15/18 08:17 09:00 09:02 09:15 Pulse 85 Resp 14 B/P (MAP) 169/88 (115) Pulse Ox 96 96 95 O2 Delivery Mechanical Ventilator Mechanical Ventilator Vapotherm Vapotherm O2 Flow Rate 50.00 40.00 80.00 40.00 FiO2 50 80 10/15/18 10/15/18 10/15/18 10/15/18 10:00 11:00 11:24 12:00 Temp 99.3 Pulse 97 97 102 Resp 20 13 24 B/P (MAP) 174/93 (120) 171/80 (110) Pulse Ox 98 89 89 O2 Delivery Vapotherm Vapotherm Vapotherm O2 Flow Rate 80.00 80.00 80.00 40.00 40.00 40.00 10/15/18 00:00 Intake Total 3278 ml Output Total 300 ml Balance 2978 ml Weight (Pounds): 225 Weight (Ounces): 5.0 Weight (Calculated Kilograms): 102.554344 Constitutional: No appears stated age, No AAO x 3, No apparent distress, No PERRL, No well-developed, No well-nourished; other (intubated/ventilated.) Respiratory: No accessory muscle use, No respiratory distress, No chest tender , No chest expansion is symmetric; chest is bilaterally symmetric; No lungs clear to percussion; lungs clear to auscultation; No crackles, No rhonchi, No rales, No stridor, No wheezing, No pleural rub, No other Cardiovascular: regular rate-rhythm; No irregularly irregular, No extra beats, No parasternal heave is noted, No JVD, No edema, No bradycardia, No tachycardia , No point of maximal impulse, No cardiac thrills are palpable; S1 and S2; No gallop/S3, No gallop/S4, No diastolic murmur, No systolic murmur, No friction rub, No click, No other Gastrointestional: No tender, No soft, No round, No distended, No pulsatile mass, No organomegaly, No guarding, No rebound, No tenderness, No hernia, No mass, No audible bowel sounds, No abnormal bowel sounds, No abdominal bruits, No spleenomegaly, No other Extremities: normal range of motion, non-tender, normal inspection Neurologic/Psychiatric: other (intubated/ventilated) Results/Procedures: Labs Laboratory Tests 10/14/18 14:43: Glucometer 201H 10/14/18 15:24: White Blood Count 7.0, Red Blood Count 4.01L, Hemoglobin 11.3L, Hematocrit 38, Mean Corpuscular Volume 96, Mean Corpuscular Hemoglobin 28, Mean Corpuscular Hemoglobin Concent 30L, Red Cell Distribution Width 15.3H, Platelet Count 175, Mean Platelet Volume 9.1, Neutrophils (%) (Auto) 86H, Lymphocytes (%) (Auto) 8L , Monocytes (%) (Auto) 6, Eosinophils (%) (Auto) 0, Basophils (%) (Auto) 0, Neutrophils # (Auto) 6.0, Lymphocytes # (Auto) 0.6L, Monocytes # (Auto) 0.4, Eosinophils # (Auto) 0.0, Basophils # (Auto) 0.0, Prothrombin Time 14.2, INR Comment 1.1, Activated Partial Thromboplast Time 33, Blood Gas Puncture Site RR , Blood Gas Patient Temperature 96.7, Arterial Blood pH 7.26*L, Arterial Blood Partial Pressure CO2 60H, Arterial Blood Partial Pressure O2 168H, Arterial Blood HCO3 27, Arterial Blood Total CO2 28.6, Arterial Blood Oxygen Saturation 99, Arterial Blood Base Excess 0.2, Marvin Test YES-POS, Blood Gas Ventilator Setting NO, Blood Gas Inspired Oxygen 100, Sodium Level 140, Potassium Level 4.4 , Chloride Level 107, Carbon Dioxide Level 22, Anion Gap 11, Blood Urea Nitrogen 19H, Creatinine 0.84, Estimat Glomerular Filtration Rate > 60, BUN/ Creatinine Ratio 23, Glucose Level 140H, Lactic Acid Level 2.41*H, Calcium Level 7.7L, Corrected Calcium 8.4L, Total Bilirubin 0.6, Aspartate Amino Transf (AST/SGOT) 15, Alanine Aminotransferase (ALT/SGPT) 14, Alkaline Phosphatase 77, Troponin I 0.063H, Total Protein 5.5L, Albumin 3.1L 10/14/18 15:39: Urine Color YELLOW, Urine Clarity CLEAR, Urine pH 5, Urine Specific [place] 1.020, Urine Protein 2+H, Urine Glucose (UA) NEGATIVE, Urine Ketones NEGATIVE, Urine Nitrite NEGATIVE, Urine Bilirubin NEGATIVE, Urine Urobilinogen NORMAL, Urine Leukocyte Esterase NEGATIVE, Urine RBC (Auto) 2+H, Urine RBC 2-5H, Urine WBC NONE, Urine Squamous Epithelial Cells 2-5, Urine Crystals NONE, Urine Bacteria LARGEH, Urine Casts NONE, Urine Mucus MODERATEH, Urine Culture Indicated NO 10/14/18 17:38: Blood Gas Puncture Site RR, Blood Gas Patient Temperature 98.3, Arterial Blood pH 7.24*L, Arterial Blood Partial Pressure CO2 63H, Arterial Blood Partial Pressure O2 151H, Arterial Blood HCO3 26, Arterial Blood Total CO2 27.6, Arterial Blood Oxygen Saturation 99, Arterial Blood Base Excess -0.9, Marvin Test YES-POS, Blood Gas Ventilator Setting YES, Blood Gas Inspired Oxygen 100% 10/14/18 17:42: Lactic Acid Level 0.83 10/14/18 21:15: Blood Gas Puncture Site RT RADIAL, Blood Gas Patient Temperature 97.5, Arterial Blood pH 7.44H, Arterial Blood Partial Pressure CO2 36, Arterial Blood Partial Pressure O2 60L, Arterial Blood HCO3 24, Arterial Blood Total CO2 25.1, Arterial Blood Oxygen Saturation 95, Arterial Blood Base Excess 0.2, Marvin Test YES-POS, Blood Gas Ventilator Setting YES, Blood Gas Inspired Oxygen 70% 10/14/18 21:36: White Blood Count 6.8, Red Blood Count 4.23L, Hemoglobin 11.9, Hematocrit 40, Mean Corpuscular Volume 94, Mean Corpuscular Hemoglobin 28, Mean Corpuscular Hemoglobin Concent 30L, Red Cell Distribution Width 15.4H, Platelet Count 165, Mean Platelet Volume 9.1, Neutrophils (%) (Auto) 75, Lymphocytes (%) (Auto) 18, Monocytes (%) (Auto) 7, Eosinophils (%) (Auto) 0, Basophils (%) (Auto) 0, Neutrophils # (Auto) 5.2, Lymphocytes # (Auto) 1.2, Monocytes # (Auto) 0.5, Eosinophils # (Auto) 0.0, Basophils # (Auto) 0.0, Sodium Level 138, Potassium Level 4.0, Chloride Level 105, Carbon Dioxide Level 21, Anion Gap 12, Blood Urea Nitrogen 18, Creatinine 0.73, Estimat Glomerular Filtration Rate > 60, BUN/ Creatinine Ratio 25, Glucose Level 93, Calcium Level 8.2L, Troponin I 0.361*H 10/15/18 03:15: White Blood Count 8.4, Red Blood Count 4.10L, Hemoglobin 11.7, Hematocrit 38, Mean Corpuscular Volume 93, Mean Corpuscular Hemoglobin 29, Mean Corpuscular Hemoglobin Concent 31L, Red Cell Distribution Width 15.4H, Platelet Count 166, Mean Platelet Volume 9.3, Neutrophils (%) (Auto) 83H, Lymphocytes (%) (Auto) 10L , Monocytes (%) (Auto) 7, Eosinophils (%) (Auto) 0, Basophils (%) (Auto) 0, Neutrophils # (Auto) 7.0, Lymphocytes # (Auto) 0.8L, Monocytes # (Auto) 0.6, Eosinophils # (Auto) 0.0, Basophils # (Auto) 0.0, Sodium Level 139, Potassium Level 4.2, Chloride Level 107, Carbon Dioxide Level 20L, Anion Gap 12, Blood Urea Nitrogen 17, Creatinine 0.70, Estimat Glomerular Filtration Rate > 60, BUN/ Creatinine Ratio 24, Glucose Level 130H, Calcium Level 8.3L, Troponin I 0.326*H , Phosphorus Level 2.2L, Magnesium Level 1.8 10/15/18 03:40: Blood Gas Puncture Site RT RAD, Blood Gas Patient Temperature 99.4, Arterial Blood pH 7.43, Arterial Blood Partial Pressure CO2 33L, Arterial Blood Partial Pressure O2 85, Arterial Blood HCO3 22L, Arterial Blood Total CO2 22.7, Arterial Blood Oxygen Saturation 97, Arterial Blood Base Excess -1.9, Marvin Test YES-POS, Blood Gas Ventilator Setting YES, Blood Gas Inspired Oxygen 50% 10/15/18 05:45: Urine Opiates Screen POSITIVEH, Urine Oxycodone Screen NEGATIVE, Urine Methadone Screen NEGATIVE, Urine Propoxyphene Screen NEGATIVE, Urine Barbiturates Screen NEGATIVE, Ur Tricyclic Antidepressants Screen NEGATIVE, Urine Phencyclidine Screen NEGATIVE, Urine Amphetamines Screen NEGATIVE, Urine Methamphetamines Screen NEGATIVE, Urine Benzodiazepines Screen POSITIVEH, Urine Cocaine Screen NEGATIVE, Urine Cannabinoids Screen NEGATIVE Microbiology 10/14/18 Influenza Types A,B Antigen (KILO) - Final, Complete 10/14/18 Urine Culture - Preliminary, Resulted Gram Negative Bacillus 1 A/P: Assessment/Dx: Altered mental status, Intubated/ventilated, Positive troponin, Lactic acidosis, Hypercarbic respiratory failure, Plan: Altered mental status, unclear etiology. Could be secondary to opioids. Defer to the primary team. Intubated/ventilated, Positive troponin, borderline troponin. Could be secondary to Type II be type II myocardial infarction due to severe systemic illness. recommend Serial Troponin. Echocardiogram. NSTEMI cannot be ruled out so bolus aspirin and plavix was given via NG tube. We will gradually let the patient recover from acute respiratory failure over the weekend and plan for coronary angiography on Thursday afternoon. The patient very likely has CAD with possible type II myocardial infarction due to acute respiratory failure. Lactic acidosis, Hypercarbic respiratory failure, CTA chest did not reveal any PE or aortic dissection. Discussed with Dr. Barriga. He is planning to extubate today. Thank you for your consultation. Please call me if you have any questions. Jerson Ovalle MD, FACP, FACC, [facility], FHRS, CCDS Interventional Cardiology Cardiac Electrophysiology Vascular Medicine and Endovascular Interventions Focused Exam Lactate Level 10/14/18 15:24: Lactic Acid Level 2.41*H 10/14/18 17:42: Lactic Acid Level 0.83 Beth OVALLE MD October 15, 2018 09:25
[2018-10-15] MEDS ORDERED: ALBU18HF2 INH (10:02)
[2018-10-15] MEDS ORDERED: ASPI-983 PO (10:02)
[2018-10-15] MEDS ORDERED: BUDE10.2 INH (10:02)
[2018-10-15] MEDS ORDERED: LOPE-134 PO (10:07)
[2018-10-15] MEDS ORDERED: POLY17PO6 PO (10:07)
[2018-10-15] MEDS ORDERED: GLYC-12 RC (10:07)
--- NOTE | 2018-10-15 10:08 | NUR ---
SPOKE WITH THE PATIENT AND HER DAUGHTER ABOUT HER MEDICATIONS. THEY NO LONGER HAVE THE BOTTLES HERE THEY WERE TAKEN HOME LAST NIGHT HOWEVER WE WENT OVER THE EXT MED HX AND THEY VERIFIED HOW SHE TAKES THEM. THEY ALSO LISTED HER OTC MEDS. THE GABAPENTIN IS PRESCRIBED 400MG FILLED 10-05-18 #360 FOR 90 DAYS HOWEVER THEY STATE SHE ONLY TAKES 1 TID.
--- NOTE | 2018-10-15 11:34 | NUR ---
Pt extubated, alert and oriented with sister present. Her sister said Ofelia may still go to [facility] for cardiac follow up, but they were thankful that she stabilized and was extubated. 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 Pt shared she is a survivor of stage 4 cervical cancer. She expressed fantasma in God and dynamic trust in the Lord or deliverer, helper and one who is ever present with her. Pt is Mu-Ism and demonstrates positive coping and grateful spirit.
[2018-10-15] MEDS ORDERED: ONDANSETRON 4 MG (ZOFRAN) ORAL DISSOLVE TAB PO PRN (12:00)
[2018-10-15] MEDS ORDERED: GLYCERIN RC PRN (12:00)
[2018-10-15] MEDS ORDERED: ALPRAZolam 0.25 MG (XANAX) TAB PO PRN (12:00)
[2018-10-15] MEDS ORDERED: POLYETHYLENE GLYCOL 17 GM (MIRALAX) PACK PO PRN (12:00)
--- NOTE | 2018-10-15 12:07 | History & Physical-Hospitalist ---
History of Present Illness HPI/Chief Complaint This is a 68-year-old white female who had sustained a left radius and ulna fracture as well as fractured ankle about 2 days prior to this presentation secondary to a fall. She had gone back home or she lives alone and hasn't taken hydrocodone 5/325 mg and had fallen asleep. She does have COPD and is oxygen dependent with hypoventilation syndrome. She has not been diagnosed with sleep apnea previously.. The patient was found to be unresponsive and Narcan did not reverse her state. The patient was then intubated and transferred via [facility] for active care. At the time of my interview this morning the patient has been extubated is alert and oriented. She is are eaten breakfast and has no other complaints. History is obtained primarily from her daughter. The patient had only had one hydrocodone 5/325 at a time by 45 hours. She does have a history of taking Xanax and Neurontin as well. She is chronically on O2 2 L by nasal cannula the recent ankle fracture has made her non-ambulatory and she is currently nonweightbearing. Source: patient, family Exam Limitations: no limitations Date Seen 10/15/18 Time Seen by a Provider: 11:00 Attending Physician trice kuo Referring Physician Date of Admission October 14, 2018 at 19:05 Home Medications & Allergies Home Medications Reviewed patient Home Medication Reconciliation performed by pharmacy medication reconciliations legal technician and/or nursing. Patients Allergies have been reviewed. Allergies Allergies Uncoded Allergies ALL PAIN MEDS ( Adverse Reaction, Unknown, NAUSEA VOMITING, 10/13/18) Past Ojwnjoy-Cagckc-Yllgle Hx Past Med/Social Hx: Reviewed Nursing Past Med/Soc Hx Patient Social History Marrital Status: Employed/Student: unemployed Alcohol Use: Denies Use Recreational Drug Use: No Smoking Status: Current Everyday Smoker Type Used: Cigarettes Recent Foreign Travel: No Contact w/other who traveled: No Recent Infectious Disease Expo: No Immunizations Up To Date Tetanus Booster (TDap): Unknown Past Medical History Surgeries: Gallbladder, Hysterectomy, Oophorectomy Respiratory: COPD (O2 dependent) Cardiac: Hypertension Neurological: Neuropathy : No Gastrointestinal: Abdominal Hernia Endocrine: Diabetes, Non-Insulin dep Cancer: Cervical What Type of Treatment Did You: Chemotherapy, Radiation, Surgical Intervention Psychosocial: Anxiety Review of Systems Constitutional: see HPI EENTM: no symptoms reported Respiratory: dyspnea on exertion, short of breath Cardiovascular: no symptoms reported Gastrointestinal: no symptoms reported Genitourinary: no symptoms reported Skin: no symptoms reported Psychiatric/Neurological: Anxiety Physical Exam Physical Exam Vital Signs Vital Signs - First Documented 10/14/18 10/14/18 14:28 14:40 Temp 96.7 Pulse 90 Resp 24 B/P (MAP) 82/60 (67) Pulse Ox 70 O2 Delivery Ambu-Bag O2 Flow Rate 15.00 FiO2 100 Capillary Refill : Less Than 3 SecondsLess Than 3 Seconds Height, Weight, BMI Height: 5'6.00" Weight: 225lbs. 5.0oz. 102.605578ci; 35.6 BMI Method:Actual General Appearance: No Apparent Distress, Obese HEENT: Normal ENT Inspection, Other (Small hypo-pharynx) Neck: Normal Inspection, Supple, Limited Range of Motion Respiratory: Chest Non Tender, No Respiratory Distress, Crackles, Decreased Breath Sounds Cardiovascular: Regular Rate, Rhythm, No Gallop, No Murmur, Normal Peripheral Pulses Gastrointestinal: Normal Bowel Sounds, Non Tender, Soft Rectal: Deferred Back: Normal Inspection Extremity: Swelling (Right hand), Other Neurologic/Psychiatric: Alert, Oriented x3, No Motor/Sensory Deficits, Normal Mood/Affect Skin: Normal Color, Warm/Dry Lymphatic: No Adenopathy Results Results/Procedures Labs Laboratory Tests 10/14/18 15:24 10/14/18 21:36 10/15/18 03:15 Patient resulted labs reviewed. Imaging: Reviewed Imaging Report Assessment/Plan Admission Diagnosis Acute respiratory failure secondary to hypoventilation and medication-status post successful extubation on Vapotherm Non-ST segment elevation OH with a positive troponin Left ankle fracture and distal radius and ulnar fracture COPD O2 dependent Hypoventilation with probable sleep apnea Urinary tract infection Tobaccoism Morbid obesity Elevated lactic acid most likely secondary to respiratory acidosis and hypoperfusion Elevated glucose possible diabetes Peripheral neuropathy Hypertension with poor control Admission Status: Inpatient Order (span 2 midnights) Reason for Inpatient Admission: Multiple medical problems and critical guarded prognosis Diagnosis/Problems Diagnosis/Problems (1) Acute respiratory failure Status: Acute Qualifiers: Respiratory failure complication: hypoxia and hypercapnia Qualified Codes: J96.01 - Acute respiratory failure with hypoxia; J96.02 - Acute respiratory failure with hypercapnia Clinical Quality Measures DVT/VTE Risk/Contraindication: Risk Factor Score Per Nursin RFS Level Per Nursing on Admit: 4+=Very High MARGARET MEDRANO MD October 15, 2018 12:07
--- NOTE | 2018-10-15 12:09 | Physical Therapy Evaluation ---
PT Evaluation-General Medical Diagnosis Admission Date October 14, 2018 at 19:05 Medical Diagnosis: ARF Onset Date: October 14, 2018 Therapy Diagnosis Therapy Diagnosis: weakness; abn gait Height/Weight Height (Feet): 5 Height (Inches): 6.00 Weight (Pounds): 225 Weight (Ounces): 5.0 Precautions Precautions/Isolations: Aspiration, Fall Prevention, Standard Precautions, Pressure Ulcer Weight Bear Status Left Lower Extremity: Left Non Weight Bearing Keeping pt NWB through the left LE and left UE at this time. Awaiting ortho consult Referral Physician: Doug Reason for Referral: Evaluation/Treatment Medical History Pertinent Medical History: COPD Additional Medical History STEMI Current History Pt had an episode of getting up and her left leg was asleep and sustained a fall ; fracturing her left ankle and wrist; wrist in a splint and ankle in a CAM boot. Pt took pain medications for pain and then had increased somnolence; pt brought to ED and was intubated. Extubated this date. Reviewed History: Yes Social History Home: Apartment Current Living Status: Alone Entry Into Home: Level Entry Pt living in an apartment in [place], [place] Prior/Core FIM Prior Level of Function Therapy Code Descriptions/Definitions Functional Ness Measure: 0=Not Assessed/NA 4=Minimal Assistance 1=Total Assistance 5=Supervision or Setup 2=Maximal Assistance 6=Modified Ness 3=Moderate Assistance 7=Complete Ness Therapy Quality Codes: 6 Independent with activity with or without an assistive device 5 Patient requires set up or clean up by helper. Patient completes activity by themselves 4 Supervision or touching assist (CGA). [place] provide cues , steadying assist 3 The helper provides less than half the effort to complete the activity 2 The helper provides more than half the effort to complete the activity 1 Dependent. The helper does all the effort to complete an activity 7 Patient refused to complete or attempt activity 9 The patient did not perform the activity before the current illness or injury 88 Not attempted due to Medical conditions or safety concerns Functional Abilities and Goals: Independent: Patient completed the activities by him/herself, with or without an assistive device, with no assistance from a helper. Needed Some Help: Patient needed partial assistance from another person to complete activities. Dependent: A helper completed the activities for the patient. Unknown: Not Applicable: Bed Mobility: 7 Transfers (B,C,W/C) (FIM): 7 Gait: 7 Indoor Mobility (Ambulation): Independent Stairs: Independent Pt had lived with her daughter for 5 years, but 3 months ago moved out and was living on her own. PT Evaluation-Current Subjective Pt agreeable to sit up EOB. Reports it felt to good to sit up. "I was active before all this." Pain Numeric Pain Scale: 3 Location: Left Pain Description: Ache Comment: left ankle and wrist. Pt/Family Goals Return home as before. Objective Patient Orientation: Person, Place, Time, Situation Problem Solving: Good Attachments: SCD's, Oxygen (vapotherm), IV ROM/Strength ROM Lower Extremities WFL; ankle left NT Strength Lower Extremities functional to transfer to sit EOB with very minimal assist Integumentary/Posture Integumentary Refer to nursing notes. Bowel Incontinence: No Bladder Incontinence: Lemus Cath Posture symmetrical sitting EOB Neuromuscular (Tone, Coordination, Reflexes) appear intact and functional Sensory Vision: Functional Hearing: Functional Hand Dominance: Right Sensation Right Lower Extremit: Intact Sensation Left Lower Extremity: Intact Transfers Therapy Code Descriptions/Definitions Functional Ness Measure: 0=Not Assessed/NA 4=Minimal Assistance 1=Total Assistance 5=Supervision or Setup 2=Maximal Assistance 6=Modified Ness 3=Moderate Assistance 7=Complete Ness Transfers (B, C, W/C) (FIM): 3 Scootin Rollin Supine to/from Sit: 3 (assist with both legs, but pt able to assist her trunk) Sit to/from Stand: 0 (DNT this date. ) Pt able to sit EOB several ;minutes with good balance and tolerance; washed her own face; worked on deep breathing. Worked on moving her legs to promote LE circulation as well and right UE movement . Balance Sitting Static: Good Sitting Dynamic: Good Treatment Sat EOB several minutes for deep breathing and activity [place]. Assessment/Needs Pt presents with a left ankle and wrist fracture; currently is NWB through both joints. She was extubated this morning. She presents with impaired functional mobiltiy due to recent course of events that include a fall, ARF and subsequent intubation. She is able to effectively participate in functional mobility; due to her fractures she will benefit from skilled therapy service training to promote indep with all mobility to allow her to discharge at a [facility] level Rehab Potential: Good PT Architectural Practice Manager Goals Nursing Home Goals PT Nursing Home Goals Time Frame: October 22, 2018 Transfers (B,C,W/C) (FIM): 4 Gait (FIM): 2 Gait distance (FIM): 5=522-78 ft Distance: 50 ft Gait Assistive Device: FWW (platofrm) PT Plan Problem List Problem List: Activity Tolerance, Functional Strength, Safety, Balance, Gait, Transfer, Bed Mobility Treatment/Plan Treatment Plan: Continue Plan of Care Treatment Plan: Bed Mobility, Education, Functional Activity Jefry, Functional Strength, Gait, Safety, Therapeutic Exercise, Transfers Treatment Duration: October 22, 2018 Frequency: 6 times per week Estimated Hrs Per Day: .5 hour per day Patient and/or Family Agrees t: Yes Safety Risks/Education Patient Education: Gait Training, Transfer Techniques, Safety Issues Teaching Recipient: Patient Teaching Methods: Discussion Response to Teaching: Reinforcement Needed Discharge Recommendations Therapy D/C Recommendations: Acute Rehab (versus skilled care once WB status changes. ) Time/GCodes Time In: 1105 Time Out: 1140 Total Billed Treatment Time: 35 Total Billed Treatment visit EVM 30 FA 15 ALISHA CALDERON PT October 15, 2018 12:09
--- NOTE | 2018-10-15 12:17 | Diagnostic Imaging Report ---
INDICATION: Portable erect AP chest at 3:15 AM INDICATION: Dyspnea FINDINGS: The heart does seem less prominent than noted on the prior exam of 10/14/2018. There is no evidence for overt failure, pneumonia or for a pleural effusion. The mild dependent atelectasis seen in both lung bases on the CTA chest exam of 10/14/2018 is difficult to appreciate on this study. There is a small 1.7 CM area of increased density in the right perihilar region. This could be secondary to superimposition. A small focus of developing pneumonia could also present in this manner. The mediastinum is not widened. The osseous structures are intact. The tip of the NG line continues to overlie the distal esophagus. Other supportive tubes and lines remain in good position. IMPRESSION: The heart does seem less prominent than noted on the prior exam. The overall appearance of the chest has not changed significantly otherwise. There is a question of a small focus of developing pneumonia/atelectasis in the right perihilar region however. Clinical followup is recommended. Dictated by: Dictated on workstation # [id number]
[2018-10-15] MEDS: GABAPENTIN 400 MG (NEURONTIN) CAP PO SCH ×2 (13:23→20:39)
[2018-10-15] MEDS: PIPERACILLIN/TAZOBACTAM (BULK) 4.5 GM in NS (IVPB) 100 ML IV SCH ×2 (13:23→20:38)
--- NOTE | 2018-10-15 13:36 | Physician Query Clarification ---
PQ-Further Specificity Admission/Discharge Admission Date: October 14, 2018 at 19:05 Discharge Date: The medical record reflects the following clinical scenario: History/Risk Factors: Acute Respiratory Failure with hypoxia Acute Respiratory Failure with hypercapnia Hydrocodone 2.5 mg in the ER as well as 50ug of Fentanyl and was alert oriented doing well when she went home in a wheelchair, She received a total 3-1/2 more tablets of 5 mg by [address] [place] overnight by family with the last dose being about 10:00 in the morning. She became more somnolent and stopped responding to family over the next couple of hours. Clinical Findings: Altered mental status, Somnolence and lactic acidosis with acute respiratory failure. Treatment:By EMS Narcan, Intubation and mechanical vent. Question: Can you further specify medication effect per the clinical indicators above? Please document below. 1. Accidental overdose of medications. 2. Adverse effect of medications properly administered. 3. Other, with explanation of the clinical findings. 4. Clinically undetermined, no explanation for the clinical findings. PHYSICIAN RESPONSE Can you specify per above: 2 In responding to this query, please exercise your independent professional judgment. The purpose of this communication is to more accurately reflect the complexity of your patients condition. The fact that a question is asked does not imply that any particular answer is desired or expected. Thank you for your timely response to this clarification. Requestors name: Lory Silva [facility] Phone # ext [phone] or [phone] THIS PHYSICIAN QUERY FORM IS A PERMANENT PART OF THE MEDICAL RECORD LORY SILVA October 15, 2018 13:36 MARGARET MEDRANO MD October 16, 2018 19:41
--- NOTE | 2018-10-15 14:27 | Occupational Therapy Eval ---
OT Evaluation-General/PLF Medical Diagnosis Admission Date October 14, 2018 at 19:05 Medical Diagnosis: ARF Onset Date: October 14, 2018 Therapy Diagnosis Therapy Diagnosis: imapired ADLs and mobility Height/Weight Height (Feet): 5 Height (Inches): 6.00 Weight (Pounds): 225 Weight (Ounces): 5.0 Precautions Precautions/Isolations: Aspiration, Fall Prevention, Standard Precautions, Pressure Ulcer Safety Interventions: Reorient-Attempt, Reorient-PRN Weight Bear Status Weight Bearing Restriction: Non Weight Bearing Location Restriction: LT FOOT, L LE, L UE Referral Physician: Doug Leon Reason: Activity Tolerance, Self Care, Evaluation/Treatment, Strengthening/ROM Medical History Pertinent Medical History: COPD, HTN Additional Medical History Gallbladder, Hysterectomy, Oophorectomy Current History This is a 68-year-old white female who had sustained a left radius and ulna fracture as well as left fractured ankle secondary to a fall. She had gone back home where she lives alone and hasn't taken hydrocodone 5/325 mg and had fallen asleep. She does has COPD and is oxygen dependent with hypoventilation syndrome. She has not been diagnosed with sleep apnea previously.. The patient was found to be unresponsive and Narcan did not reverse her state. The patient was then intubated and transferred via [facility] for active care. At the time of my interview this morning the patient has been extubated is alert and oriented. She is are eaten breakfast and has no other complaints. History is obtained primarily from her daughter. The patient had only had one hydrocodone 5/325 at a time by 45 hours. She does have a history of taking Xanax and Neurontin as well. She is chronically on O2 2 L by nasal cannula the recent ankle fracture has made her non-ambulatory and she is currently nonweightbearing. pt extubated 10/15/18 Social History Home: Apartment Current Living Status: Alone Entry Into Home: Level Entry ADL-Prior Level of Function Therapy Code Descriptions/Definitions Functional [place] Measure: 0=Not Assessed/NA 4=Minimal Assistance 1=Total Assistance 5=Supervision or Setup 2=Maximal Assistance 6=Modified [place] 3=Moderate Assistance 7=Complete [place] Therapy Quality Codes: 6 Independent with activity with or without an assistive device 5 Patient requires set up or clean up by helper. Patient completes activity by themselves 4 Supervision or touching assist (CGA). [place] provide cues , steadying assist 3 The helper provides less than half the effort to complete the activity 2 The helper provides more than half the effort to complete the activity 1 Dependent. The helper does all the effort to complete an activity 7 Patient refused to complete or attempt activity 9 The patient did not perform the activity before the current illness or injury 88 Not attempted due to Medical conditions or safety concerns Functional Abilities and Goals: Independent: Patient completed the activities by him/herself, with or without an assistive device, with no assistance from a helper. Needed Some Help: Patient needed partial assistance from another person to complete activities. Dependent: A helper completed the activities for the patient. Unknown: Not Applicable: Self Care: Independent Functional Cognition: Independent DME/Equipment: Tub/Shower Drive Self: Yes OT Current Status Subjective pt laying in bed upon OT arrival crying. pt did not want to express why she was crying. pt agreed to OT evaluation session. Mental Status/Objective Patient Orientation: Person, Place, Time, Situation, Normal For Age Attachments: Lemus Catheter, IV, Oxygen (40%), SCD's, Other-See Comments (L boot) Current Glasses/Contacts: Yes Hearing Aids: No Dentures/Partials: No Hand Dominance: Left Upper Extremity ROM R UE WFL LUE NT secondary to fracture/ casting Upper Extremity Coordination R UE WFL LUE NT secondary to fracture/ casting Upper Extremity Sensation R UE WFL LUE NT secondary to fracture/ casting Upper Extremity Strength R UE WFL LUE NT secondary to fracture/ casting ADL-Treatment Therapy Code Descriptions/Definitions Functional [place] Measure: 0=Not Assessed/NA 4=Minimal Assistance 1=Total Assistance 5=Supervision or Setup 2=Maximal Assistance 6=Modified [place] 3=Moderate Assistance 7=Complete [place] Therapy Quality Codes: 6 Independent with activity with or without an assistive device 5 Patient requires set up or clean up by helper. Patient completes activity by themselves 4 Supervision or touching assist (CGA). [place] provide cues , steadying assist 3 The helper provides less than half the effort to complete the activity 2 The helper provides more than half the effort to complete the activity 1 Dependent. The helper does all the effort to complete an activity 7 Patient refused to complete or attempt activity 9 The patient did not perform the activity before the current illness or injury 88 Not attempted due to Medical conditions or safety concerns Eating (FIM): 4 Grooming (FIM): 4 (CGA while seated EOB) Bathing (FIM): 2 (pt demo ability to wash chest and R upper leg) Lower Body Dressing (FIM): 1 (requied TA to brittney R sock) Transfers (B, C, W/C) (FIM): 1 (sit to stand attempted. ) Other Treatments pt education on pursed lip breathing. pt demo understanding. pt education on NWB status. pt verbalized understanding. pt education on proper methods to perform sit to stands while obeying by precautions. pt attempt to perform 1 sit to stand put unsuccessful. pt perform bed mobility with MIN A Education OT Patient Education: Energy conservation, Transfer techniques Teaching Recipient: Patient Teaching Methods: Demonstration, Discussion Response to Teaching: Verbalize Understanding, Return Demonstration OT Short Term Goals Short Term Goals Grooming(FIM): 5 Bathing(FIM): 3 Lower Body Dressing(FIM): 3 Toileting(FIM): 3 Transfers (B,C,W/C) (FIM): 3 Toilet/Commode Transfer(FIM): 3 1=Demonstrate adherence to instructed precautions during ADL tasks. 2=Patient will verbalize/demonstrate understanding of assistive devices/ modifications for ADL. 3=Patient will improve strength/tolerance for activity to enable patient to perform ADL's. OT Director Of Employer Services Goals Director Of Employer Services Goals Grooming(FIM): 6 Bathing(FIM): 5 Bathing Location: L Arm, R Arm, L Upper Leg, R Upper Leg, R Lower Leg ( including foot), Chest, Abdomen, Buttocks, Perineal Area Lower Body Dressing(FIM): 5 Toileting(FIM): 5 Transfers (B,C,W/C) (FIM): 5 Toilet/Commode Transfer(FIM): 5 1=Demonstrate adherence to instructed precautions during ADL tasks. 2=Patient will verbalize/demonstrate understanding of assistive devices/ modifications for ADL. 3=Patient will improve strength/tolerance for activity to enable patient to perform ADL's. OT Education/Plan Problem List/Assessment Assessment: Decreased Activ Tolerance, Decreased Safety Aware, Decreased UE Strength, Dependent Transfers, Impaired Bed Mobility, Impaired Coordination, Impaired Funct Balance, Impaired I ADL's, Impaired Self-Care Skills, Restricted Funct UE ROM pt presents with functional limitations affecting areas of ADLS/ functional transfers. pt would benefit from O T services to increase independence with ADLS / functinal transfers. pt is not safe to return home at this time. Discharge Recommendations Plan/Recommendations: Continue POC Treatment Plan/Plan of Care Treatment,Training & Education: Yes Patient would benefit from OT for education, treatment and training to promote independence in ADL's, mobility, safety and/or upper extremity function for ADL' s. Plan of Care: ADL Retraining, Caregiver Training, Concurrent Therapy, Functional Mobility, Group Exercise/Act as Ind, Orthotic Fitting/Training, UE Funct Exercise/Act Treatment Duration: November 05, 2018 Frequency: 5 times per week Estimated Hrs Per Day: .5 hour per day Rehab Potential: Fair Time/GCodes Start Time: 13:40 Stop Time: 14:20 Billed Treatment Time EVM 15 minutes FA 25 minutes, 2 units MICHA ORTIZ OT October 15, 2018 14:27
[2018-10-15] MEDS: RT-ADVAIR HFA 115/21 MCG PER PUFF IH SCH (18:46)
[2018-10-15] MEDS: FAMOTIDINE 20 MG (PEPCID) TABLET PO SCH (20:39)
[2018-10-15] MEDS: amLODIPine 10 MG (NORVASC) TAB PO SCH (20:39)
[2018-10-15] MEDS: ATORVASTATIN 40 MG (LIPITOR) TABLET PO SCH (20:39)
[2018-10-16] VITALS (16 sets, daily range): BP systolic 116–161; BP diastolic 64–82
[2018-10-16] MEDS: NS IV 1000 ML 1,000 ML IV SCH ×3 (00:33→07:26)
[2018-10-16] MEDS: RT-ALBUTEROL/IPRATROPIUM 3 ML (DUONEB) VIAL INH SCH ×6 (02:46→22:22)
[2018-10-16 03:57] LABS: BASOPHILS % (AUTO) 0 % (0-10); EOSINOPHILS # (AUTO) 0.1 10^3/uL (0.0-0.3); EOSINOPHILS % (AUTO) 1 % (0-10); HEMATOCRIT 35 % (35-52); HEMOGLOBIN 10.6 G/DL (11.5-16.0); LYMPHOCYTES # (AUTO) 0.8 X 10^3 (1.0-4.0); LYMPHOCYTES % (AUTO) 10 % (12-44); MEAN CORPUSCULAR HEMOGLOBIN 28 PG (25-34); MEAN CORPUSCULAR HGB CONC 30 G/DL (32-36); MEAN CORPUSCULAR VOLUME 94 FL (80-99); MEAN PLATELET VOLUME 9.2 FL (7.4-10.4); MONOCYTES # (AUTO) 0.5 X 10^3 (0.0-1.0); MONOCYTES % (AUTO) 7 % (0-12); NEUTROPHILS # (AUTO) 6.4 X 10^3 (1.8-7.8); NEUTROPHILS % (AUTO) 83 % (42-75); PLATELET COUNT 161 10^3/uL (130-400); RED CELL DISTRIBUTION WIDTH 15.5 % (10.0-14.5); WHITE BLOOD COUNT 7.7 10^3/uL (4.3-11.0)
[2018-10-16 04:06] LABS: BUN/CREATININE RATIO 16; CALCIUM 8.2 MG/DL (8.5-10.1); CARBON DIOXIDE 26 MMOL/L (21-32); CHLORIDE 109 MMOL/L (98-107); CREATININE SERUM 0.55 MG/DL (0.60-1.30); GFR ESTIMATED > 60; GLUCOSE 156 MG/DL (70-105); MAGNESIUM 1.8 MG/DL (1.8-2.4); PHOSPHORUS 2.2 MG/DL (2.3-4.7); POTASSIUM 3.1 MMOL/L (3.6-5.0); SODIUM 144 MMOL/L (135-145)
[2018-10-16] MEDS ORDERED: KCL 20 MEQ TAB (K-DUR) PO ONE ×2 (06:00→08:00)
[2018-10-16] MEDS: ENOXAPARIN 40 MG/0.4 ML (LOVENOX) SYR SC SCH (06:06)
[2018-10-16] MEDS: KCL 20 MEQ TAB (K-DUR) PO SCH (06:07)
[2018-10-16] MEDS: MAGNESIUM 1 GM/100 ML IVPB 100 ML IV SCH (06:07)
[2018-10-16] MEDS: POTASSIUM CL 10MEQ/50ML IVPB 50 ML IV SCH (06:07)
[2018-10-16] MEDS: PIPERACILLIN/TAZOBACTAM (BULK) 4.5 GM in NS (IVPB) 100 ML IV SCH ×3 (06:08→21:24)
[2018-10-16] MEDS: RT-ADVAIR HFA 115/21 MCG PER PUFF IH SCH ×2 (06:54→18:57)
--- NOTE | 2018-10-16 08:16 | Diagnostic Imaging Report ---
Indication: Dyspnea. Time of exam: 4:39 AM Correlation is made with prior study from one day earlier. The endotracheal tube has been removed. There is a right-sided line with tip overlying the SVC. There is some central congestion but no overt failure. There is mild patchy infiltrate or atelectasis in the medial right base. Left lung is clear. No effusion or pneumothorax is seen. Impression: Central congestion as well as mild patchy right basilar infiltrate or atelectasis. Dictated by: Dictated on workstation # [id number]
[2018-10-16] MEDS: LOSARTAN 100 MG (COZAAR) TABLET PO SCH (08:22)
[2018-10-16] MEDS: PANTOPRAZOLE 40 MG (PROTONIX) VIAL IV SCH (08:22)
[2018-10-16] MEDS: FAMOTIDINE 20 MG (PEPCID) TABLET PO SCH ×2 (08:22→21:24)
[2018-10-16] MEDS: GABAPENTIN 400 MG (NEURONTIN) CAP PO SCH ×3 (08:22→21:24)
[2018-10-16] MEDS: ASPIRIN E.C. 81 MG (ECOTRIN) TAB PO SCH (08:22)
--- NOTE | 2018-10-16 08:36 | Cardiology Progress Note ---
Subjective Date Seen by Provider: October 16, 2018 Time Seen by Provider: 08:32 Subjective/Events-last exam patient is laying down in bed, feeling better, awake. Denied any chest pain. No palpitation. Recovering slowly. Review of Systems General: No Chills, No Night Sweats, No Fatigue, No Malaise, No Appetite, No Other Pulmonary: No Dyspnea, No Cough, No Pleuritic Chest Pain, No Other Cardiovascular: No: Chest Pain, Palpitations, Orthopnea, Paroxysmal Noc. Dyspnea, Edema, Lt Headedness, Other Focused Exam Lactate Level 10/14/18 15:24: Lactic Acid Level 2.41*H 10/14/18 17:42: Lactic Acid Level 0.83 Objective-Cardiology Exam Last Set of Vital Signs Vital Signs 10/16/18 10/16/18 07:49 08:00 Temp 98.5 Pulse 86 Resp 22 B/P (MAP) 151/76 (101) Pulse Ox 92 O2 Delivery Vapotherm O2 Flow Rate 40.00 30.00 FiO2 40 Capillary Refill : Less Than 3 SecondsLess Than 3 Seconds I&O Intake and Output 10/15/18 23:59 Intake Total 5410 ml Output Total 3725 ml Balance 1685 ml Intake Oral 800 ml IV Total 4610 ml Output Urine Total 3725 ml General: Alert, Oriented X3, Cooperative, No Acute Distress HEENT: Atraumatic, PERRLA Neck: Supple, No JVD, No Thyromegaly Lungs: Clear to Auscultation, Normal Air Movement Heart: Regular Rate, Normal S1, Normal S2 Abdomen: Normal Bowel Sounds, Soft, No Tenderness, No Hepatosplenomegaly, No Masses Extremities: No Clubbing, No Cyanosis, Normal Pulses, No Tenderness/Swelling Skin: No Rashes, No Breakdown, No Significant Lesion Neuro: Normal Speech, Strength at 5/5 X4 Ext, Normal Tone, Sensation Intact Psych/Mental Status: Mental Status NL, Mood NL Results Lab Laboratory Tests 10/16/18 03:40 A/P-Cardiology Admission Diagnosis Acute respiratory failure Type II myocardial infarction Hypertension Hyperlipidemia Assessment/Plan Status post acute respiratory failure, extubated at this time and doing well. Managed by primary care team Elevated troponin level, type II OR secondary to increased demand and respiratory failure. Patient is reporting having cardiac catheterization done about a year ago reporting having no significant obstructive coronary artery disease. Continue to monitor at this time. Hypertension, continue on current medication monitor blood pressure next Hyperlipidemia maintained on statin. Continue to monitor lipids COPD, managed by primary care team Hypokalemia, replace and monitor Clinical Quality Measures DVT/VTE Risk/Contraindication: Risk Factor Score Per Nursin RFS Level Per Nursing on Admit: 4+=Very High SARAH SALMON MD October 16, 2018 08:36
--- NOTE | 2018-10-16 09:00 | Consultation ---
History of Present Illness History of Present Illness Patient Consulted On(ponce/time) 10/16/18 08:54 Date Seen by Provider: October 16, 2018 Time Seen by Provider: 08:56 Reason for Visit: L wrist and L ankle fracture History of Present Illness Ofelia is a 68 yo WF that fell two days ago and then went into respiratory arrest. She was intubated and is now stable and extubated. She is splinted and in a boot (L ankle). Her pain is controlled. She was instructed to call [id number] and make an appointment with dr soto. Allergies and Home Medications Allergies Uncoded Allergies: ALL PAIN MEDS (Adverse Reaction, Unknown, NAUSEA VOMITING, 10/13/18) Home Medications Albuterol Sulfate 18 Gm Hfa.aer.ad, 2 PUFF INH Q4H PRN for SHORTNESS OF BREATH, (Reported) Alprazolam 1 Mg Tablet, 1 MG PO TID PRN for ANXIETY, (Reported) Amlodipine Besylate 10 Mg Tablet, 10 MG PO HS, (Reported) Aspirin 81 Mg Tablet.dr, 81 MG PO DAILY, (Reported) Atorvastatin Calcium 40 Mg Tablet, 40 MG PO HS, (Reported) Budesonide/Formoterol Fumarate 10.2 Gm Hfa.aer.ad, 2 PUFF INH BID, (Reported) Gabapentin 400 Mg Capsule, 400 MG PO TID, (Reported) Glycerin 1 Each Supp.rect, 1 SUPP.RECT RC UD PRN for CONSTIPATION, (Reported) Hydrocodone Bit/Acetaminophen 1 Tab Tab, 1-2 EACH PO Q6H PRN for PAIN-MODERATE Prescribed by: YURI WRAY on 10/13/18 1327 Loperamide HCl 2 Mg Tablet, PO UD PRN for DIARRHEA, (Reported) Losartan Potassium 100 Mg Tablet, 100 MG PO DAILY, (Reported) Ondansetron 4 Mg Tab.rapdis, 4 MG PO Q6H PRN for NAUSEA/VOMITING Prescribed by: YURI WRAY on 10/13/18 1327 Polyethylene Glycol 3350 17 Gm Powd.pack, 17 GM PO DAILY PRN for CONSTIPATION- 2ND LINE, (Reported) Quinapril HCl 40 Mg Tablet, 40 MG PO DAILY, (Reported) Ranitidine HCl 150 Mg Tablet, 150 MG PO BID, (Reported) Patient Home Medication List Home Medication List Reviewed: Yes Past Knkkano-Ngnrcx-Gthzbx Hx Past Med/Social Hx: Reviewed Nursing Past Med/Soc Hx Patient Social History Alcohol Use: Denies Use Recreational Drug Use: No Smoking Status: Current Everyday Smoker Type Used: Cigarettes Recent Foreign Travel: No Contact w/Someone Who Travel: No Recent Infectious Disease Expo: No Immunizations Up To Date Tetanus Booster (TDap): Unknown Past Medical History Surgeries: Yes Gallbladder, Hysterectomy, Oophorectomy Cardiac: Yes Hypertension Neuropathy : No Abdominal Hernia Musculoskeletal: No Endocrine: No Diabetes, Non-Insulin dep HEENT: No Cancer: Yes Cervical What Type of Treatment Did You: Chemotherapy, Radiation, Surgical Intervention Anxiety Review of Systems-General Constitutional: no symptoms reported Musculoskeletal: other Physical Exam-General Problems Physical Exam Vital Signs Vital Signs - First Documented 10/14/18 10/14/18 14:28 14:40 Temp 96.7 Pulse 90 Resp 24 B/P (MAP) 82/60 (67) Pulse Ox 70 O2 Delivery Ambu-Bag O2 Flow Rate 15.00 FiO2 100 Capillary Refill : Less Than 3 SecondsLess Than 3 Seconds Extremities: other (L wrist splinted, NVSI, fingers with BCR, SILT all dermatomes; L ankle in boot, all toes BCR) Assessment/Plan Assessment/Plan Admission Diagnosis/Plan ASSESSMENT: L distal radius fracture, intraarticular L nondisplaced medial malleolus fracture PLAN: WBAT in boot Non weight bearing LUE, continue splint I called her daughter (Slim) and she knows to make an appointment with dr soto on thursday ([id number]) DVT prophylaxis per medicine Admission Status: Inpatient Order (span 2 midnights) Clinical Quality Measures DVT/VTE Risk/Contraindication: Risk Factor Score Per Nursin RFS Level Per Nursing on Admit: 4+=Very High AVERY POSADAS DO October 16, 2018 09:00
--- NOTE | 2018-10-16 11:10 | Progress Note-Hospitalist ---
Subjective HPI/CC On Admission Date Seen by Provider: October 16, 2018 Time Seen by Provider: 10:30 This is a 68-year-old white female who had sustained a left radius and ulna fracture as well as fractured ankle about 2 days prior to this presentation secondary to a fall. She had gone back home or she lives alone and hasn't taken hydrocodone 5/325 mg and had fallen asleep. She does have COPD and is oxygen dependent with hypoventilation syndrome. She has not been diagnosed with sleep apnea previously.. The patient was found to be unresponsive and Narcan did not reverse her state. The patient was then intubated and transferred via [facility] for active care. At the time of my interview this morning the patient has been extubated is alert and oriented. She is are eaten breakfast and has no other complaints. History is obtained primarily from her daughter. The patient had only had one hydrocodone 5/325 at a time by 45 hours. She does have a history of taking Xanax and Neurontin as well. She is chronically on O2 2 L by nasal cannula the recent ankle fracture has made her non-ambulatory and she is currently nonweightbearing. Subjective/Events-last exam Patient asks immediately if she can go home. I held up to her the fact that she probably can't take care of herself but she thought her daughter could probably take care of her. We discussed getting any further evaluation for her heart because of her positive troponin and she would like to follow-up with Drs. Ling her middle school librarian., Dr. Lawler is good with that. Dr. Carmona saw her in consultation this morning and notes that she can do weightbearing as tolerated on the left leg. She is on 30 percent Vapotherm and comfortable. Review of Systems Musculoskeletal: arm pain, leg pain Neurological: Weakness Focused Exam Lactate Level 10/14/18 15:24: Lactic Acid Level 2.41*H 10/14/18 17:42: Lactic Acid Level 0.83 Objective Exam Vital Signs Vital Signs Date Time Temp Pulse Resp B/P (MAP) Pulse Ox O2 Delivery O2 Flow Rate FiO2 10/16/18 10:52 98 Vapotherm 30.00 40 10/16/18 10:00 86 23 145/79 (101) 10/16/18 07:49 98.5 Capillary Refill : Less Than 3 SecondsLess Than 3 Seconds General Appearance: No Apparent Distress, Obese HEENT: Normal ENT Inspection, Other (Small hypo-pharynx) Neck: Normal Inspection, Supple, Limited Range of Motion Respiratory: Chest Non Tender, No Respiratory Distress, Crackles, Decreased Breath Sounds Cardiovascular: Regular Rate, Rhythm, No Gallop, No Murmur, Normal Peripheral Pulses Gastrointestinal: Normal Bowel Sounds, Non Tender, Soft Rectal: Deferred Back: Normal Inspection Extremity: Swelling (Right hand), Other Neurologic/Psychiatric: Alert, Oriented x3, No Motor/Sensory Deficits, Normal Mood/Affect Skin: Normal Color, Warm/Dry Lymphatic: No Adenopathy Results/Procedures Lab Laboratory Tests 10/16/18 03:40 Patient resulted labs reviewed. Imaging: Reviewed Imaging Report Assessment/Plan Assessment and Plan Assess & Plan/Chief Complaint Acute respiratory failure secondary to oversedation and chronic COPD Right basilar infiltrate on Zosyn Obesity hypoventilation syndrome Positive troponin Urinary tract infection with Escherichia coli sensitive to Zosyn Hypokalemia replace Fractured radius and ulna and left malleolus- will need physical therapy Transferred to the floor Diagnosis/Problems Diagnosis/Problems (1) Acute respiratory failure Status: Acute Qualifiers: Respiratory failure complication: hypoxia and hypercapnia Qualified Codes: J96.01 - Acute respiratory failure with hypoxia; J96.02 - Acute respiratory failure with hypercapnia Clinical Quality Measures DVT/VTE Risk/Contraindication: Risk Factor Score Per Nursin RFS Level Per Nursing on Admit: 4+=Very High MARGARET MEDRANO MD October 16, 2018 11:10
[2018-10-16] MEDS ORDERED: GLYCERIN ADULT SUPPOSITORY RC PRN (11:45)
--- NOTE | 2018-10-16 12:39 | Physical Therapy Daily Note ---
PT Daily Note-Current Subjective Pt reports she is doing ok under the circumstances. Agreeable to PT at beginning , but when family arrived did not want it. Family did help to encourage and get pt to agree to participate while they were there. Pain Comment: "not really" Appearance Pt in bed with HOB elevated, awake and alert. Support boot on L foot/ankle, kane wrap/splint on L wrist/hand. Family present during treatment session At end of session, pt in bed with family present but just leaving due to pt getting ready to have echo/US of heart. All needs met at this time Mental Status Patient Orientation: Person, Place, Eyes Open Transfers Therapy Code Descriptions/Definitions Functional [place] Measure: 0=Not Assessed/NA 4=Minimal Assistance 1=Total Assistance 5=Supervision or Setup 2=Maximal Assistance 6=Modified [place] 3=Moderate Assistance 7=Complete [place] Therapy Quality Codes: 6 Independent with activity with or without an assistive device 5 Patient requires set up or clean up by helper. Patient completes activity by themselves 4 Supervision or touching assist (CGA). Tony provide cues , steadying assist 3 The helper provides less than half the effort to complete the activity 2 The helper provides more than half the effort to complete the activity 1 Dependent. The helper does all the effort to complete an activity 7 Patient refused to complete or attempt activity 9 The patient did not perform the activity before the current illness or injury 88 Not attempted due to Medical conditions or safety concerns Weight Bearing Left Lower Extremity: Left Non Weight Bearing Keeping pt NWB through the left LE and left UE at this time. Awaiting ortho consult Exercises Supine Ex: Ankle pumps, Quad Set, Glut sets, Heel Slides, Short Arc Quads, Straight leg raise, Hip abd/add Supine Reps: 10 (each ex, each LE. (+) toe curls, (+) B shoulder flexion x10 each UE) Treatments safety precautions, ROM and strengthening ex's Assessment limited activity due to staff arrived for echo/US of heart PT Short Term Goals Short Term Goals Transfers (B,C,W/C) (FIM): 3 PT Residential Goals Residential Goals PT Summer Babysitter Goals Time Frame: October 22, 2018 Transfers (B,C,W/C) (FIM): 4 Gait (FIM): 2 Gait distance (FIM): 7=732-35 ft Distance: 50 ft Gait Assistive Device: FWW (platofrm) PT Plan Treatment/Plan Treatment Plan: Continue Plan of Care Treatment Plan: Bed Mobility, Education, Functional Activity Jefry, Functional Strength, Gait, Safety, Therapeutic Exercise, Transfers Treatment Duration: October 22, 2018 Frequency: 6 times per week Estimated Hrs Per Day: .5 hour per day Patient and/or Family Agrees t: Yes Time/GCodes Time In: 1105 Time Out: 1116 Total Billed Treatment Time: 11 Total Billed Treatment 1 visit, EX x 1 unit FRANCIS CLARK RESEARCH LIBRARIAN October 16, 2018 12:39
--- NOTE | 2018-10-16 13:57 | NUR ---
PT TRANSFERRED TO 415 VIA BED W/ STAFF/PERSONAL BELONGINGS. REPORT GIVEN TO R[facility], NO QUESTIONS/CONCERNS VOICED.
--- NOTE | 2018-10-16 14:00 | NUR ---
PT ARRIVED TO ROOM AT 1400. THIS RN TO RESUME CARE FOR PT. THIS RN AGREES WITH PREVIOUS NURSES ASSESSMENT.
[2018-10-16] MEDS: ATORVASTATIN 40 MG (LIPITOR) TABLET PO SCH (21:24)
[2018-10-16] MEDS: amLODIPine 10 MG (NORVASC) TAB PO SCH (21:24)
[2018-10-17] VITALS (7 sets, daily range): BP systolic 137–169; BP diastolic 68–76
[2018-10-17] MEDS: RT-ALBUTEROL/IPRATROPIUM 3 ML (DUONEB) VIAL INH SCH ×6 (03:23→22:29)
[2018-10-17] MEDS: PIPERACILLIN/TAZOBACTAM (BULK) 4.5 GM in NS (IVPB) 100 ML IV SCH ×3 (06:16→21:30)
[2018-10-17] MEDS: ENOXAPARIN 40 MG/0.4 ML (LOVENOX) SYR SC SCH (06:17)
[2018-10-17] MEDS: RT-ADVAIR HFA 115/21 MCG PER PUFF IH SCH ×2 (06:28→22:29)
[2018-10-17 06:40] LABS: BASOPHILS % (AUTO) 0 % (0-10); EOSINOPHILS # (AUTO) 0.2 10^3/uL (0.0-0.3); EOSINOPHILS % (AUTO) 3 % (0-10); HEMATOCRIT 35 % (35-52); HEMOGLOBIN 10.7 G/DL (11.5-16.0); LYMPHOCYTES # (AUTO) 0.6 X 10^3 (1.0-4.0); LYMPHOCYTES % (AUTO) 10 % (12-44); MEAN CORPUSCULAR HEMOGLOBIN 28 PG (25-34); MEAN CORPUSCULAR HGB CONC 30 G/DL (32-36); MEAN CORPUSCULAR VOLUME 93 FL (80-99); MEAN PLATELET VOLUME 9.1 FL (7.4-10.4); MONOCYTES # (AUTO) 0.5 X 10^3 (0.0-1.0); MONOCYTES % (AUTO) 7 % (0-12); NEUTROPHILS # (AUTO) 5.3 X 10^3 (1.8-7.8); NEUTROPHILS % (AUTO) 81 % (42-75); PLATELET COUNT 167 10^3/uL (130-400); RED CELL DISTRIBUTION WIDTH 15.7 % (10.0-14.5); WHITE BLOOD COUNT 6.5 10^3/uL (4.3-11.0)
[2018-10-17 07:08] LABS: ALANINE AMINOTRANSFERASE 17 U/L (0-55); ALBUMIN 3.1 GM/DL (3.2-4.5); ALKALINE PHOSPHATASE 70 U/L (40-136); BILIRUBIN,TOTAL 0.6 MG/DL (0.1-1.0); BUN/CREATININE RATIO 17; CALCIUM 8.5 MG/DL (8.5-10.1); CARBON DIOXIDE 27 MMOL/L (21-32); CHLORIDE 107 MMOL/L (98-107); CREATININE SERUM 0.54 MG/DL (0.60-1.30); GFR ESTIMATED > 60; GLUCOSE 123 MG/DL (70-105); MAGNESIUM 1.6 MG/DL (1.8-2.4); POTASSIUM 3.6 MMOL/L (3.6-5.0); SODIUM 142 MMOL/L (135-145); TOTAL PROTEIN 5.8 GM/DL (6.4-8.2)
[2018-10-17] MEDS: LOSARTAN 100 MG (COZAAR) TABLET PO SCH (08:02)
[2018-10-17] MEDS: FAMOTIDINE 20 MG (PEPCID) TABLET PO SCH ×2 (08:02→21:30)
[2018-10-17] MEDS: ASPIRIN E.C. 81 MG (ECOTRIN) TAB PO SCH (08:02)
[2018-10-17] MEDS: GABAPENTIN 400 MG (NEURONTIN) CAP PO SCH ×3 (08:02→21:30)
--- NOTE | 2018-10-17 09:11 | Cardiology Progress Note ---
Subjective Date Seen by Provider: October 17, 2018 Time Seen by Provider: 09:10 Subjective/Events-last exam patient is laying down in bed, feeling better, breathing better. Review of Systems General: No Chills, No Night Sweats, No Fatigue, No Malaise, No Appetite, No Other HEENT: No Head Aches, No Visual Changes, No Eye Pain, No Ear Pain, No Dysphasia , No Sinus Congestion, No Post Nasal Drip, No Sore Throat, No Other Pulmonary: Dyspnea; No Cough, No Pleuritic Chest Pain, No Other Cardiovascular: No: Chest Pain, Palpitations, Orthopnea, Paroxysmal Noc. Dyspnea, Edema, Lt Headedness, Other Focused Exam Lactate Level 10/14/18 15:24: Lactic Acid Level 2.41*H 10/14/18 17:42: Lactic Acid Level 0.83 Objective-Cardiology Exam Last Set of Vital Signs Vital Signs 10/17/18 10/17/18 03:23 08:00 Temp 96.9 Pulse 92 Resp 18 B/P (MAP) 161/74 (103) Pulse Ox 92 O2 Delivery High Flow N/C O2 Flow Rate 10.00 FiO2 60 Capillary Refill : Less Than 3 SecondsLess Than 3 Seconds I&O Intake and Output 10/17/18 00:00 Intake Total 5340 ml Output Total 2500 ml Balance 2840 ml Intake Oral 1100 ml IV Total 4240 ml Output Urine Total 2500 ml General: Alert, Oriented X3, Cooperative, No Acute Distress HEENT: Atraumatic, PERRLA Neck: Supple, No JVD, No Thyromegaly Lungs: Clear to Auscultation, Normal Air Movement Heart: Regular Rate, Normal S1, Normal S2 Abdomen: Normal Bowel Sounds, Soft, No Tenderness, No Hepatosplenomegaly, No Masses Extremities: No Clubbing, No Cyanosis, Normal Pulses, No Tenderness/Swelling Skin: No Rashes, No Breakdown, No Significant Lesion Neuro: Normal Speech, Strength at /5 X4 Ext, Normal Tone, Sensation Intact Psych/Mental Status: Mental Status NL, Mood NL Results Lab Laboratory Tests 10/17/18 06:25 A/P-Cardiology Admission Diagnosis Acute respiratory failure Type II myocardial infarction Hypertension Hyperlipidemia Assessment/Plan Status post acute respiratory failure, eating better at this time, using nasal cannula. Managed by primary care team. Elevated troponin level, type II MA secondary to increased demand and respiratory failure. Patient is reporting having cardiac catheterization done about a year ago reporting having no significant obstructive coronary artery disease. Continue to monitor at this time. Hypertension, continue on current medication monitor blood pressure next Hyperlipidemia maintained on statin. Continue to monitor lipids COPD, managed by primary care team Clinical Quality Measures DVT/VTE Risk/Contraindication: Risk Factor Score Per Nursin RFS Level Per Nursing on Admit: 4+=Very High SARAH SALMON MD October 17, 2018 09:11
--- NOTE | 2018-10-17 13:47 | Progress Note-Hospitalist ---
Subjective HPI/CC On Admission Date Seen by Provider: October 17, 2018 Time Seen by Provider: 12:30 This is a 68-year-old white female who had sustained a left radius and ulna fracture as well as fractured ankle about 2 days prior to this presentation secondary to a fall. She had gone back home or she lives alone and hasn't taken hydrocodone 5/325 mg and had fallen asleep. She does have COPD and is oxygen dependent with hypoventilation syndrome. She has not been diagnosed with sleep apnea previously.. The patient was found to be unresponsive and Narcan did not reverse her state. The patient was then intubated and transferred via [facility] for active care. At the time of my interview this morning the patient has been extubated is alert and oriented. She is are eaten breakfast and has no other complaints. History is obtained primarily from her daughter. The patient had only had one hydrocodone 5/325 at a time by 45 hours. She does have a history of taking Xanax and Neurontin as well. She is chronically on O2 2 L by nasal cannula the recent ankle fracture has made her non-ambulatory and she is currently nonweightbearing. Subjective/Events-last exam Patient again asking what can she go home. She has not gotten about bed yet and is unable to weight-bear on her broken left leg. I did discuss that we need to get her Lemus catheter out and will start physical therapy tomorrow and that it might be a good idea for her to go to rehabilitation if she can do 3 hours of PT Review of Systems Neurological: Weakness Focused Exam Lactate Level 10/14/18 15:24: Lactic Acid Level 2.41*H 10/14/18 17:42: Lactic Acid Level 0.83 Objective Exam Vital Signs Vital Signs Date Time Temp Pulse Resp B/P (MAP) Pulse Ox O2 Delivery O2 Flow Rate FiO2 10/17/18 13:08 87 10/17/18 10:30 95 High Flow N/C 10.00 10/17/18 08:00 96.9 18 161/74 (103) 10/17/18 03:23 60 Capillary Refill : Less Than 3 SecondsLess Than 3 Seconds General Appearance: No Apparent Distress, Obese HEENT: Normal ENT Inspection, Other (Small hypo-pharynx) Neck: Normal Inspection, Supple, Limited Range of Motion Respiratory: Chest Non Tender, No Respiratory Distress, Crackles, Decreased Breath Sounds Cardiovascular: Regular Rate, Rhythm, No Gallop, No Murmur, Normal Peripheral Pulses Gastrointestinal: Normal Bowel Sounds, Non Tender, Soft Rectal: Deferred Back: Normal Inspection Extremity: Swelling (Right hand), Other Neurologic/Psychiatric: Alert, Oriented x3, No Motor/Sensory Deficits, Normal Mood/Affect Skin: Normal Color, Warm/Dry Lymphatic: No Adenopathy Results/Procedures Lab Laboratory Tests 10/17/18 06:25 Patient resulted labs reviewed. Imaging: Reviewed Imaging Report Assessment/Plan Assessment and Plan Assess & Plan/Chief Complaint Acute respiratory failure secondary to oversedation and chronic COPD Right basilar infiltrate on Zosyn Obesity hypoventilation syndrome Positive troponin-she would like to follow-up with Dr. Ling Urinary tract infection with Escherichia coli sensitive to Zosyn Hypokalemia replaced Fractured radius and ulna and left malleolus- will need physical therapy Will DC Lemus Diagnosis/Problems Diagnosis/Problems (1) Acute respiratory failure Status: Acute Qualifiers: Respiratory failure complication: hypoxia and hypercapnia Qualified Codes: J96.01 - Acute respiratory failure with hypoxia; J96.02 - Acute respiratory failure with hypercapnia Clinical Quality Measures DVT/VTE Risk/Contraindication: Risk Factor Score Per Nursin RFS Level Per Nursing on Admit: 4+=Very High MARGARET MEDRANO MD October 17, 2018 13:47
[2018-10-17] MEDS: MAGNESIUM 1 GM/100 ML IVPB 100 ML IV SCH ×2 (13:51→15:14)
[2018-10-17] MEDS: ATORVASTATIN 40 MG (LIPITOR) TABLET PO SCH (21:30)
[2018-10-17] MEDS: amLODIPine 10 MG (NORVASC) TAB PO SCH (21:30)
[2018-10-18] VITALS (8 sets, daily range): BP systolic 136–163; BP diastolic 65–75
[2018-10-18] MEDS: RT-ALBUTEROL/IPRATROPIUM 3 ML (DUONEB) VIAL INH SCH ×6 (02:07→21:55)
[2018-10-18 04:53] LABS: HEMOGLOBIN 10.7 G/DL (11.5-16.0); MEAN PLATELET VOLUME 9.5 FL (7.4-10.4); RED CELL DISTRIBUTION WIDTH 15.4 % (10.0-14.5); WHITE BLOOD COUNT 6.2 10^3/uL (4.3-11.0)
[2018-10-18 05:13] LABS: ALANINE AMINOTRANSFERASE 18 U/L (0-55); ALBUMIN 3.2 GM/DL (3.2-4.5); ALKALINE PHOSPHATASE 66 U/L (40-136); BILIRUBIN,TOTAL 0.8 MG/DL (0.1-1.0); BUN/CREATININE RATIO 20; CALCIUM 9.1 MG/DL (8.5-10.1); CARBON DIOXIDE 26 MMOL/L (21-32); CHLORIDE 106 MMOL/L (98-107); CREATININE SERUM 0.54 MG/DL (0.60-1.30); GFR ESTIMATED > 60; GLUCOSE 121 MG/DL (70-105); POTASSIUM 3.3 MMOL/L (3.6-5.0); SODIUM 140 MMOL/L (135-145)
[2018-10-18] MEDS: PIPERACILLIN/TAZOBACTAM (BULK) 4.5 GM in NS (IVPB) 100 ML IV SCH ×3 (05:47→22:38)
[2018-10-18] MEDS: ENOXAPARIN 40 MG/0.4 ML (LOVENOX) SYR SC SCH (05:47)
[2018-10-18] MEDS: RT-ADVAIR HFA 115/21 MCG PER PUFF IH SCH ×2 (06:21→19:00)
[2018-10-18] MEDS: GABAPENTIN 400 MG (NEURONTIN) CAP PO SCH ×3 (08:12→22:38)
[2018-10-18] MEDS: FAMOTIDINE 20 MG (PEPCID) TABLET PO SCH ×2 (08:12→22:38)
[2018-10-18] MEDS: LOSARTAN 100 MG (COZAAR) TABLET PO SCH (08:12)
[2018-10-18] MEDS: ASPIRIN E.C. 81 MG (ECOTRIN) TAB PO SCH (08:13)
--- NOTE | 2018-10-18 09:56 | NUR ---
IRF Evaluation: Order received to evaluate patient for the ARU. Chart reviewed and patient accepted. Met with patient to discuss details of rehabilitation program. Patient states she has a oriental orthodox friend that is willing to stay with her 05/01, to assist her with mobility and ADLs. Patient also states she has children that live locally that could assist, as needed. In addition to stated support, patient owns a wheelchair and her home has a ramp at the entrance. SW notified of above information. Thank you for this referral. Addendum: 10/18/18 at 1625 by ROCHELLE KITCHEN Notified patient has determined she is not ready, nor safe to return home, at this time. Therefore, patient is scheduled to admit to ARU, 10/19/18. JACQUELYN/NOLBERTO notified.
--- NOTE | 2018-10-18 10:56 | Physical Therapy Daily Note ---
PT Daily Note-Current Subjective Patient in bed pre tx, agrees to PT, has pain of 4/10 in left arm and leg. Appearance Patient in recliner post tx with nurse call, phone, tray, all needs met. Mental Status Patient Orientation: Person, Place, Situation Attachments: Oxygen Transfers Therapy Code Descriptions/Definitions Functional Mobile Measure: 0=Not Assessed/NA 4=Minimal Assistance 1=Total Assistance 5=Supervision or Setup 2=Maximal Assistance 6=Modified Mobile 3=Moderate Assistance 7=Complete Mobile Therapy Quality Codes: 6 Independent with activity with or without an assistive device 5 Patient requires set up or clean up by helper. Patient completes activity by themselves 4 Supervision or touching assist (CGA). [place] provide cues , steadying assist 3 The helper provides less than half the effort to complete the activity 2 The helper provides more than half the effort to complete the activity 1 Dependent. The helper does all the effort to complete an activity 7 Patient refused to complete or attempt activity 9 The patient did not perform the activity before the current illness or injury 88 Not attempted due to Medical conditions or safety concerns Transfers (B, C, W/C) (FIM): 4 Scootin Rollin Supine to/from Sit: 4 Sit to/from Stand: 4 Bed to/from Chair: 4 Min assist for supine to sit and stand pivot transfer. Patient seems to put a little weight through her left leg when trying to pivot on her right leg for the transfer but otherwise is compliant with her weight bearing status. Weight Bearing Left Lower Extremity: Left Non Weight Bearing Keeping pt NWB through the left LE and left UE at this time. Awaiting ortho consult Exercises Seated Therapy Exercises: Ankle pumps (RLE), Long arc quads Seated Reps: 15 Assessment Current Status: Fair Progress improving transfers PT Short Term Goals Short Term Goals Transfers (B,C,W/C) (FIM): 3 PT Saturator Operator Goals Senior Living Goals PT Senior Living Goals Time Frame: October 22, 2018 Transfers (B,C,W/C) (FIM): 4 Gait (FIM): 2 Gait distance (FIM): 5=203-27 ft Distance: 50 ft Gait Assistive Device: FWW (platofrm) PT Plan Problem List Problem List: Activity Tolerance, Functional Strength, Safety, Balance, Gait, Transfer, Bed Mobility, ROM Treatment/Plan Treatment Plan: Continue Plan of Care Treatment Plan: Bed Mobility, Education, Functional Activity Jefry, Functional Strength, Gait, Safety, Therapeutic Exercise, Transfers Treatment Duration: October 22, 2018 Frequency: 6 times per week Estimated Hrs Per Day: .5 hour per day Patient and/or Family Agrees t: Yes Safety Risks/Education Patient Education: Transfer Techniques, Reviewed Precautions, Correct Positioning, Safety Issues Teaching Recipient: Patient Teaching Methods: Demonstration, Discussion Response to Teaching: Reinforcement Needed Time/GCodes Time In: 1028 Time Out: 1038 Total Billed Treatment Time: 10 Total Billed Treatment 1 visit FA CHANG REICH PT October 18, 2018 10:56
--- NOTE | 2018-10-18 11:22 | Cardiology Progress Note ---
Subjective Date Seen by Provider: October 18, 2018 Time Seen by Provider: 11:21 Subjective/Events-last exam Patient is in a chair, feeling better, no new complaint Review of Systems General: No Chills, No Night Sweats, No Fatigue, No Malaise, No Appetite, No Other HEENT: No Head Aches, No Visual Changes, No Eye Pain, No Ear Pain, No Dysphasia , No Sinus Congestion, No Post Nasal Drip, No Sore Throat, No Other Pulmonary: No Dyspnea, No Cough, No Pleuritic Chest Pain, No Other Cardiovascular: No: Chest Pain, Palpitations, Orthopnea, Paroxysmal Noc. Dyspnea, Edema, Lt Headedness, Other Objective-Cardiology Exam Last Set of Vital Signs Vital Signs 10/17/18 10/18/18 03:23 10:50 Pulse Ox 92 O2 Delivery High Flow N/C O2 Flow Rate 8.00 FiO2 60 Capillary Refill : Less Than 3 SecondsLess Than 3 Seconds I&O Intake and Output 10/18/18 00:00 Intake Total 1960 ml Output Total 1550 ml Balance 410 ml Intake Oral 1960 ml Output Urine Total 1550 ml # Voids 2 # Bowel Movements 2 General: Alert, Oriented X3, Cooperative, No Acute Distress HEENT: Atraumatic, PERRLA Neck: Supple, No JVD, No Thyromegaly Lungs: Clear to Auscultation, Normal Air Movement Heart: Regular Rate, Normal S1, Normal S2 Abdomen: Normal Bowel Sounds, Soft, No Tenderness, No Hepatosplenomegaly, No Masses Extremities: No Clubbing, No Cyanosis, Normal Pulses, No Tenderness/Swelling Skin: No Rashes, No Breakdown, No Significant Lesion Neuro: Normal Speech Psych/Mental Status: Mental Status NL, Mood NL Results Lab Laboratory Tests 10/18/18 04:25 A/P-Cardiology Admission Diagnosis Acute respiratory failure Type II myocardial infarction Hypertension Hyperlipidemia Assessment/Plan Status post acute respiratory failure, eating better at this time, using nasal cannula. Managed by primary care team. Elevated troponin level, type II SD secondary to increased demand and respiratory failure. Patient is reporting having cardiac catheterization done about a year ago reporting having no significant obstructive coronary artery disease. Continue to monitor at this time. Hypertension, continue on current medication monitor blood pressure next Hyperlipidemia maintained on statin. Continue to monitor lipids COPD, managed by primary care team Clinical Quality Measures DVT/VTE Risk/Contraindication: Risk Factor Score Per Nursin RFS Level Per Nursing on Admit: 4+=Very High SARAH SALMON MD October 18, 2018 11:22
--- NOTE | 2018-10-18 15:17 | Occupational Ther Daily Note ---
OT Current Status-Daily Note Subjective Pt in restroom with daughter. Pt agrees to therapy. No c/o pain at this time. Pt in restroom without O2, check O2 sat levels 80% then applied O2 within 3 min sat level at 90%. Reported to nrsg. Mental Status/Objective Patient Orientation: Person, Place, Time, Situation Therapy Code Descriptions/Definitions Functional [place] Measure: 0=Not Assessed/NA 4=Minimal Assistance 1=Total Assistance 5=Supervision or Setup 2=Maximal Assistance 6=Modified [place] 3=Moderate Assistance 7=Complete [place] Attachments: IV, Oxygen ADL-Treatment Pt and daughter in bathroom for toileting and sponge bath. Pt ambulating with assist from daughter without AE/AD, keeping NWB with UE and possible TTWB with LE. LOB 1x ambulating with hand hold from daughter. Pt and daughter stated that pt needed only CGA in bathroom to cleanse self after toileting. Pt donned/ doffed socks in sitting. Discussed the need to keep O2 on during activities. Other Treatment Pt has good AROM. Red theraband given to pt, pt stated "I am strong as a bull with my R arm." Pt demonstrated ability to complete 4 theraband exercise with R UE. Theraband left in room for pt use. After therapy, pt sitting in recliner with call light/phone in reach. All needs met in room. OT Short Term Goals Short Term Goals Grooming(FIM): 5 Bathing(FIM): 3 Lower Body Dressing(FIM): 3 Toileting(FIM): 3 Transfers (B,C,W/C) (FIM): 3 Toilet/Commode Transfer(FIM): 3 1=Demonstrate adherence to instructed precautions during ADL tasks. 2=Patient will verbalize/demonstrate understanding of assistive devices/ modifications for ADL. 3=Patient will improve strength/tolerance for activity to enable patient to perform ADL's. OT Medical Payment Poster Goals Medical Payment Poster Goals Grooming(FIM): 6 Bathing(FIM): 5 Bathing Location: L Arm, R Arm, L Upper Leg, R Upper Leg, R Lower Leg ( including foot), Chest, Abdomen, Buttocks, Perineal Area Lower Body Dressing(FIM): 5 Toileting(FIM): 5 Transfers (B,C,W/C) (FIM): 5 Toilet/Commode Transfer(FIM): 5 1=Demonstrate adherence to instructed precautions during ADL tasks. 2=Patient will verbalize/demonstrate understanding of assistive devices/ modifications for ADL. 3=Patient will improve strength/tolerance for activity to enable patient to perform ADL's. OT Education/Plan Problem List/Assessment Assessment: Decreased Safety Aware, Impaired Funct Balance, Restricted Funct UE ROM pt presents with functional limitations affecting areas of ADLS/ functional transfers. pt would benefit from O T services to increase independence with ADLS / functinal transfers. pt is not safe to return home at this time. Discharge Recommendations Plan/Recommendations: Continue POC Treatment Plan/Plan of Care Patient would benefit from OT for education, treatment and training to promote independence in ADL's, mobility, safety and/or upper extremity function for ADL' s. Plan of Care: ADL Retraining, Caregiver Training, Concurrent Therapy, Functional Mobility, Group Exercise/Act as Ind, Orthotic Fitting/Training, UE Funct Exercise/Act Treatment Duration: November 05, 2018 Frequency: 5 times per week Estimated Hrs Per Day: .5 hour per day Rehab Potential: Fair Time/GCodes Start Time: 13:37 Stop Time: 14:00 Total Time Billed (hr/min): 23 Billed Treatment Time 1 visit-FA 2 (23 min) ALISHA PATEL October 18, 2018 15:17
--- NOTE | 2018-10-18 15:57 | NUR ---
CM/SS. Visited with patient to confirm her post hospital supports and plan. Patient's limits and healing time concerning for going directly home with only family/friend caregiver and assistance. Visited with patient realistically about leaving hospital in current status, left arm splinted and left ankle NWB, with home O2 continuous. Patient then stated she and her daughter had discussed they would reconsider transfer to our inpatient rehab unit for more therapy and medical support prior to home. Updated IRF Admissions .
[2018-10-18] MEDS: ATORVASTATIN 40 MG (LIPITOR) TABLET PO SCH (22:38)
[2018-10-18] MEDS: amLODIPine 10 MG (NORVASC) TAB PO SCH (22:38)
[2018-10-19] MEDS: RT-ALBUTEROL/IPRATROPIUM 3 ML (DUONEB) VIAL INH SCH ×3 (02:32→10:32)
[2018-10-19 04:50] VITALS: BP 158/75
[2018-10-19] MEDS: PIPERACILLIN/TAZOBACTAM (BULK) 4.5 GM in NS (IVPB) 100 ML IV SCH (05:46)
[2018-10-19] MEDS: ENOXAPARIN 40 MG/0.4 ML (LOVENOX) SYR SC SCH (05:46)
[2018-10-19] MEDS: RT-ADVAIR HFA 115/21 MCG PER PUFF IH SCH (06:49)
[2018-10-19 08:45] VITALS: BP 167/74
[2018-10-19] MEDS: FAMOTIDINE 20 MG (PEPCID) TABLET PO SCH (09:29)
[2018-10-19] MEDS: ASPIRIN E.C. 81 MG (ECOTRIN) TAB PO SCH (09:29)
[2018-10-19] MEDS: GABAPENTIN 400 MG (NEURONTIN) CAP PO SCH (09:29)
[2018-10-19] MEDS: LOSARTAN 100 MG (COZAAR) TABLET PO SCH (09:29)
[2018-10-19] MEDS ORDERED: CEPH250C PO (09:48)
--- NOTE | 2018-10-19 10:30 | NUR ---
REPORT CALLED TO [facility] ON ACUTE REHAB UNIT. DISCHARGE INSTRUCTIONS GIVEN TO PATIENT, PATIENT VERBALIZED UNDERSTANDING OF INSTRUCTIONS AND REHAB. PATIENT TAKEN TO REHAB IN WHEELCHAIR WITH OXYGEN, STAFF, AND OT.
[2018-10-19 10:35] VITALS: BP 167/74
--- NOTE | 2018-10-19 10:49 | NUR ---
Follow up visit: Pt shared feelings burdened by her health due to restricted independence. She was tearful, and I empathically gave space for her to share her struggle and loss. She reflected about her hope and peace in the Lord, her gratitude and expectation for physical recovery, and appreciation for the kindness and care of staff. Pt demonstrates meaningful, personal fantasma and said she believes God will get her through this healing process like he has previous struggles. The pt engaged by reflecting about God's presence with her through suffering. In addition to this, the pt said she is going through and "43 year divorce" due to her 's addiction to alcohol and pain medication. Pt states she has not told anyone about this, not even her children. Offered safe place, active listening, compassionate presence and prayer. Pt expressed appreciation for our visit and said she felt encouraged. Opened pt's window blind per her request and shut the door for her privacy. She is anticipated to move to 2nd floor rehab today.
--- NOTE | 2018-10-19 11:23 | Discharge Summary-Hospitalist ---
Diagnosis/Chief Complaint Date of Admission October 14, 2018 at 19:05 Date of Discharge October 19, 2018 at 10:40 Discharge Date: October 19, 2018 Admission Diagnosis Acute respiratory failure secondary to hypoventilation and medication-status post successful extubation on Vapotherm Non-ST segment elevation GA with a positive troponin Left ankle fracture and distal radius and ulnar fracture COPD O2 dependent Hypoventilation with probable sleep apnea Urinary tract infection Tobaccoism Morbid obesity Elevated lactic acid most likely secondary to respiratory acidosis and hypoperfusion Elevated glucose possible diabetes Peripheral neuropathy Hypertension with poor control Discharge Diagnosis Acute respiratory failure apparently secondary to pain medication and hypoventilation. 2.ankle fracture acutely October 13 (1) Acute respiratory failure Status: Acute Discharge Summary Discharge Physical Exam Allergies: Uncoded Allergies: ALL PAIN MEDS (Adverse Reaction, Unknown, NAUSEA VOMITING, 10/13/18) Vitals & I&Os Vital Signs Date Time Temp Pulse Resp B/P (MAP) Pulse Ox O2 Delivery O2 Flow Rate FiO2 10/19/18 10:35 79 16 167/74 95 Nasal Cannula 8.00 10/19/18 08:45 96.9 10/18/18 10:50 52 General Appearance: No Apparent Distress Hospital Course Was the Problem List Reviewed?: Yes The patient had presented to the emergency room on 10/13 and was found to have an acute ankle fracture as well as left radius and ulna fractures secondary to a fall the day prior. She was treated and sent home. Her medications included a narcotic pain reliever. She lives alone and has COPD with home O2. She was found at home unresponsive. Narcan apparently was administered and did not reverse her state. She was intubated in the field and taken to the [facility] emergency room. She improved on the ventilator was ultimately extubated and has continued to improve. She was transferred to the inpatient rehabilitation facility today to to restore her abilities in order to return to her home. Labs (last 24 hrs) Microbiology 10/14/18 Blood Culture - Preliminary, Resulted No growth 10/14/18 MRSA Screen - Final, Complete MRSA not isolated 10/14/18 Urine Culture - Final, Complete Escherichia coli Patient resulted labs reviewed. Imaging: Reviewed Imaging Report Discussion & Recommendations Discharge Planning: <30 minutes discharge planning Discharge Home Medications: Active Scripts Active Ondansetron Odt (Ondansetron) 4 Mg Tab.rapdis 4 Mg PO Q6H PRN Hydrocodone/Acetaminophen 5/325mg Tablet (Acetaminophen/Hydrocodone Bitart) 1 Tab Tab 1-2 Each PO Q6H PRN MDD 10 3 Days Reported Glycerin 1 Each Supp.rect 1 Supp.rect RC UD PRN Miralax (Polyethylene Glycol 3350) 17 Gm Powd.pack 17 Gm PO DAILY PRN Imodium A-D (Loperamide HCl) 2 Mg Tablet PO UD PRN Symbicort 160-4.5 Mcg Inhaler (Budesonide/Formoterol Fumarate) 10.2 Gm Hfa.aer.ad 2 Puff INH BID Ventolin Hfa (Albuterol Sulfate) 18 Gm Hfa.aer.ad 2 Puff INH Q4H PRN Aspirin EC (Aspirin) 81 Mg Tablet.dr 81 Mg PO DAILY Losartan Potassium 100 Mg Tablet 100 Mg PO DAILY Atorvastatin Calcium 40 Mg Tablet 40 Mg PO HS Quinapril HCl 40 Mg Tablet 40 Mg PO DAILY Gabapentin 400 Mg Capsule 400 Mg PO TID Amlodipine Besylate 10 Mg Tablet 10 Mg PO HS Ranitidine HCl 150 Mg Tablet 150 Mg PO BID Alprazolam 1 Mg Tablet 1 Mg PO TID PRN Instructions to patient/family Please see electronic discharge instructions given to patient. Clinical Quality Measures DVT/VTE Risk/Contraindication: Risk Factor Score Per Nursin RFS Level Per Nursing on Admit: 4+=Very High Problem Qualifiers (1) Acute respiratory failure: Respiratory failure complication: hypoxia and hypercapnia Qualified Codes: J96.01 - Acute respiratory failure with hypoxia; J96.02 - Acute respiratory failure with hypercapnia DEL HIGGINS MD October 19, 2018 11:23
[2018-10-19] MEDS ORDERED: CEPHALEXIN 250 MG (KEFLEX) CAP PO SCH (13:00)
--- NOTE | 2018-10-19 13:01 | Cardiology Progress Note ---
Cardiology SOAP Progress Note Subjective: extubated. doing much better. no chest pain. Objective: I&O/Vital Signs 10/19/18 10/19/18 10/19/18 10/19/18 01:00 02:32 04:50 06:49 Temp 97.6 Pulse 87 79 Resp 18 B/P (MAP) 158/75 (102) Pulse Ox 91 98 90 O2 Delivery Nasal Cannula High Flow N/C Nasal Cannula O2 Flow Rate 8.00 8.00 8.00 10/19/18 10/19/18 10/19/18 10/19/18 07:00 08:45 09:00 10:32 Temp 96.9 Pulse 91 79 Resp 16 B/P (MAP) 167/74 (105) Pulse Ox 92 95 O2 Delivery High Flow N/C High Flow N/C Nasal Cannula O2 Flow Rate 8.00 8.00 8.00 10/19/18 10:35 Pulse 79 Resp 16 B/P (MAP) 167/74 Pulse Ox 95 O2 Delivery Nasal Cannula O2 Flow Rate 8.00 10/19/18 00:00 Intake Total 1500 ml Balance 1500 ml Weight (Pounds): 225 Weight (Ounces): 11.2 Weight (Calculated Kilograms): 102.650041 Constitutional: No appears stated age; AAO x 3; No apparent distress, No PERRL , No well-developed, No well-nourished Respiratory: No accessory muscle use, No respiratory distress, No chest tender , No chest expansion is symmetric; chest is bilaterally symmetric; No lungs clear to percussion; lungs clear to auscultation; No crackles, No rhonchi, No rales, No stridor, No wheezing, No pleural rub, No other Cardiovascular: regular rate-rhythm; No irregularly irregular, No extra beats, No parasternal heave is noted, No JVD, No edema, No bradycardia, No tachycardia , No point of maximal impulse, No cardiac thrills are palpable; S1 and S2; No gallop/S3, No gallop/S4, No diastolic murmur, No systolic murmur, No friction rub, No click, No other Gastrointestional: No tender, No soft, No round, No distended, No pulsatile mass, No organomegaly, No guarding, No rebound, No tenderness, No hernia, No mass, No audible bowel sounds, No abnormal bowel sounds, No abdominal bruits, No spleenomegaly, No other Extremities: normal range of motion, non-tender, normal inspection Neurologic/Psychiatric: no motor/sensory deficits, alert, normal mood/affect, oriented x 3 Skin: No normal color, No warm/dry, No cyanosis, No cool, No diaphoresis, No damp, No ecchymosis, No jaundice, No mottled, No pallor, No rash, No tattoos/ piercings, No ulcerations, No rash on exposed areas, No ulcerations on exposed areas, No other Results/Procedures: Labs Microbiology 10/14/18 Blood Culture - Preliminary, Resulted No growth 10/14/18 MRSA Screen - Final, Complete MRSA not isolated 10/14/18 Urine Culture - Final, Complete Escherichia coli A/P: Assessment/Dx: Altered mental status - likely due to opiates. Fractures NSTEMI Lactic acidosis, Hypercarbic respiratory failure, significant improved. Plan: Altered mental status, likely opiates. NSTEMI: Could be secondary to Type II be type II myocardial infarction due to severe systemic illness. according to the patient, she has had previous heart cath with Dr Ling in [facility]. we will try to get all records before scheduling coronary angiography. No chest pain since extubation. Lactic acidosis, Hypercarbic respiratory failure,significantly improved. Thank you for your consultation. Please call me if you have any questions. Jerson Ovalle MD, FACP, FACC, FSCAI, FHRS, CCDS Interventional Cardiology Cardiac Electrophysiology Vascular Medicine and Endovascular Interventions Beth OVALLE MD October 19, 2018 13:01
--- NOTE | 2018-10-19 14:21 | Pulmonary Progress Note ---
Subjective Time Seen by a Provider: 06:00 Subjective/Events-last exam Pt is doing much better. Sepsis Event Evaluation Height, Weight, BMI Height: 5'6.00" Weight: 225lbs. 11.2oz. 102.380459ej; 35.6 BMI Method:Actual Exam Exam Vital Signs Date Time Temp Pulse Resp B/P (MAP) Pulse Ox O2 Delivery O2 Flow Rate FiO2 10/19/18 10:35 79 16 167/74 95 Nasal Cannula 8.00 10/19/18 10:32 95 Nasal Cannula 8.00 10/19/18 09:00 High Flow N/C 8.00 10/19/18 08:45 96.9 79 16 167/74 (105) 92 High Flow N/C 8.00 10/19/18 07:00 91 10/19/18 06:49 90 Nasal Cannula 8.00 10/19/18 04:50 97.6 79 18 158/75 (102) 98 High Flow N/C 8.00 10/19/18 02:32 91 Nasal Cannula 8.00 10/19/18 01:00 87 10/18/18 23:44 97.6 85 18 163/72 (102) 93 High Flow N/C 8.00 10/18/18 21:55 90 Nasal Cannula 8.00 10/18/18 20:00 High Flow N/C 8.00 10/18/18 19:37 98.2 88 18 158/75 (102) 95 High Flow N/C 8.00 10/18/18 19:00 82 10/18/18 18:58 70 Room Air 10/18/18 16:07 97.2 83 20 160/70 (100) 95 High Flow N/C 8.00 10/18/18 14:36 91 High Flow N/C 8.00 I & O 10/19/18 07:00 Intake Total 2090 ml Output Total 200 ml Balance 1890 ml Height & Weight Height: 5'6.00" Weight: 225lbs. 11.2oz. [id number]; 35.6 BMI Method:Actual General Appearance: No Apparent Distress HEENT: Normal ENT Inspection, Other (Small hypo-pharynx) Neck: Normal Inspection, Supple, Limited Range of Motion Respiratory: Chest Non Tender, No Respiratory Distress, Crackles, Decreased Breath Sounds Cardiovascular: Regular Rate, Rhythm, No Gallop, No Murmur, Normal Peripheral Pulses Capillary Refill: Less Than 3 Seconds Gastrointestinal: soft, abnormal bowel sounds (quiescent) Extremity: Swelling (Right hand), Other Neurologic/Psychiatric: Alert, Oriented x3, No Motor/Sensory Deficits, Normal Mood/Affect Skin: Normal Color, Warm/Dry Lymphatic: No Adenopathy Results Lab Laboratory Tests 10/18/18 04:25 Assessment/Plan Assessment/Plan Acute respiratory failure -much improved COPDAE -SVNS Q4 -SOlumedrol NSTEMI -Cardiology following Hx recent fall with fracture of left ankle and left wrist GI/DVT PPX -Lovenox -Protonix DANYEL GUTIERREZ DO October 19, 2018 14:21
== END 2018-10-19 10:40 | DRG 208 ==
LOC: EDUNIT# 14:23 → ER 14:26 → ICU 19:05 → 4TH 10-16 13:57
PROVIDERS: ADMIT Family Medicine; ATTEND Internal Medicine
PROC: 5A1935Z Respiratory Ventilation, Less than 24 Consecutive Hours (ICD-10-PCS; principal; 2018-10-14)
PROC: 0BH17EZ Insertion of Endotracheal Airway into Trachea, Via Natural or Artificial Opening (ICD-10-PCS; 2018-10-14)
DX: J96.01 Acute respiratory failure with hypoxia (principal); J96.02 Acute respiratory failure with hypercapnia; I21.A1 Myocardial infarction type 2; R57.9 Shock, unspecified; T40.2X5A Adverse effect of other opioids, initial encounter; E66.2 Morbid (severe) obesity with alveolar hypoventilation; Z68.36 Body mass index [BMI] 36.0-36.9, adult; E87.2 Acidosis; S52.572A Other intraarticular fracture of lower end of left radius, initial encounter for closed fracture; S52.612A Displaced fracture of left ulna styloid process, initial encounter for closed fracture; S82.55XA Nondisplaced fracture of medial malleolus of left tibia, initial encounter for closed fracture; N39.0 Urinary tract infection, site not specified; B96.20 Unspecified Escherichia coli [E. coli] as the cause of diseases classified elsewhere; J44.9 Chronic obstructive pulmonary disease, unspecified; R91.8 Other nonspecific abnormal finding of lung field; R40.0 Somnolence; R41.82 Altered mental status, unspecified; I10 Essential (primary) hypertension; E83.39 Other disorders of phosphorus metabolism; E11.42 Type 2 diabetes mellitus with diabetic polyneuropathy; F17.210 Nicotine dependence, cigarettes, uncomplicated; E87.6 Hypokalemia; W19.XXXA Unspecified fall, initial encounter; Z99.81 Dependence on supplemental oxygen; Z92.3 Personal history of irradiation; Z92.21 Personal history of antineoplastic chemotherapy; Z85.41 Personal history of malignant neoplasm of cervix uteri
CPT/HCPCS: 36415; 36556; 36600; 70450; 71045; 71275; 72125; 74177; 80048; 80053; 80306; 81000; 82805; 82962; 83605; 83735; 83880; 84100; 84484; 85025; 85027; 85610; 85730; 87040; 87070; 87077; 87081; 87088; 87186; 87205; 87804; 93005; 93306; 94002; 94003; 94640; 94760; 94799; 96361; 96365; 96367; 96375; 99291

== ENCOUNTER 2018-10-19 10:00 | Inpatient (IN) | payer MEDICARE, MEDICAID | END 2018-10-29 15:05 | disposition home or self-care (01) ==

== ENCOUNTER → 2018-10-23 | Day surgery (SDC) | payer MEDICARE, MEDICAID ==
[2018-10-23] VITALS (9 sets, daily range): BP systolic 92–160; BP diastolic 66–80
[~2018-10-23] MED LIST changes: +ACET325T49 PO; +ALBU18HF2 INH; +ALPR0.254 PO; +APIX5TAB PO; +ASPI-983 PO; +ASPI-999 PO; +BUDE10.2 INH; +CEPH250C PO; +GLYC-12 RC; +LOPE-134 PO; +LOSA100T57 PO; +NS IV 1000 ML 1,000 ML IV SCH; +PATIENT MAY USE OWN MEDS, ALL PO SCH; +POLY17PO6 PO; +PROC-1 PO
--- OUTSIDE RECORDS SUMMARY | 2018-10-23 12:04 | XMS REPORT ---
Author Author Migration, Doctor Organization [facility] Address Unknown Phone Unavailable Care Team Providers Care Field Sales Agent Name Role Phone Migration, Doctor Unavailable Unavailable PROBLEMS Type Condition ICD9-CM Code GXP90-HO Code Onset Dates Condition Status SNOMED Code Problem Unspecified abnormal mammogram 793.80 Active 631109496 Problem Personal history of tobacco use, presenting hazards to health V15.82 Active 0983154458836 Problem Unspecified backache 724.5 Active 337776635 Problem Chest pain, unspecified 786.50 Active 08326819 Problem 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 Active 0197184865980 Problem Sciatica 724.3 Active 67944947 Problem 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 56959399 Problem Coronary atherosclerosis of unspecified type of vessel, [place] or graft 414.00 Active 187962770 Problem Hyperlipidemia 272.4 Active 44974454 Problem Hyperlipidemia, unspecified hyperlipidemia type E78.5 Active 77937821 Problem History of cervical cancer Z85.41 Active 908687616 Problem Anxiety F41.9 Active 96314110 Problem Epiploic appendagitis K52.9 Active 30094737709099212 Problem History of pulmonary embolus (PE) Z86.711 Active 633965985 Problem Malignant neoplasm of cervix uteri, unspecified site 180.9 Active 646671863 Problem Encounter for long-term (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 other medications V58.69 Active 216810313 Problem Essential hypertension I10 Active 35423019 Problem 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 Active 925942657 Problem Long-term (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 anticoagulants Z79.01 Active 983720529 Problem Atherosclerotic heart disease of [place] coronary artery without angina pectoris I25.10 Active [id number] ALLERGIES No Information ENCOUNTERS Encounter Location Date Diagnosis [facility] [address] [facility] [id number] [address] Nov, [facility] [address] [id number] [address] 31[address] Aug, Anxiety F41.9 [facility] [address] [address] Jul, [facility] [id number] [place] [address] 41976- 2323 Jun, Anxiety F41.9 [facility] [id number] [place] [address] 49594- 0304 Jun, [facility] [id number] [place] [address] 43122- 7030 May, [facility] [id number] [place] [address] 47563- 8115 May, Hyperlipidemia, unspecified hyperlipidemia type E78.5 [facility] [id number] [place] [address] 19170- 2116 Apr, Anxiety F41.9 [facility] [id number] [place] [address] 63251- 1067 Mar, [facility] [id number] [place] [address] 43083- 3921 Mar, Essential hypertension I10 ; History of pulmonary embolus ( PE) Z86.711 ; Anxiety F41.9 and Malignant neoplasm of cervix, unspecified site C53.9 [facility] [address] [address] 7711 Mar, Atherosclerotic heart disease of [place] coronary artery without angina pectoris I25.10 [facility] [address] [address] 30 Feb, 2016 Atherosclerotic heart disease of [place] coronary artery without angina pectoris I25.10 [facility] [id number] [place] [address] 78731- 3877 Feb, Anxiety F41.9 [facility] [address] [address] 1764 Feb, [facility] [id number] [place] [address] 46551- 6781 Feb, 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 [facility] [address] [address]- [address]86 Jan, Anxiety F41.9 [facility] [id number] [place] [address] 71510 2546 Jan, Long-term (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 anticoagulants Z79.01 [facility] [id number] [place] [address] 92074 2546 Jan, Anxiety F41.9 [facility] [address] [address]- 7976 Dec, Long-term (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 anticoagulants Z79.01 [facility] [address] [address]40- 6646 Dec, [facility] [address] [address]23- 2876 Dec, [facility] [address] 30911- 2541 Dec, Anxiety F41.9 [facility] [id number] [place] [address] 76992- 4332 Nov, [facility] [id number] [place] [address] 18449- 3454 Nov, [facility] [address] [address] 2547 Nov, Long-term (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 anticoagulants Z79.01 and Seizures R56.9 [facility] [address] [address] 2546 Nov, [facility] [id number] [place] [address] 77114 2546 Nov, Anxiety F41.9 [facility] [address] 57576- 4946 Nov, High risk medication use Z79.899 [facility] [address] [id number] [place] [address] 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 [facility] [address] [id number] [address] October, 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 [facility] [id number] [place] [address] 41882- 8074 October, [facility] [id number] [place] [address] 55635- 2692 October, [address] [id number] [place] [address] 35149- 6216 Sep, High risk medications (not anticoagulants) long-term use V58.69 and Other detention (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 [place] [address] [id number] [address] 2403 Sep, [facility] [address] [address] 4050 Aug, [place] [address] [address]- 3904 Aug, [place] [address] [id number] [address] 7011 Aug, [facility] [address] [id number] [address]- 3880 Jul, High risk medications (not anticoagulants) long-term use V58.69 ; Essential hypertension I10 ; Hyperlipidemia, unspecified hyperlipidemia type E78.5 and Other detention (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 [facility] [id number] [address]- 4733 Jul, [facility] [address] [id number] [address]- 7173 Jun, High risk medications (not anticoagulants) long-term use V58.69 [facility] [address] [address]- 7186 Jun, [facility] [id number] [place] [address] 265386- 6452 Jun, [facility] [id number] [place] [address] 85804- 7189 Jun, [facility] [id number] [place] [address] 25288- 6824 May, [facility] [id number] [place] [address] 16470- 4398 May, [facility] [id number] [place] [address] 63297- 8632 May, 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 [facility] [id number] [place] [address] 44643- 6177 May, [facility] [id number] [place] [address] 63209- 8933 May, Essential hypertension I10 ; Hyperlipidemia, unspecified hyperlipidemia type E78.5 and History of cervical cancer Z85.41 [place] [address] [address]- 0023 Apr, [facility] [id number] [place] [address] 59148- 3734 Apr, High risk medications (not anticoagulants) long-term use V58.69 [facility] [address] [address]- 3314 Mar, [place] [id number] [place] [address] 91310- 0487 Mar, 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 [facility] [id number] [place] [address] 77279- 1700 Feb, [facility] [address] [address]- 0336 Feb, [facility] [id number] [place] [address] 85058- 3666 Feb, High risk medications (not anticoagulants) long-term use V58.69 ; Pneumonia 486 and Gait disturbance 781.2 [place] [id number] [place] [address] 06558- 2056 Feb, [facility] [id number] [address] 2543 Feb, [place] [id number] [place] [address] 42160- 8017 Feb, [facility] [id number] [place] [address] 28571- 6658 Jan, High risk medications (not anticoagulants) long-term use V58.69 [facility] [id number] [place] [address] 48826- 2322 Jan, [facility] [id number] [place] [address] 92380- 2050 Dec, High risk medications (not anticoagulants) long-term use V58.69 [place] [address] [address]- 4932 Dec, 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.61 [place] [id number] [place] [address] 70834- 0660 Dec, [facility] [address] [address] 2546 Dec, [facility] [id number] [place] [address] 84856- 2546 Dec, [facility] [address] [address]- 8615 Nov, 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 and Encounter for long-term (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 other medications V58.69 [facility] [address] [address]- 2927 Nov, [facility] [id number] [address]- 6589 Nov, [facility] [address] [address]- 3148 October, [facility] [id number] [place] [address] 64502- 9128 October, [facility] [address] [address]- 3300 October, High risk medication use V58.69 ; Cervical cancer 180.9 ; Neuropathy 355.9 and Hyperlipidemia 272.4 [facility] [address] [address]- 4662 October, [facility] [id number] [address]- 3048 Sep, [facility] [address] [address]- 9872 Sep, [facility] [address] [address]- 1075 Sep, [facility] [address] [address]- 1463 Aug, [facility] [address] [address]- 9480 Aug, [facility] [address] [address]- 9893 Aug, [facility] [address] [address]- 3809 18 Aug, 2014 [facility] [address] 6578 17 Aug, 2014 [facility] [address] [address]- 7408 Jul, [facility] [place] [facility] [address] [id number] [place] [address]- 3906 Jul, [facility] [place] [facility] [address] [id number] [place] [address]- 0249 Jul, [facility] [place] [facility] [address] [id number] [place] [address]- 0686 Jul, [facility] [place] [facility] [address] [id number] [place] [address]- 9563 Jul, [facility] [place] [facility] [address] [id number] [place] [address]- 5716 Jul, [facility] [place] [facility] [address] [facility] [id number] [place] [address]- 5846 Jul, [facility] [place] [facility] [address] [facility] [id number] [place] [address]- 5695 Jul, [facility] [place] [facility] [address] [id number] [place] [address]- 2542 Jun, [facility] [place] [facility] [address] [id number] [place] [address]- 8309 Jun, [facility] [place] [facility] [address] [facility] [id number] [place] [address]- 5117 Jun, [facility] [place] [facility] [address] [id number] [place] [address]- 5408 Jun, [facility] [place] [facility] [address] [id number] [place] [address]- 7178 Jun, [facility] [place] [facility] [address] [id number] [place] [address]- 4461 Jun, [facility] [place] [facility] [address] [facility] [id number] [place] [address]- 0354 Jun, [facility] [place] [facility] [address] [id number] [place] [address]- 3353 Jun, [facility] [place] [facility] [address] [id number] [place] [address]- 3089 Jun, [facility] [place] [facility] [address] [id number] [place] [address]- 4313 Jun, [facility] [place] [facility] [address] [id number] [place] [address]- 2461 Jun, [facility] [address] [id number] [place] [address]- 4847 Jun, [facility] [address] [id number] [place] [address]- 8431 May, [facility] [place] [facility] [address] [id number] [place] [address]- 9492 May, [facility] [address] [id number] [place] [address]- 5722 May, [facility] [address] [id number] [place] [address]- 6282 May, [facility] [place] [facility] [address] [id number] [place] [address]- 2981 May, [facility] [place] [facility] [address] [id number] [place] [address]- 8040 May, [facility] [place] [facility] [address] [id number] [place] [address]- 5264 May, [facility] [place] [facility] [address] [id number] [place] [address]- 9674 May, [facility] [place] [facility] [address] [id number] [place] [address]- 6029 May, [facility] [place] [facility] [address] [id number] [place] [address]- 9669 May, [facility] [place] [facility] [address] [id number] [place] [address]- 5097 May, [facility] [place] [facility] [address] [id number] [place] [address]- 7558 May, [facility] [place] [facility] [address] [id number] [place] [address]- 2762 May, [facility] [place] [facility] [address] [id number] [place] 3739 May, [facility] [place] [facility] [address] [id number] [place] [address]- 2674 May, [facility] [place] [facility] [address] [id number] [place] [address]- 7568 May, [facility] [place] [facility] [address] [id number] [place] [address]- 9729 May, [facility] [place] [facility] [address] [id number] [place] [address]- 8805 May, [facility] [place] [facility] [address] [id number] [place] [address]- 0341 May, [facility] [place] [facility] [address] [id number] [place] [address]- 5720 Apr, [facility] [place] [facility] [address] [id number] [place] [address]- 7396 Apr, [facility] [place] [facility] [address] [id number] [place] [address]- 8873 Apr, [facility] [place] [facility] [address] [id number] [place] [address]- 7856 Apr, [facility] [place] [facility] [address] [id number] [place] [address]- 7215 Apr, [facility] [place] [facility] [address] [id number] [place] [address]- 3838 Apr, [facility] [place] [facility] [address] [id number] [place] [address]- 5795 Apr, [facility] [place] [facility] [address] [id number] [place] [address]- 6978 Apr, [facility] [place] [facility] [address] [id number] [place] [address]- 0393 Apr, [facility] [place] [facility] [address] [id number] [place] [address]- 0875 Mar, [facility] [place] [facility] [address] [id number] [place] [address]- 7047 Mar, [facility] [place] [facility] [address] [id number] [place] [address]- 7030 Mar, [facility] [place] [facility] [address] [id number] [place] [address]- 8943 Mar, [facility] [place] [facility] [address] [id number] [place] [address]- 7732 Mar, [facility] [place] [facility] [address] [id number] [place] [address]- 0104 Mar, [facility] [place] [facility] [address] [id number] [place] [address]- 5965 Mar, [facility] [place] [facility] [address] [id number] [place] [address]- 4107 Mar, [facility] [place] [facility] [address] [id number] [place] [address]- 0326 Mar, [facility] [place] [facility] [address] [id number] [place] [address]- 2216 Mar, [facility] [place] [facility] [address] [id number] [place] [address]- 9589 Mar, [facility] [place] [facility] [address] [id number] [place] [address]- 4679 Mar, [facility] [place] [facility] [address] [id number] [place] 3518 Mar, [facility] [place] [facility] [address] [id number] [place] [address]- 1764 Mar, [facility] [place] [facility] [address] [id number] [place] [address]- 8355 Mar, [facility] [place] [facility] [address] [id number] [place] [address]- 0652 18 Feb, 2013 [facility] [place] [facility] [address] [id number] [place] [address]- 3380 Feb, 2013 [facility] [place] [facility] [address] [id number] [place] [address]- 8430 Feb, 2013 [facility] [place] [facility] [address] [id number] [place] [address]- 2968 Feb, 2013 [facility] [place] [facility] [address] [id number] [place] [address]- 1825 Feb, 2013 [facility] [place] [facility] [address] [id number] [place] [address]- 6430 Feb, 2013 [facility] [place] [facility] [address] [id number] [place] [address]- 6808 Feb, 2013 [facility] [place] [facility] [address] [id number] [place] [address]- 8287 Feb, 2013 [facility] [place] [facility] [address] [id number] [place] [address]- 2932 Jan, [facility] [place] [facility] [address] [id number] [place] [address]- 3142 Jan, [facility] [place] [facility] [address] [id number] [place] [address]- 7291 Jan, [facility] [place] [facility] [address] [id number] [place] [address]- 1559 Jan, [facility] [place] [facility] [address] [id number] [place] [address]- 1414 Jan, [facility] [place] [facility] [address] [id number] [place] [address]- 0946 Jan, [facility] [place] [facility] [address] [id number] [place] [address]- 2323 Jan, [facility] [place] [facility] [address] [id number] [place] [address]- 3651 Jan, [facility] [place] [facility] [address] [id number] [place] [address]- 4987 Jan, [facility] [place] [facility] [address] [id number] [place] [address]- 2350 Jan, [facility] [place] [facility] [address] [id number] [place] [address]- 4010 Jan, [facility] [place] [facility] [address] [id number] [place] [address]- 8641 Jan, [facility] [place] [facility] [address] [id number] [place] [address]- 9306 Jan, [facility] [place] [facility] [address] [id number] [place] [address] Jan, [facility] [place] [facility] [address] [id number] [place] [address] Jan, [facility] [place] [facility] [address] [id number] [place] [address] Jan, [facility] [place] [facility] [address] [id number] [place] [address] Jan, [facility] [place] [facility] [address] [id number] [place] [address] Dec, [facility] [place] [facility] [address] [id number] [place] [address] Dec, [facility] [place] [facility] [address] [id number] [place] [address] Dec, [facility] [place] [facility] [address] [id number] [place] [address] Dec, [facility] [place] [facility] [address] [id number] [place] [address] Dec, [facility] [place] [facility] [address] [id number] [place] [address] Dec, [facility] [place] [facility] [address] [id number] [place] [address] Dec, [facility] [place] [facility] [address] [id number] [facility] [place] [address] Dec, [facility] [place] [facility] [address] [id number] [place] [address] Dec, [facility] [place] [facility] [address] [id number] [place] [address] Dec, [facility] [place] [facility] [address] [id number] [place] [address] Dec, [facility] [place] [facility] [address] [id number] [place] [address] Dec, [facility] [place] [facility] [address] [id number] [place] [address] Nov, [facility] [place] [facility] [address] [id number] [place] [address] Nov, [facility] [place] [facility] [address] [id number] [place] [address] Nov, [facility] [place] [facility] [address] [id number] [place] [address]- [address] Nov, [facility] [place] [facility] [address] [id number] [place] [address] Nov, [facility] [place] [facility] [address] [id number] [place] [address]- [address] Nov, [facility] [place] [facility] [address] [id number] [place] [address] October, [facility] [place] [facility] [address] [id number] [place] [address]- [address] October, [facility] [place] [facility] [address] [id number] [place] [address]- [address] October, [facility] [place] [facility] [address] [id number] [place] [address]- [address] October, [facility] [address] [id number] [place] [address] October, [facility] [place] [facility] [address] [id number] [place] [address] October, [facility] [place] [facility] [address] [id number] [place] [address] October, [facility] [place] [facility] [address] [id number] [place] [address] October, [facility] [address] [id number] [place] [address] October, [facility] [place] [facility] [address] [id number] [place] [address] October, [facility] [address] [id number] [place] [address] October, [facility] [place] [facility] [address] [id number] [place] [address] 137[address] October, [facility] [place] [facility] [address] [id number] [place] [address] October, [facility] [place] [facility] [address] [id number] [place] [address] October, [facility] [place] [facility] [address] [id number] [place] [address] October, [facility] [place] [facility] [address] [id number] [place] [address] October, [facility] [place] [facility] [address] [id number] [place] [address]- [address] October, [facility] [place] [facility] [address] [id number] [place] [address] October, [facility] [place] [facility] [address] [id number] [place] [address] October, [facility] [place] [facility] [address] [address] [id number] [place] [address] October, [facility] [address] [id number] [place] [address] October, [facility] [place] [facility] [address] [id number] [place] [address] October, [facility] [address] [id number] [place] [address] October, [facility] [place] [facility] [address] [id number] [place] [address] October, [facility] [place] [facility] [address] [id number] [place] [address] October, [facility] [place] [facility] [address] [id number] [place] [address] October, [facility] [address] [id number] [place] [address] October, [facility] [place] [facility] [address] [id number] [place] [address] October, [facility] [place] [facility] [address] [id number] [place] [address] October, [facility] [place] [facility] [address] [id number] [place] [address] Sep, [facility] [place] [facility] [address] [id number] [place] [address] Sep, [facility] [place] [facility] [address] [id number] [place] [address] Jun, [facility] [place] [facility] [address] [id number] [place] [address] Jun, [facility] [place] [facility] [address] [id number] [place] [address] May, [facility] [place] [facility] [address] [id number] [place] [address] May, [facility] [place] [facility] [address] [id number] [place] [address] 25[address] May, [facility] [place] [facility] [address] [id number] [place] [address] Apr, [facility] [place] [facility] [address] [id number] [place] [address] Mar, [facility] [place] [facility] [address] [id number] [place] [address] Mar, [facility] [address] [id number] [place] [address] Mar, [facility] [place] [facility] [address] [id number] [place] [address] Mar, [facility] [address] [id number] [place] [address] Jan, [facility] [address] [id number] [place] [address] Dec, [facility] [address] [id number] [place] [address] Nov, [facility] [address] [id number] [place] [address] October, [facility] [place] [facility] [address] [id number] [place] [address] October, [facility] [place] [facility] [address] [id number] [place] [address] Aug, [facility] [place] [facility] [address] [id number] [place] [address] Jul, [facility] [place] [facility] [address] [id number] [place] [address] Jun, [facility] [place] [facility] [address] [id number] [place] [address]- [address] Jun, [facility] [place] [facility] [address] [id number] [place] [address] May, [facility] [place] [facility] [address] [id number] [place] [address] May, [facility] [place] [facility] [address] [id number] [place] [address] May, [facility] [place] [facility] [address] [id number] [place] [address] Apr, [facility] [place] [facility] [address] [id number] [place] [address] Apr, [facility] [place] [facility] [address] [id number] [place] [address] Apr, [facility] [place] [facility] [address] [id number] [place] [address]- [address] Apr, [facility] [place] [facility] [address] [id number] [place] [address] Apr, [facility] [place] [facility] [address] [id number] [place] [address] Apr, [facility] [place] [facility] [address] [id number] [place] [address] Apr, [facility] [place] [facility] [address] [id number] [place] [address] Apr, [facility] [place] [facility] [address] [id number] [place] [address] Feb, [facility] [place] [facility] [address] [id number] [place] [address]- [address] Jan, [facility] [place] [facility] [address] [id number] [place] [address]- [address] Jan, [facility] [place] [facility] [address] [id number] [place] [address] Jan, [facility] [place] [facility] [address] [id number] [place] [address] Dec, [facility] [place] [facility] [address] [id number] [place] [address] Nov, [facility] [address] [id number] [place] [address] October, [facility] [address] [id number] [place] [address] October, [facility] [address] [id number] [place] [address] Sep, [facility] [address] [id number] [place] [address] 59[address] Sep, [facility] [address] [id number] [place] [address] Sep, [facility] [address] [id number] [place] [address] Aug, [facility] [address] [id number] [place] [address] Jul, [facility] [address] [id number] [place] [address] Jun, [facility] [address] [id number] [place] [address] Jun, [facility] [address] [id number] [place] [address] May, [facility] [address] [id number] [place] [address] May, [facility] [address] [id number] [place] [address] May, [facility] [place] [facility] [address] [id number] [place] [address] Apr, [facility] [place] [facility] [address] [id number] [place] [address] Apr, [facility] [address] [id number] [place] [address] Mar, [facility] [address] [facility] [id number] [place] [address] Mar, [facility] [address] [id number] [place] [address] Dec, [facility] [address] [facility] [id number] [place] [address] Apr, [facility] [address] [facility] [id number] [place] [address] Apr, IMMUNIZATIONS No Known Immunizations SOCIAL HISTORY Never Assessed REASON FOR VISIT EMR-[facility] [place] OF CARE VITAL SIGNS MEDICATIONS Unknown [...] FIGO stage IB1, 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 Stephanie [facility]) 10/18/2013 Surgical History tubal ligation 1974 Surgical History cholecystectomy 1970 Hospitalization History radical hysterectomy 10/18/13
--- OUTSIDE RECORDS SUMMARY | 2018-10-23 12:05 | XMS REPORT ---
Author Author Migration, Doctor Organization [facility] Address Unknown Phone Unavailable Care Team Providers Care Category Manager Name Role Phone Migration, Doctor Unavailable Unavailable PROBLEMS Type Condition ICD9-CM Code PDW45-EU Code Onset Dates Condition Status SNOMED Code Problem Unspecified abnormal mammogram 793.80 Active 629019583 Problem Personal history of tobacco use, presenting hazards to health V15.82 Active 5314557907166 Problem Unspecified backache 724.5 Active 967747722 Problem Chest pain, unspecified 786.50 Active 94793683 Problem 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 Active 8805973465093 Problem Sciatica 724.3 Active 58808035 Problem 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 91656205 Problem Coronary atherosclerosis of unspecified type of vessel, galena or graft 414.00 Active 164811496 Problem Hyperlipidemia 272.4 Active 89254427 Problem Hyperlipidemia, unspecified hyperlipidemia type E78.5 Active 82851480 Problem History of cervical cancer Z85.41 Active 466730563 Problem Anxiety F41.9 Active 96421407 Problem Epiploic appendagitis K52.9 Active 06635039920213930 Problem History of pulmonary embolus (PE) Z86.711 Active 610305725 Problem Malignant neoplasm of cervix uteri, unspecified site 180.9 Active 390274268 Problem Encounter for long-term (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 other medications V58.69 Active 044189068 Problem Essential hypertension I10 Active 15371776 Problem Other intermediate frame tender (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 Active 788684418 Problem Long-term (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 anticoagulants Z79.01 Active 536129576 Problem 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 [id number] [address] Nov, [facility] [address] [id number], [place] [address] Aug, Anxiety F41.9 [facility] [address], [place] [address] Jul, [facility] [id number] [place] [address] 11196- 2927 Jun, Anxiety F41.9 [facility] [id number] [place] [address] 35396- 8346 Jun, [facility] [id number] [place] [address] 89533- 9369 May, [facility] [id number] [place] [address] 58484- 1897 May, Hyperlipidemia, unspecified hyperlipidemia type E78.5 [facility] [id number] [place] [address] 41194- 2613 Apr, Anxiety F41.9 [facility] [id number] [place] [address] 11139- 7322 Mar, [facility] [id number] [place] [address] 79552- 7019 Mar, Essential hypertension I10 ; History of pulmonary embolus ( PE) Z86.711 ; Anxiety F41.9 and Malignant neoplasm of cervix, unspecified site C53.9 [facility] [address], [place] [address] Mar, 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 [facility] [address], [place] [address] 0[address] 30 Feb, 2016 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 [facility] [id number] [place] [address] 14440- 6347 Feb, Anxiety F41.9 [facility] [address], [place] [address] 7514 Feb, [facility] [id number] [place] [address] 77184- 0547 Feb, Other intermediate frame tender (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 [facility] [address] [address]- 1066 Jan, Anxiety F41.9 [facility] [id number] [place] [address] 13847 2546 Jan, Long-term (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 anticoagulants Z79.01 [facility] [id number] [place] [address] 38093 2546 Jan, Anxiety F41.9 [facility] [address] 08995- 1128 Dec, Long-term (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 anticoagulants Z79.01 [facility] [address] 68151- 3696 Dec, [facility] [address] 53058- 8117 Dec, [facility] [address] 92726- 2542 Dec, Anxiety F41.9 [facility] [id number] [place] [address] 24793- 1226 Nov, [facility] [id number] [place] [address] 80585- 8915 Nov, [facility] [address] 64261 254 Nov, Long-term (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 anticoagulants Z79.01 and Seizures R56.9 [facility] [address] 64460 2546 Nov, [facility] [id number] [place] [address] 23636 2546 Nov, Anxiety F41.9 [facility] [address] 81334- 7168 Nov, High risk medication use Z79.899 [facility] [address] [id number] [address] October intermediate frame tender (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 anticoagulants Z79.01 [facility] [address] [id number] [address] 2807 October, Other intermediate frame tender (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 [facility] [id number] [place] [address] 17242- 6891 October, [facility] [id number] [place] [address] 60376- 4398 October, [id number] [place] [address] 07046- 1060 Sep, High risk medications (not anticoagulants) long-term use V58.69 and Other alf (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 [address] [facility] [id number], [place] [address] 79[address] Sep, [facility] [address], [place] [address] 9200 Aug, [address] [address], [place] [address] 3045 Aug, [address] [facility] [id number], [place] [address] 5631 Aug, [facility] [id number], [place] [address] 8581 Jul, High risk medications (not anticoagulants) long-term use V58.69 ; Essential hypertension I10 ; Hyperlipidemia, unspecified hyperlipidemia type E78.5 and Other alf (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 [facility] [id number], [place] [address] 9249 Jul, [facility] [id number], [place] [address] 0430 Jun, High risk medications (not anticoagulants) long-term use V58.69 [facility] [address], [place] [address] 1639 Jun, [facility] [id number] [place] [address] 476023- 6227 Jun, [facility] [id number] [place] [address] 99349- 8365 Jun, [facility] [id number] [place] [address] 10613- 6929 May, [facility] [id number] [place] [address] 03952- 8738 May, [facility] [id number] [place] [address] 15574- 1019 May, Other intermediate frame tender (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 [facility] [id number] [place] [address] 96091- 9662 May, [facility] [id number] [place] [address] 79590- 4076 May, Essential hypertension I10 ; Hyperlipidemia, unspecified hyperlipidemia type E78.5 and History of cervical cancer Z85.41 [place] [address], [place] [address]- 6898 Apr, [facility] [id number] [place] [address] 68586- 1503 Apr, High risk medications (not anticoagulants) long-term use V58.69 [facility] [address], [place] [address]- 0505 Mar, [address] [id number] [place] [address] 57260- 2901 Mar, Other intermediate frame tender (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 [facility] [id number] [place] [address] 97319- 9528 Feb, [facility] [address], [place] [address]- 9746 Feb, [facility] [id number] [place] [address] 27878- 7006 Feb, High risk medications (not anticoagulants) long-term use V58.69 ; Pneumonia 486 and Gait disturbance 781.2 [address] [id number] [place] [address] 40021- 6786 Feb, [facility] [address] [id number] [address] 2541 Feb, [place] [id number] [place] [address] 30304- 3362 Feb, [facility] [id number] [place] [address] 30050- 2831 Jan, High risk medications (not anticoagulants) long-term use V58.69 [facility] [address] [place] [address] 87947- 9573 Jan, [facility] [id number] [place] [address] 76864- 9610 Dec, High risk medications (not anticoagulants) long-term use V58.69 [place] [address], [place] [address]- 9387 Dec, intermediate frame tender current use of anticoagulant therapy V58.61 [place] [id number] [place] [address] 85093- 2544 Dec, [facility] [address], [place] [address] 2546 Dec, [facility] [id number] [place] [address] 09253- 2546 Dec, [facility] [address], [place] [address]- 8690 Nov, 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 and Encounter for long-term (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 other medications V58.69 [facility] [address], [place] [address]- 2563 Nov, [facility] [id number] [address]- 4093 Nov, [facility] [address], [place] [address]- 9513 October, [facility] [id number] [place] [address] 23308- 9249 October, [facility] [address], [place] [address]- 4463 October, High risk medication use V58.69 ; Cervical cancer 180.9 ; Neuropathy 355.9 and Hyperlipidemia 272.4 [facility] [address], [place] [address]- 8348 October, [facility] [id number] [address]- 0650 Sep, [facility] [address], [place] [address]- 3094 Sep, [facility] [address], [place] [address]- 8423 Sep, [facility] [address], [place] [address]- 3473 Aug, [facility] [address], [place] [address]- 3158 Aug, [facility] [address], [place] [address]- 0074 Aug, [facility] [address], [place] [address]- 8235 18 Aug, 2014 [facility] [address] 6049 17 Aug, 2014 [facility] [address], [place] [address]- 0184 Jul, [facility] [place] [facility] [address] [id number] [place] [address]- 7596 Jul, [facility] [place] [facility] [address] [id number] [place] [address]- 0527 Jul, [facility] [place] [facility] [address] [id number] [place] [address]- 6196 Jul, [facility] [place] [facility] [address] [id number] [place] [address]- 7393 Jul, [facility] [place] [facility] [address] [id number] [place] [address]- 7042 Jul, [facility] [place] [facility] [address] [facility] [id number] [place] [address]- 6613 Jul, [facility] [place] [facility] [address] [facility] [id number] [place] [address]- 0428 Jul, [facility] [place] [facility] [address] [id number] [place] [address]- 0149 Jun, [facility] [place] [facility] [address] [id number] [place] [address]- 0791 Jun, [facility] [place] [facility] [address] [facility] [id number], [place] [address]- 6974 Jun, [facility] [place] [facility] [address] [id number] [place] [address]- 7383 Jun, [facility] [place] [facility] [address] [id number], [place] [address]- 2055 Jun, [facility] [place] [facility] [address] [id number] [place] [address]- 9170 Jun, [facility] [place] [facility] [address] [facility] [id number], [place] [address]- 3101 Jun, [facility] [place] [facility] [address] [id number], [place] [address]- 5443 Jun, [facility] [place] [facility] [address] [id number] [place] [address]- 6702 Jun, [facility] [place] [facility] [address] [id number] [place] [address]- 0681 Jun, [facility] [place] [facility] [address] [id number] [place] [address]- 9675 Jun, [facility] [address] [id number] [place] [address]- 8154 Jun, [facility] [address] [id number] [place] [address]- 3723 May, [facility] [place] [facility] [address] [id number] [place] [address]- 3325 May, [facility] [address] [id number] [place] [address]- 3852 May, [facility] [address] [id number] [place] [address]- 4203 May, [facility] [place] [facility] [address] [id number] [place] [address]- 2954 May, [facility] [place] [facility] [address] [id number] [place] [address]- 9007 May, [facility] [place] [facility] [address] [id number] [place] [address]- 4804 May, [facility] [place] [facility] [address] [id number] [place] [address]- 8377 May, [facility] [place] [facility] [address] [id number] [place] [address]- 0112 May, [facility] [place] [facility] [address] [id number] [place] [address]- 9551 May, [facility] [place] [facility] [address] [id number] [place] [address]- 2940 May, [facility] [place] [facility] [address] [id number] [place] [address]- 5418 May, [facility] [place] [facility] [address] [id number] [place] [address]- 0008 May, [facility] [place] [facility] [address] [id number] [place] 7013 May, [facility] [place] [facility] [address] [id number] [place] [address]- 2726 May, [facility] [place] [facility] [address] [id number] [place] [address]- 7548 May, [facility] [place] [facility] [address] [id number] [place] [address]- 6589 May, [facility] [place] [facility] [address] [id number] [place] [address]- 0794 May, [facility] [place] [facility] [address] [id number] [place] [address]- 1290 May, [facility] [place] [facility] [address] [id number] [place] [address]- 1902 Apr, [facility] [place] [facility] [address] [id number] [place] [address]- 9339 Apr, [facility] [place] [facility] [address] [id number] [place] [address]- 9702 Apr, [facility] [place] [facility] [address] [id number] [place] [address]- 9934 Apr, [facility] [place] [facility] [address] [id number], [place] [address]- 4283 Apr, [facility] [place] [facility] [address] [id number] [place] [address]- 9127 Apr, [facility] [place] [facility] [address] [id number] [place] [address]- 5909 Apr, [facility] [place] [facility] [address] [id number] [place] [address]- 6269 Apr, [facility] [place] [facility] [address] [id number] [place] [address]- 9234 Apr, [facility] [place] [facility] [address] [id number] [place] [address]- 5882 Mar, [facility] [place] [facility] [address] [id number] [place] [address]- 2185 Mar, [facility] [place] [facility] [address] [id number] [place] [address]- 6840 Mar, [facility] [place] [facility] [address] [id number] [place] [address]- 1747 Mar, [facility] [place] [facility] [address] [id number] [place] [address]- 1988 Mar, [facility] [place] [facility] [address] [id number] [place] [address]- 3831 Mar, [facility] [place] [facility] [address] [id number] [place] [address]- 4216 Mar, [facility] [place] [facility] [address] [id number] [place] [address]- 3709 Mar, [facility] [place] [facility] [address] [id number] [place] [address]- 0615 Mar, [facility] [place] [facility] [address] [id number] [place] [address]- 5634 Mar, [facility] [place] [facility] [address] [id number] [place] [address]- 1458 Mar, [facility] [place] [facility] [address] [id number] [place] [address]- 8784 Mar, [facility] [place] [facility] [address] [id number] [place] 5584 Mar, [facility] [place] [facility] [address] [id number] [place] [address]- 2437 Mar, [facility] [place] [facility] [address] [id number] [place] [address]- 9009 Mar, [facility] [place] [facility] [address] [id number] [place] [address]- 9598 18 Feb, 2013 [facility] [place] [facility] [address] [id number] [place] [address]- 3969 Feb, 2013 [facility] [place] [facility] [address] [id number] [place] [address]- 1011 Feb, 2013 [facility] [place] [facility] [address] [id number] [place] [address]- 9389 Feb, 2013 [facility] [place] [facility] [address] [id number] [place] [address]- 3376 Feb, 2013 [facility] [place] [facility] [address] [id number] [place] [address]- 2615 Feb, 2013 [facility] [place] [facility] [address] [id number] [place] [address]- 6037 Feb, 2013 [facility] [place] [facility] [address] [id number] [place] [address]- 5149 Feb, 2013 [facility] [place] [facility] [address] [id number] [place] [address]- 7033 Jan, [facility] [place] [facility] [address] [id number] [place] [address]- 1800 Jan, [facility] [place] [facility] [address] [id number], [place] [address]- 3328 Jan, [facility] [place] [facility] [address] [id number], [place] [address]- 8771 Jan, [facility] [place] [facility] [address] [id number] [place] [address]- 2034 Jan, [facility] [place] [facility] [address] [id number] [place] [address]- 3333 Jan, [facility] [place] [facility] [address] [id number], [place] [address]- 6268 Jan, [facility] [place] [facility] [address] [id number], [place] [address]- 8712 Jan, [facility] [place] [facility] [address] [id number] [place] [address]- 3446 Jan, [facility] [place] [facility] [address] [id number] [place] [address]- 2780 Jan, [facility] [place] [facility] [address] [id number] [place] [address]- 6536 Jan, [facility] [place] [facility] [address] [id number] [place] [address]- 8662 Jan, [facility] [place] [facility] [address] [id number] [place] [address]- 9752 Jan, [facility] [place] [facility] [address] [id number] [place] [address]- 3965 Jan, [facility] [place] [facility] [address] [id number] [place] [address]- 0613 Jan, [facility] [place] [facility] [address] [id number] [place] [address]- 0097 Jan, [facility] [place] [facility] [address] [id number] [place] [address]- 4899 Jan, [facility] [place] [facility] [address] [id number] [place] [address]- 8494 Dec, [facility] [place] [facility] [address] [id number] [place] [address]- 5740 Dec, [facility] [place] [facility] [address] [id number] [place] [address]- 7915 Dec, [facility] [place] [facility] [address] [id number] [place] [address]- 8176 Dec, [facility] [place] [facility] [address] [id number] [place] [address]- 5359 Dec, [facility] [place] [facility] [address] [id number] [place] [address]- 1513 Dec, [facility] [place] [facility] [address] [id number] [place] [address]- 6834 Dec, [facility] [place] [facility] [address] [id number] [place] [address]- 8839 Dec, [facility] [place] [facility] [address] [id number] [place] [address]- 0944 Dec, [facility] [place] [facility] [address] [id number] [place] [address]- 8692 Dec, [facility] [place] [facility] [address] [id number] [place] [address]- 3474 Dec, [facility] [place] [facility] [address] [id number] [place] [address]- 9479 Dec, [facility] [place] [facility] [address] [id number] [place] [address]- 6622 Nov, [facility] [place] [facility] [address] [id number] [place] [address]- 6262 Nov, [facility] [place] [facility] [address] [id number] [place] [address]- 9261 Nov, [facility] [place] [facility] [address] [id number] [place] [address] Nov, [facility] [place] [facility] [address] [id number] [place] [address] Nov, [facility] [place] [facility] [address] [id number] [place] [address] Nov, [facility] [place] [facility] [address] [id number] [place] [address] October, [facility] [place] [facility] [address] [id number] [place] [address] October, [facility] [place] [facility] [address] [id number] [place] [address] October, [facility] [place] [facility] [address] [id number] [place] [address] October, [facility] [address] [id number] [place] [address] October, [facility] [place] [facility] [address] [id number] [place] [address] October, [facility] [place] [facility] [address] [id number] [place] [address] October, [facility] [place] [facility] [address] [id number] [place] [address] October, [facility] [address] [id number] [place] [address] October, [facility] [place] [facility] [address] [id number] [place] [address] October, [facility] [address] [id number] [place] [address] October, [facility] [place] [facility] [address] [id number] [place] [address] October, [facility] [place] [facility] [address] [id number] [place] [address] October, [facility] [place] [facility] [address] [id number] [place] [address] October, [facility] [place] [facility] [address] [id number] [place] [address] October, [facility] [place] [facility] [address] [id number] [place] [address] October, [facility] [place] [facility] [address] [id number] [place] [address] October, [facility] [place] [facility] [address] [id number] [place] [address] October, [facility] [place] [facility] [address] [id number] [place] [address] October, [facility] [place] [facility] [address] [id number] [place] [address] October, [facility] [address] [id number] [place] [address] October, [facility] [place] [facility] [address] [id number] [place] [address] October, [facility] [address] [id number] [place] [address] October, [facility] [place] [facility] [address] [id number] [place] [address]- [address] October, [facility] [place] [facility] [address] [id number] [place] [address] October, [facility] [place] [facility] [address] [id number] [place] [address] October, [facility] [address] [id number] [place] [address] October, [facility] [place] [facility] [address] [id number] [place] [address] October, [facility] [place] [facility] [address] [id number] [place] [address] October, [facility] [place] [facility] [address] [id number] [place] [address] Sep, [facility] [place] [facility] [address] [id number] [place] [address] Sep, [facility] [place] [facility] [address] [id number] [place] [address] Jun, [facility] [place] [facility] [address] [id number] [place] [address] Jun, [facility] [place] [facility] [address] [id number] [place] [address] May, [facility] [place] [facility] [address] [id number] [place] [address] May, [facility] [place] [facility] [address] [id number] [place] [address] May, [facility] [place] [facility] [address] [id number] [place] [address] Apr, [facility] [place] [facility] [address] [id number] [place] [address] Mar, [facility] [place] [facility] [address] [id number] [place] [address] Mar, [facility] [address] [id number] [place] [address] Mar, [facility] [place] [facility] [address] [id number] [place] [address] Mar, [facility] [address] [id number] [place] [place] [address] Jan, [facility] [address] [id number] [place] [address] Dec, [facility] [address] [id number] [place] [address] Nov, [facility] [address] [id number] [place] [address] October, [facility] [place] [facility] [address] [id number] [place] [address] October, [facility] [place] [facility] [address] [id number] [place] [address] Aug, [facility] [place] [facility] [address] [id number] [place] [address] Jul, [facility] [place] [facility] [address] [id number] [place] [address] Jun, [facility] [place] [facility] [address] [id number] [place] [address] Jun, [facility] [place] [facility] [address] [id number] [place] [address] May, [facility] [place] [facility] [address] [id number] [place] [address] May, [facility] [place] [facility] [address] [id number] [place] [address] May, [facility] [place] [facility] [address] [id number] [place] [address] Apr, [facility] [place] [facility] [address] [id number] [place] [address] Apr, [facility] [place] [facility] [address] [id number] [place] [address] Apr, [facility] [place] [facility] [address] [id number] [place] [address] Apr, [facility] [place] [facility] [address] [id number] [place] [address] Apr, [facility] [place] [facility] [address] [id number] [place] [address] Apr, [facility] [place] [facility] [address] [id number] [place] [address] Apr, [facility] [place] [facility] [address] [id number] [place] [address] Apr, [facility] [place] [facility] [address] [id number] [place] [address] Feb, [facility] [place] [facility] [address] [id number] [place] [address] Jan, [facility] [place] [facility] [address] [id number] [place] [address] Jan, [facility] [place] [facility] [address] [id number] [place] [address] Jan, [facility] [place] [facility] [address] [id number] [place] [address] Dec, [facility] [place] [facility] [address] [id number] [place] [address] Nov, [facility] [address] [id number] [place] [address] October, [facility] [address] [id number] [place] [address] October, [facility] [address] [id number] [place] [address] Sep, [facility] [address] [id number] [place] [address] Sep, [facility] [address] [id number] [place] [address] Sep, [facility] [address] [id number] [place] [address] Aug, [facility] [address] [id number] [place] [address] Jul, [facility] [address] [id number] [place] [address] Jun, [facility] [address] [id number] [place] [address] Jun, [facility] [address] [id number] [place] [address] May, [facility] [address] [id number] [place] [address] May, [facility] [address] [id number] [place] [address] May, [facility] [place] [facility] [address] [id number] [place] [address] Apr, [facility] [place] [facility] [address] [id number] [place] [address] Apr, [facility] [address] [id number] [place] [address] Mar, [facility] [address] [facility] [id number], [place] [address] Mar, [facility] [address] [id number], [place] [address] Dec, [facility] [address] [facility] [id number], [place] [address] Apr, [facility] [address] [facility] [id number], [place] [address] Apr, IMMUNIZATIONS No Known Immunizations SOCIAL HISTORY Never Assessed REASON FOR VISIT EMR-[facility] PLAN OF CARE VITAL SIGNS MEDICATIONS Unknown [...] FIGO stage IB1, 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 Stephanie Hector-[facility]) 10/18/2013 Surgical History tubal ligation 1974 Surgical History cholecystectomy 1970 Hospitalization History radical hysterectomy 10/18/13
--- OUTSIDE RECORDS SUMMARY | 2018-10-23 12:11 | XMS REPORT | Continuity of Care Document ---
[...] DO K 401.9 HYPERTENSION (SYSTEMIC) 03/06/2010 ZACH BAROMETERS CALIBRATOR, GRISEL S 300.02 GENERALIZED ANXIETY DISORDER 03/06/2010 ZACH BAROMETERS CALIBRATOR, GRISEL S 401.9 HYPERTENSION (SYSTEMIC) 03/06/2010 ZACH BAROMETERS CALIBRATOR, GRISEL S 300.02 GENERALIZED ANXIETY DISORDER 03/06/2010 ZACH BAROMETERS CALIBRATOR, GRISEL S 401.9 HYPERTENSION (SYSTEMIC) 03/06/2010 ZACH BAROMETERS CALIBRATOR, GRISEL S 300.02 GENERALIZED ANXIETY DISORDER 03/06/2010 ZACH BAROMETERS CALIBRATOR, GRISEL S 401.9 HYPERTENSION (SYSTEMIC) 03/06/2010 ZACH BAROMETERS CALIBRATOR, GRISEL S 300.02 GENERALIZED ANXIETY DISORDER 03/06/2010 ZACH BAROMETERS CALIBRATOR, GRISEL S 401.9 HYPERTENSION (SYSTEMIC) 03/06/2010 ZACH BAROMETERS CALIBRATOR, GRISEL S 300.02 GENERALIZED ANXIETY DISORDER 03/06/2010 ZACH BAROMETERS CALIBRATOR, GRISEL S 401.9 HYPERTENSION (SYSTEMIC) 03/06/2010 ZACH BAROMETERS CALIBRATOR, GRISEL S 300.02 GENERALIZED ANXIETY DISORDER 03/06/2010 ZACH BAROMETERS CALIBRATOR, GRISEL S 401.9 HYPERTENSION (SYSTEMIC) 03/06/2010 ZACH BAROMETERS CALIBRATOR, GRISEL S 300.02 GENERALIZED ANXIETY DISORDER 03/06/2010 ZACH BAROMETERS CALIBRATOR, GRISEL S 401.9 HYPERTENSION (SYSTEMIC) 03/06/2010 ZACH BAROMETERS CALIBRATOR, GRISEL S 300.02 GENERALIZED ANXIETY DISORDER 03/06/2010 ZACH BAROMETERS CALIBRATOR, GRISEL S 401.9 HYPERTENSION (SYSTEMIC) 03/06/2010 ZACH BAROMETERS CALIBRATOR, GRISEL S 300.02 GENERALIZED ANXIETY DISORDER 03/06/2010 ZACH BAROMETERS CALIBRATOR, GRISEL S 401.9 HYPERTENSION (SYSTEMIC) 03/06/2010 ZACH BAROMETERS CALIBRATOR, GRISEL S 300.02 GENERALIZED ANXIETY DISORDER 03/06/2010 ZACH BAROMETERS CALIBRATOR, GRISEL S 401.9 HYPERTENSION (SYSTEMIC) 03/06/2010 ZACH BAROMETERS CALIBRATOR, GRISEL S 300.02 GENERALIZED ANXIETY DISORDER 03/06/2010 ZACH BAROMETERS CALIBRATOR, GRISLE S 401.9 HYPERTENSION (SYSTEMIC) 03/06/2010 ZACH BAROMETERS CALIBRATOR, GRISEL S 300.02 GENERALIZED ANXIETY DISORDER 03/06/2010 ZACH BAROMETERS CALIBRATOR, GRISEL S 401.9 HYPERTENSION (SYSTEMIC) 03/06/2010 ZACH BAROMETERS CALIBRATOR, GRISEL S 300.02 GENERALIZED ANXIETY DISORDER 03/06/2010 ZACH BAROMETERS CALIBRATOR, GRISEL S 401.9 HYPERTENSION (SYSTEMIC) 03/06/2010 ZACH BAROMETERS CALIBRATOR, GRISEL S 300.02 GENERALIZED ANXIETY DISORDER 03/06/2010 ZACH BAROMETERS CALIBRATOR, GRISEL S 401.9 HYPERTENSION (SYSTEMIC) 03/06/2010 ZACH BAROMETERS CALIBRATOR, GRISEL S 300.02 GENERALIZED ANXIETY DISORDER 03/06/2010 ZACH BAROMETERS CALIBRATOR, GRISEL S 401.9 HYPERTENSION (SYSTEMIC) 03/06/2010 ZACH BAROMETERS CALIBRATOR, GRISEL S 300.02 GENERALIZED ANXIETY DISORDER 03/06/2010 ZACH BAROMETERS CALIBRATOR, GRISEL S 401.9 HYPERTENSION (SYSTEMIC) 03/06/2010 ZACH BAROMETERS CALIBRATOR, GRISEL S 300.02 GENERALIZED ANXIETY DISORDER 03/06/2010 ZACH BAROMETERS CALIBRATOR, GRISEL S 401.9 HYPERTENSION (SYSTEMIC) 03/06/2010 ZACH BAROMETERS CALIBRATOR, GRISEL S 300.02 GENERALIZED ANXIETY DISORDER 03/06/2010 ZACH BAROMETERS CALIBRATOR, GRISEL S 401.9 HYPERTENSION (SYSTEMIC) 03/06/2010 ZACH BAROMETERS CALIBRATOR, GRISEL S 300.02 GENERALIZED ANXIETY DISORDER 03/06/2010 ZACH BAROMETERS CALIBRATOR, GRISEL S 401.9 HYPERTENSION (SYSTEMIC) 03/06/2010 ZACH BAROMETERS CALIBRATOR, GRISEL S 300.02 GENERALIZED ANXIETY DISORDER 03/06/2010 ZACH BAROMETERS CALIBRATOR, GRISEL S 401.9 HYPERTENSION (SYSTEMIC) 03/06/2010 ZACH BAROMETERS CALIBRATOR, GRISEL S 300.02 GENERALIZED ANXIETY DISORDER 03/06/2010 ZACH BAROMETERS CALIBRATOR, GRISEL S 401.9 HYPERTENSION (SYSTEMIC) 03/19/2010 MAZA DO, MARTHA K 525.9 tooth pain 03/19/2010 MAZA DO, MARTHA K 525.9 tooth pain 03/19/2010 ZACH BAROMETERS CALIBRATOR, GRISEL S 525.9 tooth pain 03/19/2010 ZACH BAROMETERS CALIBRATOR, GRISEL S 525.9 tooth pain 03/19/2010 ZACH BAROMETERS CALIBRATOR, GRISEL S 525.9 tooth pain 03/19/2010 ZACH BAROMETERS CALIBRATOR, GRISEL S 525.9 tooth pain 03/19/2010 ZACH BAROMETERS CALIBRATOR, GRISEL S 525.9 tooth pain 03/19/2010 ZACH BAROMETERS CALIBRATOR, GRISEL S 525.9 tooth pain 03/19/2010 ZACH BAROMETERS CALIBRATOR, GRISEL S 525.9 tooth pain 03/19/2010 ZACH BAROMETERS CALIBRATOR, GRISEL S 525.9 tooth pain 03/19/2010 ZACH BAROMETERS CALIBRATOR, GRISEL S 525.9 tooth pain 03/19/2010 ZACH BAROMETERS CALIBRATOR, GRISEL S 525.9 tooth pain 03/19/2010 ZACH BAROMETERS CALIBRATOR, GRISEL S 525.9 tooth pain 03/19/2010 ZACH BAROMETERS CALIBRATOR, GRISEL S 525.9 tooth pain 03/19/2010 ZACH BAROMETERS CALIBRATOR, GRISEL S 525.9 tooth pain 03/19/2010 ZACH BAROMETERS CALIBRATOR, GRISEL S 525.9 tooth pain 03/19/2010 ZACH BAROMETERS CALIBRATOR, GRISEL S 525.9 tooth pain 03/19/2010 ZACH BAROMETERS CALIBRATOR, GRISEL S 525.9 tooth pain 03/19/2010 ZACH BAROMETERS CALIBRATOR, GRISEL S 525.9 tooth pain 03/19/2010 ZACH BAROMETERS CALIBRATOR, GRISEL S 525.9 tooth pain 03/19/2010 ZACH BAROMETERS CALIBRATOR, GRISEL S 525.9 tooth pain 03/19/2010 ZACH BAROMETERS CALIBRATOR, GRISEL S 525.9 tooth pain 03/19/2010 ZACH BAROMETERS CALIBRATOR, GRISEL S 525.9 tooth pain 09/17/2010 MAZA DO, MARTHA K 535.50 GASTRITIS 09/17/2010 MAZA DO, MARTHA K 535.50 GASTRITIS 09/17/2010 ZACH BAROMETERS CALIBRATOR, GRISEL S 535.50 GASTRITIS 09/17/2010 ZACH BAROMETERS CALIBRATOR, GRISEL S 535.50 GASTRITIS 09/17/2010 ZACH BAROMETERS CALIBRATOR, GRISEL S 535.50 GASTRITIS 09/17/2010 ZACH BAROMETERS CALIBRATOR, GRISEL S 535.50 GASTRITIS 09/17/2010 ZACH BAROMETERS CALIBRATOR, GRISEL S 535.50 GASTRITIS 09/17/2010 ZACH BAROMETERS CALIBRATOR, GRISEL S 535.50 GASTRITIS 09/17/2010 ZACH BAROMETERS CALIBRATOR, GRISEL S 535.50 GASTRITIS 09/17/2010 ZACH BAROMETERS CALIBRATOR, GRISEL S 535.50 GASTRITIS 09/17/2010 ZACH BAROMETERS CALIBRATOR, GRISEL S 535.50 GASTRITIS 09/17/2010 ZACH BAROMETERS CALIBRATOR, GRISEL S 535.50 GASTRITIS 09/17/2010 ZACH BAROMETERS CALIBRATOR, GRISEL S 535.50 GASTRITIS 09/17/2010 ZACH BAROMETERS CALIBRATOR, GRISEL S 535.50 GASTRITIS 09/17/2010 ZACH BAROMETERS CALIBRATOR, GRISEL S 535.50 GASTRITIS 09/17/2010 ZACH BAROMETERS CALIBRATOR, GRISEL S 535.50 GASTRITIS 09/17/2010 ZACH BAROMETERS CALIBRATOR, GRISEL S 535.50 GASTRITIS 09/17/2010 ZACH BAROMETERS CALIBRATOR, GRISEL S 535.50 GASTRITIS 09/17/2010 ZACH BAROMETERS CALIBRATOR, GRISEL S 535.50 GASTRITIS 09/17/2010 ZACH BAROMETERS CALIBRATOR, GRISEL S 535.50 GASTRITIS 09/17/2010 ZACH BAROMETERS CALIBRATOR, GRISEL S 535.50 GASTRITIS 09/17/2010 ZACH BAROMETERS CALIBRATOR, GRISEL S 535.50 GASTRITIS 09/17/2010 ZACH BAROMETERS CALIBRATOR, GRISEL S 535.50 GASTRITIS 12/30/2010 MAZA DO, MARTHA K 782.3 EDEMA 12/30/2010 MAZA DO, MARTHA K 782.3 EDEMA 12/30/2010 ZCAH BAROMETERS CALIBRATOR, GRISEL S 782.3 EDEMA 12/30/2010 ZACH BAROMETERS CALIBRATOR, GRISEL S 782.3 EDEMA 12/30/2010 ZACH BAROMETERS CALIBRATOR, GRISEL S 782.3 EDEMA 12/30/2010 ZACH BAROMETERS CALIBRATOR, GRISEL S 782.3 EDEMA 12/30/2010 ZACH BAROMETERS CALIBRATOR, GRISEL S 782.3 EDEMA 12/30/2010 ZACH BAROMETERS CALIBRATOR, GRISEL S 782.3 EDEMA 12/30/2010 ZACH BAROMETERS CALIBRATOR, GRISEL S 782.3 EDEMA 12/30/2010 ZACH BAROMETERS CALIBRATOR, GRISEL S 782.3 EDEMA 12/30/2010 ZACH BAROMETERS CALIBRATOR, GRISEL S 782.3 EDEMA 12/30/2010 ZACH BAROMETERS CALIBRATOR, GRISEL S 782.3 EDEMA 12/30/2010 ZACH BAROMETERS CALIBRATOR, GRISEL S 782.3 EDEMA 12/30/2010 ZACH BAROMETERS CALIBRATOR, GRISEL S 782.3 EDEMA 12/30/2010 ZACH BAROMETERS CALIBRATOR, GRISEL S 782.3 EDEMA 12/30/2010 ZACH BAROMETERS CALIBRATOR, GRISEL S 782.3 EDEMA 12/30/2010 ZACH BAROMETERS CALIBRATOR, GRISEL S 782.3 EDEMA 12/30/2010 ZACH BAROMETERS CALIBRATOR, GRISEL S 782.3 EDEMA 12/30/2010 ZACH BAROMETERS CALIBRATOR, GRISEL S 782.3 EDEMA 12/30/2010 ZACH BAROMETERS CALIBRATOR, GRISEL S 782.3 EDEMA 12/30/2010 ZACH BAROMETERS CALIBRATOR, GRISEL S 782.3 EDEMA 12/30/2010 ZACH BAROMETERS CALIBRATOR, GRISEL S 782.3 EDEMA 12/30/2010 ZACH BAROMETERS CALIBRATOR, GRISEL S 782.3 EDEMA 05/06/2011 MAZA DO, MARTHA K V04.81 FLU DX (3 YRS AND ABOVE, IM) 05/06/2011 MAZA DO, MARTHA K V04.81 FLU DX (3 YRS AND ABOVE, IM) 05/06/2011 ZACH BAROMETERS CALIBRATOR, GRISEL S V04.81 FLU DX (3 YRS AND ABOVE, IM) 05/06/2011 ZACH BAROMETERS CALIBRATOR, GRISEL S V04.81 FLU DX (3 YRS AND ABOVE, IM) 05/06/2011 ZACH BAROMETERS CALIBRATOR, GRISEL S V04.81 FLU DX (3 YRS AND ABOVE, IM) 05/06/2011 ZACH BAROMETERS CALIBRATOR, GRISEL S V04.81 FLU DX (3 YRS AND ABOVE, IM) 05/06/2011 ZACH BAROMETERS CALIBRATOR, GRISEL S V04.81 FLU DX (3 YRS AND ABOVE, IM) 05/06/2011 ZACH BAROMETERS CALIBRATOR, GRISEL S V04.81 FLU DX (3 YRS AND ABOVE, IM) 05/06/2011 ZACH BAROMETERS CALIBRATOR, GRISEL S V04.81 FLU DX (3 YRS AND ABOVE, IM) 05/06/2011 ZACH BAROMETERS CALIBRATOR, GRISEL S V04.81 FLU DX (3 YRS AND ABOVE, IM) 05/06/2011 ZACH BAROMETERS CALIBRATOR, GRISEL S V04.81 FLU DX (3 YRS AND ABOVE, IM) 05/06/2011 ZACH BAROMETERS CALIBRATOR, GRISEL S V04.81 FLU DX (3 YRS AND ABOVE, IM) 05/06/2011 ZACH BAROMETERS CALIBRATOR, GRISEL S V04.81 FLU DX (3 YRS AND ABOVE, IM) 05/06/2011 ZACH BAROMETERS CALIBRATOR, GRISEL S V04.81 FLU DX (3 YRS AND ABOVE, IM) 05/06/2011 ZACH BAROMETERS CALIBRATOR, GRISEL S V04.81 FLU DX (3 YRS AND ABOVE, IM) 05/06/2011 ZACH BAROMETERS CALIBRATOR, GRISEL S V04.81 FLU DX (3 YRS AND ABOVE, IM) 05/06/2011 ZACH BAROMETERS CALIBRATOR, GRISEL S V04.81 FLU DX (3 YRS AND ABOVE, IM) 05/06/2011 ZACH BAROMETERS CALIBRATOR, GRISEL S V04.81 FLU DX (3 YRS AND ABOVE, IM) 05/06/2011 ZACH BAROMETERS CALIBRATOR, GRISEL S V04.81 FLU DX (3 YRS AND ABOVE, IM) 05/06/2011 ZACH BAROMETERS CALIBRATOR, GRISEL S V04.81 FLU DX (3 YRS AND ABOVE, IM) 05/06/2011 ZACH BAROMETERS CALIBRATOR, GRISEL S V04.81 FLU DX (3 YRS AND ABOVE, IM) 05/06/2011 ZACH BAROMETERS CALIBRATOR, GRISEL S V04.81 FLU DX (3 YRS AND ABOVE, IM) 05/06/2011 ZACH BAROMETERS CALIBRATOR, GRISEL S V04.81 FLU DX (3 YRS AND ABOVE, IM) 04/22/2012 MAZA DO, MARTHA K 786.50 CHEST PAIN 04/22/2012 MAZA DO, MARTHA K 786.50 CHEST PAIN 04/22/2012 ZACH BAROMETERS CALIBRATOR, GRISEL S 786.50 CHEST PAIN 04/22/2012 ZACH BAROMETERS CALIBRATOR, GRISEL S 786.50 CHEST PAIN 04/22/2012 ZACH BAROMETERS CALIBRATOR, GRISEL S 786.50 CHEST PAIN 04/22/2012 ZACH BAROMETERS CALIBRATOR, GRISEL S 786.50 CHEST PAIN 04/22/2012 ZACH BAROMETERS CALIBRATOR, GRISEL S 786.50 CHEST PAIN 04/22/2012 ZACH BAROMETERS CALIBRATOR, GRISEL S 786.50 CHEST PAIN 04/22/2012 ZACH BAROMETERS CALIBRATOR, GRISEL S 786.50 CHEST PAIN 04/22/2012 ZACH BAROMETERS CALIBRATOR, GRISEL S 786.50 CHEST PAIN 04/22/2012 ZACH BAROMETERS CALIBRATOR, GRISEL S 786.50 CHEST PAIN 04/22/2012 ZACH BAROMETERS CALIBRATOR, GRISEL S 786.50 CHEST PAIN 04/22/2012 ZACH BAROMETERS CALIBRATOR, GRISEL S 786.50 CHEST PAIN 04/22/2012 ZACH BAROMETERS CALIBRATOR, GRISEL S 786.50 CHEST PAIN 04/22/2012 ZACH BAROMETERS CALIBRATOR, GRISEL S 786.50 CHEST PAIN 04/22/2012 ZACH BAROMETERS CALIBRATOR, GRISEL S 786.50 CHEST PAIN 04/22/2012 ZACH BAROMETERS CALIBRATOR, GRISEL S 786.50 CHEST PAIN 04/22/2012 ZACH BAROMETERS CALIBRATOR, GRISEL S 786.50 CHEST PAIN 04/22/2012 ZACH BAROMETERS CALIBRATOR, GRISEL S 786.50 CHEST PAIN 04/22/2012 ZACH BAROMETERS CALIBRATOR, GRISEL S 786.50 CHEST PAIN 04/22/2012 ZACH BAROMETERS CALIBRATOR, GRISEL S 786.50 CHEST PAIN 04/22/2012 ZACH BAROMETERS CALIBRATOR, GRISEL S 786.50 CHEST PAIN 04/22/2012 ZACH BAROMETERS CALIBRATOR, GRISEL S 786.50 CHEST PAIN 05/12/2012 MAZA DO, MARTHA K 414.00 CAD 05/12/2012 MAZA DO, MARTHA K 414.00 CAD 05/12/2012 ZACH BAROMETERS CALIBRATOR, GRISEL S 414.00 CAD 05/12/2012 ZACH BAROMETERS CALIBRATOR, GRISEL S 414.00 CAD 05/12/2012 ZACH BAROMETERS CALIBRATOR, GRISEL S 414.00 CAD 05/12/2012 ZACH BAROMETERS CALIBRATOR, GRISEL S 414.00 CAD 05/12/2012 ZACH BAROMETERS CALIBRATOR, GRISEL S 414.00 CAD 05/12/2012 ZACH BAROMETERS CALIBRATOR, GRISEL S 414.00 CAD 05/12/2012 ZACH BAROMETERS CALIBRATOR, GRISEL S 414.00 CAD 05/12/2012 ZACH BAROMETERS CALIBRATOR, GRISEL S 414.00 CAD 05/12/2012 ZACH BAROMETERS CALIBRATOR, GRISEL S 414.00 CAD 05/12/2012 ZACH BAROMETERS CALIBRATOR, GRISEL S 414.00 CAD 05/12/2012 ZACH BAROMETERS CALIBRATOR, GRISEL S 414.00 CAD 05/12/2012 AZCH BAROMETERS CALIBRATOR, GRISEL S 414.00 CAD 05/12/2012 ZACH BAROMETERS CALIBRATOR, GRISEL S 414.00 CAD 05/12/2012 ZACH BAROMETERS CALIBRATOR, GRISEL S 414.00 CAD 05/12/2012 ZACH BAROMETERS CALIBRATOR, GRISEL S 414.00 CAD 05/12/2012 ZACH BAROMETERS CALIBRATOR, GRISEL S 414.00 CAD 05/12/2012 ZACH BAROMETERS CALIBRATOR, GRISEL S 414.00 CAD 05/12/2012 ZACH BAROMETERS CALIBRATOR, GRISEL S 414.00 CAD 05/12/2012 ZACH BAROMETERS CALIBRATOR, GRISEL S 414.00 CAD 05/12/2012 ZACH BAROMETERS CALIBRATOR, GRISEL S 414.00 CAD 05/12/2012 ZACH BAROMETERS CALIBRATOR, GRISEL S 414.00 CAD 12/15/2013 ZACH BAROMETERS CALIBRATOR, GRISEL S 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 12/15/2013 ZACH BAROMETERS CALIBRATOR, GRISEL S 211.1 BENIGN NEOPLASM OF STOMACH 12/15/2013 ZACH BAROMETERS CALIBRATOR, GRISEL S 793.80 ABNORMAL MAMMOGRAM 12/15/2013 ZACH BAROMETERS CALIBRATOR, GRISEL S V15.82 NICOTINE ABUSE 12/15/2013 ZACH BAROMETERS CALIBRATOR, GRISEL S 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 12/15/2013 ZACH BAROMETERS CALIBRATOR, GRISEL S 211.1 BENIGN NEOPLASM OF STOMACH 12/15/2013 ZACH BAROMETERS CALIBRATOR, GRISEL S 793.80 ABNORMAL MAMMOGRAM 12/15/2013 ZACH BAROMETERS CALIBRATOR, GRISEL S V15.82 NICOTINE ABUSE 12/15/2013 ZACH BAROMETERS CALIBRATOR, GRISEL S 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 12/15/2013 ZACH BAROMETERS CALIBRATOR, GRISEL S 211.1 BENIGN NEOPLASM OF STOMACH 12/15/2013 ZACH BAROMETERS CALIBRATOR, GRISEL S 793.80 ABNORMAL MAMMOGRAM 12/15/2013 ZACH BAROMETERS CALIBRATOR, GRISEL S V15.82 NICOTINE ABUSE 12/15/2013 ZACH BAROMETERS CALIBRATOR, GRISEL S 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 12/15/2013 ZACH BAROMETERS CALIBRATOR, GRISEL S 211.1 BENIGN NEOPLASM OF STOMACH 12/15/2013 ZACH BAROMETERS CALIBRATOR, GRISEL S 793.80 ABNORMAL MAMMOGRAM 12/15/2013 ZACH BAROMETERS CALIBRATOR, GRISEL S V15.82 NICOTINE ABUSE 12/15/2013 ZACH BAROMETERS CALIBRATOR, GRISEL S 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 12/15/2013 ZACH BAROMETERS CALIBRATOR, GRISEL S 211.1 BENIGN NEOPLASM OF STOMACH 12/15/2013 ZACH BAROMETERS CALIBRATOR, GRISEL S 793.80 ABNORMAL MAMMOGRAM 12/15/2013 ZACH BAROMETERS CALIBRATOR, GRISEL S V15.82 NICOTINE ABUSE 12/15/2013 ZACH BAROMETERS CALIBRATOR, GRISEL S 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 12/15/2013 ZACH BAROMETERS CALIBRATOR, GRISEL S 211.1 BENIGN NEOPLASM OF STOMACH 12/15/2013 ZACH BAROMETERS CALIBRATOR, GRISEL S 793.80 ABNORMAL MAMMOGRAM 12/15/2013 ZACH BAROMETERS CALIBRATOR, GRISEL S V15.82 NICOTINE ABUSE 12/15/2013 ZACH BAROMETERS CALIBRATOR, GRISEL S 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 12/15/2013 ZACH BAROMETERS CALIBRATOR, GRISEL S 211.1 BENIGN NEOPLASM OF STOMACH 12/15/2013 ZACH BAROMETERS CALIBRATOR, GRISEL S 793.80 ABNORMAL MAMMOGRAM 12/15/2013 ZACH BAROMETERS CALIBRATOR, GRISEL S V15.82 NICOTINE ABUSE 12/15/2013 ZACH BAROMETERS CALIBRATOR, GRISEL S 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 12/15/2013 ZACH BAROMETERS CALIBRATOR, GRISEL S 211.1 BENIGN NEOPLASM OF STOMACH 12/15/2013 ZACH BAROMETERS CALIBRATOR, GRISEL S 793.80 ABNORMAL MAMMOGRAM 12/15/2013 ZACH BAROMETERS CALIBRATOR, GRISEL S V15.82 NICOTINE ABUSE 12/15/2013 ZACH BAROMETERS CALIBRATOR, GRISEL S 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 12/15/2013 ZACH BAROMETERS CALIBRATOR, GRISEL S 211.1 BENIGN NEOPLASM OF STOMACH 12/15/2013 ZACH BAROMETERS CALIBRATOR, GRISEL S 793.80 ABNORMAL MAMMOGRAM 12/15/2013 ZACH BAROMETERS CALIBRATOR, GRISEL S V15.82 NICOTINE ABUSE 12/15/2013 ZACH BAROMETERS CALIBRATOR, GRISEL S 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 12/15/2013 ZACH BAROMETERS CALIBRATOR, GRISEL S 211.1 BENIGN NEOPLASM OF STOMACH 12/15/2013 ZACH BAROMETERS CALIBRATOR, GRISEL S 793.80 ABNORMAL MAMMOGRAM 12/15/2013 ZACH BAROMETERS CALIBRATOR, GRISEL S V15.82 NICOTINE ABUSE 12/15/2013 ZACH BAROMETERS CALIBRATOR, GRISEL S 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 12/15/2013 ZACH BAROMETERS CALIBRATOR, GRISEL S 211.1 BENIGN NEOPLASM OF STOMACH 12/15/2013 ZACH BAROMETERS CALIBRATOR, GRISEL S 793.80 ABNORMAL MAMMOGRAM 12/15/2013 ZACH BAROMETERS CALIBRATOR, GRISEL S V15.82 NICOTINE ABUSE 12/15/2013 ZACH BAROMETERS CALIBRATOR, GRISEL S 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 12/15/2013 ZACH BAROMETERS CALIBRATOR, GRISEL S 211.1 BENIGN NEOPLASM OF STOMACH 12/15/2013 ZACH BAROMETERS CALIBRATOR, GRISEL S 793.80 ABNORMAL MAMMOGRAM 12/15/2013 ZACH BAROMETERS CALIBRATOR, GRISEL S V15.82 NICOTINE ABUSE 12/15/2013 ZACH BAROMETERS CALIBRATOR, GRISEL S 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 12/15/2013 ZACH BAROMETERS CALIBRATOR, GRISEL S 211.1 BENIGN NEOPLASM OF STOMACH 12/15/2013 ZACH BAROMETERS CALIBRATOR, GRISEL S 793.80 ABNORMAL MAMMOGRAM 12/15/2013 ZACH BAROMETERS CALIBRATOR, GRISEL S V15.82 NICOTINE ABUSE 12/23/2013 ZACH BAROMETERS CALIBRATOR, GRISEL S V58.69 HIGH RISK MEDICATION 12/23/2013 ZACH BAROMETERS CALIBRATOR, GRISEL S V58.69 HIGH RISK MEDICATION 12/23/2013 ZACH BAROMETERS CALIBRATOR, GRISEL S V58.69 HIGH RISK MEDICATION 12/23/2013 ZACH BAROMETERS CALIBRATOR, GRISEL S V58.69 HIGH RISK MEDICATION 12/23/2013 ZACH BAROMETERS CALIBRATOR, GRISEL S V58.69 HIGH RISK MEDICATION 12/23/2013 ZACH BAROMETERS CALIBRATOR, GRISEL S V58.69 HIGH RISK MEDICATION 12/23/2013 ZACH BAROMETERS CALIBRATOR, GRISEL S V58.69 HIGH RISK MEDICATION 12/23/2013 ZACH BAROMETERS CALIBRATOR, GRISEL S V58.69 HIGH RISK MEDICATION 12/23/2013 ZACH BAROMETERS CALIBRATOR, GRISEL S V58.69 HIGH RISK MEDICATION 12/23/2013 ZACH BAROMETERS CALIBRATOR, GRISEL S V58.69 HIGH RISK MEDICATION 12/23/2013 ZACH BAROMETERS CALIBRATOR, GRISEL S V58.69 HIGH RISK MEDICATION 12/23/2013 ZACH BAROMETERS CALIBRATOR, GRISEL S V58.69 HIGH RISK MEDICATION 01/25/2014 ZACH BAROMETERS CALIBRATOR, GRISEL S 415.19 PULMONARY EMBOLUS 01/25/2014 ZACH BAROMETERS CALIBRATOR, GRISEL S 415.19 PULMONARY EMBOLUS 01/25/2014 ZACH BAROMETERS CALIBRATOR, GRISEL S 415.19 PULMONARY EMBOLUS 01/25/2014 ZACH BAROMETERS CALIBRATOR, GRISEL S 415.19 PULMONARY EMBOLUS 01/25/2014 ZACH BAROMETERS CALIBRATOR, GRISEL S 415.19 PULMONARY EMBOLUS 01/25/2014 ZACH BAROMETERS CALIBRATOR, GRISEL S 415.19 PULMONARY EMBOLUS 01/25/2014 ZACH BAROMETERS CALIBRATOR, GRISEL S 415.19 PULMONARY EMBOLUS 01/25/2014 ZACH BAROMETERS CALIBRATOR, GRISEL S 415.19 PULMONARY EMBOLUS 01/25/2014 ZACH BAROMETERS CALIBRATOR, GRISEL S 415.19 PULMONARY EMBOLUS 01/25/2014 ZACH BAROMETERS CALIBRATOR, GRISEL S 415.19 PULMONARY EMBOLUS 01/25/2014 ZACH BAROMETERS CALIBRATOR, GRISEL S 415.19 PULMONARY EMBOLUS 05/25/2014 ZACH BAROMETERS CALIBRATOR, GRISEL S 724.3 SCIATICA 05/25/2014 ZACH BAROMETERS CALIBRATOR, GRISEL S 724.5 BACK PAIN, GENERAL 05/25/2014 ZACH BAROMETERS CALIBRATOR, GRISEL S 724.3 SCIATICA 05/25/2014 ZACH BAROMETERS CALIBRATOR, GRISEL S 724.5 BACK PAIN, GENERAL 05/25/2014 ZACH BAROMETERS CALIBRATOR, GRISEL S 724.3 SCIATICA 05/25/2014 ZACH BAROMETERS CALIBRATOR, GRISEL S 724.5 BACK PAIN, GENERAL 05/25/2014 ZACH BAROMETERS CALIBRATOR, GRISEL S 724.3 SCIATICA 05/25/2014 ZACH BAROMETERS CALIBRATOR, GRISEL S 724.5 BACK PAIN, GENERAL 05/25/2014 ZACH BAROMETERS CALIBRATOR, GRISEL S 724.3 SCIATICA 05/25/2014 ZACH BAROMETERS CALIBRATOR, GRISEL S 724.5 BACK PAIN, GENERAL Procedures Code Description Performed By Performed On Cardiolog Jack Navarro 04/22/2012 76552 EKG, TRACING (IN-HOUSE) 04/28/2012 [id number] ROUTINE VENIPUNCTURE 10/28/2013 22830 INR (IN HOUSE) 10/28/2013 9098177 GFR CALC (RESULT ONLY) 10/28/2013 93136 CMP 10/28/2013 66282 LIPID PANEL 10/28/2013 51740 TSH 10/28/2013 43096 CRP HS (CARDIO) 10/28/2013 76766 CBC 10/29/2013 93649 ROUTINE VENIPUNCTURE 10/31/2013 29693 PT/INR 10/31/2013 19812 INR (IN HOUSE) 11/02/2013 64503 INR (IN HOUSE) 11/08/2013 00033 INR (IN HOUSE) 11/11/2013 29677 INR (IN HOUSE) 11/18/2013 39311 INR (IN HOUSE) 12/15/2013 86117 INR (IN HOUSE) 01/06/2014 37709 INR (IN HOUSE) 02/15/2014 37473 INR (IN HOUSE) 03/16/2014 68374 INR (IN HOUSE) 04/18/2014 90711 INR (IN HOUSE) 05/17/2014 35014 MRI PELVIS W/O DYE 06/03/2014 74834 MRI SPINE (LUMBAR) W/O CONTRAST 06/03/2014 93703 INR (IN HOUSE) 06/12/2014 17353 INR (IN HOUSE) 08/07/2014 38883 INR (IN HOUSE) 09/08/2014 Results Test Result [...] Status Pt. Type Provider Facility Loc./Unit Complaint [id number] 10/06/2014 16:16:00 10/06/2014 23:59:59 CLS Outpatient ZACH BAROMETERS CALIBRATORUBALDOGRISEL S [id number] 09/08/2014 11:34:00 09/08/2014 23:59:59 CLS Outpatient [facility] BAROMETERS CALIBRATOR GRISEL S [id number] 08/07/2014 10:33:00 08/07/2014 23:59:59 CLS Outpatient [facility] [employer]OMETERS CALIBRATOR GRISEL S [id number] 07/13/2014 10:08:00 07/13/2014 23:59:59 CLS Outpatient [facility] BAROMETERS CALIBRATOR GRISEL S [id number] 06/12/2014 15:53:00 06/12/2014 23:59:59 CLS Outpatient [facility] BAROMETERS CALIBRATOR GRISEL S [id number] 05/25/2014 10:45:00 05/25/2014 23:59:59 CLS Outpatient [facility]ACH BAROMETERS CALIBRATOR, GRISEL S [id number] 05/17/2014 11:27:00 05/17/2014 23:59:59 CLS Outpatient ZACH BAROMETERS CALIBRATOR, GRISEL S [id number] 04/18/2014 10:55:00 04/18/2014 23:59:59 CLS Outpatient [facility] BAROMETERS CALIBRATOR, GRISEL S [id number] 03/16/2014 09:34:00 03/16/2014 23:59:59 CLS Outpatient [facility] BAROMETERS CALIBRATOR, GRISEL S [id number] 03/02/2014 10:04:00 03/02/2014 23:59:59 CLS Outpatient ZACH BAROMETERS CALIBRATOR, GRISEL S [id number] 02/15/2014 16:17:00 02/15/2014 23:59:59 CLS Outpatient [facility] [employer]OM[employer]ERS CALIBRATOR, GRISEL S [id number] 01/06/2014 10:08:00 01/06/2014 23:59:59 CLS Outpatient ZACH [employer]OM[employer]ERS CALIBRATOR, GRISEL S [id number] 12/23/2013 09:42:00 12/23/2013 23:59:59 CLS Outpatient ZACH BAROMETERS CALIBRATORSYEDA ToddA S [id number] 12/15/2013 10:50:00 12/15/2013 23:59:59 CLS Outpatient ZACH BAROMETERS CALIBRATORSYEDAA S [id number] 11/18/2013 09:39:00 11/18/2013 23:59:59 CLS Outpatient ZACH BAROMETERS CALIBRATORUBALDOGRISEL S [id number] 11/11/2013 10:00:00 11/11/2013 23:59:59 CLS Outpatient ZACH BAROMETERS CALIBRATORUBALDOGRISEL S [id number] 11/08/2013 13:36:00 11/08/2013 23:59:59 CLS Outpatient ZACH BAROMETERS CALIBRATORSYEDAA S [id number] 11/02/2013 13:33:00 11/02/2013 23:59:59 CLS Outpatient ZACH BAROMETERS CALIBRATORSYEDAA S [id number] 10/31/2013 10:19:00 10/31/2013 23:59:59 CLS Outpatient ZACH BAROMETERS CALIBRATORSYEDAA S [id number] 10/28/2013 09:35:00 10/28/2013 23:59:59 CLS Outpatient ZACH BAROMETERS CALIBRATORSYEDAA S [id number] 05/16/2013 10:25:00 05/16/2013 23:59:59 CLS Outpatient ZACHSYEDA PEREZ APRNA S [id number] 08/31/2012 14:22:00 08/31/2012 23:59:59 CLS Outpatient ZACH BAROMETERS CALIBRATORUBALDOGRISEL S [id number] 05/13/2012 17:50:00 05/13/2012 23:59:59 CLS Outpatient MARTHA MAZA DO [id number] 04/22/2012 12:19:00 04/22/2012 23:59:59 CLS Outpatient MARTHA MAZA DO [id number] 05/21/2016 08:45:00 Document Registration
--- NOTE | 2018-10-23 14:10 | Cardiac Procedure Note-CS/ASA ---
Pre-Procedure Note Pre-Op Procedure Note H&P Reviewed The H&P was reviewed, patient examined and no changes noted. Date H&P Reviewed: October 23, 2018 Time H&P Reviewed: 12:00 Conscious Sedation Pre-Proced Time 12:00 ASA Score 3 For ASA 3 and 4: Consider anesthesia and medical clearance. Also, for patients with a history of failed moderate sedation consider anesthesia. Airway Lungs Heart ASA score ASA 1: a normal healthy patient ASA 2: a patient with a mild systemic disease (mid diabetes, controlled hypertension, obesity ASA 3: a patient with a severe systemic disease that limits activity (angina , COPD, prior Myocardial infarction) ASA 4: a patient with an incapacitating disease that is a constant threat to life (CHF, renal failure) ASA 5: a moribund patient not expected to survive 24 hrs. (ruptured aneurysm) ASA 6: a declared brain- patient whose organs are being harvested. For emergent operations, add the letter E after the classification Mallampati Classification Grade 1 Sedation Plan Analgesia, Amnesia, Plan communicated to team members, Discussed options with patient/fam, Discussed risks with patient/fam The patient is an appropriate candidate to undergo the planned procedure, sedation, and anesthesia. The patient immediately re-assessed prior to indication. Beth MCKINNEY MD October 23, 2018 14:09
--- NOTE | 2018-10-23 14:10 | Coronary Angiography Report ---
Coronary Angiography Report DATE OF PROCEDURE: 10/23/18 INDICATION: Acute respiratory failure with positive cardiac enzymes, non-STEMI. PREOPERATIVE DIAGNOSIS: Acute respiratory failure with positive cardiac enzymes , non-STEMI. POSTOPERATIVE DIAGNOSIS: Mild CAD. HISTORY: This is a 68-year-old lady who had wrist and ankle fracture and was given opioids. Apparently went into opioid associated respiratory failure and altered mental status requiring intubation/ventilation. She was also found to be in severe respiratory distress with positive cardiac enzymes. She subsequently recovered and was transferred to inpatient rehabilitation. Orthopedics would like to operate on the left wrist. Coronary angiography was recommended for preoperative cardiac risk assessment due to positive cardiac enzymes.Therefore, the patient was scheduled for coronary angiography. PROCEDURES PERFORMED: 1.Coronary angiography. 2.Left heart catheterization. 3. Aortic root injection. COMPLICATIONS: None. SPECIMENS: None. ESTIMATED BLOOD LOSS: 10 mL ANESTHESIA: Conscious sedation ANTICOAGULATION: IV heparin CONTRAST: 125 mL. FLUOROSCOPY: 6.3 minutes. FLOUROSCOPY DOSE: 763 MGY. PROCEDURE DETAILS: The patient is a 68 female and was brought to the garage laborer after informed consent was taken. All the risks and complications were explained in detail; this included the risk of bleeding, vascular damage, stroke , AR and even . The patient was draped and prepped in the usual sterile fashion. Access was gained in the right radial artery with a 6 Greek sheath. Coronary angiography and left heart catheterization was performed with the Gates catheter. Right coronary system was engaged with a JR4 catheter. Aortic root injection was done to rule out aortic root dilatation since we were not able to engage the RCA ostium with the Gates catheter. FINDINGS: 1.Left main: Patent. 2.LAD: Mild mid disease. 3.Left circumflex artery: Patent. 4.RCA: Patent. 5.Left heart catheterization: LV pressure 132/0 mmHg. Aortic pressure 121/62 mmHg. Normal LV function with no wall motion abnormalities. No gradient across the aortic valve. 6. Aortic root injection: Aortic root injection was done to rule out aortic root dilatation since we were not able to engage the RCA ostium of the Gates catheter. Normal aortic root with no evidence of dissection or aneurysm. CONCLUSIONS: Mild CAD. Patient will be considered at low risk for major adverse perioperative cardiac events undergoing an intermediate risk noncardiac surgery. There is no cardiac contraindication to the orthopedic surgery. Jerson Ovalle MD, FACP, FACC, FSCAI Interventional Cardiology Beth OVALLE MD October 23, 2018 14:10
--- NOTE | 2018-10-23 14:14 | Cardiology Discharge Summary ---
Diagnosis/Chief Complaint Date of Admission 10/23/2018 Date of Discharge 10/23/2018 Admission Diagnosis Non-STEMI Final/Discharge Diagnosis Mild CAD Chief Complaint/HPI Chief Complaint/HPI This is a 68-year-old lady who had wrist and ankle fracture and was given opioids. Apparently went into opioid associated respiratory failure and altered mental status requiring intubation/ventilation. She was also found to be in severe respiratory distress with positive cardiac enzymes. She subsequently recovered and was transferred to inpatient rehabilitation. Orthopedics would like to operate on the left wrist. Coronary angiography was recommended for preoperative cardiac risk assessment due to positive cardiac enzymes. Discharge Summary Procedures Coronary angiography revealed mild CAD. Normal LV function. Discharge Physical Examination Unremarkable. Hospital Course Was the Problem List Reviewed?: Yes Unremarkable. Discussion & Recommendations Discussion Discharge instructions discussed with the patient. 2 hours recovery and then the patient can be transferred to inpatient rehabilitation. Follow up appt.: With outpatient station engineer main line. Dicharge Diet: Regular Diet Activity as Tolerated: Yes Home Medications Reviewed patient Home Medication Reconciliation performed by pharmacy medication reconciliations wiring technician and/or nursing. Patients Allergies have been reviewed. Discharge Home Medications: Reviewed and agree with Discharge Medication list on patient's Discharge Instruction sheet Condition at discharge Stable. Instructions to patient/family Discussed. Beth MCKINNEY MD October 23, 2018 14:14
--- NOTE | 2018-10-23 14:20 | NUR ---
RETURNED TO ROOM 223 FOR HEART CATH RECOVERY. RIGHT WRIST DRESSING D/I AND SITE UNREMARKABLE. IV OF NS INFUSING IN RIGHT AC. UNABLE TO TAKE BP IN LEFT ARM OR LEG DUE TO FRACTURES. BP IN RIGHT LEG IS NOT REGISTERING CORRECTLY. DR. MCKINNEY NOTIFIED AND STATES TO TAKE BP IN RIGHT ARM WITH MANUAL CUFF ONLY. SEE CATH INTERVENTION FOR FREQUENT CHECKS.
--- NOTE | 2018-10-23 16:20 | NUR ---
BEDREST ENDED. ASSISTED UP TO BATHROOM. RIGHT WRIST SITE UNREMARKABLE. NO COMPLAINTS.
--- NOTE | 2018-10-23 19:00 | NUR ---
IV FLUIDS COMPLETE. PRESSURE DRESSING REMOVED FROM RIGHT WRIST AND BANDAID APPLIED. VSS. DISCHARGED TO ARU.
== END | disposition home or self-care (01) ==
LOC: CATH 12:00
PROVIDERS: ATTEND Internal Medicine Interventional Cardiology
DX: I25.10 Atherosclerotic heart disease of native coronary artery without angina pectoris (principal); F17.210 Nicotine dependence, cigarettes, uncomplicated; Z79.82 Long term (current) use of aspirin; Z79.899 Other long term (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
CPT/HCPCS: 93458; 93567

== ENCOUNTER → 2018-10-25 | Day surgery (SDC) | payer MEDICARE, MEDICAID ==
[~2018-10-25] MED LIST changes: +LACTATED RINGERS 1,000 ML IV PRN; -NS IV 1000 ML 1,000 ML IV SCH; +ONDANSETRON 4 MG/2 ML (SDV) Z0FRAN IVP PRN; -PATIENT MAY USE OWN MEDS, ALL PO SCH; +ceFAZolin INJECTION 1,000 MG in WATER (STERILE) FOR INJECTION 10 ML IV SCH; +ceFAZolin INJECTION 2,000 MG ONE; +fentaNYL INJECTION 100 MCG/2 ML AMP IVP ONE
--- OUTSIDE RECORDS SUMMARY | 2018-10-25 08:46 | XMS REPORT | Continuity of Care Document ---
[...] DO K 401.9 HYPERTENSION (SYSTEMIC) 03/06/2010 [employer] ICT DEVELOPMENT MANAGER, GRISEL S 300.02 GENERALIZED ANXIETY DISORDER 03/06/2010 ZACH ICT DEVELOPMENT MANAGER, GRISEL S 401.9 HYPERTENSION (SYSTEMIC) 03/06/2010 ZACH ICT DEVELOPMENT MANAGER, GRISEL S 300.02 GENERALIZED ANXIETY DISORDER 03/06/2010 ZACH ICT DEVELOPMENT MANAGER, GRISEL S 401.9 HYPERTENSION (SYSTEMIC) 03/06/2010 ZACH ICT DEVELOPMENT MANAGER, GRISEL S 300.02 GENERALIZED ANXIETY DISORDER 03/06/2010 ZACH ICT DEVELOPMENT MANAGER, GRISEL S 401.9 HYPERTENSION (SYSTEMIC) 03/06/2010 ZACH ICT DEVELOPMENT MANAGER, GRISEL S 300.02 GENERALIZED ANXIETY DISORDER 03/06/2010 ZACH ICT DEVELOPMENT MANAGER, GRISEL S 401.9 HYPERTENSION (SYSTEMIC) 03/06/2010 ZACH ICT DEVELOPMENT MANAGER, GRISEL S 300.02 GENERALIZED ANXIETY DISORDER 03/06/2010 ZACH ICT DEVELOPMENT MANAGER, GRISEL S 401.9 HYPERTENSION (SYSTEMIC) 03/06/2010 ZACH ICT DEVELOPMENT MANAGER, GRISEL S 300.02 GENERALIZED ANXIETY DISORDER 03/06/2010 ZACH ICT DEVELOPMENT MANAGER, GRISEL S 401.9 HYPERTENSION (SYSTEMIC) 03/06/2010 ZACH ICT DEVELOPMENT MANAGER, GRISEL S 300.02 GENERALIZED ANXIETY DISORDER 03/06/2010 ZACH ICT DEVELOPMENT MANAGER, GRISEL S 401.9 HYPERTENSION (SYSTEMIC) 03/06/2010 ZACH ICT DEVELOPMENT MANAGER, GRISEL S 300.02 GENERALIZED ANXIETY DISORDER 03/06/2010 ZACH ICT DEVELOPMENT MANAGER, GRISEL S 401.9 HYPERTENSION (SYSTEMIC) 03/06/2010 ZACH ICT DEVELOPMENT MANAGER, GRISEL S 300.02 GENERALIZED ANXIETY DISORDER 03/06/2010 ZACH ICT DEVELOPMENT MANAGER, GRISEL S 401.9 HYPERTENSION (SYSTEMIC) 03/06/2010 ZACH ICT DEVELOPMENT MANAGER, GRISEL S 300.02 GENERALIZED ANXIETY DISORDER 03/06/2010 ZACH ICT DEVELOPMENT MANAGER, GRISEL S 401.9 HYPERTENSION (SYSTEMIC) 03/06/2010 ZACH ICT DEVELOPMENT MANAGER, GRISEL S 300.02 GENERALIZED ANXIETY DISORDER 03/06/2010 ZACH ICT DEVELOPMENT MANAGER, GRISEL S 401.9 HYPERTENSION (SYSTEMIC) 03/06/2010 ZACH ICT DEVELOPMENT MANAGER, GRISEL S 300.02 GENERALIZED ANXIETY DISORDER 03/06/2010 ZACH ICT DEVELOPMENT MANAGER, GRISEL S 401.9 HYPERTENSION (SYSTEMIC) 03/06/2010 ZACH ICT DEVELOPMENT MANAGER, GRISEL S 300.02 GENERALIZED ANXIETY DISORDER 03/06/2010 ZACH ICT DEVELOPMENT MANAGER, GRISEL S 401.9 HYPERTENSION (SYSTEMIC) 03/06/2010 ZACH ICT DEVELOPMENT MANAGER, GRISEL S 300.02 GENERALIZED ANXIETY DISORDER 03/06/2010 ZACH ICT DEVELOPMENT MANAGER, GRISEL S 401.9 HYPERTENSION (SYSTEMIC) 03/06/2010 ZACH ICT DEVELOPMENT MANAGER, GRISEL S 300.02 GENERALIZED ANXIETY DISORDER 03/06/2010 ZACH ICT DEVELOPMENT MANAGER, GRISEL S 401.9 HYPERTENSION (SYSTEMIC) 03/06/2010 ZACH ICT DEVELOPMENT MANAGER, GRISEL S 300.02 GENERALIZED ANXIETY DISORDER 03/06/2010 ZACH ICT DEVELOPMENT MANAGER, GRISEL S 401.9 HYPERTENSION (SYSTEMIC) 03/06/2010 ZACH ICT DEVELOPMENT MANAGER, GRISEL S 300.02 GENERALIZED ANXIETY DISORDER 03/06/2010 ZACH ICT DEVELOPMENT MANAGER, GRISEL S 401.9 HYPERTENSION (SYSTEMIC) 03/06/2010 ZACH ICT DEVELOPMENT MANAGER, GRISEL S 300.02 GENERALIZED ANXIETY DISORDER 03/06/2010 ZACH ICT DEVELOPMENT MANAGER, GRISEL S 401.9 HYPERTENSION (SYSTEMIC) 03/06/2010 ZACH ICT DEVELOPMENT MANAGER, GRISEL S 300.02 GENERALIZED ANXIETY DISORDER 03/06/2010 ZACH ICT DEVELOPMENT MANAGER, GRISEL S 401.9 HYPERTENSION (SYSTEMIC) 03/06/2010 ZACH ICT DEVELOPMENT MANAGER, GRISEL S 300.02 GENERALIZED ANXIETY DISORDER 03/06/2010 ZACH ICT DEVELOPMENT MANAGER, GRISEL S 401.9 HYPERTENSION (SYSTEMIC) 03/06/2010 ZACH ICT DEVELOPMENT MANAGER, GRISEL S 300.02 GENERALIZED ANXIETY DISORDER 03/06/2010 ZACH ICT DEVELOPMENT MANAGER, GRISEL S 401.9 HYPERTENSION (SYSTEMIC) 03/19/2010 MAZA DO, MARTHA K 525.9 tooth pain 03/19/2010 MAZA DO, MARTHA K 525.9 tooth pain 03/19/2010 ZACH ICT DEVELOPMENT MANAGER, GRISEL S 525.9 tooth pain 03/19/2010 ZACH ICT DEVELOPMENT MANAGER, GRISEL S 525.9 tooth pain 03/19/2010 ZACH ICT DEVELOPMENT MANAGER, GRISEL S 525.9 tooth pain 03/19/2010 ZACH ICT DEVELOPMENT MANAGER, GRISEL S 525.9 tooth pain 03/19/2010 ZACH ICT DEVELOPMENT MANAGER, GRISEL S 525.9 tooth pain 03/19/2010 ZACH ICT DEVELOPMENT MANAGER, GRISEL S 525.9 tooth pain 03/19/2010 ZACH ICT DEVELOPMENT MANAGER, GRISEL S 525.9 tooth pain 03/19/2010 ZACH ICT DEVELOPMENT MANAGER, GRISEL S 525.9 tooth pain 03/19/2010 ZACH ICT DEVELOPMENT MANAGER, GRISEL S 525.9 tooth pain 03/19/2010 ZACH ICT DEVELOPMENT MANAGER, GRISEL S 525.9 tooth pain 03/19/2010 ZACH ICT DEVELOPMENT MANAGER, GRISEL S 525.9 tooth pain 03/19/2010 ZACH ICT DEVELOPMENT MANAGER, GRISEL S 525.9 tooth pain 03/19/2010 ZACH ICT DEVELOPMENT MANAGER, GRISEL S 525.9 tooth pain 03/19/2010 ZACH ICT DEVELOPMENT MANAGER, GRISEL S 525.9 tooth pain 03/19/2010 ZACH ICT DEVELOPMENT MANAGER, GRISEL S 525.9 tooth pain 03/19/2010 ZACH ICT DEVELOPMENT MANAGER, GRISEL S 525.9 tooth pain 03/19/2010 ZACH ICT DEVELOPMENT MANAGER, GRISEL S 525.9 tooth pain 03/19/2010 ZACH ICT DEVELOPMENT MANAGER, GRISEL S 525.9 tooth pain 03/19/2010 ZACH ICT DEVELOPMENT MANAGER, GRISEL S 525.9 tooth pain 03/19/2010 ZACH ICT DEVELOPMENT MANAGER, GRISEL S 525.9 tooth pain 03/19/2010 ZACH ICT DEVELOPMENT MANAGER, GRISEL S 525.9 tooth pain 09/17/2010 MAZA DO, MARTHA K 535.50 GASTRITIS 09/17/2010 MAZA DO, MARTHA K 535.50 GASTRITIS 09/17/2010 ZACH ICT DEVELOPMENT MANAGER, GRISEL S 535.50 GASTRITIS 09/17/2010 ZACH ICT DEVELOPMENT MANAGER, GRISEL S 535.50 GASTRITIS 09/17/2010 ZACH ICT DEVELOPMENT MANAGER, GRISEL S 535.50 GASTRITIS 09/17/2010 ZACH ICT DEVELOPMENT MANAGER, GRISEL S 535.50 GASTRITIS 09/17/2010 ZACH ICT DEVELOPMENT MANAGER, GRISEL S 535.50 GASTRITIS 09/17/2010 ZACH ICT DEVELOPMENT MANAGER, GRISEL S 535.50 GASTRITIS 09/17/2010 ZACH ICT DEVELOPMENT MANAGER, GRISEL S 535.50 GASTRITIS 09/17/2010 ZACH ICT DEVELOPMENT MANAGER, GRISEL S 535.50 GASTRITIS 09/17/2010 ZACH ICT DEVELOPMENT MANAGER, GRISEL S 535.50 GASTRITIS 09/17/2010 ZACH ICT DEVELOPMENT MANAGER, GRISEL S 535.50 GASTRITIS 09/17/2010 ZACH ICT DEVELOPMENT MANAGER, GRISEL S 535.50 GASTRITIS 09/17/2010 ZACH ICT DEVELOPMENT MANAGER, GRISEL S 535.50 GASTRITIS 09/17/2010 ZACH ICT DEVELOPMENT MANAGER, GRISEL S 535.50 GASTRITIS 09/17/2010 ZACH ICT DEVELOPMENT MANAGER, GRISEL S 535.50 GASTRITIS 09/17/2010 ZACH ICT DEVELOPMENT MANAGER, GRISEL S 535.50 GASTRITIS 09/17/2010 ZACH ICT DEVELOPMENT MANAGER, GRISEL S 535.50 GASTRITIS 09/17/2010 ZACH ICT DEVELOPMENT MANAGER, GRISEL S 535.50 GASTRITIS 09/17/2010 ZACH ICT DEVELOPMENT MANAGER, GRISEL S 535.50 GASTRITIS 09/17/2010 ZACH ICT DEVELOPMENT MANAGER, GRISEL S 535.50 GASTRITIS 09/17/2010 ZACH ICT DEVELOPMENT MANAGER, GRISEL S 535.50 GASTRITIS 09/17/2010 ZACH ICT DEVELOPMENT MANAGER, GRISEL S 535.50 GASTRITIS 12/30/2010 MAZA DO, MARTHA K 782.3 EDEMA 12/30/2010 MAZA DO, MARTHA K 782.3 EDEMA 12/30/2010 ZACH ICT DEVELOPMENT MANAGER, GRISEL S 782.3 EDEMA 12/30/2010 ZACH ICT DEVELOPMENT MANAGER, GRISEL S 782.3 EDEMA 12/30/2010 ZACH ICT DEVELOPMENT MANAGER, GRISEL S 782.3 EDEMA 12/30/2010 ZACH ICT DEVELOPMENT MANAGER, GRISEL S 782.3 EDEMA 12/30/2010 ZACH ICT DEVELOPMENT MANAGER, GRISEL S 782.3 EDEMA 12/30/2010 ZACH ICT DEVELOPMENT MANAGER, GRISEL S 782.3 EDEMA 12/30/2010 ZACH ICT DEVELOPMENT MANAGER, GRISEL S 782.3 EDEMA 12/30/2010 ZACH ICT DEVELOPMENT MANAGER, GRISEL S 782.3 EDEMA 12/30/2010 ZACH ICT DEVELOPMENT MANAGER, GRISEL S 782.3 EDEMA 12/30/2010 ZACH ICT DEVELOPMENT MANAGER, GRISEL S 782.3 EDEMA 12/30/2010 ZACH ICT DEVELOPMENT MANAGER, GRISEL S 782.3 EDEMA 12/30/2010 ZACH ICT DEVELOPMENT MANAGER, GRISEL S 782.3 EDEMA 12/30/2010 ZACH ICT DEVELOPMENT MANAGER, GRISEL S 782.3 EDEMA 12/30/2010 ZACH ICT DEVELOPMENT MANAGER, GRISEL S 782.3 EDEMA 12/30/2010 ZACH ICT DEVELOPMENT MANAGER, GRISEL S 782.3 EDEMA 12/30/2010 ZACH ICT DEVELOPMENT MANAGER, GRISEL S 782.3 EDEMA 12/30/2010 ZACH ICT DEVELOPMENT MANAGER, GRISEL S 782.3 EDEMA 12/30/2010 ZACH ICT DEVELOPMENT MANAGER, GRISEL S 782.3 EDEMA 12/30/2010 ZACH ICT DEVELOPMENT MANAGER, GRISEL S 782.3 EDEMA 12/30/2010 ZACH ICT DEVELOPMENT MANAGER, GRISEL S 782.3 EDEMA 12/30/2010 ZACH ICT DEVELOPMENT MANAGER, GRISEL S 782.3 EDEMA 05/06/2011 MAZA DO, MARTHA K V04.81 FLU DX (3 YRS AND ABOVE, IM) 05/06/2011 MAZA DO, MARTHA K V04.81 FLU DX (3 YRS AND ABOVE, IM) 05/06/2011 [employer]ACH ICT DEVELOPMENT MANAGER, GRISEL S V04.81 FLU DX (3 YRS AND ABOVE, IM) 05/06/2011 [employer]ACH ICT DEVELOPMENT MANAGER, GRISEL S V04.81 FLU DX (3 YRS AND ABOVE, IM) 05/06/2011 ZACH ICT DEVELOPMENT MANAGER, GRISEL S V04.81 FLU DX (3 YRS AND ABOVE, IM) 05/06/2011 ZACH ICT DEVELOPMENT MANAGER, GRISEL S V04.81 FLU DX (3 YRS AND ABOVE, IM) 05/06/2011 ZACH ICT DEVELOPMENT MANAGER, GRISEL S V04.81 FLU DX (3 YRS AND ABOVE, IM) 05/06/2011 ZACH ICT DEVELOPMENT MANAGER, GRISEL S V04.81 FLU DX (3 YRS AND ABOVE, IM) 05/06/2011 ZACH ICT DEVELOPMENT MANAGER, GRISEL S V04.81 FLU DX (3 YRS AND ABOVE, IM) 05/06/2011 ZACH ICT DEVELOPMENT MANAGER, GRISEL S V04.81 FLU DX (3 YRS AND ABOVE, IM) 05/06/2011 ZACH ICT DEVELOPMENT MANAGER, GRISEL S V04.81 FLU DX (3 YRS AND ABOVE, IM) 05/06/2011 ZACH ICT DEVELOPMENT MANAGER, GRISEL S V04.81 FLU DX (3 YRS AND ABOVE, IM) 05/06/2011 ZACH ICT DEVELOPMENT MANAGER, GRISEL S V04.81 FLU DX (3 YRS AND ABOVE, IM) 05/06/2011 ZACH ICT DEVELOPMENT MANAGER, GRISEL S V04.81 FLU DX (3 YRS AND ABOVE, IM) 05/06/2011 ZACH ICT DEVELOPMENT MANAGER, GRISEL S V04.81 FLU DX (3 YRS AND ABOVE, IM) 05/06/2011 ZACH ICT DEVELOPMENT MANAGER, GRISEL S V04.81 FLU DX (3 YRS AND ABOVE, IM) 05/06/2011 ZACH ICT DEVELOPMENT MANAGER, GRISEL S V04.81 FLU DX (3 YRS AND ABOVE, IM) 05/06/2011 ZACH ICT DEVELOPMENT MANAGER, GRISEL S V04.81 FLU DX (3 YRS AND ABOVE, IM) 05/06/2011 ZACH ICT DEVELOPMENT MANAGER, GRISEL S V04.81 FLU DX (3 YRS AND ABOVE, IM) 05/06/2011 ZACH ICT DEVELOPMENT MANAGER, GRISEL S V04.81 FLU DX (3 YRS AND ABOVE, IM) 05/06/2011 ZACH ICT DEVELOPMENT MANAGER, GRISEL S V04.81 FLU DX (3 YRS AND ABOVE, IM) 05/06/2011 ZACH ICT DEVELOPMENT MANAGER, GRISEL S V04.81 FLU DX (3 YRS AND ABOVE, IM) 05/06/2011 [employer]ACH ICT DEVELOPMENT MANAGER, GRISEL S V04.81 FLU DX (3 YRS AND ABOVE, IM) 04/22/2012 MAZA DO, MARTHA K 786.50 CHEST PAIN 04/22/2012 MAZA DO, MARTHA K 786.50 CHEST PAIN 04/22/2012 ZACH ICT DEVELOPMENT MANAGER, GRISEL S 786.50 CHEST PAIN 04/22/2012 ZACH ICT DEVELOPMENT MANAGER, GRISEL S 786.50 CHEST PAIN 04/22/2012 ZACH ICT DEVELOPMENT MANAGER, GRISEL S 786.50 CHEST PAIN 04/22/2012 ZACH ICT DEVELOPMENT MANAGER, GRISEL S 786.50 CHEST PAIN 04/22/2012 ZACH ICT DEVELOPMENT MANAGER, GRISEL S 786.50 CHEST PAIN 04/22/2012 ZACH ICT DEVELOPMENT MANAGER, GRISEL S 786.50 CHEST PAIN 04/22/2012 ZACH ICT DEVELOPMENT MANAGER, GRISEL S 786.50 CHEST PAIN 04/22/2012 ZACH ICT DEVELOPMENT MANAGER, GRISEL S 786.50 CHEST PAIN 04/22/2012 ZACH ICT DEVELOPMENT MANAGER, GRISEL S 786.50 CHEST PAIN 04/22/2012 ZACH ICT DEVELOPMENT MANAGER, GRISEL S 786.50 CHEST PAIN 04/22/2012 ZACH ICT DEVELOPMENT MANAGER, GRISEL S 786.50 CHEST PAIN 04/22/2012 ZACH ICT DEVELOPMENT MANAGER, GRISEL S 786.50 CHEST PAIN 04/22/2012 ZACH ICT DEVELOPMENT MANAGER, GRISEL S 786.50 CHEST PAIN 04/22/2012 ZACH ICT DEVELOPMENT MANAGER, GRISEL S 786.50 CHEST PAIN 04/22/2012 ZACH ICT DEVELOPMENT MANAGER, GRISEL S 786.50 CHEST PAIN 04/22/2012 ZACH ICT DEVELOPMENT MANAGER, GRISEL S 786.50 CHEST PAIN 04/22/2012 ZACH ICT DEVELOPMENT MANAGER, GRISEL S 786.50 CHEST PAIN 04/22/2012 ZACH ICT DEVELOPMENT MANAGER, GRISEL S 786.50 CHEST PAIN 04/22/2012 ZACH ICT DEVELOPMENT MANAGER, GRISEL S 786.50 CHEST PAIN 04/22/2012 ZACH ICT DEVELOPMENT MANAGER, GRISEL S 786.50 CHEST PAIN 04/22/2012 ZACH ICT DEVELOPMENT MANAGER, GRISEL S 786.50 CHEST PAIN 05/12/2012 MAZA DO, MARTHA K 414.00 CAD 05/12/2012 MAZA DO, MARTHA K 414.00 CAD 05/12/2012 ZACH ICT DEVELOPMENT MANAGER, GRISEL S 414.00 CAD 05/12/2012 ZACH ICT DEVELOPMENT MANAGER, GRISEL S 414.00 CAD 05/12/2012 ZACH ICT DEVELOPMENT MANAGER, GRISEL S 414.00 CAD 05/12/2012 ZACH ICT DEVELOPMENT MANAGER, GRISEL S 414.00 CAD 05/12/2012 ZACH ICT DEVELOPMENT MANAGER, GRISEL S 414.00 CAD 05/12/2012 ZACH ICT DEVELOPMENT MANAGER, GRISEL S 414.00 CAD 05/12/2012 ZACH ICT DEVELOPMENT MANAGER, GRISEL S 414.00 CAD 05/12/2012 ZACH ICT DEVELOPMENT MANAGER, GRISEL S 414.00 CAD 05/12/2012 ZACH ICT DEVELOPMENT MANAGER, GRISEL S 414.00 CAD 05/12/2012 ZACH ICT DEVELOPMENT MANAGER, GRISEL S 414.00 CAD 05/12/2012 ZACH ICT DEVELOPMENT MANAGER, GRISEL S 414.00 CAD 05/12/2012 ZACH ICT DEVELOPMENT MANAGER, GRISEL S 414.00 CAD 05/12/2012 ZACH ICT DEVELOPMENT MANAGER, GRISEL S 414.00 CAD 05/12/2012 ZACH ICT DEVELOPMENT MANAGER, GRISEL S 414.00 CAD 05/12/2012 ZACH ICT DEVELOPMENT MANAGER, GRISEL S 414.00 CAD 05/12/2012 ZACH ICT DEVELOPMENT MANAGER, GRISEL S 414.00 CAD 05/12/2012 ZACH ICT DEVELOPMENT MANAGER, GRISEL S 414.00 CAD 05/12/2012 ZACH ICT DEVELOPMENT MANAGER, GRISEL S 414.00 CAD 05/12/2012 ZACH ICT DEVELOPMENT MANAGER, GRISEL S 414.00 CAD 05/12/2012 ZACH ICT DEVELOPMENT MANAGER, GRISEL S 414.00 CAD 05/12/2012 ZACH ICT DEVELOPMENT MANAGER, GRISEL S 414.00 CAD 12/15/2013 ZACH ICT DEVELOPMENT MANAGER, GRISEL S 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 12/15/2013 ZACH ICT DEVELOPMENT MANAGER, GRISEL S 211.1 BENIGN NEOPLASM OF STOMACH 12/15/2013 ZACH ICT DEVELOPMENT MANAGER, GRISEL S 793.80 ABNORMAL MAMMOGRAM 12/15/2013 ZACH ICT DEVELOPMENT MANAGER, GRISEL S V15.82 NICOTINE ABUSE 12/15/2013 ZACH ICT DEVELOPMENT MANAGER, GRISEL S 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 12/15/2013 ZACH ICT DEVELOPMENT MANAGER, GRISEL S 211.1 BENIGN NEOPLASM OF STOMACH 12/15/2013 ZACH ICT DEVELOPMENT MANAGER, GRISEL S 793.80 ABNORMAL MAMMOGRAM 12/15/2013 ZACH ICT DEVELOPMENT MANAGER, GRISEL S V15.82 NICOTINE ABUSE 12/15/2013 ZACH ICT DEVELOPMENT MANAGER, GRISEL S 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 12/15/2013 ZACH ICT DEVELOPMENT MANAGER, GRISEL S 211.1 BENIGN NEOPLASM OF STOMACH 12/15/2013 ZACH ICT DEVELOPMENT MANAGER, GRISEL S 793.80 ABNORMAL MAMMOGRAM 12/15/2013 ZACH ICT DEVELOPMENT MANAGER, GRISEL S V15.82 NICOTINE ABUSE 12/15/2013 ZACH ICT DEVELOPMENT MANAGER, GRISEL S 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 12/15/2013 ZACH ICT DEVELOPMENT MANAGER, GRISEL S 211.1 BENIGN NEOPLASM OF STOMACH 12/15/2013 ZACH ICT DEVELOPMENT MANAGER, GRISEL S 793.80 ABNORMAL MAMMOGRAM 12/15/2013 ZACH ICT DEVELOPMENT MANAGER, GRISEL S V15.82 NICOTINE ABUSE 12/15/2013 ZACH ICT DEVELOPMENT MANAGER, GRISEL S 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 12/15/2013 ZACH ICT DEVELOPMENT MANAGER, GRISEL S 211.1 BENIGN NEOPLASM OF STOMACH 12/15/2013 ZACH ICT DEVELOPMENT MANAGER, GRISEL S 793.80 ABNORMAL MAMMOGRAM 12/15/2013 ZACH ICT DEVELOPMENT MANAGER, GRISEL S V15.82 NICOTINE ABUSE 12/15/2013 ZACH ICT DEVELOPMENT MANAGER, GRISEL S 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 12/15/2013 ZACH ICT DEVELOPMENT MANAGER, GRISEL S 211.1 BENIGN NEOPLASM OF STOMACH 12/15/2013 ZACH ICT DEVELOPMENT MANAGER, GRISEL S 793.80 ABNORMAL MAMMOGRAM 12/15/2013 ZACH ICT DEVELOPMENT MANAGER, GRISEL S V15.82 NICOTINE ABUSE 12/15/2013 ZACH ICT DEVELOPMENT MANAGER, GRISEL S 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 12/15/2013 ZACH ICT DEVELOPMENT MANAGER, GRISEL S 211.1 BENIGN NEOPLASM OF STOMACH 12/15/2013 ZACH ICT DEVELOPMENT MANAGER, GRISEL S 793.80 ABNORMAL MAMMOGRAM 12/15/2013 ZACH ICT DEVELOPMENT MANAGER, GRISEL S V15.82 NICOTINE ABUSE 12/15/2013 ZACH ICT DEVELOPMENT MANAGER, GRISEL S 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 12/15/2013 ZACH ICT DEVELOPMENT MANAGER, GRISEL S 211.1 BENIGN NEOPLASM OF STOMACH 12/15/2013 ZACH ICT DEVELOPMENT MANAGER, GRISEL S 793.80 ABNORMAL MAMMOGRAM 12/15/2013 ZACH ICT DEVELOPMENT MANAGER, GRISEL S V15.82 NICOTINE ABUSE 12/15/2013 ZACH ICT DEVELOPMENT MANAGER, GRISEL S 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 12/15/2013 ZACH ICT DEVELOPMENT MANAGER, GRISEL S 211.1 BENIGN NEOPLASM OF STOMACH 12/15/2013 ZACH ICT DEVELOPMENT MANAGER, GRISEL S 793.80 ABNORMAL MAMMOGRAM 12/15/2013 ZACH ICT DEVELOPMENT MANAGER, GRISEL S V15.82 NICOTINE ABUSE 12/15/2013 ZACH ICT DEVELOPMENT MANAGER, GRISEL S 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 12/15/2013 ZACH ICT DEVELOPMENT MANAGER, GRISEL S 211.1 BENIGN NEOPLASM OF STOMACH 12/15/2013 ZACH ICT DEVELOPMENT MANAGER, GRISEL S 793.80 ABNORMAL MAMMOGRAM 12/15/2013 ZACH ICT DEVELOPMENT MANAGER, GRISEL S V15.82 NICOTINE ABUSE 12/15/2013 ZACH ICT DEVELOPMENT MANAGER, GRISEL S 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 12/15/2013 ZACH ICT DEVELOPMENT MANAGER, GRISEL S 211.1 BENIGN NEOPLASM OF STOMACH 12/15/2013 ZACH ICT DEVELOPMENT MANAGER, GRISEL S 793.80 ABNORMAL MAMMOGRAM 12/15/2013 ZACH ICT DEVELOPMENT MANAGER, GRISEL S V15.82 NICOTINE ABUSE 12/15/2013 ZACH ICT DEVELOPMENT MANAGER, GRISEL S 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 12/15/2013 ZACH ICT DEVELOPMENT MANAGER, GRISEL S 211.1 BENIGN NEOPLASM OF STOMACH 12/15/2013 ZACH ICT DEVELOPMENT MANAGER, GRISEL S 793.80 ABNORMAL MAMMOGRAM 12/15/2013 ZACH ICT DEVELOPMENT MANAGER, GRISEL S V15.82 NICOTINE ABUSE 12/15/2013 ZACH ICT DEVELOPMENT MANAGER, GRISEL S 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 12/15/2013 ZACH ICT DEVELOPMENT MANAGER, GRISEL S 211.1 BENIGN NEOPLASM OF STOMACH 12/15/2013 ZACH ICT DEVELOPMENT MANAGER, GRISEL S 793.80 ABNORMAL MAMMOGRAM 12/15/2013 ZACH ICT DEVELOPMENT MANAGER, GRISEL S V15.82 NICOTINE ABUSE 12/23/2013 ZACH ICT DEVELOPMENT MANAGER, GRISEL S V58.69 HIGH RISK MEDICATION 12/23/2013 ZACH ICT DEVELOPMENT MANAGER, GRISEL S V58.69 HIGH RISK MEDICATION 12/23/2013 ZACH ICT DEVELOPMENT MANAGER, GRISEL S V58.69 HIGH RISK MEDICATION 12/23/2013 ZACH ICT DEVELOPMENT MANAGER, GRISEL S V58.69 HIGH RISK MEDICATION 12/23/2013 ZACH ICT DEVELOPMENT MANAGER, GRISEL S V58.69 HIGH RISK MEDICATION 12/23/2013 ZACH ICT DEVELOPMENT MANAGER, GRISEL S V58.69 HIGH RISK MEDICATION 12/23/2013 ZACH ICT DEVELOPMENT MANAGER, GRISEL S V58.69 HIGH RISK MEDICATION 12/23/2013 ZACH ICT DEVELOPMENT MANAGER, GIRSEL S V58.69 HIGH RISK MEDICATION 12/23/2013 ZACH ICT DEVELOPMENT MANAGER, GRISEL S V58.69 HIGH RISK MEDICATION 12/23/2013 ZACH ICT DEVELOPMENT MANAGER, GRISEL S V58.69 HIGH RISK MEDICATION 12/23/2013 ZACH ICT DEVELOPMENT MANAGER, GRISEL S V58.69 HIGH RISK MEDICATION 12/23/2013 ZACH ICT DEVELOPMENT MANAGER, GRISEL S V58.69 HIGH RISK MEDICATION 01/25/2014 ZACH ICT DEVELOPMENT MANAGER, GRISEL S 415.19 PULMONARY EMBOLUS 01/25/2014 ZACH ICT DEVELOPMENT MANAGER, GRISEL S 415.19 PULMONARY EMBOLUS 01/25/2014 ZACH ICT DEVELOPMENT MANAGER, GRISEL S 415.19 PULMONARY EMBOLUS 01/25/2014 ZACH ICT DEVELOPMENT MANAGER, GRISEL S 415.19 PULMONARY EMBOLUS 01/25/2014 ZACH ICT DEVELOPMENT MANAGER, GRISEL S 415.19 PULMONARY EMBOLUS 01/25/2014 ZACH ICT DEVELOPMENT MANAGER, GRISEL S 415.19 PULMONARY EMBOLUS 01/25/2014 ZACH ICT DEVELOPMENT MANAGER, GRISEL S 415.19 PULMONARY EMBOLUS 01/25/2014 ZACH ICT DEVELOPMENT MANAGER, GRISEL S 415.19 PULMONARY EMBOLUS 01/25/2014 ZACH ICT DEVELOPMENT MANAGER, GRISEL S 415.19 PULMONARY EMBOLUS 01/25/2014 ZACH ICT DEVELOPMENT MANAGER, GRISEL S 415.19 PULMONARY EMBOLUS 01/25/2014 ZACH ICT DEVELOPMENT MANAGER, GRISEL S 415.19 PULMONARY EMBOLUS 05/25/2014 ZACH ICT DEVELOPMENT MANAGER, GRISEL S 724.3 SCIATICA 05/25/2014 ZACH ICT DEVELOPMENT MANAGER, GRISEL S 724.5 BACK PAIN, GENERAL 05/25/2014 ZACH ICT DEVELOPMENT MANAGER, GRISEL S 724.3 SCIATICA 05/25/2014 [facility] [employer] DEVELOPMENT MANAGER, GRISEL S 724.5 BACK PAIN, GENERAL 05/25/2014 [facility] [employer] DEVELOPMENT MANAGER, GRISEL S 724.3 SCIATICA 05/25/2014 [facility] [employer] DEVELOPMENT MANAGER, GRISEL S 724.5 BACK PAIN, GENERAL 05/25/2014 [facility] [employer] DEVELOPMENT MANAGER, GRISEL S 724.3 SCIATICA 05/25/2014 [facility] [employer] DEVELOPMENT MANAGER, GRISEL S 724.5 BACK PAIN, GENERAL 05/25/2014 [facility] [employer] DEVELOPMENT MANAGER, GRISEL S 724.3 SCIATICA 05/25/2014 [facility] [employer] DEVELOPMENT MANAGER, GRISEL S 724.5 BACK PAIN, GENERAL Procedures Code Description Performed By Performed On Cardiolog Jack Navarro 04/22/2012 19015 EKG, TRACING (IN-HOUSE) 04/28/2012 94685 ROUTINE VENIPUNCTURE 10/28/2013 75630 INR (IN HOUSE) 10/28/2013 2920003 GFR CALC (RESULT ONLY) 10/28/2013 04335 CMP 10/28/2013 13759 LIPID PANEL 10/28/2013 85632 TSH 10/28/2013 85856 CRP HS (CARDIO) 10/28/2013 44735 CBC 10/29/2013 21614 ROUTINE VENIPUNCTURE 10/31/2013 30786 PT/INR 10/31/2013 94660 INR (IN HOUSE) 11/02/2013 48524 INR (IN HOUSE) 11/08/2013 05303 INR (IN HOUSE) 11/11/2013 31683 INR (IN HOUSE) 11/18/2013 63632 INR (IN HOUSE) 12/15/2013 07485 INR (IN HOUSE) 01/06/2014 85577 INR (IN HOUSE) 02/15/2014 69117 INR (IN HOUSE) 03/16/2014 07493 INR (IN HOUSE) 04/18/2014 07652 INR (IN HOUSE) 05/17/2014 75421 MRI PELVIS W/O DYE 06/03/2014 99988 MRI SPINE (LUMBAR) W/O CONTRAST 06/03/2014 29730 INR (IN HOUSE) 06/12/2014 65782 INR (IN HOUSE) 08/07/2014 29607 INR (IN HOUSE) 09/08/2014 Results Test Result [...] Status Pt. Type Provider Facility Loc./Unit Complaint [id number] 10/06/2014 16:16:00 10/06/2014 23:59:59 CLS Outpatient [facility] DEVELOPMENT MANAGERUBALDOGRISEL S [id number] 09/08/2014 11:34:00 09/08/2014 23:59:59 CLS Outpatient [facility] DEVELOPMENT MANAGER GRISEL S [id number] 08/07/2014 10:33:00 08/07/2014 23:59:59 CLS Outpatient [facility] DEVELOPMENT MANAGER GRISEL S [id number] 07/13/2014 10:08:00 07/13/2014 23:59:59 CLS Outpatient [facility] DEVELOPMENT MANAGER GRISEL S [id number] 06/12/2014 15:53:00 06/12/2014 23:59:59 CLS Outpatient [facility] DEVELOPMENT MANAGER GRISEL S [id number] 05/25/2014 10:45:00 05/25/2014 23:59:59 CLS Outpatient [facility] DEVELOPMENT MANAGER, GRISEL S [id number] 05/17/2014 11:27:00 05/17/2014 23:59:59 CLS Outpatient [facility] DEVELOPMENT MANAGER, GRISEL S [id number] 04/18/2014 10:55:00 04/18/2014 23:59:59 CLS Outpatient [facility] DEVELOPMENT MANAGER, GRISEL S [id number] 03/16/2014 09:34:00 03/16/2014 23:59:59 CLS Outpatient [facility] [employer] DEVELOPMENT MANAGER, GRISEL S [id number] 03/02/2014 10:04:00 03/02/2014 23:59:59 CLS Outpatient [facility] DEVELOPMENT MANAGER, GRISEL S [id number] 02/15/2014 16:17:00 02/15/2014 23:59:59 CLS Outpatient [facility] DEVELOPMENT MANAGER, GRISEL S [id number] 01/06/2014 10:08:00 01/06/2014 23:59:59 CLS Outpatient [facility] DEVELOPMENT MANAGER, GRISEL S [id number] 12/23/2013 09:42:00 12/23/2013 23:59:59 CLS Outpatient [facility] I[facility] DEVELOPMENT MANAGERSYEDA ToddA S [id number] 12/15/2013 10:50:00 12/15/2013 23:59:59 CLS Outpatient [facility] DEVELOPMENT MANAGERSYEDAA S [id number] 11/18/2013 09:39:00 11/18/2013 23:59:59 CLS Outpatient [facility] DEVELOPMENT MANAGERUBALDOGRISEL S [id number] 11/11/2013 10:00:00 11/11/2013 23:59:59 CLS Outpatient [facility] DEVELOPMENT MANAGERUBALDOGRISEL S [id number] 11/08/2013 13:36:00 11/08/2013 23:59:59 CLS Outpatient [facility] I[facility] DEVELOPMENT MANAGERSYEDAA S [id number] 11/02/2013 13:33:00 11/02/2013 23:59:59 CLS Outpatient [facility] DEVELOPMENT MANAGERSYEDAA S [id number] 10/31/2013 10:19:00 10/31/2013 23:59:59 CLS Outpatient [facility] I[facility] DEVELOPMENT MANAGERSYEDAA S [id number] 10/28/2013 09:35:00 10/28/2013 23:59:59 CLS Outpatient [facility] DEVELOPMENT MANAGERSYEDAA S [id number] 05/16/2013 10:25:00 05/16/2013 23:59:59 CLS Outpatient ZACHSYEDA PEREZ APRNA S [id number] 08/31/2012 14:22:00 08/31/2012 23:59:59 CLS Outpatient [facility] DEVELOPMENT MANAGERUBALDOGRISEL S [id number] 05/13/2012 17:50:00 05/13/2012 23:59:59 CLS Outpatient MARTHA MAZA DO [id number] 04/22/2012 12:19:00 04/22/2012 23:59:59 CLS Outpatient MARTHA MAZA DO [id number] 05/21/2016 08:45:00 Document Registration
--- NOTE | 2018-10-25 13:36 | Consultation ---
History of Present Illness History of Present Illness Patient Consulted On(ponce/time) 10/25/18 13:30 Date Seen by Provider: October 25, 2018 Time Seen by Provider: 13:30 Reason for Visit: Left distal radius fracture History of Present Illness 68 y/o white female presents with CC of Left wrist/Left ankle pain secondary to a mechanical GLF about 10 days ago. She was subsequently admitted to the hospital secondary to some pulmonary issues. He denies additional musculoskeletal injuries. She also denies head trauma/LOC/neck pain. She has been in the [facility] inpatient rehab unit for the last several days and apparently making good progress. She has no additional complaints. Allergies and Home Medications Allergies Uncoded Allergies: ALL PAIN MEDS (Adverse Reaction, Unknown, NAUSEA VOMITING, 10/13/18) Home Medications Albuterol Sulfate 18 Gm Hfa.aer.ad, 2 PUFF INH Q4H PRN for SHORTNESS OF BREATH, (Reported) Alprazolam 1 Mg Tablet, 1 MG PO TID PRN for ANXIETY, (Reported) Amlodipine Besylate 10 Mg Tablet, 10 MG PO HS, (Reported) Aspirin 81 Mg Tablet.dr, 81 MG PO DAILY, (Reported) Atorvastatin Calcium 40 Mg Tablet, 40 MG PO HS, (Reported) Budesonide/Formoterol Fumarate 10.2 Gm Hfa.aer.ad, 2 PUFF INH BID, (Reported) Gabapentin 400 Mg Capsule, 400 MG PO TID, (Reported) Glycerin 1 Each Supp.rect, 1 SUPP.RECT RC UD PRN for CONSTIPATION, (Reported) Hydrocodone Bit/Acetaminophen 1 Tab Tab, 1-2 EACH PO Q6H PRN for PAIN-MODERATE Prescribed by: YURI WRAY on 10/13/18 1327 Loperamide HCl 2 Mg Tablet, PO UD PRN for DIARRHEA, (Reported) Losartan Potassium 100 Mg Tablet, 100 MG PO DAILY, (Reported) Ondansetron 4 Mg Tab.rapdis, 4 MG PO Q6H PRN for NAUSEA/VOMITING Prescribed by: YURI WRAY on 10/13/18 1327 Polyethylene Glycol 3350 17 Gm Powd.pack, 17 GM PO DAILY PRN for CONSTIPATION- 2ND LINE, (Reported) Quinapril HCl 40 Mg Tablet, 40 MG PO DAILY, (Reported) Ranitidine HCl 150 Mg Tablet, 150 MG PO BID, (Reported) Patient Home Medication List Home Medication List Reviewed: Yes Past Blepngh-Ywwtek-Kpprrq Hx Patient Social History Type Used: Cigarettes Immunizations Up To Date Tetanus Booster (TDap): Unknown Date of Pneumonia Vaccine: October 19, 2016 Past Medical History Surgeries: Yes Gallbladder, Hysterectomy, Oophorectomy COPD Currently Using CPAP: No Currently Using BIPAP: No Cardiac: Yes Hypertension Neuropathy Genitourinary: No Abdominal Hernia, Gall Bladder Disease Musculoskeletal: No Endocrine: No Diabetes, Non-Insulin dep HEENT: Yes Hearing Impairment: Hard of Hearing Cancer: Yes Cervical What Type of Treatment Did You: Chemotherapy, Radiation, Surgical Intervention Psychosocial: Yes Anxiety, Depression Integumentary: No Blood Disorders: No Family Medical History Cardiovascular disease G8 SISTER Colon cancer 19 MOTHER Completed stroke 19 MOTHER Diabetes mellitus SON Hypertension 19 MOTHER SON Respiratory disorder G8 SISTER G8 SISTER SON Review of Systems-General Constitutional: no symptoms reported EENTM: no symptoms reported Respiratory: cough, short of breath, wheezing Cardiovascular: no symptoms reported Gastrointestinal: no symptoms reported Genitourinary: no symptoms reported Musculoskeletal: joint pain, other (Left wrist pain) Skin: no symptoms reported Psychiatric/Neurological: No Symptoms Reported Physical Exam-General Problems Physical Exam Vital Signs Capillary Refill : General Appearance: no apparent distress Eyes: Bilateral Eye Normal Inspection, Bilateral Eye PERRL, Bilateral Eye EOMI HEENT: PERRL/EOMI, normal ENT inspection Neck: non-tender, full range of motion, supple, normal inspection Respiratory: no respiratory distress, no accessory muscle use Cardiovascular: normal peripheral pulses, regular rate, rhythm, no edema Peripheral Pulses: 2+ Dorsalis Pedis (R), 2+ Left Dors-Pedis (L), 2+ Radial Pulses (R), 2+ Radial Pulses (L) Gastrointestinal: non tender, soft Extremities: no calf tenderness, normal capillary refill (LUE: STS in place, motor/sensation grossly intact, all compartments soft, all digits well perfused. 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 Unstable injury. Recommend operative fixation. I counseled her on the risks, benefits, potential complications and expected outcomes of both nonsurgical/surgical treatment options. She understands the significant risks of potential pulmonary complications associated with general anesthesia as well as potential bleeding complications associated with post-op anticoagulation. All of her questions have been answered to her satisfaction. She has given informed written consent to proceed as planned. Admission Status: Other (Outpt Proc) JEANNETTE CUEVAS DO October 25, 2018 13:36
[2018-10-25 15:43] VITALS: BP 140/84
[2018-10-25 15:50] VITALS: BP 134/64
--- NOTE | 2018-10-25 15:52 | Progress Note-Post Operative ---
Post-Operative Progess Note Surgeon (s)/Cloth Layer (s) Surgeon JEANNETTE CUEVAS DO Cloth Layer: Joshua Christie PA-C Pre-Operative Diagnosis Displaced, intraarticular fracture Left distal radius Post-Operative Diagnosis Same Procedure & Operative Findings Date of Procedure 10/25/18 Procedure Performed/Findings ORIF Left distal radius; significant comminution, poor bone quality, 3 major intraarticular fragments Anesthesia Type General; peripheral nerve block Estimated Blood Loss Estimated blood loss (mL): 20 Specimens/Packing Specimens Removed None Packing: None Drains: none Disposition: tolerated the procedure well, to PACU in stable condition JEANNETTE CUEVAS DO October 25, 2018 15:52
[2018-10-25 16:00] VITALS: BP 136/73
[2018-10-25 16:10] VITALS: BP 142/67
[2018-10-25 16:20] VITALS: BP 139/61
[2018-10-25 16:30] VITALS: BP 144/66
--- NOTE | 2018-10-25 19:28 | Diagnostic Imaging Report ---
INDICATION: Fluoroscopy for left wrist surgery. Fluoroscopy was provided in OR during left wrist ORIF. 62 seconds of fluoroscopy was utilized. Two images were obtained demonstrating a volar plate and numerous screws transfixing distal radius fracture. Alignment is anatomic. There appears to be an ulnar styloid fracture. IMPRESSION: Fluoroscopy for distal left radius ORIF. Dictated by: Dictated on workstation # [id number]
--- NOTE | 2018-10-26 10:00 | Anesthesia-General Post-Op ---
General Patient Condition Mental Status/LOC: Same as Preop Cardiovascular: Satisfactory Nausea/Vomiting: Absent Respiratory: Satisfactory Pain: Controlled Complications: Absent Post Op Complications Complications None Follow Up Care/Instructions Patient Instructions None needed. Anesthesia/Patient Condition Patient Condition Patient is doing well, no complaints, stable vital signs, no apparent adverse anesthesia problems. No complications reported per nursing. OSIEL DE DIOS CRNA October 26, 2018 10:00
--- NOTE | 2018-10-27 11:15 | OPERATIVE REPORT ---
DATE OF SERVICE: 10/25/2018 PREOPERATIVE DIAGNOSIS: Displaced, comminuted, intraarticular fracture, left distal radius. POSTOPERATIVE DIAGNOSIS: Displaced, comminuted, intraarticular fracture, left distal radius. PROCEDURE: Open reduction and internal fixation of comminuted, displaced, closed, intraarticular fracture of left distal radius involving three fragments. ATTENDING SURGEON: Dr. Jeannette Cuevas. MANAGER OF BROADCAST CONTENT: Joshua Christie PA-C; MrCaleb Christie's assistance was required secondary to the complexity of the case, to hold the necessary retractors protecting vital neurovascular structures and to increase the efficiency and efficacy of the case; this case would not have been possible without the presence of an fleet administrative assistant. ANESTHESIA: General with peripheral nerve block of the left upper extremity. ESTIMATED BLOOD LOSS: 10 mL. COMPLICATIONS: None. SPECIMENS: None. DRAINS: None. BRIEF HISTORY/INDICATIONS: The patient is a 68-year-old right hand dominant female who sustained a mechanical fall from a standing height approximately 12 days ago. She subsequently complained of severe left wrist pain as well as left ankle pain. She presented to the [facility] Emergency Department for evaluation. Upon presentation, plain radiographs of the patient's left wrist demonstrated a comminuted fracture of the left distal radius. The patient was originally instructed to follow up as an outpatient for definitive orthopedic care. However, she had some pulmonary issues that warranted her being admitted to the hospital for a brief stay followed by admission into the [facility] inpatient rehabilitation unit. On exam, the patient's left upper extremity had a grossly intact motor and sensory function, the skin was intact, there were no open injuries. The patient had significant moderate edema and tenderness to palpation over the dorsum of the left wrist. All compartments were soft and compressible and the hand was well perfused. I did review the imaging studies with the patient, which of course demonstrated a displaced, comminuted intraarticular fracture of the left distal radius. I explained the nature of her injury in detail including the natural history, prognosis and treatment options. I explained that given the amount of comminution and instability present, surgical fixation was indicated. I discussed the risks, benefits, potential complications, expected outcomes, indications and alternatives of the treatment recommendation in detail. Those risks that were discussed included significant bleeding, infection, damage to surrounding neurovascular structures, irritation and potential failure of the hardware, malunion, nonunion, potential serious reactions to anesthesia, and potential need for secondary surgical procedures. The patient gave informed consent to proceed as planned after all of her questions were answered to her satisfaction. PROCEDURE NOTE: After correctly identifying the patient as the patient in the preoperative holding area after her left upper extremity was appropriately marked, she was transferred to the operating room. Once in the operating room, she had successful induction of general anesthesia followed by peripheral nerve block. The patient was placed in the supine position on a radiolucent OR table with the left upper extremity on a radiolucent arm table. All bony prominences were meticulously padded. The left upper extremity was then prepped and draped in the routine sterile fashion. Prior to beginning the case, we completed an operating room timeout with all parties involved in the case in agreement and verified appropriate infusion of prophylactic antibiotics. Sterile marking pen was used to pricila out the planned volar [place] approach to the left wrist. This marking was centered over the FCR tendon. Using a 10 blade scalpel, an incision was made through the skin and subcutaneous tissue. The FCR sheath was then incised with a 15 blade scalpel and the FCR tendon was retracted radially. This was followed by incision of the dorsal aspect of the FCR sheath to expose the pronator quadratus. Pronator quadratus was then released from its radial insertion with a 15 blade scalpel and then the insertion of the brachioradialis was also released from the radial styloid. The fracture was then identified and debrided in the usual fashion so as to minimize periosteal stripping. The displaced comminuted fracture was then reduced and then held in place with a 2.0 K-wire. C-arm fluoroscopy confirmed that the fracture was acceptably aligned in both the coronal and lateral planes. We then applied [employer] variable angle volar distal radius plate to the volar aspect of the distal radius. Plates once centered in an appropriate position as verified by C-arm fluoroscopy, was temporarily held in place with K-wires through the plate. We then began to apply fixation through the plate with a series of locking screws. Once fixation was applied to the distal aspect of the plate, the shaft of the plate was then reduced to the bone and then fixation was applied through the shaft of the plate with a series of locking screws as well. Once fixation was complete, AP and lateral C-arm fluoroscopy confirmed that all hardware was in appropriate position and that the fracture was acceptably reduced and aligned which included the intra-articular components. Meticulous hemostasis was achieved and the wound was irrigated with copious amounts of sterile saline. Closure was then completed with 0 Vicryl for the deep fascia, 3-0 Vicryl for the subcutaneous tissue, and 3-0 nylon for the skin. The patient had a sterile dressing applied followed by a well molded resting volar splint. She was then awakened from general anesthesia in the operating room without incident and then transferred to the PACU in stable condition. She tolerated the procedure quite well without complications. All counts were correct at the end of the case. Job ID: [id number] DocumentID: [id number] Dictated Date: 10/27/2018 08:22:38 Roll Form Operator Date: 10/27/2018 11:14:48 Dictated By: JEANNETTE CUEVAS
== END ==
LOC: SDC 08:22
PROVIDERS: ATTEND Orthopaedic Surgery Orthopaedic Trauma
DX: S52.572A Other intraarticular fracture of lower end of left radius, initial encounter for closed fracture (principal); M25.572 Pain in left ankle and joints of left foot; J44.9 Chronic obstructive pulmonary disease, unspecified; I10 Essential (primary) hypertension; E11.40 Type 2 diabetes mellitus with diabetic neuropathy, unspecified; H91.90 Unspecified hearing loss, unspecified ear; F41.9 Anxiety disorder, unspecified; K21.9 Gastro-esophageal reflux disease without esophagitis; G47.33 Obstructive sleep apnea (adult) (pediatric); F32.9 Major depressive disorder, single episode, unspecified; I25.10 Atherosclerotic heart disease of native coronary artery without angina pectoris; I25.2 Old myocardial infarction; F17.210 Nicotine dependence, cigarettes, uncomplicated; W19.XXXA Unspecified fall, initial encounter; Z92.21 Personal history of antineoplastic chemotherapy; Z92.3 Personal history of irradiation; Z79.82 Long term (current) use of aspirin; Z79.899 Other long term (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; Z88.5 Allergy status to narcotic agent; Z85.41 Personal history of malignant neoplasm of cervix uteri